=== PATIENT | male | born 1965 | race Caucasian/White ===

== ENCOUNTER 2025-03-16 13:44 | Emergency (ER) | payer BC, SELFPAY ==
[2025-03-16 13:49] VITALS: BP 154/90
--- NOTE | 2025-03-16 14:14 | ED.GENMED ---
History of Present Illness
General
Chief Complaint: Skin Problem
Time Seen by Provider: 03/16/25 14:14
History of Present Illness
History of Present Illness:
TIME OF INITIAL EVALUATION
- 2:15 PM
REVIEW OF OLD RECORDS
- The patient has a history of COPD, high blood pressure, diabetes, history of alcohol abuse. I reviewed old records, the patient was admitted with COPD exacerbation in July 2023.
Note:
CHIEF COMPLAINT(S)
Rod and blisters on both feet following suspected poison albaro exposure, with significant discomfort and swelling in one foot.
HISTORY OF PRESENT ILLNESS
The patient is a 60-year-old male who presented with rod and blisters on both feet after a suspected exposure to poison albaro during a fishing trip approximately three days ago. The patient reported that blisters formed on both feet and noted
discomfort and pain in the affected areas. He attempted to manage the blisters by popping them himself and mentioned applying salt, which caused a burning sensation. The blisters became more pronounced and he sought medical attention due to concern
about the condition and to determine whether further intervention was necessary.
On examination, the blisters appear consistent with superficial partial thickness rod, possibly early second-degree rod. The patient does not report any fever or signs of systemic infection. One blister was incised to evaluate fluid content,
which appeared clear, indicating no current infection. The patient expressed difficulty walking and standing due to pain and inquired about taking time off work for recovery.
Notably, the patient mentioned chronic swelling in one foot, unrelated to the blistering, which he attributes to a previous diagnosis of diabetes. He has not undergone recent blood work but expressed concern about his blood sugar management and was
noted to be experiencing hyperglycemia with a fingerstick showing blood sugar levels over 200 mg/dL.
CHRONIC MEDICAL CONDITIONS SIGNIFICANTLY AFFECTING CARE
Diabetes mellitus, previously diagnosed, currently with poor control as suggested by a fingerstick glucose level over 200 mg/dL. The patient has also noted chronic swelling in one foot, unrelated to the current rod.
PHYSICAL EXAM
General: Alert, in mild distress due to discomfort.
Skin: Warm, dry with blistering consistent with superficial partial thickness rod on both feet. There is sharp demarcation of erythema at mid thigh bilaterally on down to the feet consistent with superficial and superficial partial thickness
rod; one blister drained and clear fluid observed.
Cardiovascular: Mild bilateral right greater than left pedal edema
Neurological: Alert, oriented to person, place, time, and situation.
Musculoskeletal: Difficulty standing and walking reported due to foot discomfort, chronic appearing deformity noted at the right foot
PROBLEM LIST
Acute Problems:
- Superficial and superficial partial thickness rod with blistering on both feet.
- Pain and discomfort related to rod.
Chronic Problems:
- Possible diabetes mellitus
- Chronic swelling in one foot.
PLAN
- Application of Silvadene cream for topical antimicrobial treatment to prevent infection in the burn areas.
- Dressing applied to affected areas to protect from further trauma and infection.
- Prescription for additional Silvadene cream to be sent to the pharmacy, noted to be utilized as needed depending on burn healing status.
- Recommend rest and limited weight-bearing activity to reduce discomfort, with a note provided for time off work as requested.
- The patient advised to follow up with their primary care provider for further diabetes management, evaluation of chronic foot swelling, and potential adjustment of medications.
DIFFERENTIAL DIAGNOSIS
The Differential Diagnosis includes, in no particular order and is not limited to:
1. Superficial partial thickness rod (early second-degree) due to sun exposure
2. Contact dermatitis.
3. Secondary infection of skin lesions.
4. Diabetic neuropathy contributing to foot swelling.
5. Venous insufficiency causing chronic swelling.
6. Cellulitis as a potential if symptoms of infection develop.
7. Lymphedema.
8. Trauma causing foot swelling.
9. Gout.
10. Peripheral arterial disease with edema.
RADIOLOGY
- Not indicated
EKG
- Not indicated
LABS
- Blood glucose obtained as patient has not had labs in many months
UPDATE
- At patient's request, I did incise the largest blister over the lateral aspect of the left forefoot�this fluid was serous and no evidence of pus
SUMMARY OF ENCOUNTER
The patient, a 60-year-old male, was seen in the emergency department for rod and blisters on both feet following suspected poison albaro exposure during a fishing trip. The patient had attempted to manage the blisters at home by popping them and
applying salt, which worsened the condition. On examination, the blisters were consistent with superficial partial thickness rod. The patient expressed pain and difficulty walking, along with concern over the potential for infection. No signs of
systemic infection were observed. A note was provided for time off work due to pain and mobility issues.
ASSESSMENT
The patient presented with superficial partial thickness rod with blistering on both feet due to suspected poison albaro exposure. The rod were assessed to be early second-degree without current infection signs. One blister was incised and drained,
with clear fluid indicating no infection.
PLAN
- Apply a topical antimicrobial cream (Silver sulfadiazine) to the affected burn areas to prevent infection.
- Protective dressing applied to prevent further trauma and infection.
- Prescription for Silver sulfadiazine cream sent to the pharmacy for ongoing use.
- Advise patient to rest, limit weight-bearing activities, and follow provided note for work leave.
- Recommend follow-up with the primary care provider for further evaluation and management of diabetes and chronic foot swelling.
PATIENT EDUCATION AND COUNSELING
The patient was educated on proper burn care, including the application of Silver sulfadiazine cream and maintaining clean, dressed wounds. The importance of proper diabetes management to reduce the risk of complications, including delayed healing
and infection, was discussed.
FOLLOW-UP INSTRUCTIONS
The patient was advised to schedule a follow-up visit with their primary care provider for continued diabetes care and evaluation of chronic foot swelling. Work note given
MEDICATION RECONCILIATION
- Silver sulfadiazine cream: Prescription provided for topical application to prevent infection in burn areas.
MEDICAL DECISION MAKING
- Number and Complexity of Problems Addressed:
Chronic conditions affecting care include diabetes mellitus with poor glycemic control and chronic foot swelling. Differential diagnoses considered include superficial partial thickness rod, contact dermatitis, secondary infection of skin lesions,
among others.
- Data:
External records were not explicitly reviewed. The patients medical history and current conditions were considered.
My independent interpretation was based on the clinical assessment of burn severity and patient medical history.
- Risk:
Due to the patients diabetes and burn injuries, there is a moderate risk of complications if proper care and infection prevention strategies are not followed. Prescription medication was provided for burn care.
DIAGNOSIS
- Superficial partial thickness rod, unspecified (T30.0)
Past History
Past History
ED Past Medical History: COPD, HTN, Hypercholesterolemia, NIDDM (Diet Controlled), Psychiatric and Other (GI bleeding, PNA, Alcohol abuse, peripheral neuropathy)
ED Past Surgical History: Orthopedic
Social History
Tobacco: Smoker
Alcohol: Daily (Patient denies alcohol use to me)
Drug: None
Personal:
Living: alone
Employment: Employed
Family History
Family History: Other (Noncontributory)
Phy Exam
Physical Exam
Physical Exam:
See HPI
Course
Orders/Labs/Results
Orders:
Orders
03/16/25 14:22
Bedside Glucose- Treatment ONCE
Silver Sulfadiazine [Silvadene] See Dose Instructions TOPICAL NOW STA
Abnormal Lab Results
03/16/25
14:31
POC Glucose 121 H mg/dl
(70-99)
Vital Signs
Initial and Last Documented VS:
Initial Vital Signs
Temp Pulse Resp BP Pulse Ox
36.3 C 87 18 154/90 85
03/16/25 13:49 03/16/25 13:49 03/16/25 13:49 03/16/25 13:49 03/16/25 13:49
Last Documented Vital Signs
Temp Pulse Resp BP Pulse Ox
36.3 C 87 18 154/90 93
03/16/25 13:49 03/16/25 13:49 03/16/25 13:49 03/16/25 13:49 03/16/25 14:16
*Pulse Oximetry
SaO2: 93
Nasal Cannula flow liters per minute: 2
Oxygen Mode of Delivery: Room air
Patient hypoxic: yes (Patient is chronically on nasal cannula oxygen related to COPD and has no new shortness of breath)
*Critical Care Note
Total Time (30-74mins, 75-104mins- exclusive of procedures): Not Applicable
ED Attending Note
-
Portions of this chart may have been created with voice recognition software.� Occasional wrong word or��sound alike� substitutions may have occurred due to the inherent limitations of voice recognition software.
Discharge Plan
Departure
Patient Disposition: Home (Routine Discharge)
Date of Disposition: 03/16/25
Time of Disposition: 14:55
Patient with high blood pressure during this ER visit?: Yes
Discharge Problem:
Superficial partial thickness burn of foot
Instructions: Sunburn ED, BLOOD PRESSURE
Prescriptions:
New
silver sulfadiazine [Silvadene] 1 % cream
1 applic topical BID Qty: 50 0RF
No Action
zolpidem 5 mg tablet
5 mg PO HS PRN (Reason: SLEEP)
Rx Instructions:
07/14/2023, patient filled this medication on 03/02/2023 for 30 tablets according to PDMP.
trazodone 50 mg Tablet
50 mg PO HS Qty: 30 2RF
cefdinir 300 mg Capsule
300 mg PO Q12 Qty: 4 0RF
bupropion HCl 150 mg Tablet Extended Release 24 Hr
150 mg PO DAILY Qty: 30 2RF
metronidazole 500 mg tablet
500 mg PO Q8H 2 Days Qty: 6 0RF
atorvastatin 10 mg Tablet
10 mg PO DAILY Qty: 30 2RF
aspirin [Children's Aspirin] 81 mg Tablet,Chewable
81 mg PO DAILY Qty: 30 2RF
albuterol sulfate 90 mcg/actuation HFA aerosol inhaler
2 puff inhalation Q6H PRN (Reason: shortness breath) Qty: 8.5 0RF
verapamil 120 mg Tablet
120 mg PO DAILY Qty: 30 2RF
prednisone 10 mg Tablet
See Rx Instructions .ROUTE .COMPLEX Qty: 30 0RF
Rx Instructions:
Take By Mouth:
40 mg daily x3 days, 30 mg daily x3 days,
20 mg daily x3 days, 10 mg daily x3 days.
Referrals:
Germania Ferguson MD [Family Provider, Internal Medicine]
Stand Alone Forms: Return to Work
Activity Restrictions/Additional Instructions:
Your blood sugar is relatively normal at 121 therefore I feel that we can hold off on oral antibiotics. I am placing you on Silvadene which is basically a topical antibiotic. This would help prevent infection. I see no sign of infection
currently. I recommend that you use the Silvadene twice daily over the next several days. Return here if worse or other concerns.
Interventions
Interventions:
*Risk Screen - Suicide Last Done: 03/16/25 13:49
*General Assessment Last Done: 03/16/25 13:49
*Neglect/Abuse Screening Last Done: 03/16/25 13:49
*ED- Fall Risk Assessment Last Done: 03/16/25 14:11
*ED COVID-19 Vaccine History Last Done: 03/16/25 14:11
ED-Skin Assessment Last Done: 03/16/25 14:11
Discharge Date and Time
Print Language: [id number]
[2025-03-16 14:33] LABS: Glucose - Point of Care 121 mg/dl (70-99)
== END 2025-03-16 15:00 | disposition home or self-care (01) ==
LOC: EMR 13:44
PROVIDERS: EMERGENCY PHYSICIAN Emergency Medicine; FAMILY PHYSICIAN Student in an Organized Health Care Education/Training Program
DX: T25.229A Burn of second degree of unspecified foot, initial encounter (principal); X58.XXXA Exposure to other specified factors, initial encounter; J44.9 Chronic obstructive pulmonary disease, unspecified; I10 Essential (primary) hypertension; F10.10 Alcohol abuse, uncomplicated; E11.42 Type 2 diabetes mellitus with diabetic polyneuropathy; E78.00 Pure hypercholesterolemia, unspecified; F17.200 Nicotine dependence, unspecified, uncomplicated
CPT/HCPCS: 99282; 82962

== ENCOUNTER → 2025-03-27 08:00 | Outpatient (REF) | payer BC, SELFPAY | LOC: WOUND 08:00 | PROVIDERS: ATTENDING PHYSICIAN Surgery; FAMILY PHYSICIAN Student in an Organized Health Care Education/Training Program | DX: T25.622A Corrosion of second degree of left foot, initial encounter (principal); T25.231A Burn of second degree of right toe(s) (nail), initial encounter; I10 Essential (primary) hypertension; E11.42 Type 2 diabetes mellitus with diabetic polyneuropathy; L55.9 Sunburn, unspecified | CPT/HCPCS: 99203 ==

== ENCOUNTER → 2025-04-03 09:10 | Outpatient (REF) | payer BC, SELFPAY | LOC: WOUND 09:10 | PROVIDERS: ATTENDING PHYSICIAN Surgery; FAMILY PHYSICIAN Student in an Organized Health Care Education/Training Program | DX: T25.622A Corrosion of second degree of left foot, initial encounter (principal); T25.231A Burn of second degree of right toe(s) (nail), initial encounter; I10 Essential (primary) hypertension; E11.42 Type 2 diabetes mellitus with diabetic polyneuropathy | CPT/HCPCS: 99212 ==

== ENCOUNTER 2025-06-25 00:23 | Inpatient (IN) | payer BC, SELFPAY ==
[2025-06-24 20:45] VITALS: BMI 20.5
[2025-06-24 20:57] VITALS: BP 127/83
[2025-06-24 21:06] LABS: Hematocrit 55.6 % (39.0-52.0); Hemoglobin 16.6 g/dL (13.0-18.0); Mean Corp Hgb Conc. 29.9 g/dL (33.0-37.0); Mean Corpuscular Volume 98.9 fL (80.0-94.0); Nucleated Red Blood Cells % 0 % (-); Platelet Count 235 10^3/uL (130-400); Red Cell Dist. Width 15.0 % (11.5-14.5)
[2025-06-24 21:32] LABS: Troponin I 0.029 ng/ml
[2025-06-24] MEDS: VENTOLIN NEBULES 7.5 MG INH ×2 (21:33→23:47)
[2025-06-24] MEDS: DUONEB 3 ML INH (21:33)
[2025-06-24 21:34] LABS: ALT (SGPT) 18 U/L (0-50); AST (SGOT) 34 U/L (17-59); Albumin 3.6 g/dl (3.5-5.0); Alkaline Phosphatase 60 U/L (38-126); Blood Urea Nitrogen 11 mg/dl (9-20); Calcium 9.2 mg/dl (8.4-10.2); Chloride 90 mmol/L (98-107); Estimated Creatinine Clearance > 125 ml/min; Glucose 144 mg/dl (70-99); Potassium 4.4 mmol/L (3.5-5.1); Sodium 135 mmol/L (135-145); Total Protein 6.6 g/dl (6.3-8.2); eGFR > 60.00
[2025-06-24] MEDS: DECADRON 10 MG IV (21:34)
[2025-06-24 21:45] LABS: Carbon Dioxide 47 mmol/L (22-30)
[2025-06-24 22:26] VITALS: BP 128/93
[2025-06-24 23:00] VITALS: BP 126/77
--- NOTE | 2025-06-24 23:09 | ED.GENMED ---
History of Present Illness
General
Chief Complaint: Chest Pain
Source: patient and family
Exam Limitations: none
Time Seen by Provider: 06/24/25 21:19
History of Present Illness
History of Present Illness:
60-year-old male increased shortness of breath today. No preceding URI symptoms. Some episodes of sharp localized chest pain. No true pleuritic pain. Patient on oxygen at morning and night.
Past History
Past History
ED Past Medical History: COPD, HTN, Hypercholesterolemia, NIDDM (Diet Controlled), Psychiatric and Other (GI bleeding, PNA, Alcohol abuse, peripheral neuropathy)
ED Past Surgical History: Orthopedic
Social History
Tobacco: Smoker
Alcohol: Daily (Patient denies alcohol use to me)
Drug: None
Personal:
Living: alone
Employment: Employed
Family History
Family History: Other (Noncontributory)
Review of Systems
Review of Systems
All Other Systems: Not applicable
Constitutional: Denies fever
ABD/GI: Reports no symptoms
Phy Exam
Physical Exam
Physical Exam:
GENERAL: Alert and oriented. Mild tachypnea at rest and with speaking
EYE: Orbits normal.
NECK: Supple, no significant adenopathy.
ENT: Pharynx without erythema
CARDIAC: Regular rate and rhythm without any obvious murmurs.
LUNGS: Mild diffuse expiratory wheezing and decreased breath sounds diffusely. Mild tachypnea
ABDOMEN: Soft, without focal tenderness or distention
NEUROLOGICAL: Alert and oriented , grossly non-focal
SKIN: Warm and dry, no rash or lesion, no discoloration, skin intact.
MUSCULOSKELETAL: Chronic edema to the left ankle
PSYCH: Normal and appropriate interaction.
Scores
Heart Score for Chest Pain Patients
STEMI patient?: Not applicable
Course
Orders/Labs/Results
Orders:
Orders
06/24/25 20:44
Electrocardiogram (*1) Urgent
Reason for Study: Chest Pain
Cardiac Monitoring- Treatment ONCE
EKG- Treatment ONCE
IV Insert/Care/Rem.- Treatment PRN
O2 Therapy [RESP] Urgent
Titrate/Wean O2 to maintain O2 sat greater than (%): 90
Special Instructions: Maintain sats >/=90%
Pulse Ox/spot Check [RESP] Urgent
Quantity: 1
Special Instructions: ON ROOM AIR
06/24/25 20:59
Complete Blood Count/With Diff Urgent
Comprehensive Metabolic Panel Urgent
Troponin I Urgent
CXR Port [CR Chest Portable - 1 View] Urgent
Comment:
Reason For Exam: sob
Reason Study Needs to be Portable: Patient Unstable
06/24/25 21:25
IV Insert/Care/Rem.- Treatment PRN
Albuterol Sulfate [Ventolin Nebules] 7.5 mg INH R NOW STA
Dexamethasone Sod Phosphate [Decadron] 10 mg IV NOW STA
Ipratropium/Albuterol Sulfate [Duoneb] 3 ml INH R NOW STA
Pulse Ox/cont/shift [RESP] Stat
Quantity: 1
06/24/25 23:05
COVID-19 Antigen Urgent
Source: Nasal Swab
06/24/25 23:41
Albuterol Sulfate [Ventolin Nebules] 7.5 mg INH R NOW STA
06/25/25 00:08
Admit/Transfer Patient As Directed
Co-Sign Provider:
Level of Care: Inpatient admission
Assign to:: Telemetry
Physician / Group: Nam
Diagnosis: AE-COPD
Reason for Telemetry: Arrhythmia
Date to Stop Telemetry: 06/28/25
Time to Stop Telemetry: 11:00
Reason for Hospitalization: AE-COPD
Expected length of stay greater than two midnights?: Yes
ELOS- Estimated Length of Stay in days: 3
I certify the patient meets the requirements for IP care: Yes
PRN Pain Medication Management As Directed
May give lesser potent ordered pain med per pt: Yes
preference::
Protocol:: Medication orders for pain may be administered in a
manner that supports deferring to patient preference
when the pt is:
- Requesting an ordered lesser potent pain medication.
Least to most potent pain medications are defined
as: acetaminophen < NSAID < tramadol < opioids
(morphine, oxycodone, hydromorphone).
- Requesting a lesser dose of the same medication IF
ORDERED.
- Requesting a less intrusive route of administration
if both routes are prescribed by the provider (PO <
IV).
06/25/25 00:09
Code Status As Directed
Resuscitation Status: Full Code
06/25/25 00:25
Acetaminophen [Tylenol] 650 mg PO Q4HPRN PRN
Albuterol Nebs [Ventolin Nebules] 2.5 mg INH R Q4HPRN PRN
Dextrose 50%-Water [Dextrose 50% Syringe] 12.5 grams IV [id number] PRN
Glucagon [GlucaGen] 1 mg IM PRN PRN
06/25/25 00:25
Activity As Directed
Activity Level: Ambulate
With Assistance
Bedside Glucose Monitoring As Directed
Frequency: AC&HS
Additional Instructions:: Change to q6h if pt on TPN, tube feeding or not eating
Bladder Scan As Directed
Follow Bladder Retention/Intermittent Cath Algorithm?: Yes
PRN if no void in __ hours: 6
Frequency: Per Retention Algorithm
If Bladder Scan Result >: 400
then:: Straight cath
EKG with chest pain [ECG as needed] As Directed
ECG as needed for:: Chest Pain
I/O [Intake/ Output] As Directed
Frequency: Per unit guidelines
Straight Cath As Directed
Frequency: Per Retention Algorithm
Additional Instructions: straight cath as needed per acute urinary retention algorithm for 24 hrs
Additional Instructions: for bladder scan greater than 400 mL
Vital Signs As Directed
Frequency: Per unit guidelines
Weight As Directed
Frequency: Daily
Oxygen Therapy [O2 Therapy] [RESP] Routine
Titrate/Wean O2 to maintain O2 sat greater than (%): 94
DX Deep Vein Thrombosis Video Routine
06/25/25 00:27
ABG [Arterial Blood Gas] Urgent
%Oxygen/Room Air: RA
06/25/25 Breakfast
2000 calorie (17 carb) Diabetic
Basic Metabolic Panel IN AM
Complete Blood Count/No Diff IN AM
Glycohemoglobin (HgbA1c) IN AM
06/25/25 07:30
Insulin Aspart Corrective Low [Novolog Flexpen-Low Resistance] See Protocol SC AC
06/25/25 08:00
Budesonide [Pulmicort] 0.5 mg INH R BID
Ipratropium/Albuterol Sulfate [Duoneb] 3 ml INH R QID
MethylPREDNISolone PF [Solu-Medrol Pf] 40 mg IV Q12H
06/25/25 18:00
Enoxaparin Sodium [Lovenox] 40 mg SC QPM
06/28/25 11:00
DC Protocol for Telemetry ONCE
Abnormal Lab Results
06/24/25
20:59
Hct 55.6 H %
(39.0-52.0)
MCV 98.9 H fL
(80.0-94.0)
MCHC 29.9 L g/dL
(33.0-37.0)
RDW 15.0 H %
(11.5-14.5)
Absolute Monos (auto) 0.7 H 10^3/uL
(0.1-0.6)
Chloride 90 L mmol/L
(98-107)
Carbon Dioxide 47 H mmol/L
(22-30)
Creatinine 0.6 L mg/dL
(0.7-1.3)
Glucose 144 H mg/dl
(70-99)
06/24/25 20:59
06/24/25 20:59
Vital Signs
Initial and Last Documented VS:
Initial Vital Signs
Temp Pulse Resp Pulse Ox
98.2 F 111 18 90
06/24/25 20:47 06/24/25 20:47 06/24/25 20:47 06/24/25 20:47
Last Documented Vital Signs
Temp Pulse Resp BP Pulse Ox
98.2 F 109 16 127/83 91
06/24/25 20:47 06/24/25 20:57 06/24/25 20:57 06/24/25 20:57 06/24/25 23:10
*Radiology
Radiology exam reviewed: preliminary read by ED provider (No acute findings) and radiology read reviewed (Hyperinflation.)
*Pulse Oximetry
SaO2: 91
Nasal Cannula flow liters per minute: 4
Patient hypoxic: yes
*EKG
Interpreted by ED Provider?: Yes
Interpretation: abnormal
Comparison EKG: changes noted
Heart Rate: 113
Rate: tachycardiac
Rhythm: sinus
Bell: normal axis
Interval: normal interval
QRS Pattern: normal QRS
Ischemia: no ischemia
*Technical Account Representative Interpretation
Rate: normal
Interpretation: normal
Heart Rate: 96
Rhythm: sinus
*Critical Care Note
Total Time (30-74mins, 75-104mins- exclusive of procedures): Not Applicable
Update Note
Update Note:
No significant change after multiple nebulizers. Still diffuse expiratory wheezing. Warrants admission. COVID-negative chest x-ray stable. Highly doubt pulmonary emboli
ED Attending Note
-
Portions of this chart may have been created with voice recognition software.� Occasional wrong word or��sound alike� substitutions may have occurred due to the inherent limitations of voice recognition software.
Discharge Plan
Departure
Patient Disposition: Admit
Date of Disposition: 06/24/25
Time of Disposition: 23:41
Presentation/result/management discussed w/ accepting MD/DO: Hospitalist
Discharge Problem:
Respiratory distress/COPD exacerbation
Interventions
Interventions:
*Risk Screen - Suicide Last Done: 06/24/25 20:52
*General Assessment Last Done: 06/24/25 20:52
*Neglect/Abuse Screening Last Done: 06/24/25 20:52
*ED- Fall Risk Assessment Last Done: 06/24/25 20:52
*ED COVID-19 Vaccine History Last Done: 06/24/25 20:52
*ED Influenza Vaccine History Last Done: 06/24/25 20:52
ED- Cardiac Assessment Last Done: 06/24/25 20:55
[2025-06-24 23:24] LABS: COVID-19 Antigen Negative (Negative)
[2025-06-25] VITALS (15 sets, daily range): BP systolic 116–157; BP diastolic 70–98; PULSE 94; O2SAT 95; BMI 20.5; BMI 18.7
--- NOTE | 2025-06-25 00:13 | HPS.HSE ---
Family Physician
-
Family Physician: Germania Ferguson MD
Chief Complaint
-
SOB
History of Present Illness
Patient is a 60y M with PMH significant for COPD, hypertension and DM-II who presents to ED complaining of SOB. Patient states that he has had progressive/ gradually worsening SOB over the past 8 months or so. he notes that he has been without
medications of any kind for the past 8 months as he has not had insurance coverage. He recently obtained insurance. His dyspnea has worsened and he presents to the ED this evening for further evaluation.
Patient states that he has been using Primatene Mist inhalers PRN. No other current medications.
He denies any cough, fevers / chills, chest pain, etc.
Medical History
Past Medical History
Past Medical History: Reports Other
Additional Past Medical History:
Essential Hypertension
Hyperlipidemia
Diabetes Mellitus
Peripheral Neuropathy
COPD
GERD
Anxiety/Depression
Alcohol Use Disorder - Sober since Aug 2022
Cavitary Pneumonia - 2022
Past Surgical History: Reports Other
Additional Past Surgical History:
Right TKA
Carpal Tunnel Release (x 2)
Social History
Tobacco: Former Smoker ((Half Pack per Day). > 40 pack years total use. Quit smoking 1 year ago.)
Alcohol: Former (History of heavy alcohol use. None since 08/2022.)
Family History
Family History: Other (Mother: CVA Father: Pancreatic Cancer)
Allergies / Home Medications
Allergies reflects when Allergies were last updated in [employer].
Home Medications with original date entered in [employer]
Allergy/Medication List:
Allergies
Allergy/AdvReac Type Severity Reaction Status Date / Time
Fish Containing Products Allergy Swelling/burning Verified 03/16/25 13:48
sensation
in throat
Penicillins Allergy Itching/scratchy Verified 03/16/25 13:48
throat 40
years
ago/cefepime
04/04/22
admiss
Home Medications
No Meds [No Current Medications] 06/25/25
Review of Systems
-
History Source: Patient
A 12 point ROS was completed and negative except as noted: Yes
Constitutional: Reports Fatigue; Denies Fever or Chills
Respiratory: Reports Trouble Breathing; Denies Cough or Hemoptysis
Cardiac: Denies Chest Pain or Palpitations
Abdomen/GI: Denies Abdominal Pain, Nausea, Vomiting or Diarrhea
: Denies Dysuria, Frequency or Flank Pain
Musculoskeletal: Denies Joint Pain or Edema
Neurological: Denies Dizzy or Headache
Psych: Denies Depression or Anxiety
Physical Exam
Vital Signs
Vital Signs
Temp Pulse Resp BP Pulse Ox
98.2 F 109 16 127/83 91
06/24/25 20:47 06/24/25 20:57 06/24/25 20:57 06/24/25 20:57 06/24/25 23:10
Physical Exam
General: Other (60y M in mild distress due to SOB.)
HEENT: Moist mucous membranes and Other (Neck supple.)
Respiratory: Other (Diffuse expiratory wheezes and scattered rhonchi. No rales.)
Cardiac: S1/S2 and Regular Rhythm; No Murmur
GI: Soft, Non Tender, Non Distended and Normal Bowel Sounds
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
Neuro: AO x 3
Laboratory Results
-
06/24/25 20:59
06/24/25 20:59
Laboratory Results
Total Bilirubin 0.9 mg/dl (0.2-1.3) 06/24/25 20:59
AST 34 U/L (17-59) 06/24/25 20:59
ALT 18 U/L (0-50) 06/24/25 20:59
Alkaline Phosphatase 60 U/L (38-126) 06/24/25 20:59
Troponin I 0.029 ng/ml 06/24/25 20:59
Impression/Plan
-
A/P: Patient is a 60y M with PMH significant for COPD, hypertension and DM-II who presents to ED complaining of 8 months of progressive SOB.
AE-COPD
Acute Hypoxemic Respiratory Failure secondary to the above
Chronic Hypoxemic and Hypercapnic Respiratory Insufficiency
- Admit for further evaluation and treatment.
- Patient with hypoxemia with RA SpO2 = 84% on arrival requiring supplemental O2.
- Metabolic alkalosis suggestive of chronic hypercapnia.
- Polycythemia suggestive of chronic hypoxemia.
- Check ABG now for further evaluation.
- IV steroid, nebs, budesonide, O2 support, etc.
- +/- NIPPV depending on ABG results.
- Follow for clinical improvement.
- Restart maintenance medication regimen for COPD and other chronic conditions.
Benign Hypertension
- BP not elevated at present despite not being on usual medications.
- Monitor for now and begin antihypertensive medications if necessary.
DM-II
- Not significantly hyperglycemic at present.
- Follow glucose and cover with SSI as needed.
- Update A1C.
DVT Prophylaxis: Lovenox
Code Status: Full
[2025-06-25 00:39] LABS: B.E. 17.2 mmol/L; O2 Saturation % 92.9 % (94-98); PO2 62 mmHg (83-108)
[2025-06-25 00:41] LABS: HCO3 46.9 mmol/L (21-28); PCO2 74 mmHg (35-48)
--- NOTE | 2025-06-25 00:58 | RESPNOTE ---
received message from ED RN stating MD ordered bipap for pt. bipap not indicated per ABG or pt presentation. RN notified.
--- NOTE | 2025-06-25 02:18 | DOWNTIME ---
There was a [employer] Downtime on 06/25/2025 from 0100 to 06/25/2025 at 0215. Downtime documentation of patient's care, including medication administrations, has been reconciled in the electronic record per guidelines. Refer to the
patient's paper chart under the miscellaneous tab to see printed paper medication records and downtime forms.
[2025-06-25 05:25] LABS: Hematocrit 49.2 % (39.0-52.0); Hemoglobin 15.5 g/dL (13.0-18.0); Mean Corp Hgb Conc. 31.5 g/dL (33.0-37.0); Mean Corpuscular Volume 94.8 fL (80.0-94.0); Platelet Count 197 10^3/uL (130-400); Red Cell Dist. Width 14.7 % (11.5-14.5)
[2025-06-25 05:58] LABS: Blood Urea Nitrogen 14 mg/dl (9-20); Calcium 9.1 mg/dl (8.4-10.2); Carbon Dioxide 39 mmol/L (22-30); Chloride 93 mmol/L (98-107); Estimated Creatinine Clearance > 125 ml/min; Glucose 159 mg/dl (70-99); Potassium 4.5 mmol/L (3.5-5.1); Sodium 133 mmol/L (135-145); eGFR > 60.00
[2025-06-25] MEDS: DUONEB 3 ML INH ×4 (08:34→19:17)
[2025-06-25] MEDS: PULMICORT 0.5 MG INH ×2 (08:34→19:17)
[2025-06-25 08:39] LABS: Glycohemoglobin (HgbA1c) 5.6 % (4.0-5.6)
--- NOTE | 2025-06-25 08:43 | W.PN.HOSP.TC ---
Addendum entered and electronically signed by Earle Reyes MD 06/25/25 13:45:
Stop gabapentin and reevaluate
Addendum entered and electronically signed by Earle Reyes MD 06/25/25 12:52:
Will also do a one-time dose of tramadol. Will check Doppler right lower extremities to rule out DVT
Original Note:
Today's Communication/Plan
-
Steroids and bronchodilator
Assessment / Plan
Assessment / Plan
Physical exam:
General: Acute on chronically ill
HEENT: Normocephalic, Atraumatic and Moist Mucous Membranes
Respiratory: Decreased breath sounds bilateral; Negative Rales
Cardiac: Regular Rhythm and S1/S2
GI: Soft, Nontender and Nondistended
Musculoskeletal: No Clubbing, No Cyanosis and No Edema
Neuro: Awake, Alert and Oriented, no neurological deficit
Psych: Calm
A/P:
AE-COPD
Acute Hypoxemic Respiratory Failure secondary to the above/Chronic Hypoxemic and Hypercapnic Respiratory failure:
Continue IV Solu-Medrol 40 mg every 12 hours
Continue bronchodilators as needed
Continue Pulmicort twice a day
Pulmonary consult
Reviewed blood gas shows evidence of chronic hypercapnia with compensated metabolic alkalosis and chronic hypoxemia.
Seen chest x-ray
Probable peripheral neuropathy:
Start gabapentin low-dose and with careful attention of respiratory status
Benign Hypertension
- BP not elevated at present despite not being on usual medications.
- Monitor for now and begin antihypertensive medications if necessary.
DM-II
- Not significantly hyperglycemic at present.
- Follow glucose and cover with SSI as needed.
- Update A1C.
DVT Prophylaxis: Lovenox
Code Status: Full
Anticipated Discharge: 24 - 48 hours
Subjective/Interval History
-
Date of Service: June 25, 2025
Patient alert and oriented. Does have some dry cough and shortness of breath. Afebrile. Complains of bilateral lower extremities pain with paresthesias
Objective Data
-
Labs:
Laboratory Results
06/24/25 06/25/25 06/25/25
20:59 00:27 05:09
WBC 8.4 6.3
Hgb 16.6 15.5
Hct 55.6 H 49.2
Plt Count 235 197
HCO3 46.9 H*
Sodium 135 133 L
Potassium 4.4 4.5
Chloride 90 L 93 L
Carbon Dioxide 47 H 39 H
BUN 11 14
Creatinine 0.6 L 0.5 L
Glucose 144 H 159 H
Calcium 9.2 9.1
Total Bilirubin 0.9
AST 34
ALT 18
Alkaline Phosphatase 60
Vital Signs:
Vital Signs
Temp Pulse Resp BP Pulse Ox
98.2 F 80 30 129/75 97
06/24/25 20:47 06/25/25 08:34 06/25/25 08:34 06/25/25 02:00 06/25/25 06:30
[2025-06-25] MEDS: NOVOLOG FLEXPEN-LOW RESISTANCE SC (09:20)
[2025-06-25 09:21] LABS: Glucose - Point of Care 123 mg/dl (70-99)
[2025-06-25] MEDS: SOLU-MEDROL PF 40 MG IV ×2 (09:22→20:02)
--- NOTE | 2025-06-25 11:37 | CON.PUL ---
Consultation
Consultation Request
Date/Time Consultation Requested: 06/25/25
Date/Time Consultation Performed: 06/25/25
Performing Provider: Krystal
Reason for Consultation: AE COPD
Medical History
-
History of Present Illness:
Patient is a 60 year old M with PMH significant for COPD, hypertension and DM-II who presents to ED complaining of SOB. Patient states that he has had progressive/ gradually worsening SOB over the past 8 months or so. He notes that he has been
without medications of any kind for the past 8 months as he has not had insurance coverage. He recently obtained insurance. His dyspnea has worsened and he presents to the ED this evening for further evaluation. Patient states that he has been
using Primatene Mist inhalers PRN. No other current medications.
Did not follow up in office after last hospitalization in 2022. Quit smoking 3 years ago, has not resumed per patient.
Past Medical History
Past Medical History: Other (see list below)
Social History
Tobacco: Former Smoker
Alcohol: None
Drug: None
Family History
Family History: Reviewed & Not Pertinent
Allergies / Home Medications
Allergies
Allergy/AdvReac Type Severity Reaction Status Date / Time
Fish Containing Products Allergy Swelling/burning Verified 03/16/25 13:48
sensation
in throat
Penicillins Allergy Itching/scratchy Verified 03/16/25 13:48
throat 40
years
ago/cefepime
04/04/22
admiss
Home Medications
�Medication �Instructions �Recorded �Confirmed �Last Taken �Type
No Meds [No Current Medications] 06/25/25 06/25/25 Unknown History
Review of Systems
-
History Source: Patient
All other systems: Negative unless noted
Vitals / Labs / Diagnostic Testing
Vital Signs
Temp Pulse Resp BP Pulse Ox
98.3 F 91 20 152/70 92
06/25/25 09:28 06/25/25 11:19 06/25/25 10:45 06/25/25 10:00 06/25/25 11:00
Lab Data
06/25/25 05:09
06/25/25 05:09
Laboratory Results
06/25/25
00:27
pH 7.41
pCO2 74 H*
pO2 62 L
HCO3 46.9 H*
O2 Delivery Level
Diagnostic Testing:
Physical Exam
-
HEENT: Normocephalic, Anicteric and Moist Mucous Membranes
Cardiovascular: S1/S2 and Regular Rhythm
Respiratory: Clear (overall decreased BS BL), Non-Labored Respirations and Other (barrel chest noted)
GI: Soft, Non Distended and Non Tender
Neurology: Awake, Alert, Oriented and No Motor Deficits
Skin: Warm, Dry and Good Color
General: Comfortable and Other (NAD)
Assessment
-
Patient is a 60 year old M with PMH significant for COPD, hypertension and DM-II who presents to ED complaining of SOB. Patient states that he has had progressive/ gradually worsening SOB over the past 8 months or so. He notes that he has been
without medications of any kind for the past 8 months as he has not had insurance coverage. He recently obtained insurance. His dyspnea has worsened and he presents to the ED this evening for further evaluation. Patient states that he has been
using Primatene Mist inhalers PRN. We are consulted for evaluation.
AE COPD
Ongoing tobacco abuse
Weight loss since 2021
BL LE Pain
Chronic hypercarbia present
Conditions present prior to admission:
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
Acute hypercapnic respiratory failure requiring intubation/sepsis/narcotic use for pain.
Intubated 07/28/2022: Extubated 08/04/2022
S/p Cardiac Arrest/Maurizio/Asystole, ROSC with CPR
Acute renal insufficiency, hyperkalemia
Requiring emergent HD 07/29
Mild aortic stenosis per echo June 2021
Normal biventricular function
History of GI bleed, duodenal ulcer 2018
Significant alcohol use, 6 pack of beer/day, ongoing
Hypertension/hyperlipidemia
Diabetes
History of recurrent COPD exacerbation, multiple hospital stays
Chronic bronchitis
50 pack year history smoking, ongoing
Insomnia
Chronic back pain, chronic oxycodone therapy (4-6 tablets a day �15 years)
Suspected sleep disorder breathing
Family history lung cancer (mother), pancreatic cancer (father)
History of left upper lobe cavitary lesion has developed since September 2022 s/p bronch/negative
Plan:
Appears nontoxic
Nebulizers as needed-minimal bronchospasm at this time.
Has not been seen as OP for FU
Did not follow up in office after last hospitalization in 2022. Quit smoking 3 years ago, has not resumed per patient.
Last PFT in 2018 w/ moderate obstruction
History of left upper lobe cavitary lesion has developed since September 2022.
During last admission in September patient had waxing waning patchy airspace disease aspiration was highly suspected.
Doubt carcinoma based on above.
History of MRSA positive sputum Culture in Apr.
s/p Bronchoscopy 12/28/22-left upper lobe-Lymph node station 11 R-negative for malignant cells, lymph node station 10 R-negative for malignant cells, lymph node station 4R-negative for malignant cells, lymph node station 7-negative for malignant
cells, lymph node station 4 L-negative for malignant cells, station 11 L-negative for malignant cells, left lower lobe BAL and brushings negative for malignant cells, left lingula- BAL negative for malignant cells, left lingula- brushings negative
for malignant cells
Repeat CXR this admission w/o consolidations
GI following-correspondence reviewed
Modified barium swallow 12-23-22: persistent laryngeal penetration of barium without associated aspiration, normal thoracic esophagus
Aspiration precautions
AE COPD suspected, has not had treated
Started on IV steroids
Will obtain bedside PFT
Check PCT to r/o infection
Chronic Co2 retention noted, compensated
ABG 7.41/74 would need BIPAP overnight but not sure if he will tolerate
BIPAP ordered
LE pain, could be due to neuropathy vs vascular issues
Duplex ordered, will check ABIs
Defer further w/u to team
DVT prophylaxis -on Lovenox
Has been told to follow up at our office in past on numerous occasions, but has not followed through
He again was encouraged to make appointment to follow-up. Patient is having insurance issues/cannot afford meds
I discussed this again with him today
Will follow
Diagnostic Data
CXR 06/24/25- 1. Severe bilateral lung hyperinflation.
2. Chronic peripheral scarring in the left upper lobe at the site of previous severe pneumonia.
3. Mild chronic pulmonary arterial hypertension.
Echocardiogram 08/01/2022:�Showed normal biventricular size and function.� LVEF 50 to 55%.� Moderate LVH.� Mild MR.� Mild to moderate TR.� Moderate elevated pulmonary artery pressures.
PFT 2019: FEV1 2.43L 53%, ratio 61 (moderate obstruction)
Total time spent on this consultation/encounter __55__ minutes which includes review of history, physical exam, medications, laboratory data, personal review of imaging, extensive review of outpatient records, discussion with care team and
respiratory therapy.
--- NOTE | 2025-06-25 12:26 | EDCM ---
CM reviewed chart and met with pt bedside in ED. Lives with his SO in 2 story home, [address], has first floor full bath, full flight to second floor bedroom.
Independent in ADLs, personal care and ambulation. No assistive devices. Still drives and work at [employer] in [place].
Confirms prescription coverage.
Hx [facility] and [employer] for STR in past.
Does not currently have PCP
Pharmacy: [facility]
Anticipate discharge home, CM will continue to follow for all discharge planning needs.
[2025-06-25 12:54] LABS: Glucose - Point of Care 199 mg/dl (70-99)
[2025-06-25] MEDS: ULTRAM 50 MG PO ×2 (13:38→23:08)
[2025-06-25] MEDS: NOVOLOG FLEXPEN-LOW RESISTANCE 1 UNITS SC ×2 (13:39→16:26)
[2025-06-25 16:26] LABS: Glucose - Point of Care 182 mg/dl (70-99)
[2025-06-25] MEDS: LOVENOX 40 MG SC (16:26)
[2025-06-25] MEDS: GLUCOPHAGE 500 MG PO (16:26)
[2025-06-25 17:04] LABS: Procalcitonin < 0.05 ng/ml (0.0-0.25)
[2025-06-25 18:11] LABS: Glucose - Point of Care 120 mg/dl (70-99)
[2025-06-25] MEDS: TYLENOL 650 MG PO (18:23)
[2025-06-25] MEDS: DILAUDID 0.5 MG IV (18:37)
[2025-06-25 21:12] LABS: Glucose - Point of Care 148 mg/dl (70-99)
[2025-06-25] MEDS: DESYREL 25 MG PO (21:35)
[2025-06-26] VITALS (7 sets, daily range): BP systolic 127–157; BP diastolic 73–104; PULSE 2–84; BMI 18.7
[2025-06-26] MEDS: TYLENOL 650 MG PO (02:56)
[2025-06-26] MEDS: PULMICORT 0.5 MG INH (07:08)
[2025-06-26] MEDS: DUONEB 3 ML INH ×2 (07:09→15:17)
[2025-06-26 07:41] LABS: Glucose - Point of Care 93 mg/dl (70-99)
[2025-06-26] MEDS: NOVOLOG FLEXPEN-LOW RESISTANCE SC ×3 (08:13→17:15)
[2025-06-26] MEDS: GLUCOPHAGE 500 MG PO ×2 (08:16→17:15)
[2025-06-26] MEDS: ULTRAM 50 MG PO (08:16)
[2025-06-26] MEDS: SOLU-MEDROL PF 40 MG IV (08:17)
[2025-06-26 08:18] LABS: Blood Urea Nitrogen 13 mg/dl (9-20); Calcium 9.4 mg/dl (8.4-10.2); Carbon Dioxide 39 mmol/L (22-30); Chloride 97 mmol/L (98-107); Estimated Creatinine Clearance 122 ml/min; Glucose 101 mg/dl (70-99); Potassium 5.1 mmol/L (3.5-5.1); Sodium 140 mmol/L (135-145); eGFR > 60.00
[2025-06-26 08:51] LABS: Hematocrit 52.2 % (39.0-52.0); Hemoglobin 16.7 g/dL (13.0-18.0); Mean Corp Hgb Conc. 32.0 g/dL (33.0-37.0); Mean Corpuscular Volume 92.6 fL (80.0-94.0); Platelet Count 244 10^3/uL (130-400); Red Cell Dist. Width 15.4 % (11.5-14.5)
--- NOTE | 2025-06-26 10:59 | W.PN.PUL3 ---
Today's Communication / Plan
-
PFT w/ severe obstruction, worsened from prior--reviewed w/ patient
Change nebs to inhalers that he will need to continue at discharge, COPD education
Transition IV steroids to PO taper
PCT neg, stop abx
OP FU reviewed with patient, important to maintain compliance to treatment
If doing well in next 24 hours, can assess for d/c to home
Assessment
-
Patient is a 60 year old M with PMH significant for COPD, hypertension and DM-II who presents to ED complaining of SOB. Patient states that he has had progressive/ gradually worsening SOB over the past 8 months or so. He notes that he has been
without medications of any kind for the past 8 months as he has not had insurance coverage. He recently obtained insurance. His dyspnea has worsened and he presents to the ED this evening for further evaluation. Patient states that he has been
using Primatene Mist inhalers PRN. We are consulted for evaluation.
AE COPD
Ongoing tobacco abuse
Weight loss since 2021
BL LE Pain
Chronic hypercarbia present
Noncompliance
Conditions present prior to admission:
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
Acute hypercapnic respiratory failure requiring intubation/sepsis/narcotic use for pain.
Intubated 07/28/2022: Extubated 08/04/2022
S/p Cardiac Arrest/Maurizio/Asystole, ROSC with CPR
Acute renal insufficiency, hyperkalemia
Requiring emergent HD 07/29
Mild aortic stenosis per echo June 2021
Normal biventricular function
History of GI bleed, duodenal ulcer 2018
Significant alcohol use, 6 pack of beer/day, ongoing
Hypertension/hyperlipidemia
Diabetes
History of recurrent COPD exacerbation, multiple hospital stays
Chronic bronchitis
50 pack year history smoking, ongoing
Insomnia
Chronic back pain, chronic oxycodone therapy (4-6 tablets a day �15 years)
Suspected sleep disorder breathing
Family history lung cancer (mother), pancreatic cancer (father)
History of left upper lobe cavitary lesion has developed since September 2022 s/p bronch/negative
Plan:
Appears nontoxic
Nebulizers as needed-minimal bronchospasm at this time.
Has not been seen as OP for FU
Did not follow up in office after last hospitalization in 2022. Quit smoking 3 years ago, has not resumed per patient.
Last PFT in 2019 w/ moderate obstruction
History of left upper lobe cavitary lesion has developed since September 2022.
During last admission in September patient had waxing waning patchy airspace disease aspiration was highly suspected.
Doubt carcinoma based on above.
History of MRSA positive sputum Culture in Apr.
s/p Bronchoscopy 12/28/22-left upper lobe-Lymph node station 11 R-negative for malignant cells, lymph node station 10 R-negative for malignant cells, lymph node station 4R-negative for malignant cells, lymph node station 7-negative for malignant
cells, lymph node station 4 L-negative for malignant cells, station 11 L-negative for malignant cells, left lower lobe BAL and brushings negative for malignant cells, left lingula- BAL negative for malignant cells, left lingula- brushings negative
for malignant cells
Repeat CXR this admission w/o consolidations
GI following-correspondence reviewed
Modified barium swallow 12-23-22: persistent laryngeal penetration of barium without associated aspiration, normal thoracic esophagus
Aspiration precautions
AE COPD suspected, has not had treated
Started on IV steroids--transition to PO prednisone
Will obtain bedside PFT--now indication severe obstruction
PCT neg--stop abx
Chronic Co2 retention noted, compensated
ABG 7.41/ would need BIPAP overnight but not sure if he will tolerate
BIPAP ordered
Can obtain sleep study as OP to evaluate
LE pain, could be due to neuropathy vs vascular issues
Duplex ordered, will check ABIs
Defer further w/u to team
DVT prophylaxis -on Lovenox
Has been told to follow up at our office in past on numerous occasions, but has not followed through
He again was encouraged to make appointment to follow-up. Patient is having insurance issues/cannot afford meds
I discussed this again with him today
Discharge planning in next 24 hours if doing well
Diagnostic Data
CXR 06/24/25- 1. Severe bilateral lung hyperinflation.
2. Chronic peripheral scarring in the left upper lobe at the site of previous severe pneumonia.
3. Mild chronic pulmonary arterial hypertension.
Echocardiogram 08/01/2022:�Showed normal biventricular size and function.� LVEF 50 to 55%.� Moderate LVH.� Mild MR.� Mild to moderate TR.� Moderate elevated pulmonary artery pressures.
PFT 2018: FEV1 2.43L 53%, ratio 61 (moderate obstruction)
Total time spent on this consultation/encounter __50__ minutes which includes review of history, physical exam, medications, laboratory data, personal review of imaging, extensive review of outpatient records, discussion with care team and
respiratory therapy.
Subjective Data
-
Date of Service:
Date of Service: June 26, 2025
Chief Complaint: Pulmonary Follow Up
Subjective:
No new complaints, feeling better since yesterday
Family member at bedside
Objective Data
Data Reviewed
Vital Signs / I&O / Oxygen:
Vital Signs
Temp Pulse Resp BP Pulse Ox
97.9 F 87 20 157/97 98
06/26/25 08:21 06/26/25 08:21 06/26/25 08:21 06/26/25 08:21 06/26/25 08:21
Intake and Output
06/25/25 06/26/25 06/27/25
06:59 06:59 06:59
Intake Total 240 / 240
Output Total 600 / 600
Balance -360 / -360
SaO2 98
Nasal Cannula flow liters per 4
minute
Physical Exam
General: Comfortable and Other (NAD)
HEENT: Normocephalic, Anicteric and Moist Mucous Membranes
Cardiovascular: S1-S2 and Regular Rhythm
Respiratory: Wheeze (slight on L) and Non-Labored Respirations
GI: Soft, Non Distended and Non Tender
Neurology: Awake, Alert, Oriented and No Motor Deficits
Skin: Warm, Dry and Good Color
Labs/Micro/Reports
Lab Data
06/26/25 07:00
06/26/25 07:00
Microbiology
06/25/25 10:27 Nose Nasal Screen MRSA (PCR) - Final
MRSA not detected - performed by PCR methodology.
--- NOTE | 2025-06-26 11:08 | W.PN.HOSP.TC ---
Addendum entered and electronically signed by Earle Reyes MD 06/26/25 14:31:
Underweight
Original Note:
Today's Communication/Plan
-
IV steroids. SEJAL. Pain control
Assessment / Plan
Assessment / Plan
Physical exam:
General: Acute on chronically ill
HEENT: Normocephalic, Atraumatic and Moist Mucous Membranes
Respiratory: Decreased breath sounds bilateral; Negative Rales
Cardiac: Regular Rhythm and S1/S2
GI: Soft, Nontender and Nondistended
Musculoskeletal: No Clubbing, No Cyanosis and right lower extremity edema predominantly in the ankle and tenderness of both feet and proximally in both lower extremities.
Neuro: Awake, Alert and Oriented, no neurological deficit
Psych: Calm
A/P:
AE-COPD
Acute Hypoxemic Respiratory Failure secondary to the above/Chronic Hypoxemic and Hypercapnic Respiratory failure:
Continue IV Solu-Medrol 40 mg every 12 hours
Continue bronchodilators as needed
Continue Pulmicort twice a day
Pulmonary consult appreciated. Pulmonary checked procalcitonin in its less than 0.05
Reviewed blood gas shows evidence of chronic hypercapnia with compensated metabolic alkalosis and chronic hypoxemia.
Seen chest x-ray
He tells me he would try BiPAP tonight but he has not tolerated in the past so unclear if this will happen.
Probable peripheral neuropathy and significant arthritis and stress fractures but rule out peripheral vascular disease:
Start gabapentin low-dose and with careful attention of respiratory status
IV Dilaudid as needed
Doppler negative for right lower extremity DVT
SEJAL test today
Benign Hypertension
- BP not elevated at present despite not being on usual medications.
- Monitor for now and begin antihypertensive medications if necessary.
DM-II
- Not significantly hyperglycemic at present.
- Follow glucose and cover with SSI as needed.
- Update A1C and it is 5.6
DVT Prophylaxis: Lovenox
Code Status: Full
Total time spent on today's encounter was 55 minutes which included time spent in counseling the patient/family regarding diagnosis and treatment plan as listed above, goals of care, and symptom management. Case was discussed with nursing staff,
specialists, and care coordinators/case management. All labs and imaging personally reviewed by me. Remainder the time spent in detailed review of previous records, lab data, imaging, and other medical provider documentation.
Anticipated Discharge: > 48 hours
Subjective/Interval History
-
Date of Service: June 26, 2025
Patient still short of breath. Dry cough. Did not wear BiPAP last night. Does complain of ongoing chronic bilateral lower extremity pain. No chest pain. Afebrile
Objective Data
-
Labs:
Laboratory Results
06/26/25
07:00
WBC 9.3
Hgb 16.7
Hct 52.2 H
Plt Count 244 D
Sodium 140
Potassium 5.1
Chloride 97 L
Carbon Dioxide 39 H
BUN 13
Creatinine 0.6 L
Glucose 101 H
Calcium 9.4
Vital Signs:
Vital Signs
Temp Pulse Resp BP Pulse Ox
97.9 F 87 20 157/97 98
06/26/25 08:21 06/26/25 08:21 06/26/25 08:21 06/26/25 08:21 06/26/25 08:21
I&O
06/25/25 06/26/25 06/27/25
06:59 06:59 06:59
Intake Total 240 / 240
Output Total 600 / 600
Balance -360 / -360
--- NOTE | 2025-06-26 11:24 | CM ---
Reviewed chart. Met with patient. Having arterial study of the lower extremities today. On room air.
Plan:Anticipate dc to home with no needs
--- NOTE | 2025-06-26 11:29 | CM ---
Pt continues on O2 at 4l 94%. On IV ABX and IV steroids.Currently at US for vascular study of lower extremities' Pt has home O2 set-up. Will follow for dc needs.
Plan: Anticipate home with no needs
[2025-06-26] MEDS: DUONEB INH (11:30)
[2025-06-26 12:14] LABS: Glucose - Point of Care 91 mg/dl (70-99)
[2025-06-26] MEDS: DILAUDID 0.25 MG IV ×3 (12:17→21:25)
[2025-06-26] MEDS: NEURONTIN 100 MG PO ×3 (12:17→21:24)
--- NOTE | 2025-06-26 13:19 | PN.CDI ---
CDI
- -
CDI:
Physician Documentation Request
Admit Date: 06/25/25 00:23
Dear Doctor Eric,
Please review the following and provide your response in the progress notes.
Clinical Indicators:
Height: 6 ft 3 in
Weight:149 lb 6 oz
BMI:18.7
If possible, please provide an associated diagnosis related to the abnormal BMI, such as:
BMI < or = to 19
Underweight
Cachectic
- Other
Use of terms such as suspected, likely, concern for, or probable (associated with a specific diagnosis that is being evaluated, monitored, or treated as if it exists) are acceptable and can be coded in the inpatient setting, when documented at the
time of discharge.
Thank you,
Lali Delacruz RN
CDI Specialist
[place] [facility]
Please use your independent medical judgment in providing your response.
[2025-06-26 17:01] LABS: Glucose - Point of Care 143 mg/dl (70-99)
[2025-06-26] MEDS: LOVENOX 40 MG SC (17:15)
[2025-06-26] MEDS: SYMBICORT 160/4.5 MCG INHALER 2 PUFF INH (19:22)
[2025-06-26 21:19] LABS: Glucose - Point of Care 188 mg/dl (70-99)
[2025-06-26] MEDS: DESYREL 25 MG PO (21:27)
[2025-06-26] MEDS: HALDOL 0.25 MG PO (23:13)
[2025-06-27] VITALS (8 sets, daily range): BP systolic 144–155; BP diastolic 84–101; PULSE 2–91; O2SAT 93; BMI 18.4
[2025-06-27] MEDS: DILAUDID 0.25 MG IV ×3 (06:30→20:43)
[2025-06-27 06:57] LABS: Hematocrit 53.8 % (39.0-52.0); Hemoglobin 17.1 g/dL (13.0-18.0); Mean Corp Hgb Conc. 31.8 g/dL (33.0-37.0); Mean Corpuscular Volume 92.6 fL (80.0-94.0); Platelet Count 231 10^3/uL (130-400); Red Cell Dist. Width 15.8 % (11.5-14.5)
[2025-06-27 07:18] LABS: Blood Urea Nitrogen 17 mg/dl (9-20); Calcium 9.6 mg/dl (8.4-10.2); Carbon Dioxide 37 mmol/L (22-30); Chloride 99 mmol/L (98-107); Estimated Creatinine Clearance 103 ml/min; Glucose 100 mg/dl (70-99); Potassium 4.6 mmol/L (3.5-5.1); Sodium 136 mmol/L (135-145); eGFR > 60.00
[2025-06-27 07:27] LABS: Glucose - Point of Care 98 mg/dl (70-99)
[2025-06-27] MEDS: SPIRIVA RESPIMAT 2.5 MCG 2 PUFF INH (07:32)
[2025-06-27] MEDS: NOVOLOG FLEXPEN-LOW RESISTANCE SC ×2 (07:32→17:26)
[2025-06-27] MEDS: SYMBICORT 160/4.5 MCG INHALER 2 PUFF INH ×2 (07:32→19:50)
[2025-06-27] MEDS: NEURONTIN 100 MG PO ×3 (08:07→20:43)
[2025-06-27] MEDS: GLUCOPHAGE 500 MG PO ×2 (08:07→16:15)
[2025-06-27] MEDS: DELTASONE 50 MG PO (08:07)
--- NOTE | 2025-06-27 09:21 | W.PN.PUL3 ---
Today's Communication / Plan
-
Remains on O2, SOB with ambulation, has POC at home--will clarify with home O2 assessment
Prednisone taper
Continue inhalers at discharge, COPD education
LE pain management can be continued as OP
Discharge planning per team
We will arrange OP FU
Assessment
-
Patient is a 60 year old M with PMH significant for COPD, hypertension and DM-II who presents to ED complaining of SOB. Patient states that he has had progressive/ gradually worsening SOB over the past 8 months or so. He notes that he has been
without medications of any kind for the past 8 months as he has not had insurance coverage. He recently obtained insurance. His dyspnea has worsened and he presents to the ED this evening for further evaluation. Patient states that he has been
using Primatene Mist inhalers PRN. We are consulted for evaluation.
AE COPD
Ongoing tobacco abuse
Weight loss since 2021
BL LE Pain
Chronic hypercarbia present
Noncompliance
Conditions present prior to admission:
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
Acute hypercapnic respiratory failure requiring intubation/sepsis/narcotic use for pain.
Intubated 07/28/2022: Extubated 08/04/2022
S/p Cardiac Arrest/Maurizio/Asystole, ROSC with CPR
Acute renal insufficiency, hyperkalemia
Requiring emergent HD 07/29
Mild aortic stenosis per echo June 2021
Normal biventricular function
History of GI bleed, duodenal ulcer 2018
Significant alcohol use, 6 pack of beer/day, ongoing
Hypertension/hyperlipidemia
Diabetes
History of recurrent COPD exacerbation, multiple hospital stays
Chronic bronchitis
50 pack year history smoking, ongoing
Insomnia
Chronic back pain, chronic oxycodone therapy (4-6 tablets a day �15 years)
Suspected sleep disorder breathing
Family history lung cancer (mother), pancreatic cancer (father)
History of left upper lobe cavitary lesion has developed since September 2022 s/p bronch/negative
Plan:
Appears nontoxic
Nebulizers as needed-minimal bronchospasm at this time.
Has not been seen as OP for FU
Did not follow up in office after last hospitalization in 2022. Quit smoking 3 years ago, has not resumed per patient.
Last PFT in 2019 w/ moderate obstruction
History of left upper lobe cavitary lesion has developed since September 2022.
During last admission in September patient had waxing waning patchy airspace disease aspiration was highly suspected.
Doubt carcinoma based on above.
History of MRSA positive sputum Culture in Apr.
s/p Bronchoscopy 12/28/22-left upper lobe-Lymph node station 11 R-negative for malignant cells, lymph node station 10 R-negative for malignant cells, lymph node station 4R-negative for malignant cells, lymph node station 7-negative for malignant
cells, lymph node station 4 L-negative for malignant cells, station 11 L-negative for malignant cells, left lower lobe BAL and brushings negative for malignant cells, left lingula- BAL negative for malignant cells, left lingula- brushings negative
for malignant cells
Repeat CXR this admission w/o consolidations
GI following-correspondence reviewed
Modified barium swallow 12-23-22: persistent laryngeal penetration of barium without associated aspiration, normal thoracic esophagus
Aspiration precautions
AE COPD suspected, has not had treated
Started on IV steroids--transition to PO prednisone
Will obtain bedside PFT--now indication severe obstruction
PCT neg--stop abx
Chronic Co2 retention noted, compensated
ABG 7.41/74 would need BIPAP overnight but not sure if he will tolerate
BIPAP ordered
Can obtain sleep study as OP to evaluate
LE pain, could be due to neuropathy vs vascular issues
Duplex ordered, will check ABIs
Defer further w/u to team
DVT prophylaxis -on Lovenox
Has been told to follow up at our office in past on numerous occasions, but has not followed through
He again was encouraged to make appointment to follow-up. Patient is having insurance issues/cannot afford meds
I discussed this again with him today
Discharge planning per team
Diagnostic Data
CXR 06/24/25- 1. Severe bilateral lung hyperinflation.
2. Chronic peripheral scarring in the left upper lobe at the site of previous severe pneumonia.
3. Mild chronic pulmonary arterial hypertension.
Echocardiogram 08/01/2022:�Showed normal biventricular size and function.� LVEF 50 to 55%.� Moderate LVH.� Mild MR.� Mild to moderate TR.� Moderate elevated pulmonary artery pressures.
PFT 2018: FEV1 2.43L 53%, ratio 61 (moderate obstruction)
Total time spent on this consultation/encounter __50__ minutes which includes review of history, physical exam, medications, laboratory data, personal review of imaging, extensive review of outpatient records, discussion with care team and
respiratory therapy.
Subjective Data
-
Date of Service:
Date of Service: June 27, 2025
Chief Complaint: Pulmonary Follow Up
Subjective:
No new complaints, stable
LE pain ongoing, chronic
Objective Data
Data Reviewed
Vital Signs / I&O / Oxygen:
Vital Signs
Temp Pulse Resp BP Pulse Ox
98 F 81 16 149/100 93
06/27/25 07:35 06/27/25 07:38 06/27/25 07:38 06/27/25 07:35 06/27/25 07:38
Intake and Output
06/26/25 06/27/25 06/28/25
06:59 06:59 06:59
Intake Total 240 / 240 960 / 960
Output Total 600 / 600
Balance -360 / -360 960 / 960
SaO2 93
Nasal Cannula flow liters per 2
minute
Physical Exam
General: Comfortable and Other (NAD)
HEENT: Normocephalic, Anicteric and Moist Mucous Membranes
Cardiovascular: S1-S2 and Regular Rhythm
Respiratory: Clear and Non-Labored Respirations
GI: Soft, Non Distended and Non Tender
Neurology: Awake, Alert, Oriented and No Motor Deficits
Skin: Warm, Dry and Good Color
Labs/Micro/Reports
Lab Data
06/27/25 06:17
06/27/25 06:17
Microbiology
06/25/25 10:27 Nose Nasal Screen MRSA (PCR) - Final
MRSA not detected - performed by PCR methodology.
--- NOTE | 2025-06-27 10:17 | CM ---
Addendum entered by Yue Willis 06/27/25 17:04:
[facility] is not open at this time. CM will call on Monday to order Bi-pap for this patient.
Addendum entered by Yue Willis 06/27/25 15:53:
Pt will select and call PCPs once he is discharged.
Pt stated the gospel singer told him that his concentrator was working properly. Pt did not understand how the concentrator works.
Has hx with [facility] which is now [facility] [phone].
Pt needs education on how to use portable tanks. Call [facility] Oxygen department to arrange education [phone].
Pt will need script if discharged on Bipap.
Original Note:
Pt states he has home O2 setup but no oxygen. He is no sure that his concentrator is operating properly. Will get the name if his Respiratory DME.
Resources provided for PCPs in the [facility]. He understands that he need a PCP if he needs home O2. Regarding Bi-pap, pt states he 'will try' but is not sure that he will use it.
--- NOTE | 2025-06-27 11:18 | W.PN.HOSP.TC ---
Today's Communication/Plan
-
Pain control. Podiatry eval
Assessment / Plan
Assessment / Plan
Physical exam:
General: Acute on chronically ill
HEENT: Normocephalic, Atraumatic and Moist Mucous Membranes
Respiratory: Decreased breath sounds bilateral; Negative Rales
Cardiac: Regular Rhythm and S1/S2
GI: Soft, Nontender and Nondistended
Musculoskeletal: No Clubbing, No Cyanosis and right lower extremity edema predominantly in the ankle and tenderness of both feet and proximally in both lower extremities.
Neuro: Awake, Alert and Oriented, no neurological deficit
Psych: Calm
A/P:
AE-COPD
Acute Hypoxemic Respiratory Failure secondary to the above/Chronic Hypoxemic and Hypercapnic Respiratory failure:
Pulmonary switching IV steroids to oral
Continue bronchodilators as needed
Continue Pulmicort twice a day
Pulmonary consult appreciated. Pulmonary checked procalcitonin and it's less than 0.05 (keep in mind the patient has not been on antibiotics during this hospital stay)
Reviewed blood gas shows evidence of chronic hypercapnia with compensated metabolic alkalosis and chronic hypoxemia.
Seen chest x-ray
He did tolerated the BiPAP last night.
Probable peripheral neuropathy and significant arthritis and stress fractures (ruled out peripheral vascular disease):
Start gabapentin low-dose and with careful attention of respiratory status
IV Dilaudid as needed
Start bowel regimen
Doppler negative for right lower extremity DVT
SEJAL test reviewed
Podiatry consult
Benign Hypertension
Remains elevated so we will start amlodipine 5 mg p.o. daily
DM-II
- Not significantly hyperglycemic at present.
- Follow glucose and cover with SSI as needed.
- Update A1C and it is 5.6
DVT Prophylaxis: Lovenox
Code Status: Full
Total time spent on today's encounter was 35 minutes which included time spent in counseling the patient/family regarding diagnosis and treatment plan as listed above, goals of care, and symptom management. Case was discussed with nursing staff,
specialists, and care coordinators/case management. All labs and imaging personally reviewed by me. Remainder the time spent in detailed review of previous records, lab data, imaging, and other medical provider documentation.
Anticipated Discharge: 24 - 48 hours
Subjective/Interval History
-
Date of Service: June 27, 2025
He was able to tolerate BiPAP last night. Patient still short of breath, remains on oxygen, afebrile. Complains of bilateral feet pain.
Objective Data
-
Labs:
Laboratory Results
06/27/25
06:17
WBC 11.3 H
Hgb 17.1
Hct 53.8 H
Plt Count 231
Sodium 136
Potassium 4.6
Chloride 99
Carbon Dioxide 37 H
BUN 17
Creatinine 0.7
Glucose 100 H
Calcium 9.6
Vital Signs:
Vital Signs
Temp Pulse Resp BP Pulse Ox
98.9 F 64 16 152/101 92
06/27/25 11:07 06/27/25 11:07 06/27/25 11:07 06/27/25 11:07 06/27/25 11:07
I&O
06/26/25 06/27/25 06/28/25
06:59 06:59 06:59
Intake Total 240 / 240 960 / 960
Output Total 600 / 600
Balance -360 / -360 960 / 960
[2025-06-27 11:55] LABS: Glucose - Point of Care 230 mg/dl (70-99)
[2025-06-27] MEDS: MIRALAX 17 GRAMS PO (12:11)
[2025-06-27] MEDS: SENOKOT 8.6 MG PO ×2 (12:19→20:43)
[2025-06-27] MEDS: NOVOLOG FLEXPEN-LOW RESISTANCE 2 UNITS SC (12:20)
--- NOTE | 2025-06-27 13:55 | RESPNOTE ---
patient ambulated 300 feet on room air before desaturating to 86% , patient walked about 200 feet on 2 liters and had sao2=95% for most of way before desaturating to 85% , he was then placed on 3 liters and came back to 95% and had saturation =95%
for last 100 feet , he was moderately short of breath after walking
[2025-06-27] MEDS: ROXICODONE 5 MG PO ×2 (16:15→22:38)
[2025-06-27] MEDS: NORVASC 5 MG PO (16:15)
[2025-06-27 16:51] LABS: Glucose - Point of Care 135 mg/dl (70-99)
--- NOTE | 2025-06-27 16:51 | CON.SURG ---
Surgical Consultation
-
Chief Complaint
Right foot and ankle pain
History of Present Illness
Patient is a 60y M with PMH significant for COPD, hypertension and DM-II who was admitted to for SOB, podiatry was consulted for right foot and ankle pain. Patient has had chronic bilateral foot and ankle pain for many years. He does have a
diagnosis of peripheral neuropathy for which he is on gabapentin 300mg. He is a diabetic but he believes his sugars have been well controlled. He recently noticed his right ankle has become severely swollen with increasing pain.
Medical History
Past Medical History
Past Medical History: Reports Other
Additional Past Medical History:
Essential Hypertension
Hyperlipidemia
Diabetes Mellitus
Peripheral Neuropathy
COPD
GERD
Anxiety/Depression
Alcohol Use Disorder - Sober since Aug 2022
Cavitary Pneumonia - 2022
Past Surgical History: Reports Other
Additional Past Surgical History:
Right TKA
Carpal Tunnel Release (x 2)
Social History
Tobacco: Former Smoker ((Half Pack per Day). > 40 pack years total use. Quit smoking 1 year ago.)
Alcohol: Former (History of heavy alcohol use. None since 08/2022.)
Family History
Family History: Other (Mother: CVA Father: Pancreatic Cancer)
Allergies / Home Medications
Allergies reflects when Allergies were last updated in [facility].
Home Medications with original date entered in [employer]
Allergy/Medication List:
Allergies
Allergy/AdvReac Type Severity Reaction Status Date / Time
Fish Containing Products Allergy Swelling/burning Verified 03/16/25 13:48
sensation
in throat
Penicillins Allergy Itching/scratchy Verified 03/16/25 13:48
throat 40
years
ago/cefepime
04/04/22
admiss
Home Medications
No Meds [No Current Medications] 06/25/25
Review of Systems
-
History Source: Patient
A 12 point ROS was completed and negative except as noted: Yes
Constitutional: Reports Fatigue; Denies Fever or Chills
Respiratory: Reports Trouble Breathing; Denies Cough or Hemoptysis
Cardiac: Denies Chest Pain or Palpitations
Abdomen/GI: Denies Abdominal Pain, Nausea, Vomiting or Diarrhea
: Denies Dysuria, Frequency or Flank Pain
Musculoskeletal: Denies Joint Pain or Edema
Neurological: Denies Dizzy or Headache
Psych: Denies Depression or Anxiety
Physical Exam
Vital Signs
Vital Signs
Temp Pulse Resp BP Pulse Ox
98.2 F 109 16 127/83 91
06/24/25 20:47 06/24/25 20:57 06/24/25 20:57 06/24/25 20:57 06/24/25 23:10
Physical Exam
General: Other (60y M in mild distress due to SOB.)
HEENT: Moist mucous membranes and Other (Neck supple.)
Respiratory: Other (Diffuse expiratory wheezes and scattered rhonchi. No rales.)
Cardiac: S1/S2 and Regular Rhythm; No Murmur
GI: Soft, Non Tender, Non Distended and Normal Bowel Sounds
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
Neuro: AO x 3
RLE Physical Exam
-DP/PT pulses 2/4, capillary refill < 3 seconds
-Neurological sensation decreased with diminished light touch and proprioception
-Diffuse pain to the right forefoot
-Severe edema and valgus deformity noted at the right ankle with no erythema, crepitus, purulence, or pain with micromotion
Laboratory Results
-
06/24/25 20:59
06/24/25 20:59
Laboratory Results
Total Bilirubin 0.9 mg/dl (0.2-1.3) 06/24/25 20:59
AST 34 U/L (17-59) 06/24/25 20:59
ALT 18 U/L (0-50) 06/24/25 20:59
Alkaline Phosphatase 60 U/L (38-126) 06/24/25 20:59
Troponin I 0.029 ng/ml 06/24/25 20:59
Impression/Plan
-
A/P: Patient is a 60y M with PMH significant for COPD, hypertension and DM-II with severe right ankle edema and deformity
-Right ankle edema with radiographs show severe degeneration of the right ankle concerning for severe osteoarthritis, septic arthritis vs charcot arthropathy. There are no overt signs are septic arthritis/infection currently
-Recommend right ankle radiographs and MRI right foot/ankle
-CAM boot immobilization for R foot
-PT/OT
-Right foot pain possibly neuropathic pain, consider increasing gabapentin dosage
-Will continue to follow
[2025-06-27] MEDS: LOVENOX 40 MG SC (18:10)
[2025-06-27] MEDS: DESYREL 25 MG PO (20:43)
[2025-06-27 21:51] LABS: Glucose - Point of Care 100 mg/dl (70-99)
[2025-06-28] MEDS: DILAUDID 0.25 MG IV ×3 (01:49→20:20)
[2025-06-28 03:40] VITALS: BP 131/93
[2025-06-28 06:00] VITALS: BMI 18.2
[2025-06-28] MEDS: SYMBICORT 160/4.5 MCG INHALER 2 PUFF INH ×2 (07:23→19:42)
[2025-06-28] MEDS: SPIRIVA RESPIMAT 2.5 MCG 2 PUFF INH (07:23)
[2025-06-28 07:38] LABS: Glucose - Point of Care 97 mg/dl (70-99)
[2025-06-28] MEDS: NOVOLOG FLEXPEN-LOW RESISTANCE SC ×3 (07:39→16:39)
[2025-06-28 07:40] VITALS: BP 135/92
[2025-06-28] MEDS: NEURONTIN 100 MG PO (08:29)
[2025-06-28] MEDS: NORVASC 5 MG PO (08:29)
[2025-06-28] MEDS: SENOKOT PO ×2 (08:30→20:01)
[2025-06-28] MEDS: MIRALAX PO (08:30)
[2025-06-28] MEDS: DELTASONE 50 MG PO (08:30)
[2025-06-28] MEDS: GLUCOPHAGE 500 MG PO ×2 (08:30→16:39)
[2025-06-28] MEDS: TYLENOL 650 MG PO (10:12)
[2025-06-28] MEDS: ROXICODONE 5 MG PO ×2 (10:12→14:12)
--- NOTE | 2025-06-28 10:21 | W.PN.HOSP.TC ---
Today's Communication/Plan
-
MRI of the ankle. Pain control
Assessment / Plan
Assessment / Plan
Physical exam:
General: Acute on chronically ill
HEENT: Normocephalic, Atraumatic and Moist Mucous Membranes
Respiratory: Decreased breath sounds bilateral; Negative Rales
Cardiac: Regular Rhythm and S1/S2
GI: Soft, Nontender and Nondistended
Musculoskeletal: No Clubbing, No Cyanosis and right lower extremity edema predominantly in the ankle and tenderness of both feet and proximally in both lower extremities.
Neuro: Awake, Alert and Oriented, no neurological deficit
Psych: Calm
A/P:
AE-COPD
Acute Hypoxemic Respiratory Failure secondary to the above/Chronic Hypoxemic and Hypercapnic Respiratory failure:
Continue oral steroid
Continue bronchodilators as needed
Continue Pulmicort twice a day
Pulmonary consult appreciated. Pulmonary checked procalcitonin and it's less than 0.05 (keep in mind the patient has not been on antibiotics during this hospital stay)
Reviewed blood gas shows evidence of chronic hypercapnia with compensated metabolic alkalosis and chronic hypoxemia.
Seen chest x-ray
He did tolerated the BiPAP last night.
Probable peripheral neuropathy and significant arthritis and stress fractures (ruled out peripheral vascular disease):
Continue gabapentin but increase doses and watch respiratory status closely
IV Dilaudid as needed
Start bowel regimen
Doppler negative for right lower extremity DVT
SEJAL test reviewed
Podiatry consult who order MRI and repeat x-ray of the right ankle.
Benign Hypertension
Remains elevated so continue amlodipine 5 mg p.o. daily
DM-II
- Not significantly hyperglycemic at present.
- Follow glucose and cover with SSI as needed.
- Update A1C and it is 5.6
DVT Prophylaxis: Lovenox
Code Status: Full
Total time spent on today's encounter was 35 minutes which included time spent in counseling the patient/family regarding diagnosis and treatment plan as listed above, goals of care, and symptom management. Case was discussed with nursing staff,
specialists, and care coordinators/case management. All labs and imaging personally reviewed by me. Remainder the time spent in detailed review of previous records, lab data, imaging, and other medical provider documentation.
Anticipated Discharge: 24 - 48 hours
Subjective/Interval History
-
Date of Service: June 28, 2025
Patient still complains of bilateral feet pain. Shortness of breath is much less. On supplemental oxygen. Afebrile
Objective Data
-
Vital Signs:
Vital Signs
Temp Pulse Resp BP Pulse Ox
98.2 F 80 18 135/92 96
06/28/25 07:40 06/28/25 08:29 06/28/25 07:40 06/28/25 08:29 06/28/25 07:40
I&O
06/27/25 06/28/25 06/29/25
06:59 06:59 06:59
Intake Total 960 / 960 1560 / 1560
Balance 960 / 960 1560 / 1560
[2025-06-28 11:14] VITALS: BP 155/96
[2025-06-28 11:27] LABS: Glucose - Point of Care 125 mg/dl (70-99)
--- NOTE | 2025-06-28 14:22 | W.PN.PUL3 ---
Today's Communication / Plan
-
Remains on O2, SOB with ambulation, has POC at home--will clarify with home O2 assessment prior to discharge
Prednisone taper
Continue inhalers at discharge, COPD education
LE pain management per primary team + podiatry
Discharge planning per team
We will arrange OP FU
Pulmonary service will continue to briefly follow
Assessment
-
Patient is a 60 year old M with PMH significant for COPD, hypertension and DM-II who presents to ED complaining of SOB. Patient states that he has had progressive/ gradually worsening SOB over the past 8 months or so. He notes that he has been
without medications of any kind for the past 8 months as he has not had insurance coverage. He recently obtained insurance. His dyspnea has worsened and he presents to the ED this evening for further evaluation. Patient states that he has been
using Primatene Mist inhalers PRN. We are consulted for evaluation.
AE COPD
Ongoing tobacco abuse
Weight loss since 2021
BL LE/feet Pain
Chronic hypercarbia present
Noncompliance
Conditions present prior to admission:
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
Acute hypercapnic respiratory failure requiring intubation/sepsis/narcotic use for pain.
Intubated 07/28/2022: Extubated 08/04/2022
S/p Cardiac Arrest/Maurizio/Asystole, ROSC with CPR
Acute renal insufficiency, hyperkalemia
Requiring emergent HD 07/29
Mild aortic stenosis per echo June 2021
Normal biventricular function
History of GI bleed, duodenal ulcer 2018
Significant alcohol use, 6 pack of beer/day, ongoing
Hypertension/hyperlipidemia
Diabetes
History of recurrent COPD exacerbation, multiple hospital stays
Chronic bronchitis
50 pack year history smoking, ongoing
Insomnia
Chronic back pain, chronic oxycodone therapy (4-6 tablets a day �15 years)
Suspected sleep disorder breathing
Family history lung cancer (mother), pancreatic cancer (father)
History of left upper lobe cavitary lesion has developed since September 2022 s/p bronch/negative
Plan:
Appears nontoxic
Continue Symbicort, Spiriva and prednisone, being tapered as per below
Has not been seen as OP for FU
Did not follow up in office after last hospitalization in 2022. Quit smoking 3 years ago, has not resumed per patient.
Last PFT in 2019 w/ moderate obstruction
History of left upper lobe cavitary lesion has developed since September 2022.
During last admission in September patient had waxing waning patchy airspace disease aspiration was highly suspected.
Doubt carcinoma based on above.
History of MRSA positive sputum Culture in Apr.
s/p Bronchoscopy 12/28/22-left upper lobe-Lymph node station 11 R-negative for malignant cells, lymph node station 10 R-negative for malignant cells, lymph node station 4R-negative for malignant cells, lymph node station 7-negative for malignant
cells, lymph node station 4 L-negative for malignant cells, station 11 L-negative for malignant cells, left lower lobe BAL and brushings negative for malignant cells, left lingula- BAL negative for malignant cells, left lingula- brushings negative
for malignant cells
Repeat CXR this admission w/o consolidations
GI following-correspondence reviewed
Modified barium swallow 12-23-22: persistent laryngeal penetration of barium without associated aspiration, normal thoracic esophagus
Aspiration precautions
AE COPD suspected, has not had treated
Started on IV steroids--transitioned to PO prednisone
Will obtain bedside PFT--now indication very severe obstruction with post-� bronchodilator FEV1: 28% predicted/1.09 [address] neg - observe off ABx
Chronic Co2 retention noted, compensated
ABG 7.41/74 would need BIPAP overnight but not sure if he will tolerate
Patient refused BiPAP last night (06/27) -this can be discussed further as an outpatient; okay to DC order for now
Can obtain sleep study as OP to evaluate
LE pain, could be due to neuropathy vs vascular issues
Duplex shows no right lower extremity DVT; lower extremity SEJAL shows no evidence of PAD.
Ankle MRI (right) shows severe degenerative changes of the tibiotalar joint with partial collapse of the talus with extensive subchondral cystic change and a moderate joint effusion. 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
superimposed infection difficult to exclude - defer further management to primary team + podiatry
DVT prophylaxis -on Lovenox
Has been told to follow up at our office in past on numerous occasions, but has not followed through
He again was encouraged to make appointment to follow-up. Patient is having insurance issues/cannot afford meds
Dr. Carvalho discussed this again with him
Discharge planning per team
Diagnostic Data
CXR 06/24/25- 1. Severe bilateral lung hyperinflation.
2. Chronic peripheral scarring in the left upper lobe at the site of previous severe pneumonia.
3. Mild chronic pulmonary arterial hypertension.
Echocardiogram 08/01/2022:�Showed normal biventricular size and function.� LVEF 50 to 55%.� Moderate LVH.� Mild MR.� Mild to moderate TR.� Moderate elevated pulmonary artery pressures.
PFT 2018: FEV1 2.43L 53%, ratio 61 (moderate obstruction)
Total time spent on this consultation/encounter __38__ minutes which includes review of history, physical exam, medications, laboratory data, personal review of imaging, extensive review of outpatient records, discussion with care team and
respiratory therapy.
Subjective Data
-
Date of Service:
Date of Service: June 28, 2025
Chief Complaint: Pulmonary Follow Up
Subjective:
Patient seen today at bedside (late note entry). Afebrile overnight. Bigger complaint is foot pain. Currently saturating 94% on 2 L/min nasal cannula.
Review of Systems
General: Other (Negative unless mentioned above)
Objective Data
Data Reviewed
Vital Signs / I&O / Oxygen:
Vital Signs
Temp Pulse Resp BP Pulse Ox
98.2 F 80 18 135/92 96
06/28/25 07:40 06/28/25 08:29 06/28/25 07:40 06/28/25 08:29 06/28/25 07:40
Intake and Output
06/27/25 06/28/25 06/29/25
06:59 06:59 06:59
Intake Total 960 / 960 1560 / 1560
Balance 960 / 960 1560 / 1560
SaO2 96
Nasal Cannula flow liters per 2
minute
Physical Exam
General: Comfortable and Other (NAD)
HEENT: Normocephalic, Anicteric and Moist Mucous Membranes
Cardiovascular: S1-S2 and Regular Rhythm
Respiratory: Clear and Non-Labored Respirations
GI: Soft, Non Distended and Non Tender
Neurology: Awake, Alert, Oriented and No Motor Deficits
Skin: Warm, Dry and Good Color
Labs/Micro/Reports
Lab Data
06/27/25 06:17
06/27/25 06:17
Microbiology
06/25/25 10:27 Nose Nasal Screen MRSA (PCR) - Final
MRSA not detected - performed by PCR methodology.
[2025-06-28 14:48] VITALS: BP 140/85
[2025-06-28 15:50] LABS: Glucose - Point of Care 108 mg/dl (70-99)
[2025-06-28] MEDS: NEURONTIN 200 MG PO ×2 (15:53→20:20)
[2025-06-28] MEDS: LOVENOX 40 MG SC (16:38)
[2025-06-28] MEDS: AMBIEN 5 MG PO (20:20)
[2025-06-28 21:52] LABS: Glucose - Point of Care 135 mg/dl (70-99)
[2025-06-28 23:54] VITALS: BP 124/76
[2025-06-29] MEDS: DILAUDID 0.25 MG IV ×2 (01:04→05:25)
[2025-06-29 06:00] VITALS: BMI 17.9
[2025-06-29] MEDS: SPIRIVA RESPIMAT 2.5 MCG 2 PUFF INH (07:26)
[2025-06-29] MEDS: SYMBICORT 160/4.5 MCG INHALER 2 PUFF INH (07:26)
[2025-06-29 07:29] LABS: Glucose - Point of Care 107 mg/dl (70-99)
[2025-06-29] MEDS: NOVOLOG FLEXPEN-LOW RESISTANCE SC ×2 (07:47→11:26)
[2025-06-29 07:48] VITALS: BP 148/98
[2025-06-29] MEDS: NORVASC 5 MG PO (08:28)
[2025-06-29] MEDS: GLUCOPHAGE 500 MG PO (08:29)
[2025-06-29] MEDS: NEURONTIN 200 MG PO (08:29)
[2025-06-29] MEDS: DELTASONE 50 MG PO (08:29)
[2025-06-29] MEDS: MIRALAX PO (08:32)
[2025-06-29] MEDS: SENOKOT PO (08:33)
[2025-06-29] MEDS: ROXICODONE 5 MG PO (10:29)
--- NOTE | 2025-06-29 10:40 | W.PN.PUL3 ---
Today's Communication / Plan
-
Remains on O2, SOB with ambulation, has POC at home--Home O2 assessment performed on 06/23/2025, desaturating to 86% on room air with walking and required 3 L/min with activity to maintain saturations >88%. Recommend room air at rest and 3 L/min
with activity
Prednisone taper
Continue inhalers at discharge, COPD education
LE pain management per primary team + podiatry
Discharge planning per team
We will arrange OP FU
Patient is being prepared for discharge today to home with home care. No additional recommendations at this time. Pulmonary service will now sign off. Please reconsult if there are any additional questions/concerns, or if patient's respiratory
status deteriorates.
Assessment
-
Patient is a 60 year old M with PMH significant for COPD, hypertension and DM-II who presents to ED complaining of SOB. Patient states that he has had progressive/ gradually worsening SOB over the past 8 months or so. He notes that he has been
without medications of any kind for the past 8 months as he has not had insurance coverage. He recently obtained insurance. His dyspnea has worsened and he presents to the ED this evening for further evaluation. Patient states that he has been
using Primatene Mist inhalers PRN. We are consulted for evaluation.
AE COPD
Ongoing tobacco abuse
Weight loss since 2021
BL LE/feet Pain
Chronic hypercarbia present
Noncompliance
Conditions present prior to admission:
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
Acute hypercapnic respiratory failure requiring intubation/sepsis/narcotic use for pain.
Intubated 07/28/2022: Extubated 08/04/2022
S/p Cardiac Arrest/Maurizio/Asystole, ROSC with CPR
Acute renal insufficiency, hyperkalemia
Requiring emergent HD 07/29
Mild aortic stenosis per echo June 2021
Normal biventricular function
History of GI bleed, duodenal ulcer 2018
Significant alcohol use, 6 pack of beer/day, ongoing
Hypertension/hyperlipidemia
Diabetes
History of recurrent COPD exacerbation, multiple hospital stays
Chronic bronchitis
50 pack year history smoking, ongoing
Insomnia
Chronic back pain, chronic oxycodone therapy (4-6 tablets a day �15 years)
Suspected sleep disorder breathing
Family history lung cancer (mother), pancreatic cancer (father)
History of left upper lobe cavitary lesion has developed since September 2022 s/p bronch/negative
Plan:
Appears nontoxic
Continue Symbicort, Spiriva and prednisone, being tapered as per below
Has not been seen as OP for FU
Did not follow up in office after last hospitalization in 2022. Quit smoking 3 years ago, has not resumed per patient.
Last PFT in 2019 w/ moderate obstruction
History of left upper lobe cavitary lesion has developed since September 2022.
During last admission in September patient had waxing waning patchy airspace disease aspiration was highly suspected.
Doubt carcinoma based on above.
History of MRSA positive sputum Culture in Apr.
s/p Bronchoscopy 12/28/22-left upper lobe-Lymph node station 11 R-negative for malignant cells, lymph node station 10 R-negative for malignant cells, lymph node station 4R-negative for malignant cells, lymph node station 7-negative for malignant
cells, lymph node station 4 L-negative for malignant cells, station 11 L-negative for malignant cells, left lower lobe BAL and brushings negative for malignant cells, left lingula- BAL negative for malignant cells, left lingula- brushings negative
for malignant cells
Repeat CXR this admission w/o consolidations with chronic EMERALD scarring at the site of previous severe pneumonia
GI following-correspondence reviewed
Modified barium swallow 12-23-22: persistent laryngeal penetration of barium without associated aspiration, normal thoracic esophagus
Aspiration precautions
AE COPD suspected
Started on IV steroids--transitioned to PO prednisone - -> wean down by 10mg every 4th day until off
Will obtain bedside PFT--very severe obstruction with post-bronchodilator FEV1: 28% predicted/1.[address] neg - observe off ABx
Chronic Co2 retention noted, compensated
ABG 7.41/74 would need BIPAP overnight but not sure if he will tolerate
Patient refused BiPAP 2 nights ago on evening of 06/27 -this can be discussed further as an outpatient; BiPAP order DC'd
Can obtain sleep study as OP to evaluate
LE pain, could be due to neuropathy vs vascular issues
Duplex shows no right lower extremity DVT; lower extremity SEJAL shows no evidence of PAD.
Ankle MRI (right) shows severe degenerative changes of the tibiotalar joint with partial collapse of the talus with extensive subchondral cystic change and a moderate joint effusion. 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
superimposed infection difficult to exclude - defer further management to primary team + podiatry
DVT prophylaxis -on Lovenox
Has been told to follow up at our office in past on numerous occasions, but has not followed through
He again was encouraged to make appointment to follow-up. Patient is having insurance issues/cannot afford meds
Dr. Carvalho discussed this again with him
Discharge planning per team
Patient is being prepared for discharge today to home with home care. No additional recommendations at this time. Pulmonary service will now sign off. Thank you for allowing us to be involved in the care of this patient. Please reconsult if
there are any additional questions/concerns, or if patient's respiratory status deteriorates.
Diagnostic Data
CXR 06/24/25- 1. Severe bilateral lung hyperinflation.
2. Chronic peripheral scarring in the left upper lobe at the site of previous severe pneumonia.
3. Mild chronic pulmonary arterial hypertension.
Echocardiogram 08/01/2022:�Showed normal biventricular size and function.� LVEF 50 to 55%.� Moderate LVH.� Mild MR.� Mild to moderate TR.� Moderate elevated pulmonary artery pressures.
PFT 2019: FEV1 2.43L 53%, ratio 61 (moderate obstruction)
Total time spent on this consultation/encounter __42__ minutes which includes review of history, physical exam, medications, laboratory data, personal review of imaging, extensive review of outpatient records, discussion with care team and
respiratory therapy.
Subjective Data
-
Date of Service:
Date of Service: June 29, 2025
Chief Complaint: Pulmonary Follow Up
Subjective:
Patient seen today at bedside (late note entry). Afebrile overnight. Saturating 98% on 2 L/min nasal cannula. Being prepared for discharge today.
Review of Systems
General: Other (Negative unless mentioned above)
Objective Data
Data Reviewed
Vital Signs / I&O / Oxygen:
Vital Signs
Temp Pulse Resp BP Pulse Ox
98.9 F 72 16 124/76 98
06/28/25 23:54 06/29/25 07:30 06/29/25 07:30 06/28/25 23:54 06/29/25 07:30
Intake and Output
06/28/25 06/29/25 06/30/25
06:59 06:59 06:59
Intake Total 1560 / 1560 1080 / 1080
Balance 1560 / 1560 1080 / 1080
SaO2 98
Nasal Cannula flow liters per 2
minute
Physical Exam
General: Comfortable and Other (NAD)
HEENT: Normocephalic, Anicteric and Moist Mucous Membranes
Cardiovascular: S1-S2 and Regular Rhythm
Respiratory: Clear and Non-Labored Respirations
GI: Soft, Non Distended and Non Tender
Neurology: Awake, Alert, Oriented and No Motor Deficits
Skin: Warm, Dry and Good Color
Labs/Micro/Reports
Lab Data
06/27/25 06:17
06/27/25 06:17
--- NOTE | 2025-06-29 10:52 | W.PN.HOSP.TC ---
Today's Communication/Plan
-
Discharge planning today
Assessment / Plan
Assessment / Plan
Physical exam:
General: No acute distress
HEENT: Normocephalic, Atraumatic and Moist Mucous Membranes
Respiratory: Decreased breath sounds bilateral; Negative Rales
Cardiac: Regular Rhythm and S1/S2
GI: Soft, Nontender and Nondistended
Musculoskeletal: No Clubbing, No Cyanosis and wearing right boot today
Neuro: Awake, Alert and Oriented, no neurological deficit
Psych: Calm
A/P:
AE-COPD
Acute Hypoxemic Respiratory Failure secondary to the above/Chronic Hypoxemic and Hypercapnic Respiratory failure:
Continue oral steroid
Continue bronchodilators as needed
Continue Pulmicort twice a day
Pulmonary consult appreciated. Pulmonary checked procalcitonin and it's less than 0.05 (keep in mind the patient has not been on antibiotics during this hospital stay)
Reviewed blood gas shows evidence of chronic hypercapnia with compensated metabolic alkalosis and chronic hypoxemia.
Seen chest x-ray
He did tolerated the BiPAP last night. Will reevaluate as outpatient with pulmonary if he will require BiPAP. For now pulmonary recommends home oxygen assessment. Home oxygen needs ordered (he tells me he has an oxygen concentrator at home from
prior hospitalizations).
Plan to discharge today
Probable peripheral neuropathy and significant arthritis and stress fractures (ruled out peripheral vascular disease):
Continue gabapentin at increased doses
Pain medication
Doppler negative for right lower extremity DVT
SEJAL test reviewed
Podiatry consult who order MRI-reviewed with electronics engineering manager who recommend continue special boot and no other recommendations at the moment.
Benign Hypertension
Remains elevated so continue amlodipine 5 mg p.o. daily
DM-II
- Not significantly hyperglycemic at present.
- Follow glucose and cover with SSI as needed.
- Update A1C and it is 5.6
DVT Prophylaxis: Lovenox
Code Status: Full
Total time spent on today's encounter was 35 minutes which included time spent in counseling the patient/family regarding diagnosis and treatment plan as listed above, goals of care, and symptom management. Case was discussed with nursing staff,
specialists, and care coordinators/case management. All labs and imaging personally reviewed by me. Remainder the time spent in detailed review of previous records, lab data, imaging, and other medical provider documentation.
Anticipated Discharge: Today
Subjective/Interval History
-
Date of Service: June 29, 2025
Patient feels better today. Supplemental oxygen on
Objective Data
-
Vital Signs:
Vital Signs
Temp Pulse Resp BP Pulse Ox
98.4 F 79 18 148/98 98
06/29/25 07:48 06/29/25 07:48 06/29/25 07:48 06/29/25 07:48 06/29/25 07:48
I&O
06/28/25 06/29/25 06/30/25
06:59 06:59 06:59
Intake Total 1560 / 1560 1080 / 1080
Balance 1560 / 1560 1080 / 1080
[2025-06-29 11:10] LABS: Glucose - Point of Care 100 mg/dl (70-99)
--- NOTE | 2025-06-29 11:28 | W.DCSUMMARY ---
Discharge Summary
Discharge Data
Date of Admission: 06/25/25
Date of Discharge: 06/29/25
Total time spent discharging patient (in min): 35
-
Pending Results: No
Hospital Course
Patient is 60 years old male with history of COPD, hypertension, diabetes mellitus, came into the hospital shortness of breath and bilateral lower extremity pain. Patient was found to be in COPD exacerbation. Pulmonary was consulted. He was
placed on IV steroids and bronchodilators. He had an patient PFTs that were consistent with severe obstruction and worsened from prior. His IV steroids were transitioned to oral. He also was able to wear BiPAP during this hospital stay something
that he was not able to tolerate in the past. This is something that he will discuss with pulmonary as outpatient if he will require in the near future. Home oxygen needs are being evaluated today and will set up if he requires oxygen. Course
complicated with worsening pain on his bilateral lower extremities especially his right ankle. He did have multiple testing including Doppler of right lower extremity that was negative for DVT, he also had SEJAL testing that was negative for any
circulation issues, and he had x-rays that show significant arthropathic changes on both feet and mainly on his right ankle. Podiatry was consulted. Podiatry recommended MRI of the right ankle that was done. Patient has been started on gabapentin
for neuropathic pain and was kept on other pain medication and he has been advised to use cautiously in the setting of his underlying COPD. Patient otherwise has been improving and he is eager to go home today. He participated with PT during this
hospital stay. He will be discharged from [facility] today.
Discharge duration: 35 minutes
Discharge Plan
-
Patient Disposition: Home with Home Care
Discharge Diagnosis/Procedures: Chronic obstructive pulmonary disease exacerbation. Acute on chronic hypoxic hypercapnic respiratory failure. Charcot arthropathy right ankle.
Diet: Low Cholesterol and Diabetic, Carb Controlled
Activity: As tolerated
Blood Work: Please PCP to order CBC, BMP within 1 week
Stand Alone Forms: Return to Work
Referrals:
Katie Rice, DO [Active, Pulmonary Medicine] - in three to four weeks
Referral Note: PFT
Germania Ferguson MD [Family Provider, Internal Medicine] - in less than 1 week
Jeffrey Kelley MD [Active, Podiatry] - in two to four weeks
Prescriptions:
New
sennosides [Tabatha-adela] 8.6 mg Tablet
8.6 mg PO BID Qty: 20 0RF
amlodipine 5 mg Tablet
5 mg PO DAILY 30 Days Qty: 30 0RF
oxycodone 5 mg Tablet
5 mg PO Q4HPRN PRN (Reason: moderate pain) Qty: 20 0RF
budesonide-formoterol [Symbicort] 160-4.5 mcg/actuation Hfa Aerosol Inhaler
2 puff inhalation R BID Qty: 10.2 0RF
Spiriva Respimat 2.5 mcg/actuation Mist
2 puff inhalation R DAILY 30 Days Qty: 4 0RF
acetaminophen 325 mg Tablet
650 mg PO Q4HPRN PRN (Reason: Mild Pain / Temp > 101) Qty: 30 0RF
albuterol sulfate 90 mcg/actuation Hfa Aerosol Inhaler
2 puff inhalation R Q4HPRN PRN (Reason: SOB/wheezing) Qty: 8.5 0RF
polyethylene glycol 3350 17 gram Powder In Packet
17 g PO DAILY 14 Days Qty: 14 0RF
gabapentin 100 mg Capsule
200 mg PO TID 14 Days Qty: 84 0RF
prednisone 10 mg Tablet
See Rx Instructions .ROUTE .COMPLEX Qty: 45 0RF
Rx Instructions:
Take By Mouth:
50 mg daily x3 days, 40 mg daily x3 days,
30 mg daily x3 days, 20 mg daily x3 days,
10 mg daily x3 days
Discharge Orders:
Discharge Patient (As Directed); Ordered 06/29/25
Ordered By: Earle Reyes
Discharge Date and Time
Print Language: TURKMEN
[2025-06-29 11:55] VITALS: BP 138/72
--- NOTE | 2025-06-29 12:01 | CM ---
CM following re:discharge planning.
Reviewed pt's chart, met with pt and pt's girlfriend at bedside.
Discharge order noted. Pt is aware, expressed his agreement with discharge. Pt is aware that previous CM was working on ordering Bi-Karie machine and a plan was to follow up with [facility] health DME on Monday.
Pt expressed his disagreement with staying till tomorrow, made a strong request to go home today and pt stated he will call [facility] and will follow up with outpatient rope rider. Pt stated: 'I have to come back to work tomorrow'. Pt is
holding portable Oxygen tank that his girlfriend brought to go home.
PT and OT evaluations noted - pt has no skilled PT/OT needs.
D/C plan: Home with no needs. Girlfriend to transport.
--- NOTE | 2025-06-29 12:40 | PTCARENOTE ---
Patient has own portable O2 tank, but does not know how to use it. RN demonstrated use of portable O2 tank. Patient verbalized and demonstrated understanding.
== END 2025-06-29 12:38 | disposition home or self-care (01) | DRG 190 ==
LOC: 4 EAST ACU 00:23
PROVIDERS: ADMITTING PHYSICIAN Hospitalist; ATTENDING PHYSICIAN Hospitalist; CONSULT PHYSICIAN Student in an Organized Health Care Education/Training Program; EMERGENCY PHYSICIAN Emergency Medicine; FAMILY PHYSICIAN Student in an Organized Health Care Education/Training Program; OTHER PHYSICIAN Internal Medicine
PROC: 5A09357 Assistance with Respiratory Ventilation, Less than 24 Consecutive Hours, Continuous Positive Airway Pressure (ICD-10-PCS; 2025-06-26)
DX: J44.1 Chronic obstructive pulmonary disease with (acute) exacerbation (principal); J96.21 Acute and chronic respiratory failure with hypoxia; J96.22 Acute and chronic respiratory failure with hypercapnia; E87.4 Mixed disorder of acid-base balance; E11.42 Type 2 diabetes mellitus with diabetic polyneuropathy; E11.610 Type 2 diabetes mellitus with diabetic neuropathic arthropathy; I10 Essential (primary) hypertension; K21.9 Gastro-esophageal reflux disease without esophagitis; F32.A Depression, unspecified; F41.9 Anxiety disorder, unspecified; F10.11 Alcohol abuse, in remission; Z80.0 Family history of malignant neoplasm of digestive organs; Z82.3 Family history of stroke; Z88.0 Allergy status to penicillin; Z86.74 Personal history of sudden cardiac arrest; E87.5 Hyperkalemia; G89.29 Other chronic pain; Z86.14 Personal history of Methicillin resistant Staphylococcus aureus infection; D75.1 Secondary polycythemia; E78.00 Pure hypercholesterolemia, unspecified; F17.200 Nicotine dependence, unspecified, uncomplicated; G47.00 Insomnia, unspecified; Z79.899 Other long term (current) drug therapy; Z96.651 Presence of right artificial knee joint; Z11.52 Encounter for screening for COVID-19
CPT/HCPCS: 71045; 73610; 73630; 73721; 80048; 80053; 82805; 82962; 83036; 83880; 84145; 84484; 85025; 85027; 87641; 87811; 93005; 93922; 93925; 93971; 94060; 94640; 94644; 94660; 94760; 96374; 97116; 97530; 99285

== ENCOUNTER 2025-07-15 18:25 | Inpatient (IN) | payer BC, SELFPAY ==
[2025-07-15] VITALS (10 sets, daily range): BP systolic 99–127; BP diastolic 51–85; BMI 19.1
--- NOTE | 2025-07-15 15:09 | ED.GENMED ---
History of Present Illness
<Ifrah Regalado BIOINFORMATICS PROGRAMMER - Last Filed: 07/15/25 19:27>
General
Chief Complaint: Breathing Problem
Source: patient
Exam Limitations: none
Time Seen by Provider: 07/15/25 15:07
Nursing documentation reviewed up to this point in time: agreed with
History of Present Illness
History of Present Illness:
60-year-old male with history 3 of NIDDM, diabetic neuropathy, COPD, home oxygen, HTN, HLD, GERD, GI bleed, hearing impaired, anxiety/depression, chronic pain presents for sudden onset worsening of his chronic of breath past 2 days. He states his
entire chest and back hurt 'all the way around.' Has been coughing up thick green mucus
Admitted 06/25-06/29 for COPD exacerbation, DC'd on steroids and bronchodilators. and states he felt good for few days after that discharge until 2 days ago. Denies fever. Denies N/V/D/C.
Past History
<Ifrah Regalado, BIOINFORMATICS PROGRAMMER - Last Filed: 07/15/25 19:27>
Past History
ED Past Medical History: COPD, HTN, Hypercholesterolemia, NIDDM (Diet Controlled), Psychiatric and Other (GI bleeding, PNA, Alcohol abuse, peripheral neuropathy)
ED Past Surgical History: Orthopedic
Social History
Tobacco: Former smoker
Alcohol: None (Patient denies alcohol use to me)
Drug: None
Personal:
Living: alone
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
Family History
Family History: Other (Noncontributory)
Review of Systems
<Ifrah Regalado BIOINFORMATICS PROGRAMMER - Last Filed: 07/15/25 19:27>
Review of Systems
Allergies reviewed?: Yes
All Other Systems: ROS reviewed and negative except as documented in HPI and ROS
Constitutional: Reports fatigue; Denies fever
Respiratory: Reports trouble breathing; Denies cough or hemoptysis
ABD/GI: Denies abdominal pain, nausea, vomiting, diarrhea (chronic) or anorexia
: Denies frequency, incontinence, difficulty voiding or urgency
Musculoskeletal: Denies edema
Skin: Reports no symptoms
Neurological: Reports no symptoms
Phy Exam
<Ifrah Regalado, BIOINFORMATICS PROGRAMMER - Last Filed: 07/15/25 19:27>
Physical Exam
Physical Exam:
GENERAL: Moderate distress with labored breathing, pulse ox 84% room air. A&Ox3.
CONSTITUTIONAL: Afebrile.
EYES: clear, conjunctivae normal
ENMT: moist mucus membranes
RESPIRATORY: Labored respirations, lungs with diminished breath sounds throughout. No cough noted.
CARDIOVASCULAR: Regular rate and rhythm, no murmurs, no rubs.
GI: Soft, nontender, normal BS
MUSCULOSKELETAL: Moves with ease. Well perfused. No edema
SKIN: Warm, dry, pink
PSYCH: Normal mood and affect. Well kept, interactive and appropriate
NEUROLOGIC: Awake, alert and oriented. No focal neurological deficits
Scores
<Ifrah Regalado, BIOINFORMATICS PROGRAMMER - Last Filed: 07/15/25 19:27>
Heart Failure Risk
Heart Failure Risk Score: Not Applicable
Course
<Ifrah Regalado, BIOINFORMATICS PROGRAMMER - Last Filed: 07/15/25 19:27>
Orders/Labs/Results
Orders:
Orders
07/15/25 14:58
EKG [Electrocardiogram (*1)] Urgent
Reason for Study: Shortness of Breath
EKG- Treatment ONCE
07/15/25 15:17
CR Chest - 2 Views Urgent
Comment:
Reason For Exam: SOB
07/15/25 15:23
Complete Blood Count/With Diff Urgent
Comprehensive Metabolic Panel Urgent
07/15/25 15:34
Ipratropium/Albuterol Sulfate [Duoneb] 3 ml INH R NOW STA
07/15/25 15:46
COVID-19 Antigen Urgent
Source: Nasal Swab
07/15/25 16:30
Add On- LAB Urgent
Tests Added?: BNP
07/15/25 17:07
NT-proBNP Urgent
Comment: ADD ON
Troponin I Urgent
07/15/25 17:26
Dexamethasone Sod Phosphate [Decadron] 10 mg IV NOW STA
07/15/25 17:33
Ipratropium/Albuterol Sulfate [Duoneb] 3 ml INH R NOW STA
07/15/25 18:09
Admit/Transfer Patient As Directed
Co-Sign Provider:
Level of Care: Inpatient admission
Assign to:: IMU- Intermediate Care
Physician / Group: ang aleman
Diagnosis: acute hypoxic respiratory failure
Reason for Hospitalization: acute hypoxia
Expected length of stay greater than two midnights?: Yes
ELOS- Estimated Length of Stay in days: 3
I certify the patient meets the requirements for IP care: Yes
07/15/25 18:10
PRN Pain Medication Management As Directed
May give lesser potent ordered pain med per pt: Yes
preference::
Protocol:: Medication orders for pain may be administered in a
manner that supports deferring to patient preference
when the pt is:
- Requesting an ordered lesser potent pain medication.
Least to most potent pain medications are defined
as: acetaminophen < NSAID < tramadol < opioids
(morphine, oxycodone, hydromorphone).
- Requesting a lesser dose of the same medication IF
ORDERED.
- Requesting a less intrusive route of administration
if both routes are prescribed by the provider (PO <
IV).
07/15/25 18:11
Code Status As Directed
Resuscitation Status: Full Code
Abnormal Lab Results
07/15/25
15:23
WBC 23.1 H 10^3/uL
(4.8-10.8)
Abs Immat Gran (auto) 0.2 H 10^3/uL
(0-0.05)
Absolute Neuts (auto) 21.0 H 10^3/uL
(1.4-6.5)
Absolute Lymphs (auto) 0.8 L 10^3/uL
(1.2-3.4)
Absolute Monos (auto) 1.0 H 10^3/uL
(0.1-0.6)
Immature Gran % 0.7 H %
(0-0.5)
Neutrophils % 90.6 H %
(42.2-75.2)
Lymphocytes % 3.6 L %
(20.5-51.1)
Sodium 133 L mmol/L
(135-145)
Chloride 95 L mmol/L
(98-107)
Carbon Dioxide 34 H mmol/L
(22-30)
Creatinine 0.6 L mg/dL
(0.7-1.3)
Glucose 101 H mg/dl
(70-99)
07/15/25 15:23
07/15/25 15:23
Vital Signs
Initial and Last Documented VS:
Initial Vital Signs
Temp Pulse Resp BP Pulse Ox
97.8 F 116 20 108/85 85
07/15/25 14:53 07/15/25 14:53 07/15/25 14:53 07/15/25 14:53 07/15/25 14:53
Last Documented Vital Signs
Temp Pulse Resp BP Pulse Ox
97.8 F 105 22 99/55 95
07/15/25 14:53 07/15/25 17:45 07/15/25 17:45 07/15/25 17:00 07/15/25 17:30
Craft Demonstrator consulted with Physician
Craft Demonstrator consulted with physician?: Yes
Name of Physician Consulted: Dr. Carbone
<Daniel Carbone, DO - Last Filed: 07/15/25 17:34>
Orders/Labs/Results
Orders:
Orders
07/15/25 14:58
EKG [Electrocardiogram (*1)] Urgent
Reason for Study: Shortness of Breath
EKG- Treatment ONCE
07/15/25 15:17
CR Chest - 2 Views Urgent
Comment:
Reason For Exam: SOB
07/15/25 15:23
Complete Blood Count/With Diff Urgent
Comprehensive Metabolic Panel Urgent
07/15/25 15:34
Ipratropium/Albuterol Sulfate [Duoneb] 3 ml INH R NOW STA
07/15/25 15:46
COVID-19 Antigen Urgent
Source: Nasal Swab
07/15/25 16:30
Add On- LAB Urgent
Tests Added?: BNP
07/15/25 17:07
NT-proBNP Urgent
Comment: ADD ON
Troponin I Urgent
07/15/25 17:26
Dexamethasone Sod Phosphate [Decadron] 10 mg IV NOW STA
07/15/25 17:33
Ipratropium/Albuterol Sulfate [Duoneb] 3 ml INH R NOW STA
07/15/25 18:09
Admit/Transfer Patient As Directed
Co-Sign Provider:
Level of Care: Inpatient admission
Assign to:: IMU- Intermediate Care
Physician / Group: ang aleman
Diagnosis: acute hypoxic respiratory failure
Reason for Hospitalization: acute hypoxia
Expected length of stay greater than two midnights?: Yes
ELOS- Estimated Length of Stay in days: 3
I certify the patient meets the requirements for IP care: Yes
07/15/25 18:10
PRN Pain Medication Management As Directed
May give lesser potent ordered pain med per pt: Yes
preference::
Protocol:: Medication orders for pain may be administered in a
manner that supports deferring to patient preference
when the pt is:
- Requesting an ordered lesser potent pain medication.
Least to most potent pain medications are defined
as: acetaminophen < NSAID < tramadol < opioids
(morphine, oxycodone, hydromorphone).
- Requesting a lesser dose of the same medication IF
ORDERED.
- Requesting a less intrusive route of administration
if both routes are prescribed by the provider (PO <
IV).
07/15/25 18:11
Code Status As Directed
Resuscitation Status: Full Code
Abnormal Lab Results
07/15/25
15:23
WBC 23.1 H 10^3/uL
(4.8-10.8)
Abs Immat Gran (auto) 0.2 H 10^3/uL
(0-0.05)
Absolute Neuts (auto) 21.0 H 10^3/uL
(1.4-6.5)
Absolute Lymphs (auto) 0.8 L 10^3/uL
(1.2-3.4)
Absolute Monos (auto) 1.0 H 10^3/uL
(0.1-0.6)
Immature Gran % 0.7 H %
(0-0.5)
Neutrophils % 90.6 H %
(42.2-75.2)
Lymphocytes % 3.6 L %
(20.5-51.1)
Sodium 133 L mmol/L
(135-145)
Chloride 95 L mmol/L
(98-107)
Carbon Dioxide 34 H mmol/L
(22-30)
Creatinine 0.6 L mg/dL
(0.7-1.3)
Glucose 101 H mg/dl
(70-99)
07/15/25 15:23
07/15/25 15:23
Vital Signs
Initial and Last Documented VS:
Initial Vital Signs
Temp Pulse Resp BP Pulse Ox
97.8 F 116 20 108/85 85
07/15/25 14:53 07/15/25 14:53 07/15/25 14:53 07/15/25 14:53 07/15/25 14:53
Last Documented Vital Signs
Temp Pulse Resp BP Pulse Ox
97.8 F 105 22 99/55 95
07/15/25 14:53 07/15/25 17:45 07/15/25 17:45 07/15/25 17:00 07/15/25 17:30
<Ifrah Regalado BIOINFORMATICS PROGRAMMER - Last Filed: 07/15/25 19:27>
MDM/Problems Addressed
Differential Diagnosis Includes:
Exacerbation of COPD, hypoxic respiratory failure, Covid
MDM/Problems Addressed:
60-year-old male with history 3 of NIDDM, diabetic neuropathy, COPD, home oxygen, HTN, HLD, GERD, GI bleed, hearing impaired, anxiety/depression, chronic pain presents for sudden onset worsening of his chronic of breath past 2 days. He states his
entire chest and back hurt 'all the way around.' Has been coughing up thick green mucus
Admitted 06/25-06/29 for COPD exacerbation, DC'd on steroids and bronchodilators. and states he felt good for few days after that discharge until 2 days ago. Denies fever. Denies N/V/D/C.
Pulse ox 85% on room air, placed on nasal O2 2 L, respirations labored, heart rate 116 on bedside monitor
EKG: Sinus tach 111
3:30 PM: On 2 L nasal cannula oxygen pulse ox is 91%
4:30 PM:
O2 increased to 3L/min due to pulse ox dropping to 84% on 2L
COVID-negative
CBC: WBC 23.1 with a shift (may be partially from recent steroid use)
CMP: No clinically significant abnormality. CO2 of 34 is consistent with his baseline
Chest x-ray: Radiology report read: Mild pulmonary vascular congestion chronic scarring in the left upper lobe.
5:30 PM:
After duoneb pt continues with respiratory insufficiency, working hard to breathe, pulse ox is 96% on 3L
Lungs with wheezes throughout
Second duo neb ordered. IV steroids given
Troponin and BNP pending
Case discussed with Dr. Carbone who examined pt. Agrees with admit
Dx: Exacerbation COPD w hypoxic resp. failure. Troponin and BNP pending.
Hospitalist notified of admission.
<Ifrah Regalado, BIOINFORMATICS PROGRAMMER - Last Filed: 07/15/25 19:27>
*Pulse Oximetry
SaO2: 85
Oxygen Mode of Delivery: Room air
Patient hypoxic: yes
*EKG
EKG Intrepretation Date: 07/15/25
Interpretation: abnormal
Heart Rate: 111
Rate: tachycardiac
Rhythm: sinus
[place]: normal axis
Interval: normal interval
QRS Pattern: normal QRS
Ischemia: no ischemia
*Critical Care Note
Total Time (30-74mins, 75-104mins- exclusive of procedures): Not Applicable
ED Attending Note
<Ifrah Regalado, BIOINFORMATICS PROGRAMMER - Last Filed: 07/15/25 19:27>
-
Portions of this chart may have been created with voice recognition software.� Occasional wrong word or��sound alike� substitutions may have occurred due to the inherent limitations of voice recognition software.
<Daniel Carbone DO - Last Filed: 07/15/25 17:34>
ED Attending Note
Patient seen and examined by attending physician: Yes
I performed the substantive portion of visit, reviewed & personally made and approve the management plan that is documented in note by myself or OLVIN.: Yes
ED Attending Note:
I evaluated the patient bedside. The patient has decreased breath sounds with prominent wheeze. Additional nebs given, will start IV steroids as well. Suspect COPD exacerbation�patient states that this feels like a typical COPD exacerbation for
him. Room air sats as low as 84%. He states he uses oxygen only at nighttime.
Discharge Plan
Departure
Patient Disposition: Admit
Date of Disposition: 07/15/25
Time of Disposition: 17:40
Presentation/result/management discussed w/ accepting MD/DO: Hospitalist
Patient with high blood pressure during this ER visit?: No
Condition: Serious
Covid-19: Negative COVID-19
Discharge Problem:
Acute exacerbation of chronic obstructive pulmonary disease, Acute respiratory failure with hypoxia
Interventions
Interventions:
*Risk Screen - Suicide Last Done: 07/15/25 14:53
*General Assessment Last Done: 07/15/25 15:18
*Neglect/Abuse Screening Last Done: 07/15/25 14:53
*ED- Fall Risk Assessment Last Done: 07/15/25 15:18
*ED COVID-19 Vaccine History Last Done: 07/15/25 15:18
*ED Influenza Vaccine History Last Done: 07/15/25 15:18
ED- Cardiac Assessment Last Done: 07/15/25 15:18
ED- Pulmonary Assessment Last Done: 07/15/25 15:18
[2025-07-15] MEDS: DUONEB 3 ML INH ×2 (15:45→17:39)
[2025-07-15 15:52] LABS: ALT (SGPT) 21 U/L (0-50); AST (SGOT) 22 U/L (17-59); Albumin 3.9 g/dl (3.5-5.0); Alkaline Phosphatase 96 U/L (38-126); Blood Urea Nitrogen 15 mg/dl (9-20); Calcium 9.5 mg/dl (8.4-10.2); Chloride 95 mmol/L (98-107); Estimated Creatinine Clearance > 125 ml/min; Glucose 101 mg/dl (70-99); Potassium 4.2 mmol/L (3.5-5.1); Sodium 133 mmol/L (135-145); Total Protein 6.5 g/dl (6.3-8.2); eGFR > 60.00
[2025-07-15 15:55] LABS: Hematocrit 46.5 % (39.0-52.0); Hemoglobin 15.4 g/dL (13.0-18.0); Mean Corp Hgb Conc. 33.1 g/dL (33.0-37.0); Mean Corpuscular Volume 90.6 fL (80.0-94.0); Platelet Count 230 10^3/uL (130-400); Red Cell Dist. Width 14.2 % (11.5-14.5)
[2025-07-15 16:00] LABS: Carbon Dioxide 34 mmol/L (22-30)
[2025-07-15 16:08] LABS: COVID-19 Antigen Negative (Negative)
[2025-07-15 16:09] LABS: Nucleated Red Blood Cells % 0 % (-)
[2025-07-15] MEDS: DECADRON 10 MG IV (17:39)
--- NOTE | 2025-07-15 17:42 | HPS.HSE ---
Family Physician
-
Family Physician: Germania Ferguson MD
Chief Complaint
-
sob
History of Present Illness
60-year-old male with history 3 of NIDDM, diabetic neuropathy, COPD, home oxygen, HTN, HLD, GERD, GI bleed, hearing impaired, anxiety/depression, chronic pain presents with worsening sob, cough with greenish sputum. entire chest and and back is
tight. he has not felt great since the discharge from hospital two weeks ago. today as he was walking at the work, he felt extremely sob, lightheaded. he was nauseous today morning. denied fever. stated chills. denied syncopal episode. denied
abdminal pain, diarrhea. denied dysuria or hematuria. patient stated chronic LE edema. it has not got bad.
Medical History
Past Medical History
Past Medical History: Reports Other
Additional Past Medical History:
COPD, upper GI bleed, hypertension, type 2 diabetes, neuropathy, pneumonia
Past Surgical History: Reports Other
Additional Past Surgical History:
Traumatic meniscus right knee repair, carpal tunnel surgery right head, right cyst removal, right TKA
Social History
Tobacco: Former Smoker
Alcohol: None
Drug: None
Living: With Family
Family History
Family History: Not pertinent
Allergies / Home Medications
Allergies reflects when Allergies were last updated in [facility].
Home Medications with original date entered in [facility]
Allergy/Medication List:
Allergies
Allergy/AdvReac Type Severity Reaction Status Date / Time
Fish Containing Products Allergy Swelling/burning Verified 07/15/25 14:53
sensation
in throat
Penicillins Allergy Itching/scratchy Verified 07/15/25 14:53
throat 40
years
ago/cefepime
04/04/22
admiss
Home Medications
albuterol sulfate 90 mcg/actuation aerosol inhaler 2 puff inhalation R Q4HPRN PRN SOB/wheezing #8.5 grams 06/29/25
amlodipine 5 mg tablet 5 mg PO DAILY 30 days #30 tabs 06/29/25
budesonide-formoterol HFA 160 mcg-4.5 mcg/actuation aerosol inhaler (Symbicort) 2 puff inhalation R BID #10.2 grams 06/29/25
oxycodone 5 mg tablet 5 mg PO Q4HPRN PRN moderate pain #20 tabs 06/29/25
ibuprofen 200 mg tablet (Advil) 200 mg PO DAILYPRN PRN mild pain 07/15/25
tiotropium bromide 2.5 mcg/actuation mist for inhalation (Spiriva Respimat) 2 puff inhalation R DAILY Lung/Breathing Issues 07/15/25
Review of Systems
-
Constitutional: Reports No Symptoms
EENT: Reports No Symptoms
Respiratory: Reports Cough and Trouble Breathing
Cardiac: Reports No Symptoms
Abdomen/GI: Reports No Symptoms
: Reports No Symptoms
Musculoskeletal: Reports Edema (Chronic)
Skin: Reports No Symptoms
Neurological: Reports No Symptoms
Endocrine: Reports No Symptoms
Hematologic/Lymphatic: Reports No Symptoms
Psych: Reports No Symptoms
Physical Exam
Vital Signs
Vital Signs
Temp Pulse Resp BP Pulse Ox
97.8 F 116 20 108/85 83
07/15/25 14:53 07/15/25 14:53 07/15/25 14:53 07/15/25 14:53 07/15/25 15:18
Physical Exam
General: Well Developed, Well Nourished and No Apparent Distress
HEENT: NormoCephalic, Moist mucous membranes and Atraumatic
Respiratory: Wheezes, Rales and Rhonchi
Cardiac: S1/S2 and Regular Rhythm; No Murmur or Rub
GI: Soft, Non Tender, Non Distended and Normal Bowel Sounds; No Organomegaly
Rectal: Deferred by Provider
Musculoskeletal: No Clubbing, No Cyanosis and Other (Chronic lower extremities edema)
Skin: No Rash
Neuro: AO x 3 and Nonfocal/grossly intact
Psych: Calm
Laboratory Results
-
07/15/25 15:23
07/15/25 15:23
Laboratory Results
Total Bilirubin 1.2 mg/dl (0.2-1.3) 07/15/25 15:23
AST 22 U/L (17-59) 07/15/25 15:23
ALT 21 U/L (0-50) 07/15/25 15:23
Alkaline Phosphatase 96 U/L (38-126) 07/15/25 15:23
Data Reviewed
-
Lab Data: Labs Reviewed by me
Impression/Plan
-
# Acute hypoxic respiratory failure secondary to COPD exacerbation
- Continue supplemental oxygen to keep sat greater than 89-92, wean as tolerated
- Nebs as needed for short of breath and wheezing
- Decadron continued
- COVID, flu negative
- Chest x-ray with mild pulmonary vascular congestion, chronic scarring in the left upper lobe
#sob/LE concern for pulmonary vascular congestion
-BNP 5550
-obtain ECHO
-strict I&O,daily weight
-diuretics once in ER.
#Leukocytosis likely from recent steroid use
- WBC 23.1
- Patient is afebrile
- Continue to monitor
#benign Hypertension
- continue amlodipine 5 mg p.o. daily
DVT Prophylaxis: Lovenox
Code Status: Full
[2025-07-15 17:44] LABS: Troponin I 0.032 ng/ml
--- NOTE | 2025-07-15 18:56 | W.PN.UPDATE ---
Update Note
Progress Note Update
This note serves as an addendum to the H&P by real estate rental agent Marissaba JOCELINE�
HPI�
60M former smoker, impaired hearing:
PMHX: COPD, chr hypercarbia, Home O2 HS, HX UGIB, HTN, T2DM, neuropathy, PNA:
- pw worsening sob, cough with greenish sputum. entire chest and and back is tight
- not felt great since the discharge from hospital two weeks ago
-today as he was walking at the work, he felt extremely sob, lightheaded
- denied fever. stated chills. denied syncopal episode. denied abdominal pain, diarrhea.
- chronic LE edema.
Relevant VS
Temp Pulse Resp BP Pulse Ox
97.8 F 105 22 99/55 95
07/15/25 14:53 07/15/25 17:45 07/15/25 17:45 07/15/25 17:00 07/15/25 17:30
PE
Resp:
Card: S1/S2 and Regular Rhythm; No Murmur or Rub
GI: Soft, Non Tender, Non Distended and Normal Bowel Sounds; No Organomegaly
Rectal: Deferred by Provider
MS: Chronic lower extremities edema)
Relevant Data
06/26/25 06/27/25 07/15/25
07:00 06:17 15:23
WBC 11.3 H 23.1 H
Hgb 17.1 15.4
Plt Count 231 230
Sodium 133 L
Potassium 4.2
Carbon Dioxide 39 H 37 H 34 H
Creatinine 0.6 L 0.6 L
eGFR > 60.00 > 60.00
06/25/25 07/15/25
05:09 17:07
Troponin I 0.032
Rgz-A-Hpzdsamdudq Pept 3310 5550
09/14/22 06/25/25
10:08 00:27
pH 7.34 L 7.41
pCO2 52 H
pO2 99 62 L
HCO3 28.1 H 46.9 H*
Base Excess 1.4 17.2
CXR
Mild pulmonary vascular congestion. Chronic scarring in the left upper lobe.
Last hospitalist admission: 06/25/25 - 06/29/25
DC DX:
COPD flare
Acute on chronic hypoxic hypercapnic RF
Charcot arthropathy right ankle.
ASSESSMENT & PLAN
COPD flare with colored sputum & higher more O2 demand
Associated Acute hypoxic RF requiring 4L NC O2
HX chr hypoxic RF use home O2 1 L HX
Former smoker for last 3 yrs
- COVID, flu negative
- Supplemental O2 to keep sat greater than 89-92 - avoid over correction due to risk of CO2 retention , encephalopathy
- DuoNeb qid and PRN
- Decadron IV 4mg q8h
- PO Azithromycin daily for 5 days
- Pul consult
Suspect element of acute HFpEF
CXR suggest pulmonary vascular congestion + BNP 5550
- IV Lasix 40 now and another 40 in AM then eval
- check ECHO
- strict I&O,daily weight
Leukocytosis likely from recent steroid use
- WBC 23.1
- Patient is afebrile
- Trend WCC
Bn Hypertension
- on amlodipine 5 mg p.o. daily
DVT Px: LMWH
Full code
IP TLM
[2025-07-15] MEDS: LASIX 40 MG IV (19:43)
[2025-07-15] MEDS: ZITHROMAX INFUSION 250 IV (22:03)
[2025-07-15] MEDS: MUCINEX 1200 MG PO (22:03)
[2025-07-15] MEDS: ROXICODONE 5 MG PO (22:04)
--- NOTE | 2025-07-15 22:55 | PTCARENOTE ---
Received patient from ED to IMU. Pt ambulated independently from the stretcher to the bed, no issues. Pt AAOx3, slightly restless. A-febrile. NSR on the monitor. Received pt on 3L NC, SpO2 93%. Pt has an expiratory wheeze and diminished throughout,
dyspneic w/ exertion, pt has a moist productive cough with green sputum. Pt received IV abx. Collected sputum sample. Pt c/o 8/10 pain to b/l feet, hx neuropathy. Pt has decreased sensation to b/l feet, PRN Oxycodone administered see NOV. R ankle +1
edema. Trace R ankle. Pt oriented to the unit, educated on the call arvizu, within reach.
[2025-07-16] VITALS (12 sets, daily range): BP systolic 99–124; BP diastolic 66–87; BMI 19.0
[2025-07-16] MEDS: SYMBICORT 160/4.5 MCG INHALER INH (00:18)
[2025-07-16] MEDS: DUONEB INH (00:18)
[2025-07-16] MEDS: DECADRON 4 MG IV ×2 (01:42→11:12)
[2025-07-16 04:37] LABS: Hematocrit 45.2 % (39.0-52.0); Hemoglobin 14.6 g/dL (13.0-18.0); Mean Corp Hgb Conc. 32.3 g/dL (33.0-37.0); Mean Corpuscular Volume 92.8 fL (80.0-94.0); Nucleated Red Blood Cells % 0 % (-); Platelet Count 208 10^3/uL (130-400); Red Cell Dist. Width 14.5 % (11.5-14.5)
[2025-07-16 05:01] LABS: Blood Urea Nitrogen 14 mg/dl (9-20); Calcium 9.0 mg/dl (8.4-10.2); Chloride 95 mmol/L (98-107); Estimated Creatinine Clearance 121 ml/min; Glucose 147 mg/dl (70-99); HDL Cholesterol 74 mg/dl; LDL Cholesterol, Calculated 75 mg/dl; Magnesium 1.8 mg/dl (1.6-2.3); Potassium 4.5 mmol/L (3.5-5.1); Sodium 134 mmol/L (135-145); Very Low Density Lipoprotein 9 mg/dl (0-30); eGFR > 60.00
[2025-07-16 05:09] LABS: Carbon Dioxide 35 mmol/L (22-30)
--- NOTE | 2025-07-16 06:09 | W.PN.HOSP.TC ---
Today's Communication/Plan
-
bronchodilators
steroids
wean O2 supplementation as tolerated
Follow sputum control
Diuresis
I/O daily weights
Assessment / Plan
Assessment / Plan
Physical Exam
General: No acute distress, appears comfortable at this time.
HEENT: NormoCephalic, Moist mucous membranes and Atraumatic
Respiratory: Diffuse wheezing, otherwise stable respiratory status on Nasal cannula
Cardiac: S1/S2 and Regular Rhythm; No Murmur or Rub
GI: Soft, Non Tender, Non Distended and Normal Bowel Sounds; No Organomegaly
Musculoskeletal: No Clubbing, No Cyanosis and Other (Chronic lower extremities edema R>L)
Skin: No Rash
Neuro: AO x 3 conversant coherent
Psych: Calm
60M DM COPD HTN HLD GERD GIB Anxiety/Depression here for COPD exacerbation with possible HFpEF/cor pulmonale.
# Acute hypoxic respiratory failure secondary to COPD exacerbation
#Leukocytosis possibly d/t recent steroid use (though patient reports he had completed prednisone taper a few days ago prior to symptoms returning)
- Continue supplemental oxygen to keep sat greater than 89-92, wean as tolerated
- Nebs as needed for short of breath and wheezing
- Decadron switched to prednisone as per Pulm
-received empiric IV azithromycin and ceftriaxone, de-escalated to PO Azithromycin 500 mg for 3 day course, low suspicion PNA
- COVID, flu negative
- Chest x-ray with mild pulmonary vascular congestion, chronic scarring in the left upper lobe
- Pulm eval appreciated
#sob/LE concern for pulmonary vascular congestion, possible Acute on Chronic HFpEF
-BNP 5550
-ECHO appreciated EF 63%
-strict I&O,daily weight
-cont gentle diuresis as per Pulm
#hx Hypertension
- home amlodipine 5 mg p.o. daily discontinued d/t lower ext edema
- cont Lasix as above
#Neuropathy
Gabapentin 100 mg TID
DVT Prophylaxis: Lovenox
Code Status: Full
I spent a total of 45 minutes with the patient or on the floor. More than 50% of this time involved counseling and coordination of care.
Anticipated Discharge: 24 - 48 hours
Subjective/Interval History
-
Date of Service: July 16, 2025
Seen and examined at bedside in no acute distress sitting up comfortably in bed. Reports improvement in symptoms though remains wheezy with productive cough and requiring oxygen supplementation (reports using oxygen for bedtime at baseline)
Objective Data
-
Labs:
Laboratory Results
07/16/25
04:00
WBC 20.3 H
Hgb 14.6
Hct 45.2
Plt Count 208
Sodium 134 L
Potassium 4.5
Chloride 95 L
Carbon Dioxide 35 H
BUN 14
Creatinine 0.6 L
Glucose 147 H
Calcium 9.0
Vital Signs:
Vital Signs
Temp Pulse Resp BP Pulse Ox
97.5 F 64 21 112/81 92
07/16/25 03:00 07/16/25 04:00 07/16/25 04:00 07/16/25 04:00 07/16/25 04:00
I&O
07/14/25 07/15/25 07/16/25
06:59 06:59 06:59
Intake Total 490 / 490
Output Total 1100 / 1100
Balance -610 / -610
[2025-07-16] MEDS: SYMBICORT 160/4.5 MCG INHALER 2 PUFF INH ×2 (06:16→19:15)
[2025-07-16] MEDS: DUONEB 3 ML INH ×4 (06:16→19:15)
--- NOTE | 2025-07-16 07:36 | CON.PUL ---
Consultation
Consultation Request
Date/Time Consultation Requested: 07/16/2025
Date/Time Consultation Performed: 07/16/2025
Medical History
-
Chief Complaint: Shortness of breath
History of Present Illness:
Patient is a 60-year-old gentleman with known history of severe baseline COPD, on home oxygen who presents to the hospital with worsening shortness of breath, cough with increased sputum production which was clear to light greenish. Patient was
recently discharged from the hospital for similar symptoms and did well for few days up until more recently where he developed worsening symptoms. Denies any sick contacts. Denies any upper respiratory tract symptoms. Patient also reports a lower
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 Patient does report episodes of orthopnea but denies any paroxysmal nocturnal dyspnea. Pulmonary consultation was requested for further input.
Past Medical History
Past Medical History: Reports Other
Additional Past Medical History:
COPD, upper GI bleed, hypertension, type 2 diabetes, neuropathy, pneumonia
Past Surgical History: Reports Other
Additional Past Surgical History:
Traumatic meniscus right knee repair, carpal tunnel surgery right head, right cyst removal, right TKA
Social History
Tobacco: Former Smoker
Alcohol: None
Drug: None
Living: With Family
Family History
Family History: Not pertinent
Allergies / Home Medications
Allergies
Allergy/AdvReac Type Severity Reaction Status Date / Time
Fish Containing Products Allergy Swelling/burning Verified 07/15/25 14:53
sensation
in throat
Penicillins Allergy Itching/scratchy Verified 07/15/25 14:53
throat 40
years
ago/cefepime
04/04/22
admiss
Home Medications
�Medication �Instructions �Recorded �Confirmed �Last Taken �Type
albuterol sulfate 90 mcg/actuation 2 puff inhalation R Q4HPRN PRN 06/29/25 07/15/25 07/15/25 Rx
aerosol inhaler SOB/wheezing #8.5 grams
amlodipine 5 mg tablet 5 mg PO DAILY 30 days #30 tabs 06/29/25 07/15/25 07/15/25 Rx
budesonide-formoterol HFA 160 2 puff inhalation R BID #10.2 grams 06/29/25 07/15/25 07/15/25 Rx
mcg-4.5 mcg/actuation aerosol
inhaler (Symbicort)
oxycodone 5 mg tablet 5 mg PO Q4HPRN PRN moderate pain 06/29/25 07/15/25 Unknown Rx
#20 tabs
ibuprofen 200 mg tablet (Advil) 200 mg PO DAILYPRN PRN mild pain 07/15/25 07/15/25 07/15/25 History
tiotropium bromide 2.5 2 puff inhalation R DAILY 07/15/25 07/15/25 07/15/25 History
mcg/actuation mist for inhalation Lung/Breathing Issues
(Spiriva Respimat)
Review of Systems
-
Hematologic/Lymphatic: Other (All 14 systems reviewed and negative except as stated above in the history of present illness.)
Vitals / Labs / Diagnostic Testing
Vital Signs
Temp Pulse Resp BP Pulse Ox
97.5 F 78 16 112/69 98
07/16/25 03:00 07/16/25 06:21 07/16/25 06:21 07/16/25 06:00 07/16/25 06:21
Lab Data
07/16/25 04:00
07/16/25 04:00
Diagnostic Testing:
Physical Exam
-
HEENT: Normocephalic
Cardiovascular: S1/S2 and Peripheral Edema (1-2+ bilaterally)
Respiratory: Clear and Non-Labored Respirations
GI: Soft and Non Distended
Neurology: Awake and Alert
Skin: Warm
General: Comfortable
Assessment
-
#1. Acute on chronic hypoxic and hypercapnic respiratory failure
- Suspect primarily related to COPD exacerbation however patient also noted to have mild pulmonary vascular congestion as well as elevated BNP and pedal edema concerning for congestive heart failure. Underlying pulmonary hypertension also
contributing.
- Initiate diuresis to optimize intravascular volume, agree with current treatment for COPD exacerbation
- Continue O2 support, target SpO2 greater than 90% in view of pulmonary hypertension
#2. Acute exacerbation of COPD
- Wheezing improved since admission. Continue DuoNeb 4 times daily and budesonide twice daily. Discontinue Rocephin as no evidence of pneumonia on current chest x-ray
- Change azithromycin to p.o., total 3 days of therapy with 500 mg daily should suffice
- Additional as needed albuterol on an as needed basis
- O2 support to keep saturations above 90%
- Discontinue IV steroids, switch to prednisone 30 mg daily.
- Resume Symbicort and Spiriva at discharge.
- Recommend outpatient pulmonary clinic follow-up. Patient also will need a low-dose CT scan for lung cancer screening.
#3. Chronic compensated hypercapnia
- Chronically elevated serum bicarbonate noted. Prior VBG's reviewed, compensated hypercapnia noted
- With advanced COPD, recurrent exacerbations and chronic hypercapnia, patient likely will benefit from nightly PAP therapy
- Again recommended outpatient follow-up with [facility] pulmonary clinic where we can perform detailed pulmonary function testing, diffusion capacity assessment, 6-minute walk test and work on arranging PAP therapy for nightly use. Patient will also
benefit from a sleep study
#4. Pulmonary hypertension, concern for developing cor pulmonale
- Pulmonary artery systolic pressure of 53 and echocardiogram in 07/2022.
- Bilateral pitting edema noted
- Hold amlodipine, initiate gentle diuresis with IV Lasix
- Repeat echocardiogram
Conditions present prior to admission:
DH Adm Lingular cavitary mass/LLL lateral segment cavitary mass/Mediastinal LAD s/p bronch, neg culture/path 2022
Acute hypercapnic respiratory failure requiring intubation/sepsis/narcotic use for pain.
Intubated 07/28/2022: Extubated 08/04/2022
S/p Cardiac Arrest/Maurizio/Asystole, ROSC with CPR
Acute renal insufficiency, hyperkalemia
Requiring emergent HD 07/29
Mild aortic stenosis per echo June 2021
Normal biventricular function
History of GI bleed, duodenal ulcer 2018
Significant alcohol use, 6 pack of beer/day, ongoing
Hypertension/hyperlipidemia
Diabetes
History of recurrent COPD exacerbation, multiple hospital stays
Chronic bronchitis
50 pack year history smoking
Insomnia
Chronic back pain, chronic oxycodone therapy (4-6 tablets a day �15 years)
Suspected sleep disorder breathing
Family history lung cancer (mother), pancreatic cancer (father)
History of left upper lobe cavitary lesion has developed since September 2022 s/p bronch/negative
Total time spent on this consultation/encounter _65___ minutes which includes review of history, physical exam, medications, laboratory data, personal review of imaging, extensive review of outpatient records, discussion with care team and
respiratory therapy.
Data:
CXR 07/2025: Mild pulmonary vascular congestion. Chronic scarring in the left upper lobe.
Spirometry 06/2025: Severe obstruction, FEV1 23% of predicted. There was significant bronchodilator response in the FEV1 and FVC.
CT Chest 12/2022: 1. Two cavitary lesions with air-fluid levels in the left upper lobe as above, larger measuring up to 6.5 cm in diameter. Large amount of surrounding airspace consolidation. Given the current appearance and the absence of these
findings on the September 2022 examination, these most likely represent pulmonary abscesses. Neoplastic etiology is possible, considered less likely. There is associated mediastinal adenopathy and left hilar adenopathy.
2. Subacute chronic fractures posterior right ninth and 10th ribs.
ECHO 07/2022: Normal biventricular size and systolic function without regional wall motion
abnormality. Estimated LVEF 50-55%.
Moderate concentric left ventricular hypertrophy.
Aortic sclerosis without stenosis. Mild aortic regurgitation.
Mild to moderate tricuspid regurgitation. Moderately elevated PASP. Estimated
pulmonary artery pressure of 53 mmHg. Using a right atrial pressure of 15 mmHg.
Compared to 06/21/21: TR has progressed from trace to mild/moderate, and PASP
has increased from 35 to 53 mmHg.
[facility] 02/2020: 1: Nonobstructive coronary atherosclerosis.
2: Normal left ventricular function.
3: Mild aortic stenosis.
[2025-07-16] MEDS: ROXICODONE 5 MG PO ×2 (08:00→22:04)
[2025-07-16] MEDS: MUCINEX 1200 MG PO ×2 (08:01→20:06)
[2025-07-16] MEDS: NORVASC 5 MG PO (08:01)
--- NOTE | 2025-07-16 11:00 | CM ---
I.A: Completed By PARISA Goldberg.
Patient lives with his GF (Paul) in a 2 Story House with 1 BRITTANY, BA on the 2nd floor, uses oxygen at home on 2 liters, No VN/PT, and No Inpatient Rehab.
PCP: Dr. Jemma Rolle
Pharmacy: [facility]
Patient has transportation home. PLAN: Anticipate Home No Needs.
[2025-07-16] MEDS: STERILE WATER FOR INJECTION 20 ML IV (11:11)
[2025-07-16] MEDS: ROCEPHIN 2000 MG IV (11:12)
[2025-07-16] MEDS: NEURONTIN 100 MG PO ×3 (12:49→22:04)
[2025-07-16] MEDS: LASIX 20 MG IV ×2 (12:51→17:08)
--- NOTE | 2025-07-16 16:24 | PTCARENOTE ---
Pt's assessment as documented. NSR on tele monitor. O2 increased to 6L NC to keep sats in the mid 90's. Medications administered as ordered, see MAR. Ringing appropriately, call arvizu within reach.
[2025-07-16] MEDS: ZITHROMAX 500 MG PO (17:08)
[2025-07-16] MEDS: LOVENOX 40 MG SC (17:08)
[2025-07-16] MEDS: DELTASONE 30 MG PO (17:09)
--- NOTE | 2025-07-16 22:11 | PTCARENOTE ---
Assumed care for patient overnight. Pt AAOx3. Pt partner at the bedside at shift change. Received pt on 6L NC, 93%. NSR on the monitor. Pt c/o 8/ pain to b/l feet more so on the R foot, PRN Oxycodone administered, see MAR. R ankle swelling
slightly improved. Pt still having a productive cough, however states he is feeling better today. Pt voiding using the urinal, yellow. Pt rings appropriately, call arvizu within reach.
[2025-07-17] VITALS (13 sets, daily range): BP systolic 104–152; BP diastolic 73–107; BMI 19.2
[2025-07-17 04:55] LABS: Hematocrit 43.2 % (39.0-52.0); Hemoglobin 14.4 g/dL (13.0-18.0); Mean Corp Hgb Conc. 33.3 g/dL (33.0-37.0); Mean Corpuscular Volume 91.9 fL (80.0-94.0); Nucleated Red Blood Cells % 0 % (-); Platelet Count 239 10^3/uL (130-400); Red Cell Dist. Width 14.2 % (11.5-14.5)
[2025-07-17 06:42] LABS: Blood Urea Nitrogen 27 mg/dl (9-20); Calcium 9.1 mg/dl (8.4-10.2); Chloride 94 mmol/L (98-107); Estimated Creatinine Clearance 122 ml/min; Glucose 146 mg/dl (70-99); Potassium 4.3 mmol/L (3.5-5.1); Sodium 131 mmol/L (135-145); eGFR > 60.00
[2025-07-17 06:53] LABS: Carbon Dioxide 35 mmol/L (22-30)
[2025-07-17] MEDS: ROXICODONE 5 MG PO (07:21)
[2025-07-17] MEDS: NEURONTIN 100 MG PO (07:21)
[2025-07-17] MEDS: DELTASONE 30 MG PO ×3 (07:24→21:35)
[2025-07-17] MEDS: MUCINEX 1200 MG PO ×2 (07:24→21:35)
[2025-07-17] MEDS: ZITHROMAX 500 MG PO (07:24)
[2025-07-17] MEDS: LASIX 20 MG IV (07:25)
--- NOTE | 2025-07-17 07:43 | W.PN.HOSP.TC ---
Today's Communication/Plan
-
wean O2 supplementation as tolerated
steroids bronchodilators diuresis
increase gabapentin 200 mg TID
oxycodone prn mod severe pain
Assessment / Plan
Assessment / Plan
Physical Exam
General: No acute distress, appears comfortable at this time.
HEENT: NormoCephalic, Moist mucous membranes and Atraumatic
Respiratory: Diffuse wheezing, otherwise stable respiratory status on Nasal cannula
Cardiac: S1/S2 and Regular Rhythm; No Murmur or Rub
GI: Soft, Non Tender, Non Distended and Normal Bowel Sounds; No Organomegaly
Musculoskeletal: No Clubbing, No Cyanosis and Other (Chronic lower extremities edema R>L)
Skin: No Rash
Neuro: AO x 3 conversant coherent
Psych: Calm
60M DM COPD HTN HLD GERD GIB Anxiety/Depression here for COPD exacerbation with possible HFpEF/cor pulmonale.
# Acute hypoxic respiratory failure secondary to COPD exacerbation
#Leukocytosis possibly d/t recent steroid use (though patient reports he had completed prednisone taper a few days ago prior to symptoms returning)
- Continue supplemental oxygen to keep sat greater than 89-92, wean as tolerated
- Nebs as needed for short of breath and wheezing
- Decadron switched to prednisone as per Pulm
-received empiric IV azithromycin and ceftriaxone, de-escalated to PO Azithromycin 500 mg for 3 day course, low suspicion PNA
- COVID, flu negative
- Chest x-ray with mild pulmonary vascular congestion, chronic scarring in the left upper lobe
- Pulm eval appreciated
-Incentive spirometer
#sob/LE concern for pulmonary vascular congestion, possible Acute on Chronic HFpEF
-BNP 5550
-ECHO appreciated EF 63%
-strict I&O,daily weight
-cont gentle diuresis as per Pulm
#hx Hypertension
- home amlodipine 5 mg p.o. daily discontinued d/t lower ext edema
- cont Lasix as above
#Neuropathy
Gabapentin 100 mg TID increased to 200 mg TID
oxycodone prn
#Mild Hyponatremia
monitor
BMI 18.5 to less than 25 is normal weight
DVT Prophylaxis: Lovenox
Code Status: Full
Discussed with patient and significant other Mary
I spent a total of 40 minutes with the patient or on the floor. More than 50% of this time involved counseling and coordination of care.
Anticipated Discharge: 24 - 48 hours
Subjective/Interval History
-
Date of Service: July 17, 2025
no acute distress, sitting up comfortably in bed, requiring 6L to maintain sat. Reports significant pain b/l feet from neuropathy.
Objective Data
-
Labs:
Laboratory Results
07/17/25 07/17/25
04:34 05:39
WBC 17.0 H
Hgb 14.4
Hct 43.2
Plt Count 239
Sodium Cancelled 131 L
Potassium Cancelled 4.3
Chloride Cancelled 94 L
Carbon Dioxide Cancelled 35 H
BUN Cancelled 27 H
Creatinine Cancelled 0.6 L
Glucose Cancelled 146 H
Calcium Cancelled 9.1
Vital Signs:
Vital Signs
Temp Pulse Resp BP Pulse Ox
98.6 F 68 17 118/76 92
07/17/25 03:23 07/17/25 07:25 07/17/25 06:00 07/17/25 07:25 07/17/25 06:00
I&O
07/16/25 07/17/25 07/18/25
06:59 06:59 06:59
Intake Total 490 / 490 1080 / 1080
Output Total 1100 / 1100 1999 / 1999
Balance -610 / -610 -920 / -920
[2025-07-17] MEDS: SYMBICORT 160/4.5 MCG INHALER 2 PUFF INH ×2 (07:44→19:12)
[2025-07-17] MEDS: DUONEB 3 ML INH ×4 (07:44→19:12)
[2025-07-17] MEDS: STERILE WATER FOR INJECTION IV (09:32)
--- NOTE | 2025-07-17 09:51 | W.PN.PUL3 ---
Today's Communication / Plan
-
- Switch to PO Lasix
- Increase Prednisone to 30 mg BID
- F/u CXR in AM
- Can transfer out of IMU.
Assessment
-
Patient is a 60-year-old gentleman with known history of severe baseline COPD, on home oxygen who presents to the hospital with worsening shortness of breath, cough with increased sputum production which was clear to light greenish. Patient was
recently discharged from the hospital for similar symptoms and did well for few days up until more recently where he developed worsening symptoms. Denies any sick contacts. Denies any upper respiratory tract symptoms. Patient also reports a lower
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 Patient does report episodes of orthopnea but denies any paroxysmal nocturnal dyspnea. Pulmonary consultation was requested for further input.
#1. Acute on chronic hypoxic and hypercapnic respiratory failure
- Suspect primarily related to COPD exacerbation however patient also noted to have mild pulmonary vascular congestion as well as elevated BNP and pedal edema concerning for congestive heart failure. Underlying pulmonary hypertension also
contributing.
- IV Lasix was initiated on 07/16, diuresed well, pedal edema improved, switch to p.o. Lasix.
- Continue O2 support, target SpO2 greater than 90% in view of pulmonary hypertension
#2. Acute exacerbation of COPD
- Wheezing improving but not resolved. Continue DuoNeb 4 times daily and budesonide twice daily. Discontinued Rocephin as no evidence of pneumonia on current chest x-ray
- Changed azithromycin to p.o., total 3 days of therapy with 500 mg daily should suffice
- Additional as needed albuterol on an as needed basis
- O2 support to keep saturations above 90%
- Discontinued IV steroids, will increase prednisone to 30 mg p.o. twice daily in view of ongoing wheezing.
- Resume Symbicort and Spiriva at discharge.
- Recommend outpatient pulmonary clinic follow-up. Patient also will need a low-dose CT scan for lung cancer screening.
#3. Chronic compensated hypercapnia
- Chronically elevated serum bicarbonate noted. Prior VBG's reviewed, compensated hypercapnia noted
- With advanced COPD, recurrent exacerbations and chronic hypercapnia, patient likely will benefit from nightly PAP therapy
- Again recommended outpatient follow-up with [facility] [place] pulmonary clinic where we can perform detailed pulmonary function testing, diffusion capacity assessment, 6-minute walk test and work on arranging PAP therapy for nightly use. Patient will also
benefit from a sleep study
#4. Pulmonary hypertension
- Pulmonary artery systolic pressure of 53 and echocardiogram in 07/2022. 41mm noted on more recent ECHO. RV function normal.
- Bilateral pitting edema responded well to IV Lasix.
- Holding amlodipine, initiate gentle diuresis with IV Lasix
- Repeat echocardiogram with LVEF 63% and mild .
Conditions present prior to admission:
DH Adm Lingular cavitary mass/LLL lateral segment cavitary mass/Mediastinal LAD s/p bronchoscopy, neg culture/path 2022
Acute hypercapnic respiratory failure requiring intubation/sepsis/narcotic use for pain.
Intubated 07/28/2022: Extubated 08/04/2022
S/p Cardiac Arrest/Maurizio/Asystole, ROSC with CPR
Acute renal insufficiency, hyperkalemia
Requiring emergent HD 07/29
Mild aortic stenosis per echo June 2021
Normal biventricular function
History of GI bleed, duodenal ulcer 2018
Significant alcohol use, 6 pack of beer/day, ongoing
Hypertension/hyperlipidemia
Diabetes
History of recurrent COPD exacerbation, multiple hospital stays
Chronic bronchitis
50 pack year history smoking
Insomnia
Chronic back pain, chronic oxycodone therapy (4-6 tablets a day �15 years)
Suspected sleep disorder breathing
Family history lung cancer (mother), pancreatic cancer (father)
History of left upper lobe cavitary lesion has developed since September 2022 s/p bronch/negative
Total time spent on this consultation/encounter _65___ minutes which includes review of history, physical exam, medications, laboratory data, personal review of imaging, extensive review of outpatient records, discussion with care team and
respiratory therapy.
Data:
ECHO 07/2025: 1. Normal left ventricular size and function.
2. Left ventricular ejection fraction is normal with an ejection fraction of 63 % by Roy's biplane method of discs.
3. Mild concentric left ventricular hypertrophy.
4. A mild left ventricular outflow gradient was present at approximately 25 to 30 mmHg.
5. Right ventricular size and systolic function are within normal limits.
6. Thickened aortic valve leaflets with increased flow across the aortic valve. Mean gradient 17 mmHg, however some of this flow was likely due to the hyperdynamic LV and obstructive gradient. Mild aortic stenosis.
7. Mild aortic regurgitation.
8. There was dense mitral annular calcification around the posterior leaflet. There were marked redundant chordal structures and thickened mitral valve leaflets. Mild mitral regurgitation.
9. Mild tricuspid regurgitation. Estimated pulmonary artery pressure of 41 mmHg assuming a right atrial pressure of 8 mmHg.
10. Compared to a prior transthoracic echocardiogram study from 08/01/22 There was no mild obstructive gradient at the left ventricular outflow track present.
CXR 07/2025: Mild pulmonary vascular congestion. Chronic scarring in the left upper lobe.
Spirometry 06/2025: Severe obstruction, FEV1 23% of predicted. There was significant bronchodilator response in the FEV1 and FVC.
CT Chest 12/2022: 1. Two cavitary lesions with air-fluid levels in the left upper lobe as above, larger measuring up to 6.5 cm in diameter. Large amount of surrounding airspace consolidation. Given the current appearance and the absence of these
findings on the September 2022 examination, these most likely represent pulmonary abscesses. Neoplastic etiology is possible, considered less likely. There is associated mediastinal adenopathy and left hilar adenopathy.
2. Subacute chronic fractures posterior right ninth and 10th ribs.
ECHO 07/2022: Normal biventricular size and systolic function without regional wall motion
abnormality. Estimated LVEF 50-55%.
Moderate concentric left ventricular hypertrophy.
Aortic sclerosis without stenosis. Mild aortic regurgitation.
Mild to moderate tricuspid regurgitation. Moderately elevated PASP. Estimated
pulmonary artery pressure of 53 mmHg. Using a right atrial pressure of 15 mmHg.
Compared to 06/21/21: TR has progressed from trace to mild/moderate, and PASP
has increased from 35 to 53 mmHg.
[facility] 02/2020: 1: Nonobstructive coronary atherosclerosis.
2: Normal left ventricular function.
3: Mild aortic stenosis.
Subjective Data
-
Date of Service:
Date of Service: July 17, 2025
Subjective:
Comfortably lying in bed in no acute distress, reports marginally improved.
Review of Systems
Genitourinary: Other (All 14 systems reviewed and negative except as stated above in the history of present illness.)
Objective Data
Data Reviewed
Vital Signs / I&O / Oxygen:
Vital Signs
Temp Pulse Resp BP Pulse Ox
97.8 F 67 20 118/80 93
07/17/25 07:48 07/17/25 08:00 07/17/25 08:00 07/17/25 08:00 07/17/25 08:00
Intake and Output
07/16/25 07/17/25 07/18/25
06:59 06:59 06:59
Intake Total 490 / 490 1080 / 1080
Output Total 1100 / 1100 2000 / 2000
Balance -610 / -610 -920 / -920
SaO2 93
Nasal Cannula flow liters per 5
minute
Physical Exam
General: Comfortable
HEENT: Normocephalic
Cardiovascular: S1-S2 and Peripheral Edema (Resolved)
Respiratory: Wheeze
GI: Soft and Non Distended
Neurology: Awake and Alert
Skin: Warm
Labs/Micro/Reports
Lab Data
07/17/25 04:34
07/17/25 05:39
Microbiology
07/15/25 22:15 Sputum Respiratory Culture - Preliminary
Usual Respiratory Marissa
07/15/25 22:15 Sputum Gram Stain - Preliminary
07/15/25 20:08 Nose MRSA Screen - Final
No Methicillin Resistant Staphylococcus aureus isolated.
--- NOTE | 2025-07-17 10:00 | PN.CDI ---
CDI
- -
CDI:
Physician Documentation Request
Admit Date: 07/15/25 18:25
Dear Doctor Cindy,
Please review the following and provide your response in the progress notes.
Clinical Indicators:
Height: 6 ft 2 in
Weight:148 lb 3 oz
BMI:19.0
If possible, please provide an associated diagnosis related to the BMI, such as:
Underweight
Cachectic
- Other
Use of terms such as suspected, likely, concern for, or probable (associated with a specific diagnosis that is being evaluated, monitored, or treated as if it exists) are acceptable and can be coded in the inpatient setting, when documented at the
time of discharge.
Thank you,
Lali Delacruz RN
CDI Specialist
[place] [facility]
Please use your independent medical judgment in providing your response.
--- NOTE | 2025-07-17 10:02 | PN.CDI ---
CDI
- -
CDI:
Physician Documentation Request
Admit Date: 07/15/25 18:25
Dear Doctor Cindy,
Please review the following and provide your response in the progress notes.
Clinical Indicators:
Pt admitted with Acute on Chronic Hypoxic/Hypercapnic respiratory Failure /COPD exacerbation/HFpEF exacerbation
Sodium levels are as below./Pt has been on Iv diuresis
Laboratory Tests
07/15/25 07/16/25 07/17/25
15:23 04:00 05:39
Sodium 133 L 134 L 131 L
Based on the above, could you clarify in the progress notes, the appropriate diagnosis, if significant, that supports the above abnormalities and additional evaluation, monitoring and/or treatment rendered:
Hyponatremia
Abnormal lab value
Other ( please specify)
Use of terms such as suspected, likely, concern for, or probable (associated with a specific diagnosis that is being evaluated, monitored, or treated as if it exists) are acceptable and can be coded in the inpatient setting, when documented at the
time of discharge.
Thank you,
Lali Delacruz RN
CDI Specialist
[place] [facility]
Please use your independent medical judgment in providing your response.
[2025-07-17] MEDS: ROXICODONE 10 MG PO ×3 (11:17→21:40)
--- NOTE | 2025-07-17 14:21 | PTCARENOTE ---
Patient is out of bed to chair, 6 liters of oxygen via nasal cannula continues, pulse ox 92%. Patient has expiratory wheezing getting neb treatments. Patient has a history of neuropathy to bilateral lower extremities. Patient verbalized frustration
with pain management, stating that the current regimen was not relieving pain. Discussed with Dr. White and gabapentin and oxycodone doses increased. Patient stating that he now has relief.
[2025-07-17] MEDS: NEURONTIN 200 MG PO ×2 (16:50→21:35)
[2025-07-17] MEDS: LOVENOX 40 MG SC (16:51)
[2025-07-18] VITALS: BP 112/69
[2025-07-18 02:55] VITALS: BP 115/76
[2025-07-18 04:00] VITALS: BP 111/64
[2025-07-18] MEDS: SENOKOT 17.2 MG PO (04:25)
[2025-07-18] MEDS: ROXICODONE 10 MG PO ×3 (04:37→17:57)
[2025-07-18 05:17] VITALS: BMI 18.8
--- NOTE | 2025-07-18 05:19 | PTCARENOTE ---
Pt with no documented BM since admission. When asked if this was normal for him, he stated 'no I usually go every morning'. Pt taking oxycodone Q4H PRN. PASTE UP ARTIST APPRENTICE notified via tiger text, PRN order for senokot requested. Senokot ordered and given. Pt
resting comfortably in bed at this time. Care ongoing.
[2025-07-18 05:26] LABS: Hematocrit 44.2 % (39.0-52.0); Hemoglobin 15.0 g/dL (13.0-18.0); Mean Corp Hgb Conc. 33.9 g/dL (33.0-37.0); Mean Corpuscular Volume 90.9 fL (80.0-94.0); Nucleated Red Blood Cells % 0 % (-); Platelet Count 252 10^3/uL (130-400); Red Cell Dist. Width 14.1 % (11.5-14.5)
[2025-07-18 05:33] LABS: Blood Urea Nitrogen 25 mg/dl (9-20); Calcium 9.8 mg/dl (8.4-10.2); Carbon Dioxide 38 mmol/L (22-30); Chloride 93 mmol/L (98-107); Estimated Creatinine Clearance 103 ml/min; Glucose 154 mg/dl (70-99); Potassium 5.3 mmol/L (3.5-5.1); Sodium 131 mmol/L (135-145); eGFR > 60.00
[2025-07-18 06:00] VITALS: BP 136/90
[2025-07-18] MEDS: SYMBICORT 160/4.5 MCG INHALER 2 PUFF INH ×2 (07:34→19:24)
[2025-07-18] MEDS: DUONEB 3 ML INH ×4 (07:34→19:24)
--- NOTE | 2025-07-18 07:50 | W.PN.HOSP.TC ---
Today's Communication/Plan
-
stable for downgrade to Tele
wean O2 supplementation as tolerated
steroid Taper as per Pulm
cont PO diuresis
pain control
Assessment / Plan
Assessment / Plan
Physical Exam
General: No acute distress, appears comfortable at this time.
HEENT: NormoCephalic, Moist mucous membranes and Atraumatic
Respiratory: Diffuse wheezing, otherwise stable respiratory status on Nasal cannula
Cardiac: S1/S2 and Regular Rhythm; No Murmur or Rub
GI: Soft, Non Tender, Non Distended and Normal Bowel Sounds; No Organomegaly
Musculoskeletal: No Clubbing, No Cyanosis, lower ext pedal edema improved/resolved
Skin: No Rash
Neuro: AO x 3 conversant coherent
Psych: Calm
60M DM COPD HTN HLD GERD GIB Anxiety/Depression here for COPD exacerbation with possible HFpEF/cor pulmonale.
# Acute hypoxic respiratory failure secondary to COPD exacerbation
#Leukocytosis possibly d/t recent steroid use (though patient reports he had completed prednisone taper a few days ago prior to symptoms returning)
- Continue supplemental oxygen to keep sat greater than 89-92, wean as tolerated
- Nebs as needed for short of breath and wheezing
- steroids taper as per Pulm, currently 30 mg Prednisone daily
-received empiric IV azithromycin and ceftriaxone, de-escalated to PO Azithromycin 500 mg for total 3 day course (completed), low suspicion PNA
- COVID, flu negative
- Chest x-ray with mild pulmonary vascular congestion, chronic scarring in the left upper lobe
- Pulm eval appreciated
-Incentive spirometer
#sob/LE concern for pulmonary vascular congestion, possible Acute on Chronic HFpEF
-BNP 5550
-ECHO appreciated EF 63%
-strict I&O,daily weight
-gentle IV diuresis transitioned to PO Lasix 20 mg daily
#hx Hypertension
- home amlodipine 5 mg p.o. daily discontinued d/t lower ext edema
- cont Lasix as above
#Neuropathy
Gabapentin 100 mg TID increased to 200 mg TID, continue
oxycodone prn
#Mild Hyponatremia
monitor
BMI 18.5 to less than 25 is normal weight
DVT Prophylaxis: Lovenox
Code Status: Full
Medically stable for downgrade to Tele
I spent a total of 40 minutes with the patient or on the floor. More than 50% of this time involved counseling and coordination of care.
Anticipated Discharge: 24 - 48 hours
Subjective/Interval History
-
Date of Service: July 18, 2025
No acute distress, overall reports feeling well, Oxygen tapered to 4L. wheezing on auscultation persists.
Objective Data
-
Labs:
Laboratory Results
07/18/25
04:33
WBC 11.2 H
Hgb 15.0
Hct 44.2
Plt Count 252
Sodium 131 L
Potassium 5.3 H
Chloride 93 L
Carbon Dioxide 38 H
BUN 25 H
Creatinine 0.7
Glucose 154 H
Calcium 9.8
Vital Signs:
Vital Signs
Temp Pulse Resp BP Pulse Ox
97.5 F 65 16 111/64 91
07/18/25 03:12 07/18/25 07:36 07/18/25 07:36 07/18/25 04:00 07/18/25 07:36
I&O
07/17/25 07/18/25 07/19/25
06:59 06:59 06:59
Intake Total 1080 / 1080 1805 / 1805
Output Total 1999 3420 / 3420
Balance -920 / -920 -1615 / -1615
--- NOTE | 2025-07-18 08:00 | PTCARENOTE ---
Pt AAOx3
[2025-07-18] MEDS: LASIX 20 MG PO (08:45)
[2025-07-18] MEDS: MUCINEX 1200 MG PO ×2 (08:45→21:02)
[2025-07-18] MEDS: DELTASONE 30 MG PO (08:46)
[2025-07-18] MEDS: NEURONTIN 200 MG PO ×3 (08:46→21:02)
[2025-07-18] MEDS: ROXICODONE 5 MG PO ×2 (08:52→21:56)
[2025-07-18] MEDS: STERILE WATER FOR INJECTION IV (10:00)
--- NOTE | 2025-07-18 12:01 | PTCARENOTE ---
Pt AAOx3, [place], on 6l O2 @ 92% . Pt has neuropathy of feet and legs which he states is very painful. Lungs are coarse Pt uses urinal. Skin intact
--- NOTE | 2025-07-18 13:12 | W.PN.PUL3 ---
Today's Communication / Plan
-
- Switch to prednisone 30 mg daily
- Can transfer out of IMU
- Outpatient follow-up with [facility] pulmonary clinic, information added to discharge section
Assessment
-
Patient is a 60-year-old gentleman with known history of severe baseline COPD, on home oxygen who presents to the hospital with worsening shortness of breath, cough with increased sputum production which was clear to light greenish. Patient was
recently discharged from the hospital for similar symptoms and did well for few days up until more recently where he developed worsening symptoms. Denies any sick contacts. Denies any upper respiratory tract symptoms. Patient also reports a lower
extremity edema going on for at least last 8 months does not report much pack changer the last few days. Patient does report episodes of orthopnea but denies any paroxysmal nocturnal dyspnea. Pulmonary consultation was requested for further input.
#1. Acute on chronic hypoxic and hypercapnic respiratory failure
- Suspect primarily related to COPD exacerbation however patient also noted to have mild pulmonary vascular congestion as well as elevated BNP and pedal edema concerning for congestive heart failure. Underlying pulmonary hypertension also
contributing.
- IV Lasix was initiated on 07/16, diuresed well, pedal edema improved, switched to p.o. Lasix.
- Continue O2 support, target SpO2 greater than 90% in view of pulmonary hypertension
#2. Acute exacerbation of COPD
- Wheezing improving. Continue DuoNeb 4 times daily and budesonide twice daily. Discontinued Rocephin as no evidence of pneumonia on current chest x-ray
- Changed azithromycin to p.o., total 3 days of therapy with 500 mg daily should suffice
- Additional as needed albuterol on an as needed basis
- O2 support to keep saturations above 90%
- Discontinued IV steroids, switch to prednisone 30 daily
- Resume Symbicort and Spiriva at discharge.
- Recommend outpatient pulmonary clinic follow-up. Patient also will need a low-dose CT scan for lung cancer screening.
#3. Chronic compensated hypercapnia
- Chronically elevated serum bicarbonate noted. Prior VBG's reviewed, compensated hypercapnia noted
- With advanced COPD, recurrent exacerbations and chronic hypercapnia, patient likely will benefit from nightly PAP therapy
- Again recommended outpatient follow-up with [facility] pulmonary clinic where we can perform detailed pulmonary function testing, diffusion capacity assessment, 6-minute walk test and work on arranging PAP therapy for nightly use. Patient will also
benefit from a sleep study. Follow-up information added to discharge section.
#4. Pulmonary hypertension
- Pulmonary artery systolic pressure of 53 and echocardiogram in 07/2022. 41mm noted on more recent ECHO. RV function normal.
- Bilateral pitting edema responded well to IV Lasix.
- Holding amlodipine, initiated gentle diuresis with IV Lasix, now switched to PO lasix
- Repeat echocardiogram with LVEF 63% and mild .
#5. Pulmonary edema with Acute HFpEF
- Patient responded well to IV Lasix, pedal edema resolved, follow-up chest x-ray on 07/18 with resolution of pulmonary edema
- Appears euvolemic now, on p.o. Lasix, continue
Conditions present prior to admission:
DH Adm Lingular cavitary mass/LLL lateral segment cavitary mass/Mediastinal LAD s/p bronchoscopy, neg culture/path 2022
Acute hypercapnic respiratory failure requiring intubation/sepsis/narcotic use for pain.
Intubated 07/28/2022: Extubated 08/04/2022
S/p Cardiac Arrest/Maurizio/Asystole, ROSC with CPR
Acute renal insufficiency, hyperkalemia
Requiring emergent HD 07/29
Mild aortic stenosis per echo June 2021
Normal biventricular function
History of GI bleed, duodenal ulcer 2018
Significant alcohol use, 6 pack of beer/day, ongoing
Hypertension/hyperlipidemia
Diabetes
History of recurrent COPD exacerbation, multiple hospital stays
Chronic bronchitis
50 pack year history smoking
Insomnia
Chronic back pain, chronic oxycodone therapy (4-6 tablets a day �15 years)
Suspected sleep disorder breathing
Family history lung cancer (mother), pancreatic cancer (father)
History of left upper lobe cavitary lesion has developed since September 2022 s/p bronch/negative
Total time spent on this consultation/encounter _45___ minutes which includes review of history, physical exam, medications, laboratory data, personal review of imaging, extensive review of outpatient records, discussion with care team and
respiratory therapy.
Data:
ECHO 07/2025: 1. Normal left ventricular size and function.
2. Left ventricular ejection fraction is normal with an ejection fraction of 63 % by Roy's biplane method of discs.
3. Mild concentric left ventricular hypertrophy.
4. A mild left ventricular outflow gradient was present at approximately 25 to 30 mmHg.
5. Right ventricular size and systolic function are within normal limits.
6. Thickened aortic valve leaflets with increased flow across the aortic valve. Mean gradient 17 mmHg, however some of this flow was likely due to the hyperdynamic LV and obstructive gradient. Mild aortic stenosis.
7. Mild aortic regurgitation.
8. There was dense mitral annular calcification around the posterior leaflet. There were marked redundant chordal structures and thickened mitral valve leaflets. Mild mitral regurgitation.
9. Mild tricuspid regurgitation. Estimated pulmonary artery pressure of 41 mmHg assuming a right atrial pressure of 8 mmHg.
10. Compared to a prior transthoracic echocardiogram study from 08/01/22 There was no mild obstructive gradient at the left ventricular outflow track present.
CXR 07/2025: Mild pulmonary vascular congestion. Chronic scarring in the left upper lobe.
Spirometry 06/2025: Severe obstruction, FEV1 23% of predicted. There was significant bronchodilator response in the FEV1 and FVC.
CT Chest 12/2022: 1. Two cavitary lesions with air-fluid levels in the left upper lobe as above, larger measuring up to 6.5 cm in diameter. Large amount of surrounding airspace consolidation. Given the current appearance and the absence of these
findings on the September 2022 examination, these most likely represent pulmonary abscesses. Neoplastic etiology is possible, considered less likely. There is associated mediastinal adenopathy and left hilar adenopathy.
2. Subacute chronic fractures posterior right ninth and 10th ribs.
ECHO 07/2022: Normal biventricular size and systolic function without regional wall motion
abnormality. Estimated LVEF 50-55%.
Moderate concentric left ventricular hypertrophy.
Aortic sclerosis without stenosis. Mild aortic regurgitation.
Mild to moderate tricuspid regurgitation. Moderately elevated PASP. Estimated
pulmonary artery pressure of 53 mmHg. Using a right atrial pressure of 15 mmHg.
Compared to 06/21/21: TR has progressed from trace to mild/moderate, and PASP
has increased from 35 to 53 mmHg.
[facility] 02/2020: 1: Nonobstructive coronary atherosclerosis.
2: Normal left ventricular function.
3: Mild aortic stenosis.
Subjective Data
-
Date of Service:
Date of Service: July 18, 2025
Subjective:
Patient comfortably lying in bed, subjectively reports feeling better.
Review of Systems
Genitourinary: Other (All 14 systems reviewed and negative except as stated above in the history of present illness.)
Objective Data
Data Reviewed
Vital Signs / I&O / Oxygen:
Vital Signs
Temp Pulse Resp BP Pulse Ox
97.7 F 70 19 136/90 91
07/18/25 07:29 07/18/25 12:00 07/18/25 12:00 07/18/25 08:45 07/18/25 11:28
Intake and Output
07/17/25 07/18/25 07/19/25
06:59 06:59 06:59
Intake Total 1080 / 1080 1805 / 1805
Output Total 1999 3420 / 3420
Balance -920 / -920 -1615 / -1615
SaO2 91
Nasal Cannula flow liters per 4.5
minute
Physical Exam
General: Comfortable
HEENT: Normocephalic
Cardiovascular: S1-S2 and Peripheral Edema (Resolved)
Respiratory: Wheeze (Quite improved)
GI: Soft and Non Distended
Neurology: Awake and Alert
Skin: Warm
Labs/Micro/Reports
Lab Data
07/18/25 04:33
Microbiology
07/15/25 22:15 Sputum Respiratory Culture - Final
Usual Respiratory Marissa
07/15/25 22:15 Sputum Gram Stain - Final
07/15/25 20:08 Nose MRSA Screen - Final
No Methicillin Resistant Staphylococcus aureus isolated.
[2025-07-18 13:27] LABS: Potassium 4.5 mmol/L (3.5-5.1)
--- NOTE | 2025-07-18 14:26 | CM ---
F/U: Patient here for COPD exacerbation, on medications here for this to assist him, on 2 liters at home for his oxygen, otherwise, No deficits with his ADL's. PLAN: Anticipate Home No Needs.
[2025-07-18] MEDS: LOVENOX 40 MG SC (17:23)
[2025-07-18 21:05] VITALS: BP 117/88
[2025-07-18 22:00] VITALS: BP 128/86
[2025-07-19] VITALS (14 sets, daily range): BP systolic 108–165; BP diastolic 69–138; PULSE 81; O2SAT 96; BMI 18.7
[2025-07-19] MEDS: ROXICODONE 10 MG PO ×4 (03:32→22:09)
[2025-07-19 03:43] LABS: Hematocrit 46.3 % (39.0-52.0); Hemoglobin 14.7 g/dL (13.0-18.0); Mean Corp Hgb Conc. 31.7 g/dL (33.0-37.0); Mean Corpuscular Volume 95.5 fL (80.0-94.0); Nucleated Red Blood Cells % 0 % (-); Platelet Count 243 10^3/uL (130-400); Red Cell Dist. Width 14.3 % (11.5-14.5)
[2025-07-19 04:01] LABS: Blood Urea Nitrogen 23 mg/dl (9-20); Calcium 9.0 mg/dl (8.4-10.2); Carbon Dioxide 33 mmol/L (22-30); Chloride 100 mmol/L (98-107); Estimated Creatinine Clearance 120 ml/min; Glucose 121 mg/dl (70-99); Potassium 4.3 mmol/L (3.5-5.1); Sodium 134 mmol/L (135-145); eGFR > 60.00
--- NOTE | 2025-07-19 04:10 | PTCARENOTE ---
Pt resting well overnight. AAOx3. Hand tremors noted. Admits to pain to B/L LE d/t neuropathy. Medicated with Roxicodone as ordered with good relief. VSS. Afebrile. SR on CM rate 50's-70's. Continues on 4 L NC POX 95%. Using urinal at bedside with
good output. Skin intact. No change from previous assessment. Turns self in bed. Self suctions when needed. Call arvizu remains within reach. Will continue to monitor.
[2025-07-19] MEDS: SYMBICORT 160/4.5 MCG INHALER 2 PUFF INH ×2 (07:34→17:57)
[2025-07-19] MEDS: DUONEB 3 ML INH ×4 (07:34→17:57)
--- NOTE | 2025-07-19 07:57 | W.PN.HOSP.TC ---
Today's Communication/Plan
-
stable for downgrade to Tele
steroids bronchodilators
wean O2 supplementation as tolerated
Pain control
PT/OT/ST eval
Assessment / Plan
Assessment / Plan
Physical Exam
General: No acute distress, appears comfortable at this time.
HEENT: NormoCephalic, Moist mucous membranes and Atraumatic
Respiratory: Diffuse wheezing though improved from prior, otherwise stable respiratory status on Nasal cannula
Cardiac: S1/S2 and Regular Rhythm; No Murmur or Rub
GI: Soft, Non Tender, Non Distended and Normal Bowel Sounds; No Organomegaly
Musculoskeletal: No Clubbing, No Cyanosis, lower ext pedal edema improved/resolved
Skin: No Rash
Neuro: AO x 3 conversant coherent
Psych: Calm
60M DM COPD HTN HLD GERD GIB Anxiety/Depression here for COPD exacerbation with possible HFpEF/cor pulmonale.
# Acute hypoxic respiratory failure secondary to COPD exacerbation
#Leukocytosis possibly d/t recent steroid use (though patient reports he had completed prednisone taper a few days ago prior to symptoms returning)
- Continue supplemental oxygen to keep sat greater than 89-92, wean as tolerated
- Nebs as needed for short of breath and wheezing
- steroids taper as per Pulm, currently 30 mg Prednisone daily
-received empiric IV azithromycin and ceftriaxone, de-escalated to PO Azithromycin 500 mg for total 3 day course (completed), low suspicion PNA
- COVID, flu negative
- Chest x-ray with mild pulmonary vascular congestion, chronic scarring in the left upper lobe
- Pulm eval appreciated
-Incentive spirometer
#sob/LE concern for pulmonary vascular congestion, possible Acute on Chronic HFpEF
-BNP 5550
-ECHO appreciated EF 63%
-strict I&O,daily weight
-gentle IV diuresis transitioned to PO Lasix 20 mg daily, continue
#hx Hypertension
- home amlodipine 5 mg p.o. daily discontinued d/t lower ext edema, BP well controlled without
- cont Lasix as above
#Neuropathy
Gabapentin 100 mg TID increased to 200 mg TID, continue
oxycodone prn
#Mild Hyponatremia
monitor
#Post-nasal drip
#nasal congestion
#Insomnia
[place] nasal spray QID
Claritin bedtime
Melatonin prn
PT/OT appreciated likely home no needs
ST eval appreciated concern for silent aspiration, patient declines VSE, cont regular diet for now w aspiration precautions.
BMI 18.5 to less than 25 is normal weight
DVT Prophylaxis: Lovenox
Code Status: Full
Medically stable for downgrade to Tele
I spent a total of 40 minutes with the patient or on the floor. More than 50% of this time involved counseling and coordination of care.
Anticipated Discharge: 24 - 48 hours
Subjective/Interval History
-
Date of Service: July 19, 2025
No acute distress, sitting up comfortably in bed, symptoms continue to improve though not resolved. Weaning down on oxygen supplementation, denies new acute issues at this time.
Objective Data
-
Labs:
Laboratory Results
07/19/25
03:16
WBC 8.8
Hgb 14.7
Hct 46.3
Plt Count 243
Sodium 134 L
Potassium 4.3
Chloride 100
Carbon Dioxide 33 H
BUN 23 H
Creatinine 0.6 L
Glucose 121 H
Calcium 9.0
Vital Signs:
Vital Signs
Temp Pulse Resp BP Pulse Ox
97.8 F 56 22 117/83 65
07/19/25 07:06 07/19/25 06:00 07/19/25 06:00 07/19/25 06:00 07/18/25 21:32
I&O
07/18/25 07/19/25 07/20/25
06:59 06:59 06:59
Intake Total 1805 / 1805 750 / 750
Output Total 3420 / 3420 1999 / 1999
Balance -1615 / -1615 -1250 / -1250
[2025-07-19] MEDS: STERILE WATER FOR INJECTION IV (08:40)
[2025-07-19] MEDS: NEURONTIN 200 MG PO ×3 (08:40→22:04)
[2025-07-19] MEDS: DELTASONE 30 MG PO (08:40)
[2025-07-19] MEDS: LASIX 20 MG PO (08:40)
[2025-07-19] MEDS: MUCINEX 1200 MG PO ×2 (08:40→22:02)
--- NOTE | 2025-07-19 10:00 | PTOTSP ---
Speech Therapy Evaluation
Pt at an elevated risk for aspiration given acute hypoxic respiratory failure�and PMH of COPD and oxygen dependency. Pt with history of dysphagia (VSE 12/23/22 and 09/15/22) with silent aspiration of thins and laryngeal penetration with liquids and
solids. At bedside, pt managed PO trials of regular solids and thin liquids with no overt s/sx of aspiration. Cannot rule out silent aspiration. Pt on 4L NC, afebrile, and with WBC WNL.�
Recommend:
1. Regular solids and thin liquids
2. Medication as best tolerated
3. Standard aspiration precautions
4. DIRECTOR MEDICAL WRITING to follow briefly to ensure adherence to aspiration precautions and for dysphagia tx (pharyngeal strengthening exercises)
5. No VSE as pt expressed dislike of barium and declined any consideration of repeated VSE
--- NOTE | 2025-07-19 12:45 | PTCARENOTE ---
Patient c/o B/L LE neuropathy. See mar. VSS. Using IS. 3L NC, sats 94%, SAUCEDO, occasional productive cough. To be transferred to floor today. Will closely monitor.
[2025-07-19] MEDS: OCEAN, SALINE MIST 50 SPRAYS NASAL (14:26)
--- NOTE | 2025-07-19 16:48 | W.PN.PUL3 ---
Today's Communication / Plan
-
- Continue prednisone taper - currently at 30 mg daily
- DuoNebs and Symbicort 160mcg
- Up OOB as tolerated
- Outpatient follow-up with [facility] pulmonary clinic, information added to discharge section
Assessment
-
Patient is a 60-year-old gentleman with known history of severe baseline COPD, on home oxygen who presents to the hospital with worsening shortness of breath, cough with increased sputum production which was clear to light greenish. Patient was
recently discharged from the hospital for similar symptoms and did well for few days up until more recently where he developed worsening symptoms. Denies any sick contacts. Denies any upper respiratory tract symptoms. Patient also reports a lower
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 Patient does report episodes of orthopnea but denies any paroxysmal nocturnal dyspnea. Pulmonary consultation was requested for further input.
#1. Acute on chronic hypoxic and hypercapnic respiratory failure
- Suspect primarily related to COPD exacerbation however patient also noted to have mild pulmonary vascular congestion as well as elevated BNP and pedal edema concerning for congestive heart failure. Underlying pulmonary hypertension also
contributing.
- IV Lasix was initiated on 07/16, diuresed well, pedal edema improved, switched to p.o. Lasix.
- Continue O2 support, target SpO2 89% or greater in view of pulmonary hypertension
#2. Acute exacerbation of COPD
- Wheezing now resolved as of 07/19. Continue DuoNeb 4 times daily and Symbicort 160mcg. Discontinued Rocephin as no evidence of pneumonia on current chest x-ray
- s/p 3 days zithromax 500mg
- prn DuoNebs
- O2 support to keep saturations at 89% or greater
- Discontinued IV steroids, switched to prednisone 30 daily
- Resume Symbicort and Spiriva at discharge.
- Recommend outpatient pulmonary clinic follow-up. Patient also will need a low-dose CT scan for lung cancer screening.
#3. Chronic compensated hypercapnia
- Chronically elevated serum bicarbonate noted. Prior VBG's reviewed, compensated hypercapnia noted
- With advanced COPD, recurrent exacerbations and chronic hypercapnia, patient likely will benefit from nightly PAP therapy
- Again recommended outpatient follow-up with [facility] pulmonary clinic where we can perform full pulmonary function testing, diffusion capacity assessment, 6-minute walk test and work on arranging PAP therapy for nightly use. Patient will also benefit
from a sleep study. Follow-up information added to discharge section.
#4. Pulmonary hypertension
- Pulmonary artery systolic pressure of 53 and echocardiogram in 07/2022. 41mm noted on more recent ECHO on 07/16/2025. RV function normal.
- Bilateral pitting edema responded well to IV Lasix.
- Holding amlodipine, initiated gentle diuresis with IV Lasix, now switched to PO lasix
- Repeat echocardiogram with LVEF 63% and mild with dense MAC around posterior MV leaflet
#5. Pulmonary edema with Acute HFpEF
- Patient responded well to IV Lasix, pedal edema resolved, follow-up chest x-ray on 07/18 with resolution of pulmonary edema
- Appears euvolemic now, on p.o. Lasix, continue
Conditions present prior to admission:
DH Adm Lingular cavitary mass/LLL lateral segment cavitary mass/Mediastinal LAD s/p bronchoscopy, neg culture/path 2022
Acute hypercapnic respiratory failure requiring intubation/sepsis/narcotic use for pain.
Intubated 07/28/2022: Extubated 08/04/2022
S/p Cardiac Arrest/Maurizio/Asystole, ROSC with CPR
Acute renal insufficiency, hyperkalemia
Requiring emergent HD 07/29
Mild aortic stenosis per echo June 2021
Normal biventricular function
History of GI bleed, duodenal ulcer 2018
Significant alcohol use, 6 pack of beer/day, ongoing
Hypertension/hyperlipidemia
Diabetes
History of recurrent COPD exacerbation, multiple hospital stays
Chronic bronchitis
50 pack year history smoking
Insomnia
Chronic back pain, chronic oxycodone therapy (4-6 tablets a day �15 years)
Suspected sleep disorder breathing
Family history lung cancer (mother), pancreatic cancer (father)
History of left upper lobe cavitary lesion has developed since September 2022 s/p bronch/negative
Total time spent today was 37 minute for this encounter. Time includes reviewing laboratory tests/imaging results, reviewing pertinent medical records, obtaining and reviewing medical history, performing an appropriate physical exam, ordering
medications, tests and procedures. Time also includes documentation of this encounter, coordinating patient care and communicating with other healthcare professionals. Total time does not include separately billed tests or procedures performed on
this date of service.
Data:
ECHO 07/2025: 1. Normal left ventricular size and function.
2. Left ventricular ejection fraction is normal with an ejection fraction of 63 % by Roy's biplane method of discs.
3. Mild concentric left ventricular hypertrophy.
4. A mild left ventricular outflow gradient was present at approximately 25 to 30 mmHg.
5. Right ventricular size and systolic function are within normal limits.
6. Thickened aortic valve leaflets with increased flow across the aortic valve. Mean gradient 17 mmHg, however some of this flow was likely due to the hyperdynamic LV and obstructive gradient. Mild aortic stenosis.
7. Mild aortic regurgitation.
8. There was dense mitral annular calcification around the posterior leaflet. There were marked redundant chordal structures and thickened mitral valve leaflets. Mild mitral regurgitation.
9. Mild tricuspid regurgitation. Estimated pulmonary artery pressure of 41 mmHg assuming a right atrial pressure of 8 mmHg.
10. Compared to a prior transthoracic echocardiogram study from 08/01/22 There was no mild obstructive gradient at the left ventricular outflow track present.
CXR 07/2025: Mild pulmonary vascular congestion. Chronic scarring in the left upper lobe.
Spirometry 06/2025: Severe obstruction, FEV1 23% of predicted. There was significant bronchodilator response in the FEV1 and FVC.
CT Chest 12/2022: 1. Two cavitary lesions with air-fluid levels in the left upper lobe as above, larger measuring up to 6.5 cm in diameter. Large amount of surrounding airspace consolidation. Given the current appearance and the absence of these
findings on the September 2022 examination, these most likely represent pulmonary abscesses. Neoplastic etiology is possible, considered less likely. There is associated mediastinal adenopathy and left hilar adenopathy.
2. Subacute chronic fractures posterior right ninth and 10th ribs.
ECHO 07/2022: Normal biventricular size and systolic function without regional wall motion
abnormality. Estimated LVEF 50-55%.
Moderate concentric left ventricular hypertrophy.
Aortic sclerosis without stenosis. Mild aortic regurgitation.
Mild to moderate tricuspid regurgitation. Moderately elevated PASP. Estimated
pulmonary artery pressure of 53 mmHg. Using a right atrial pressure of 15 mmHg.
Compared to 06/21/21: TR has progressed from trace to mild/moderate, and PASP
has increased from 35 to 53 mmHg.
[facility] 02/2020: 1: Nonobstructive coronary atherosclerosis.
2: Normal left ventricular function.
3: Mild aortic stenosis.
Subjective Data
-
Date of Service:
Date of Service: July 19, 2025
Chief Complaint: Pulmonary Follow Up
Subjective:
Patient seen and evaluated today at bedside (late note entry). Still feels that his chest is tight. Currently on 3 L/min nasal cannula.
Review of Systems
General: Other ( Negative unless mentioned above)
Objective Data
Data Reviewed
Vital Signs / I&O / Oxygen:
Vital Signs
Temp Pulse Resp BP Pulse Ox
97.8 F 76 17 122/80 97
07/19/25 07:06 07/19/25 10:00 07/19/25 10:00 07/19/25 10:00 07/19/25 08:07
Intake and Output
07/18/25 07/19/25 07/20/25
06:59 06:59 06:59
Intake Total 1805 / 1805 750 / 750
Output Total 3420 / 3420 1999 / 1999 425 / 425
Balance -1615 / -1615 -1250 / -1250 -425 / -425
SaO2 97
Nasal Cannula flow liters per 4
minute
Physical Exam
General: Respiratory Distress (negative), Comfortable, Chills (negative) and Sweats (negative)
HEENT: Normocephalic and Anicteric
Cardiovascular: S1-S2, Peripheral Edema (negative) and Other (distant cardiac sounds)
Respiratory: Wheeze (negative), Crackles (bibasilar), Rhonchi (bilaterally in the lower lobes) and Non-Labored Respirations
GI: Soft, Non Distended, Non Tender and Normal Bowel Sounds
Neurology: Awake, Alert, Oriented and Tremors (negative)
Skin: Warm, Dry, Cyanosis (negative) and Jaundice (negative)
Labs/Micro/Reports
Lab Data
07/19/25 03:16
07/19/25 03:16
Microbiology
07/15/25 22:15 Sputum Respiratory Culture - Final
Usual Respiratory Marissa
07/15/25 22:15 Sputum Gram Stain - Final
07/15/25 20:08 Nose MRSA Screen - Final
No Methicillin Resistant Staphylococcus aureus isolated.
[2025-07-19] MEDS: LOVENOX 40 MG SC (17:21)
[2025-07-19] MEDS: OCEAN, SALINE MIST 2 SPRAYS NASAL ×2 (17:26→22:04)
[2025-07-19] MEDS: CLARITIN 10 MG PO (22:04)
[2025-07-19] MEDS: MELATONIN 3 MG PO (22:09)
[2025-07-20 03:07] VITALS: BP 131/81
[2025-07-20] MEDS: ROXICODONE 10 MG PO ×4 (03:28→21:14)
[2025-07-20 06:00] VITALS: BMI 18.9
[2025-07-20 07:00] VITALS: BP 119/81
[2025-07-20] MEDS: DUONEB 3 ML INH ×4 (07:08→19:47)
[2025-07-20] MEDS: SYMBICORT 160/4.5 MCG INHALER 2 PUFF INH ×2 (07:08→19:47)
--- NOTE | 2025-07-20 08:14 | W.PN.HOSP.TC ---
Today's Communication/Plan
-
wean O2 supplementation as tolerated
Wellbutrin and Trazodone as per psych
Gabapentin increased to 300 mg TID
CXR and VBG AM Mon as per Pulm
cont steroids bronchodilators
Assessment / Plan
Assessment / Plan
Physical Exam
General: No acute distress, appears comfortable at this time.
HEENT: NormoCephalic, Moist mucous membranes and Atraumatic
Respiratory: Diffuse wheezing though improved from prior, otherwise stable respiratory status on Nasal cannula
Cardiac: S1/S2 and Regular Rhythm; No Murmur or Rub
GI: Soft, Non Tender, Non Distended and Normal Bowel Sounds; No Organomegaly
Musculoskeletal: No Clubbing, No Cyanosis, lower ext pedal edema improved/resolved
Skin: No Rash
Neuro: AO x 3 conversant coherent
Psych: Calm
60M DM COPD HTN HLD GERD GIB Anxiety/Depression here for COPD exacerbation with possible HFpEF/cor pulmonale.
# Acute hypoxic respiratory failure secondary to COPD exacerbation
#Leukocytosis possibly d/t recent steroid use (though patient reports he had completed prednisone taper a few days ago prior to symptoms returning)
- Continue supplemental oxygen to keep sat greater than 89-92, wean as tolerated
- Nebs as needed for short of breath and wheezing
- steroids taper as per Pulm, currently 30 mg Prednisone daily
-received empiric IV azithromycin and ceftriaxone, de-escalated to PO Azithromycin 500 mg for total 3 day course (completed), low suspicion PNA
- COVID, flu negative
- Chest x-ray with mild pulmonary vascular congestion, chronic scarring in the left upper lobe
- Pulm eval appreciated follow up CXR VBG AM Monday
- Home Oxygen Assessment
-Incentive spirometer
#sob/LE concern for pulmonary vascular congestion, possible Acute on Chronic HFpEF
-BNP 5550
-ECHO appreciated EF 63%
-strict I&O,daily weight
-gentle IV diuresis transitioned to PO Lasix 20 mg daily, continue
#hx Hypertension
- home amlodipine 5 mg p.o. daily discontinued d/t lower ext edema, BP well controlled without
- cont Lasix as above
#Neuropathy
Gabapentin 100 mg TID gradually increased to 300 mg TID
oxycodone prn
#Depression
#Insomnia
Psych eval appreciated Wellbutrin 150 mg daily and Trazodone 50 mg HS started
#Mild Hyponatremia
monitor
#Post-nasal drip
#nasal congestion
[place] nasal spray QID
Claritin bedtime
PT/OT appreciated likely home no needs
ST eval appreciated concern for silent aspiration, patient declines VSE, cont regular diet for now w aspiration precautions.
BMI 18.5 to less than 25 is normal weight
DVT Prophylaxis: Lovenox
Code Status: Full
I spent a total of 40 minutes with the patient or on the floor. More than 50% of this time involved counseling and coordination of care.
Anticipated Discharge: 24 - 48 hours
Subjective/Interval History
-
Date of Service: July 20, 2025
Symptoms improved but not resolved. Patient also endorses depression poor sleep/insomnia. Denies HI/SI
Objective Data
-
Labs:
Laboratory Results
07/20/25
06:00
WBC Cancelled
Hgb Cancelled
Hct Cancelled
Plt Count Cancelled
Vital Signs:
Vital Signs
Temp Pulse Resp BP Pulse Ox
98.3 F 69 18 119/81 95
07/20/25 07:00 07/20/25 07:10 07/20/25 07:10 07/20/25 07:00 07/20/25 07:00
I&O
07/19/25 07/20/25 07/21/25
06:59 06:59 06:59
Intake Total 750 / 750 1620 / 1620
Output Total 1999 1075 / 1075
Balance -1250 / -1250 545 / 545
[2025-07-20] MEDS: NEURONTIN 200 MG PO (09:38)
[2025-07-20] MEDS: DELTASONE 30 MG PO (09:38)
[2025-07-20] MEDS: MUCINEX 1200 MG PO ×2 (09:39→21:14)
[2025-07-20] MEDS: LASIX 20 MG PO (09:39)
[2025-07-20] MEDS: OCEAN, SALINE MIST 2 SPRAYS NASAL ×4 (09:39→22:20)
[2025-07-20] MEDS: STERILE WATER FOR INJECTION IV (09:46)
[2025-07-20 11:00] VITALS: BP 110/77
--- NOTE | 2025-07-20 14:08 | W.PN.UPDATE ---
Update Note
Progress Note Update
Psychiatric Evaluation dictated.
60 yo man admitted wit hypoxia secondary to COPD and severe pain in feet secondary to diabetic neuropathy. He is very distressed particularly with his pain which prevents him from being able to sleep.
Admits to depression, apparently was on Wellbutrin about a year ago which helped but he had no insurance so stopped. He was also in the past on Trazodone which helped with insomnia. He reports Cymbalta which normally would be preferred did not help.
I will restart the Wellbutrin XL 150 od asnd the Trazodone 50 hd. Discussed side effects including priapism and in case that occurs he need to go the ER immediately should he experience painful erection.
We will F/U
[2025-07-20 15:00] VITALS: BP 113/76
--- NOTE | 2025-07-20 16:09 | RESPNOTE ---
Patient refused home o2 ambulation,said his feet were hurting too much to walk
--- NOTE | 2025-07-20 16:45 | W.PN.PUL3 ---
Today's Communication / Plan
-
- Continue prednisone taper - currently at 30 mg daily
- DuoNebs and Symbicort 160mcg
- Up OOB as tolerated
- Encourage IS
- CXR tomorrow AM given his continued SOB and chest tightness
- Check AM VBG to assure pH and pCO2 are stable
- Pulmonary service will continue to follow along
- Outpatient follow-up with [facility] pulmonary clinic, information added to discharge section
Assessment
-
Patient is a 60-year-old gentleman with known history of severe baseline COPD, on home oxygen who presents to the hospital with worsening shortness of breath, cough with increased sputum production which was clear to light greenish. Patient was
recently discharged from the hospital for similar symptoms and did well for few days up until more recently where he developed worsening symptoms. Denies any sick contacts. Denies any upper respiratory tract symptoms. Patient also reports a lower
extremity edema going on for at least last 8 months does not report much belt changer the last few days. Patient does report episodes of orthopnea but denies any paroxysmal nocturnal dyspnea. Pulmonary consultation was requested for further input.
#1. Acute on chronic hypoxic and hypercapnic respiratory failure
- Suspect primarily related to COPD exacerbation however patient also noted to have mild pulmonary vascular congestion as well as elevated BNP and pedal edema concerning for congestive heart failure. Underlying pulmonary hypertension also
contributing.
- IV Lasix was initiated on 07/16, diuresed well, pedal edema improved, switched to p.o. Lasix.
- Continue O2 support, target SpO2 89% or greater in view of pulmonary hypertension
#2. Acute exacerbation of COPD
- Continue DuoNeb 4 times daily and Symbicort 160mcg. Discontinued Rocephin as no evidence of pneumonia on current chest x-ray
- s/p 3 days zithromax 500mg
- prn DuoNebs
- O2 support to keep saturations at 89% or greater
- Discontinued IV steroids, switched to prednisone 30 daily (day #2) - -> continue to wean down steroids as he clinically improves
- May need to increase steroids to greater dose if his symptoms worsen while steroids being tapered, in which case he needs a longer tapered course
- Resume Symbicort and Spiriva at discharge.
- Recommend outpatient pulmonary clinic follow-up. Patient also will need a low-dose CT scan for lung cancer screening.
- Check CXR tomorrow as he still has SOB with chest tightness
#3. Chronic compensated hypercapnia
- Chronically elevated serum bicarbonate noted. Prior VBG's reviewed, compensated hypercapnia noted
- With advanced COPD, recurrent exacerbations and chronic hypercapnia, patient likely will benefit from nightly PAP therapy
- Again recommended outpatient follow-up with [facility] pulmonary clinic where we can perform full pulmonary function testing, diffusion capacity assessment, 6-minute walk test and work on arranging PAP therapy for nightly use. Patient will also benefit
from a sleep study. Follow-up information added to discharge section.
- Check AM VBG to assure pH and pCO2 are stable
#4. Pulmonary hypertension
- Pulmonary artery systolic pressure of 53 and echocardiogram in 07/2022. 41mm noted on more recent ECHO on 07/16/2025. RV function normal.
- Bilateral pitting edema responded well to IV Lasix.
- Holding amlodipine, initiated gentle diuresis with IV Lasix, now switched to PO lasix
- Repeat echocardiogram with LVEF 63% and mild with dense MAC around posterior MV leaflet
#5. Pulmonary edema with Acute HFpEF
- Patient responded well to IV Lasix, pedal edema resolved, follow-up chest x-ray on 07/18 with resolution of pulmonary edema
- Appears euvolemic now, on p.o. Lasix, continue
Conditions present prior to admission:
DH Adm Lingular cavitary mass/LLL lateral segment cavitary mass/Mediastinal LAD s/p bronchoscopy, neg culture/path 2022
Acute hypercapnic respiratory failure requiring intubation/sepsis/narcotic use for pain.
Intubated 07/28/2022: Extubated 08/04/2022
S/p Cardiac Arrest/Maurizio/Asystole, ROSC with CPR
Acute renal insufficiency, hyperkalemia
Requiring emergent HD 07/29
Mild aortic stenosis per echo June 2021
Normal biventricular function
History of GI bleed, duodenal ulcer 2018
Significant alcohol use, 6 pack of beer/day, ongoing
Hypertension/hyperlipidemia
Diabetes
History of recurrent COPD exacerbation, multiple hospital stays
Chronic bronchitis
50 pack year history smoking
Insomnia
Chronic back pain, chronic oxycodone therapy (4-6 tablets a day �15 years)
Suspected sleep disorder breathing
Family history lung cancer (mother), pancreatic cancer (father)
History of left upper lobe cavitary lesion has developed since September 2022 s/p bronch/negative
Total time spent today was 41 minute for this encounter. Time includes reviewing laboratory tests/imaging results, reviewing pertinent medical records, obtaining and reviewing medical history, performing an appropriate physical exam, ordering
medications, tests and procedures. Time also includes documentation of this encounter, coordinating patient care and communicating with other healthcare professionals. Total time does not include separately billed tests or procedures performed on
this date of service.
Data:
ECHO 07/2025: 1. Normal left ventricular size and function.
2. Left ventricular ejection fraction is normal with an ejection fraction of 63 % by Roy's biplane method of discs.
3. Mild concentric left ventricular hypertrophy.
4. A mild left ventricular outflow gradient was present at approximately 25 to 30 mmHg.
5. Right ventricular size and systolic function are within normal limits.
6. Thickened aortic valve leaflets with increased flow across the aortic valve. Mean gradient 17 mmHg, however some of this flow was likely due to the hyperdynamic LV and obstructive gradient. Mild aortic stenosis.
7. Mild aortic regurgitation.
8. There was dense mitral annular calcification around the posterior leaflet. There were marked redundant chordal structures and thickened mitral valve leaflets. Mild mitral regurgitation.
9. Mild tricuspid regurgitation. Estimated pulmonary artery pressure of 41 mmHg assuming a right atrial pressure of 8 mmHg.
10. Compared to a prior transthoracic echocardiogram study from 08/01/22 There was no mild obstructive gradient at the left ventricular outflow track present.
CXR 07/2025: Mild pulmonary vascular congestion. Chronic scarring in the left upper lobe.
Spirometry 06/2025: Severe obstruction, FEV1 23% of predicted. There was significant bronchodilator response in the FEV1 and FVC.
CT Chest 12/2022: 1. Two cavitary lesions with air-fluid levels in the left upper lobe as above, larger measuring up to 6.5 cm in diameter. Large amount of surrounding airspace consolidation. Given the current appearance and the absence of these
findings on the September 2022 examination, these most likely represent pulmonary abscesses. Neoplastic etiology is possible, considered less likely. There is associated mediastinal adenopathy and left hilar adenopathy.
2. Subacute chronic fractures posterior right ninth and 10th ribs.
ECHO 07/2022: Normal biventricular size and systolic function without regional wall motion
abnormality. Estimated LVEF 50-55%.
Moderate concentric left ventricular hypertrophy.
Aortic sclerosis without stenosis. Mild aortic regurgitation.
Mild to moderate tricuspid regurgitation. Moderately elevated PASP. Estimated
pulmonary artery pressure of 53 mmHg. Using a right atrial pressure of 15 mmHg.
Compared to 06/21/21: TR has progressed from trace to mild/moderate, and PASP
has increased from 35 to 53 mmHg.
[facility] 02/2020: 1: Nonobstructive coronary atherosclerosis.
2: Normal left ventricular function.
3: Mild aortic stenosis.
Subjective Data
-
Date of Service:
Date of Service: July 20, 2025
Chief Complaint: Pulmonary Follow Up
Subjective:
Patient was seen and evaluated this morning (late note entry). Currently on 3 L/min nasal cannula. Still complains of shortness of breath with chest tightness. His shortness of breath is not worsening however. Denies chest pain.
Review of Systems
General: Other (Negative unless mentioned above)
Objective Data
Data Reviewed
Vital Signs / I&O / Oxygen:
Vital Signs
Temp Pulse Resp BP Pulse Ox
98.3 F 69 18 119/81 95
07/20/25 07:00 07/20/25 07:10 07/20/25 07:10 07/20/25 07:00 07/20/25 07:00
Intake and Output
07/19/25 07/20/25 07/21/25
06:59 06:59 06:59
Intake Total 750 / 750 1620 / 1620
Output Total 1999 / 1999 1075 / 1075
Balance -1250 / -1250 545 / 545
SaO2 95
Nasal Cannula flow liters per 3
minute
Physical Exam
General: Respiratory Distress (negative), Comfortable, Chills (negative) and Sweats (negative)
HEENT: Normocephalic and Anicteric
Cardiovascular: S1-S2, Peripheral Edema (negative) and Other (distant cardiac sounds)
Respiratory: Wheeze (heard upon expiration in the right middle lung region, posteriorly), Crackles (negative), Rhonchi (negative), Non-Labored Respirations and Other (diminished breath sounds bilaterally)
GI: Soft, Non Distended, Non Tender and Normal Bowel Sounds
Neurology: Awake, Alert, Oriented and Tremors (negative)
Skin: Warm, Dry, Cyanosis (negative) and Jaundice (negative)
Labs/Micro/Reports
Lab Data
07/20/25 06:00
07/19/25 03:16
Microbiology
07/15/25 22:15 Sputum Respiratory Culture - Final
Usual Respiratory Marissa
07/15/25 22:15 Sputum Gram Stain - Final
07/15/25 20:08 Nose MRSA Screen - Final
No Methicillin Resistant Staphylococcus aureus isolated.
[2025-07-20] MEDS: NEURONTIN 300 MG PO ×2 (17:04→21:15)
[2025-07-20] MEDS: LOVENOX 40 MG SC (17:04)
[2025-07-20 19:51] VITALS: BP 130/83
[2025-07-20] MEDS: CLARITIN 10 MG PO (21:14)
[2025-07-20] MEDS: DESYREL 50 MG PO (21:15)
[2025-07-20 23:00] VITALS: BP 131/74
[2025-07-21] MEDS: ROXICODONE 10 MG PO ×4 (02:45→18:11)
[2025-07-21 03:05] VITALS: BP 133/81
[2025-07-21 05:42] VITALS: BMI 18.8
[2025-07-21 06:15] LABS: Hematocrit 45.1 % (39.0-52.0); Hemoglobin 15.2 g/dL (13.0-18.0); Mean Corp Hgb Conc. 33.7 g/dL (33.0-37.0); Mean Corpuscular Volume 93.0 fL (80.0-94.0); Platelet Count 262 10^3/uL (130-400); Red Cell Dist. Width 13.9 % (11.5-14.5)
[2025-07-21 06:34] LABS: Blood Urea Nitrogen 27 mg/dl (9-20); Calcium 9.3 mg/dl (8.4-10.2); Carbon Dioxide 36 mmol/L (22-30); Chloride 96 mmol/L (98-107); Estimated Creatinine Clearance 103 ml/min; Glucose 88 mg/dl (70-99); Magnesium 1.9 mg/dl (1.6-2.3); Potassium 4.5 mmol/L (3.5-5.1); Sodium 131 mmol/L (135-145); eGFR > 60.00
[2025-07-21 07:30] VITALS: BP 130/84
[2025-07-21] MEDS: DUONEB 3 ML INH ×4 (07:52→19:39)
[2025-07-21] MEDS: SYMBICORT 160/4.5 MCG INHALER 2 PUFF INH ×2 (07:53→19:39)
[2025-07-21 07:56] LABS: Venous Blood Gas B.E. 6.5 mmol/L (-4 to +4); Venous Blood Gas O2 Sat % 74.4 %
[2025-07-21] MEDS: MUCINEX 1200 MG PO ×2 (08:07→22:24)
[2025-07-21] MEDS: NEURONTIN 300 MG PO ×3 (08:07→22:24)
[2025-07-21] MEDS: DELTASONE 30 MG PO (08:07)
[2025-07-21] MEDS: WELLBUTRIN XL (24 hour extended release) 150 MG PO (08:07)
[2025-07-21] MEDS: LASIX 20 MG PO (08:07)
[2025-07-21] MEDS: STERILE WATER FOR INJECTION IV (08:08)
[2025-07-21] MEDS: OCEAN, SALINE MIST 2 SPRAYS NASAL ×3 (08:08→17:21)
--- NOTE | 2025-07-21 09:37 | W.PN.PUL.V3 ---
Today's Communication / Plan
-
Continue prednisone-consider increasing if ongoing shortness of breath and wheezing
Chest x-ray pending
Nebulizers
Assessment
-
Patient is a 60-year-old gentleman with known history of severe baseline COPD, on home oxygen who presents to the hospital with worsening shortness of breath, cough with increased sputum production which was clear to light greenish. Patient was
recently discharged from the hospital for similar symptoms and did well for few days up until more recently where he developed worsening symptoms. Denies any sick contacts. Denies any upper respiratory tract symptoms. Patient also reports a lower
extremity edema going on for at least last 8 months does not report much change attendant the last few days. Patient does report episodes of orthopnea but denies any paroxysmal nocturnal dyspnea. Pulmonary consultation was requested for further input.
Conditions present prior to admission:
DH Adm Lingular cavitary mass/LLL lateral segment cavitary mass/Mediastinal LAD s/p bronchoscopy, neg culture/path 2022
Acute hypercapnic respiratory failure requiring intubation/sepsis/narcotic use for pain.
Intubated 07/28/2022: Extubated 08/04/2022
S/p Cardiac Arrest/Maurizio/Asystole, ROSC with CPR
Acute renal insufficiency, hyperkalemia
Requiring emergent HD 07/29
Mild aortic stenosis per echo June 2021
Normal biventricular function
History of GI bleed, duodenal ulcer 2018
Significant alcohol use, 6 pack of beer/day, ongoing
Hypertension/hyperlipidemia
Diabetes
History of recurrent COPD exacerbation, multiple hospital stays
Chronic bronchitis
50 pack year history smoking
Insomnia
Chronic back pain, chronic oxycodone therapy (4-6 tablets a day �15 years)
Suspected sleep disorder breathing
Family history lung cancer (mother), pancreatic cancer (father)
History of left upper lobe cavitary lesion has developed since September 2022 s/p bronch/negative
Plan
Suspected COPD exacerbation with mild pulmonary vascular congestion and chronic hypercapnia
Supplemental oxygen as needed
Nebulizers-DuoNebs
Symbicort continues
Mucolytic's-on Mucinex 1200 twice daily
Observe off antibiotics
BiPAP as needed
Prednisone 30 mg-May need to increase with ongoing shortness of breath and tightness
Follow-up chest x-ray-07/21/2025-pending
VBG 07/21/2025-pending
Diuresis as tolerated
Monitor renal function, electrolytes, intake/output, lower extremity edema and weight
Replace electrolytes as needed
Most recent echocardiogram 07/2025 summarized below
DVT prophylaxis-on Lovenox
Nutrition
Early mobilization
Outpatient pulmonary follow-up
Data:
ECHO 07/2025: 1. Normal left ventricular size and function.
2. Left ventricular ejection fraction is normal with an ejection fraction of 63 % by Roy's biplane method of discs.
3. Mild concentric left ventricular hypertrophy.
4. A mild left ventricular outflow gradient was present at approximately 25 to 30 mmHg.
5. Right ventricular size and systolic function are within normal limits.
6. Thickened aortic valve leaflets with increased flow across the aortic valve. Mean gradient 17 mmHg, however some of this flow was likely due to the hyperdynamic LV and obstructive gradient. Mild aortic stenosis.
7. Mild aortic regurgitation.
8. There was dense mitral annular calcification around the posterior leaflet. There were marked redundant chordal structures and thickened mitral valve leaflets. Mild mitral regurgitation.
9. Mild tricuspid regurgitation. Estimated pulmonary artery pressure of 41 mmHg assuming a right atrial pressure of 8 mmHg.
10. Compared to a prior transthoracic echocardiogram study from 08/01/22 There was no mild obstructive gradient at the left ventricular outflow track present.
CXR 07/2025: Mild pulmonary vascular congestion. Chronic scarring in the left upper lobe.
Spirometry 06/2025: Severe obstruction, FEV1 23% of predicted. There was significant bronchodilator response in the FEV1 and FVC.
CT Chest 12/2022: 1. Two cavitary lesions with air-fluid levels in the left upper lobe as above, larger measuring up to 6.5 cm in diameter. Large amount of surrounding airspace consolidation. Given the current appearance and the absence of these
findings on the September 2022 examination, these most likely represent pulmonary abscesses. Neoplastic etiology is possible, considered less likely. There is associated mediastinal adenopathy and left hilar adenopathy.
2. Subacute chronic fractures posterior right ninth and 10th ribs.
ECHO 07/2022: Normal biventricular size and systolic function without regional wall motion
abnormality. Estimated LVEF 50-55%.
Moderate concentric left ventricular hypertrophy.
Aortic sclerosis without stenosis. Mild aortic regurgitation.
Mild to moderate tricuspid regurgitation. Moderately elevated PASP. Estimated
pulmonary artery pressure of 53 mmHg. Using a right atrial pressure of 15 mmHg.
Compared to 06/21/21: TR has progressed from trace to mild/moderate, and PASP
has increased from 35 to 53 mmHg.
[facility] 02/2020: 1: Nonobstructive coronary atherosclerosis.
2: Normal left ventricular function.
3: Mild aortic stenosis.
Subjective Data
-
Date of Service:
Date of Service: July 21, 2025
Chief Complaint: Pulmonary Follow Up and Dyspnea Follow Up
Subjective:
Still with some shortness of breath at rest, no chest pain, feels 'tight', nebulizers helping somewhat, no abdominal pain
Review of Systems
General: Other (Per HPI)
Objective Data
Data Reviewed
Vital Signs / I&O:
Vital Signs
Temp Pulse Resp BP Pulse Ox
98.0 F 80 18 130/84 94
07/21/25 07:30 07/21/25 08:07 07/21/25 07:55 07/21/25 08:07 07/21/25 07:55
Intake and Output
07/20/25 07/21/25 07/22/25
06:59 06:59 06:59
Intake Total 1620 / 1620 960 / 960
Output Total 1075 / 1075
Balance 545 / 545 960 / 960
SaO2: 94
Nasal Cannula flow liters per minute: 4
Physical Exam
General: Respiratory Distress (negative), Comfortable, Chills (negative) and Sweats (negative)
HEENT: Normocephalic and Anicteric
Cardiovascular: Regular Rhythm, Peripheral Edema (negative) and Other (distant cardiac sounds)
Respiratory: Wheeze (heard upon expiration in the right middle lung region, posteriorly), Crackles (negative), Rhonchi (negative), Non-Labored Respirations and Other (diminished breath sounds bilaterally)
GI: Soft, Non Distended, Non Tender and Normal Bowel Sounds
Neurology: Awake, Alert and No Motor Deficits
Skin: Warm, Cyanosis (negative) and Jaundice (negative)
Labs/Micro/Reports
Lab Data
07/21/25 05:40
07/21/25 05:40
Microbiology
07/15/25 22:15 Sputum Respiratory Culture - Final
Usual Respiratory Marissa
07/15/25 22:15 Sputum Gram Stain - Final
--- NOTE | 2025-07-21 10:38 | CM ---
Pt currently on 4 liter oxygen Pox 94%.
Pt has home oxygen Unsure of vendor.
PT indicates no needs.
PLAN Home no anticipated needs
--- NOTE | 2025-07-21 11:13 | W.PN.HOSP.TC ---
Today's Communication/Plan
-
wean O2 supplementation as tolerated
May need to increase steroid
Assessment / Plan
Assessment / Plan
Impression:
60-year-old male with history of NIDDM, diabetic neuropathy, COPD, home oxygen, HTN, HLD, GERD, GI bleed, hearing impaired, anxiety/depression, chronic pain presents with worsening sob, cough with greenish sputum. entire chest and and back is tight.
he has not felt great since the discharge from hospital two weeks ago. today as he was walking at the work, he felt extremely sob, lightheaded. he was nauseous today morning. denied fever. stated chills. denied syncopal episode. denied abdminal
pain, diarrhea. denied dysuria or hematuria. patient stated chronic LE edema. it has not got bad
Admitted to hospital service and started on IV steroid, seen pulmonology and weaned down to oral prednisone.
Assessment/plan:
# Acute hypoxic respiratory failure secondary to COPD exacerbation
#Leukocytosis possibly d/t recent steroid use (though patient reports he had completed prednisone taper a few days ago prior to symptoms returning)
- Continue supplemental oxygen to keep sat greater than 89-92, wean as tolerated
- Nebs as needed for short of breath and wheezing
- steroids taper as per Pulm, currently 30 mg Prednisone daily---> may need to increase since patient is more short of breath.
-received empiric IV azithromycin and ceftriaxone, de-escalated to PO Azithromycin 500 mg for total 3 day course (completed), low suspicion PNA
- COVID, flu negative
- Chest x-ray with mild pulmonary vascular congestion, chronic scarring in the left upper lobe
- Pulm eval appreciated.
- Home Oxygen Assessment, patient on home oxygen 2 L at night currently 4 L during the day.
-Incentive spirometer
Acute on chronic diastolic CHF
-BNP 5550
-ECHO appreciated EF 63%
-strict I&O,daily weight
-gentle IV diuresis transitioned to PO Lasix 20 mg daily, continue
Hypertension
- home amlodipine 5 mg p.o. daily discontinued d/t lower ext edema, BP well controlled without
- cont Lasix as above
Peripheral neuropathy
Gabapentin 100 mg TID gradually increased to 300 mg TID
oxycodone prn
#Depression
#Insomnia
Psych eval appreciated Wellbutrin 150 mg daily and Trazodone 50 mg HS started
#Mild Hyponatremia
monitor
#Post-nasal drip
#nasal congestion
Botetourt nasal spray QID
Claritin bedtime
ST eval appreciated concern for silent aspiration, patient declines VSE, cont regular diet for now w aspiration precautions.
BMI 18.5 to less than 25 is normal weight
CODE STATUS: Full code
DVT prophylaxis: Lovenox
Diet: Regular diet
Physical therapy recommendations: PT/OT appreciated likely home no needs
Disposition: Continue steroid.
Total time spent on today's encounter was 51 minutes which included time spent in counseling the patient/family regarding diagnosis and treatment plan as listed above, goals of care, and symptom management. Case was discussed with nursing staff,
specialists, and care coordinators/case management. All labs and imaging personally reviewed by me. Remainder the time spent in detailed review of previous records, lab data, imaging, and other medical provider documentation.
Anticipated Discharge: Within 24 hours
Subjective/Interval History
-
Date of Service: July 21, 2025
Patient seen and examined at bedside, denies any chest pain , still with more shortness of breath today compared to yesterday, no abdominal pain, no nausea, no vomiting, no diarrhea or constipation.
Objective Data
-
Labs:
Laboratory Results
07/21/25
05:40
WBC 10.3
Hgb 15.2
Hct 45.1
Plt Count 262
Sodium 131 L
Potassium 4.5
Chloride 96 L
Carbon Dioxide 36 H
BUN 27 H
Creatinine 0.7
Glucose 88
Calcium 9.3
Vital Signs:
Vital Signs
Temp Pulse Resp BP Pulse Ox
98.0 F 80 18 130/84 94
07/21/25 07:30 07/21/25 08:07 07/21/25 07:55 07/21/25 08:07 07/21/25 09:37
I&O
07/20/25 07/21/25 07/22/25
06:59 06:59 06:59
Intake Total 1620 / 1620 960 / 960
Output Total 1075 / 1075
Balance 545 / 545 960 / 960
Physical Exam
-
General: Well Developed, Well Nourished, No Apparent Distress and Comfortable
HEENT: Normocephalic, Atraumatic, Moist Mucous Membranes, No Ptosis, PERRLA and Nose Appears Normal
Respiratory: Wheezes and Chest Tubes (Decreased breath sound bilateraly)
Cardiac: Regular Rhythm and S1/S2
Breast: Deferred by me
GI: Soft, Nontender, Nondistended and Normal Bowel Sounds
Genito-urinary: No Costovertebral Tender
Musculoskeletal: No Clubbing, No Cyanosis and No Edema
Skin: Warm
Neuro: Awake, Alert, Oriented, AO x 3 and No Motor Deficits
Psych: Calm
Data Reviewed
-
Diagnostic Radiology: Image personally visualized and interpreted and Report Reviewed by me
CT Scan: Image personally visualized and interpreted and Report Reviewed by me
Ultrasound: Image personally visualized and interpreted and Report Reviewed by me
MRI: Image personally visualized and interpreted and Report Reviewed by me
Medical Tests (Nuc Med, Echo etc): Image personally visualized and interpreted and Report Reviewed by me
Labs: Labs Reviewed by me
Old Records: Reviewed
--- NOTE | 2025-07-21 11:29 | W.PN.UPDATE ---
Update Note
Progress Note Update
seen chart reviewed. discussed with nursing. mr hamilton was very forthcoming about the change in his mental status over the past year. he has noted himself becoming more and more depressed. he has been socially isolating. he said 'even my
girlfriend' notices the change in his demeanor. energy level not great . he does not enjoy very much. appetite had been diminished. patient is not suicidal. he had continued to work despite his depression. sleep not great last evening despite
trazodone which had worked in the past. ambien had also worked. we discussed the fact that no sleep med will work forever if used every day. good sleep hygiene is important and websites [facility] address 'cognitive behavioral strategies for sleep' can
be helpful. we talked about for now ambien 5 mg q hs and melatonin 5 mg two hours before sleep. another issue re trazodone is low sodium. his sodium is 131 don't want it to go much lower . should be monitored. another option re sleep might be
increase in gabapentin at hs to 600 mg which would help w diabetic neuropathy. will see how the ambien melatonin combo goes and reassess tomorrow.
[2025-07-21 15:37] VITALS: PULSE 105
[2025-07-21 16:21] VITALS: BP 122/73
[2025-07-21] MEDS: LOVENOX 40 MG SC (17:21)
[2025-07-21] MEDS: AMBIEN 5 MG PO (22:24)
[2025-07-21] MEDS: CLARITIN 10 MG PO (22:24)
[2025-07-21] MEDS: MELATONIN 5 MG PO (22:24)
[2025-07-21] MEDS: OCEAN, SALINE MIST 1 SPRAYS NASAL (22:45)
[2025-07-21 23:00] VITALS: BP 106/81
[2025-07-21] MEDS: ROXICODONE 5 MG PO (23:11)
[2025-07-22 06:00] VITALS: BMI 19.0
[2025-07-22] MEDS: ROXICODONE 10 MG PO ×2 (06:03→11:42)
[2025-07-22 06:28] LABS: Hematocrit 49.6 % (39.0-52.0); Hemoglobin 16.1 g/dL (13.0-18.0); Mean Corp Hgb Conc. 32.5 g/dL (33.0-37.0); Mean Corpuscular Volume 93.8 fL (80.0-94.0); Platelet Count 290 10^3/uL (130-400); Red Cell Dist. Width 14.1 % (11.5-14.5)
[2025-07-22 07:01] LABS: Blood Urea Nitrogen 26 mg/dl (9-20); Calcium 9.4 mg/dl (8.4-10.2); Carbon Dioxide 35 mmol/L (22-30); Chloride 97 mmol/L (98-107); Estimated Creatinine Clearance 103 ml/min; Glucose 88 mg/dl (70-99); Potassium 5.1 mmol/L (3.5-5.1); Sodium 133 mmol/L (135-145); eGFR > 60.00
[2025-07-22 07:42] VITALS: BP 133/86
[2025-07-22] MEDS: DUONEB 3 ML INH ×2 (08:05→11:33)
[2025-07-22] MEDS: SYMBICORT 160/4.5 MCG INHALER 2 PUFF INH (08:06)
[2025-07-22] MEDS: DELTASONE 30 MG PO (08:34)
[2025-07-22] MEDS: WELLBUTRIN XL (24 hour extended release) 150 MG PO (08:35)
[2025-07-22] MEDS: LASIX 20 MG PO (08:35)
[2025-07-22] MEDS: NEURONTIN 300 MG PO (08:35)
[2025-07-22] MEDS: MUCINEX 1200 MG PO (08:35)
[2025-07-22] MEDS: OCEAN, SALINE MIST 1 SPRAYS NASAL ×2 (08:36→12:04)
[2025-07-22] MEDS: STERILE WATER FOR INJECTION IV (09:33)
--- NOTE | 2025-07-22 09:56 | W.PN.PUL.V3 ---
Today's Communication / Plan
-
No change in prednisone
Continue nebulizers and inhalers
Assessment
-
Patient is a 60-year-old gentleman with known history of severe baseline COPD, on home oxygen who presents to the hospital with worsening shortness of breath, cough with increased sputum production which was clear to light greenish. Patient was
recently discharged from the hospital for similar symptoms and did well for few days up until more recently where he developed worsening symptoms. Denies any sick contacts. Denies any upper respiratory tract symptoms. Patient also reports a lower
extremity edema going on for at least last 8 months does not report much slubber frame changer the last few days. Patient does report episodes of orthopnea but denies any paroxysmal nocturnal dyspnea. Pulmonary consultation was requested for further input.
Acute on top of chronic hypoxemic and hypercapnic respiratory failure
COPD exacerbation
Chronic compensated hypercapnia
Pulm hypertension
Acute CHF with preserved EF
Depression
Conditions present prior to admission:
DH Adm Lingular cavitary mass/LLL lateral segment cavitary mass/Mediastinal LAD s/p bronchoscopy, neg culture/path 2022
Acute hypercapnic respiratory failure requiring intubation/sepsis/narcotic use for pain.
Intubated 07/28/2022: Extubated 08/04/2022
S/p Cardiac Arrest/Maurizio/Asystole, ROSC with CPR
Acute renal insufficiency, hyperkalemia
Requiring emergent HD 07/29
Mild aortic stenosis per echo June 2021
Normal biventricular function
History of GI bleed, duodenal ulcer 2018
Significant alcohol use, 6 pack of beer/day, ongoing
Hypertension/hyperlipidemia
Diabetes
History of recurrent COPD exacerbation, multiple hospital stays
Chronic bronchitis
50 pack year history smoking
Insomnia
Chronic back pain, chronic oxycodone therapy (4-6 tablets a day �15 years)
Suspected sleep disorder breathing
Family history lung cancer (mother), pancreatic cancer (father)
History of left upper lobe cavitary lesion has developed since September 2022 s/p bronch/negative
Plan
Suspected COPD exacerbation with mild pulmonary vascular congestion and chronic hypercapnia
Supplemental oxygen as needed
Nebulizers-DuoNebs
Symbicort continues
Mucolytic's-on Mucinex 1200 twice daily
Observe off antibiotics
BiPAP as needed
Prednisone 30 mg-May need to increase if increased shortness of breath and wheezing
Chest x-ray 07/21/2025-slight decrease in size of opacification left upper lobe
VBG 07/21/2025-67/45/7.33
Diuresis as tolerated
Monitor renal function, electrolytes, intake/output, lower extremity edema and weight
Replace electrolytes as needed
Most recent echocardiogram 07/2025 summarized below
Psychiatry following-correspondence reviewed
Restart antidepression medications
DVT prophylaxis-on Lovenox
Nutrition
Early mobilization
Outpatient pulmonary [id number] the past [facility] has tried to reach out to him at least 7 times to make appointment after his last 2 hospitalizations and he never made an appointment
Data:
ECHO 07/2025: 1. Normal left ventricular size and function.
2. Left ventricular ejection fraction is normal with an ejection fraction of 63 % by Roy's biplane method of discs.
3. Mild concentric left ventricular hypertrophy.
4. A mild left ventricular outflow gradient was present at approximately 25 to 30 mmHg.
5. Right ventricular size and systolic function are within normal limits.
6. Thickened aortic valve leaflets with increased flow across the aortic valve. Mean gradient 17 mmHg, however some of this flow was likely due to the hyperdynamic LV and obstructive gradient. Mild aortic stenosis.
7. Mild aortic regurgitation.
8. There was dense mitral annular calcification around the posterior leaflet. There were marked redundant chordal structures and thickened mitral valve leaflets. Mild mitral regurgitation.
9. Mild tricuspid regurgitation. Estimated pulmonary artery pressure of 41 mmHg assuming a right atrial pressure of 8 mmHg.
10. Compared to a prior transthoracic echocardiogram study from 08/01/22 There was no mild obstructive gradient at the left ventricular outflow track present.
CXR 07/2025: Mild pulmonary vascular congestion. Chronic scarring in the left upper lobe.
Spirometry 06/2025: Severe obstruction, FEV1 23% of predicted. There was significant bronchodilator response in the FEV1 and FVC.
CT Chest 12/2022: 1. Two cavitary lesions with air-fluid levels in the left upper lobe as above, larger measuring up to 6.5 cm in diameter. Large amount of surrounding airspace consolidation. Given the current appearance and the absence of these
findings on the September 2022 examination, these most likely represent pulmonary abscesses. Neoplastic etiology is possible, considered less likely. There is associated mediastinal adenopathy and left hilar adenopathy.
2. Subacute chronic fractures posterior right ninth and 10th ribs.
ECHO 07/2022: Normal biventricular size and systolic function without regional wall motion
abnormality. Estimated LVEF 50-55%.
Moderate concentric left ventricular hypertrophy.
Aortic sclerosis without stenosis. Mild aortic regurgitation.
Mild to moderate tricuspid regurgitation. Moderately elevated PASP. Estimated
pulmonary artery pressure of 53 mmHg. Using a right atrial pressure of 15 mmHg.
Compared to 06/21/21: TR has progressed from trace to mild/moderate, and PASP
has increased from 35 to 53 [address]
[facility] 02/2020: 1: Nonobstructive coronary atherosclerosis.
2: Normal left ventricular function.
3: Mild aortic stenosis.
Subjective Data
-
Date of Service:
Date of Service: July 22, 2025
Chief Complaint: Pulmonary Follow Up and Dyspnea Follow Up
Subjective:
Feels slightly better, still 'tight, no chest congestion, productive cough, chest pain, pleurisy or abdominal pain
Review of Systems
General: Other (Per HPI)
Objective Data
Data Reviewed
Vital Signs / I&O:
Vital Signs
Temp Pulse Resp BP Pulse Ox
98.2 F 90 18 133/86 96
07/22/25 07:42 07/22/25 08:08 07/22/25 08:08 07/22/25 07:42 07/22/25 08:08
Intake and Output
07/21/25 07/22/25 07/23/25
06:59 06:59 06:59
Intake Total 960 / 960 1200 / 1200
Balance 960 / 960 1200 / 1200
SaO2: 96
Nasal Cannula flow liters per minute: 3
Physical Exam
General: Respiratory Distress (negative), Comfortable, Chills (negative) and Sweats (negative)
HEENT: Normocephalic and Anicteric
Cardiovascular: Regular Rhythm, Peripheral Edema (negative) and Other (distant cardiac sounds)
Respiratory: Wheeze (heard upon expiration in the right middle lung region, posteriorly), Crackles (negative), Rhonchi (negative), Non-Labored Respirations and Other (diminished breath sounds bilaterally)
GI: Soft, Non Distended, Non Tender and Normal Bowel Sounds
Neurology: Awake, Alert and No Motor Deficits
Skin: Warm, Cyanosis (negative) and Jaundice (negative)
Labs/Micro/Reports
Lab Data
07/22/25 05:35
07/22/25 05:35
--- NOTE | 2025-07-22 13:30 | W.PN.HOSP.TC ---
Today's Communication/Plan
-
Discharge home today
Assessment / Plan
Assessment / Plan
Impression:
60-year-old male with history of NIDDM, diabetic neuropathy, COPD, home oxygen, HTN, HLD, GERD, GI bleed, hearing impaired, anxiety/depression, chronic pain presents with worsening sob, cough with greenish sputum. entire chest and and back is tight.
he has not felt great since the discharge from hospital two weeks ago. today as he was walking at the work, he felt extremely sob, lightheaded. he was nauseous today morning. denied fever. stated chills. denied syncopal episode. denied abdminal
pain, diarrhea. denied dysuria or hematuria. patient stated chronic LE edema. it has not got bad
Admitted to hospital service and started on IV steroid, seen pulmonology and weaned down to oral prednisone.
CT chest showed:
Band-shaped density in the left upper lung with adjacent linear densities radiating from the band-shaped opacity. This likely represents scarring from previous cavitary pneumonia/pulmonary abscess.
Moderate to severe changes of emphysema. Scattered peripheral linear densities which likely represent small linear scars within the upper abdomen, small calcifications which are probably nephroliths.
Moderate to severe aortic calcification. Recent echocardiogram showed findings of mild aortic stenosis.
Coronary artery calcifications are present. Please correlate with symptoms of and risk factors for coronary artery disease, with further workup as clinically appropriate.
Patient will be discharged on prednisone taper
Assessment/plan:
# Acute hypoxic respiratory failure secondary to COPD exacerbation
#Leukocytosis possibly d/t recent steroid use (though patient reports he had completed prednisone taper a few days ago prior to symptoms returning)
- Continue supplemental oxygen to keep sat greater than 89-92, wean as tolerated
- Nebs as needed for short of breath and wheezing
- steroids taper as per Pulm, currently 30 mg Prednisone daily---> may need to increase since patient is more short of breath.
-received empiric IV azithromycin and ceftriaxone, de-escalated to PO Azithromycin 500 mg for total 3 day course (completed), low suspicion PNA
- COVID, flu negative
- Chest x-ray with mild pulmonary vascular congestion, chronic scarring in the left upper lobe
- Pulm eval appreciated.
- Home Oxygen Assessment, patient on home oxygen 2 L at night currently 4 L during the day.
-Incentive spirometer
CT chest showed:
Band-shaped density in the left upper lung with adjacent linear densities radiating from the band-shaped opacity. This likely represents scarring from previous cavitary pneumonia/pulmonary abscess.
Moderate to severe changes of emphysema. Scattered peripheral linear densities which likely represent small linear scars within the upper abdomen, small calcifications which are probably nephroliths.
Moderate to severe aortic calcification. Recent echocardiogram showed findings of mild aortic stenosis.
Coronary artery calcifications are present. Please correlate with symptoms of and risk factors for coronary artery disease, with further workup as clinically appropriate.
Patient will be discharged on prednisone taper
Acute on chronic diastolic CHF
-BNP 5550
-ECHO appreciated EF 63%
-strict I&O,daily weight
-gentle IV diuresis transitioned to PO Lasix 20 mg daily, continue
Patient will be discharged on Lasix 20 mg daily, repeat BMP after 1 week
Hypertension
- home amlodipine 5 mg p.o. daily discontinued d/t lower ext edema, BP well controlled without
- cont Lasix as above
Peripheral neuropathy
Gabapentin 100 mg TID gradually increased to 300 mg TID
Increase evening dose to 600 milligram
oxycodone prn
#Depression
#Insomnia
Psych eval appreciated Wellbutrin 150 mg daily and Trazodone 50 mg HS started
#Mild Hyponatremia
monitor
#Post-nasal drip
#nasal congestion
[place] nasal spray QID
Claritin bedtime
ST eval appreciated concern for silent aspiration, patient declines VSE, cont regular diet for now w aspiration precautions.
BMI 18.5 to less than 25 is normal weight
CODE STATUS: Full code
DVT prophylaxis: Lovenox
Diet: Regular diet
Physical therapy recommendations: PT/OT appreciated likely home no needs
Disposition: Discharge home
Total time spent on today's encounter was 55 minutes which included time spent in counseling the patient/family regarding diagnosis and treatment plan as listed above, goals of care, and symptom management. Case was discussed with nursing staff,
specialists, and care coordinators/case management. All labs and imaging personally reviewed by me. Remainder the time spent in detailed review of previous records, lab data, imaging, and other medical provider documentation.
Anticipated Discharge: Today
Subjective/Interval History
-
Date of Service: July 22, 2025
Patient still with shortness of breath but otherwise no chest pain, complaining of leg pain.
Objective Data
-
Labs:
Laboratory Results
07/22/25
05:35
WBC 10.7
Hgb 16.1
Hct 49.6
Plt Count 290
Sodium 133 L
Potassium 5.1
Chloride 97 L
Carbon Dioxide 35 H
BUN 26 H
Creatinine 0.7
Glucose 88
Calcium 9.4
Vital Signs:
Vital Signs
Temp Pulse Resp BP Pulse Ox
98.2 F 90 18 133/86 96
07/22/25 07:42 07/22/25 08:08 07/22/25 08:08 07/22/25 07:42 07/22/25 09:56
I&O
07/21/25 07/22/25 07/23/25
06:59 06:59 06:59
Intake Total 960 / 960 1200 / 1200
Balance 960 / 960 1200 / 1200
Physical Exam
-
General: Well Developed, Well Nourished, No Apparent Distress and Comfortable
HEENT: Normocephalic, Atraumatic, Moist Mucous Membranes, No Ptosis, PERRLA and Nose Appears Normal
Respiratory: Wheezes and Chest Tubes (Decreased breath sound bilateraly)
Cardiac: Regular Rhythm and S1/S2
Breast: Deferred by me
GI: Soft, Nontender, Nondistended and Normal Bowel Sounds
Genito-urinary: No Costovertebral Tender
Musculoskeletal: No Clubbing, No Cyanosis and No Edema
Skin: Warm
Neuro: Awake, Alert, Oriented, AO x 3 and No Motor Deficits
Psych: Calm
--- NOTE | 2025-07-22 13:31 | W.PN.UPDATE ---
Update Note
Progress Note Update
patient seen chart reviewed discussed with nursing and with dr montes de oca. patient is looking forward to la today. he did not sleep well last night despite ambien. he did sleep for a few hours. he seems to be hoping that he will revert back to patterns
of sleep when he was younger eg eight hours . unfortunately for a number of reasons that is unlikely. explained to him that as you age sleep does tend to be more fragmented and i his case getting up to use br, pain in his feet (neuropathy) are
also issues impairing his sleep. discussed with him increasing hs gabapentin to 600 mg which could be helpful. can continue with ambien 5 mg but i explained to him that if he uses it every day it will not be effective. dr montes de oca will given him #10
further to be addressed w pcp. would continue wellbutrin which may need to be increased for depression. he feels his depression began in earnest about three years ago when he was hosp after etoh intox and was in a coma. since that time his mood had
been on a down hill slide. he should consider seeing a psychiatrist if depression does not improve with wellbutrin.
--- NOTE | 2025-07-22 13:32 | W.DCSUMMARY ---
Discharge Summary
Discharge Data
Date of Admission: 07/15/25
Date of Discharge: 07/22/25
Total time spent discharging patient (in min): 40
-
Pending Results: No
Hospital Course
Hospital course
60-year-old male with history of NIDDM, diabetic neuropathy, COPD, home oxygen, HTN, HLD, GERD, GI bleed, hearing impaired, anxiety/depression, chronic pain presents with worsening sob, cough with greenish sputum. entire chest and and back is tight.
he has not felt great since the discharge from hospital two weeks ago. today as he was walking at the work, he felt extremely sob, lightheaded. he was nauseous today morning. denied fever. stated chills. denied syncopal episode. denied abdminal
pain, diarrhea. denied dysuria or hematuria. patient stated chronic LE edema. it has not got bad
Admitted to hospital service and started on IV steroid, seen pulmonology and weaned down to oral prednisone.
CT chest showed:
Band-shaped density in the left upper lung with adjacent linear densities radiating from the band-shaped opacity. This likely represents scarring from previous cavitary pneumonia/pulmonary abscess.
Moderate to severe changes of emphysema. Scattered peripheral linear densities which likely represent small linear scars within the upper abdomen, small calcifications which are probably nephroliths.
Moderate to severe aortic calcification. Recent echocardiogram showed findings of mild aortic stenosis.
Coronary artery calcifications are present. Please correlate with symptoms of and risk factors for coronary artery disease, with further workup as clinically appropriate.
Patient will be discharged on prednisone taper
During hospitalization patient was treated from the following
# Acute hypoxic respiratory failure secondary to COPD exacerbation
#Leukocytosis possibly d/t recent steroid use (though patient reports he had completed prednisone taper a few days ago prior to symptoms returning)
- Continue supplemental oxygen to keep sat greater than 89-92, wean as tolerated
- Nebs as needed for short of breath and wheezing
- steroids taper as per Pulm, currently 30 mg Prednisone daily---> may need to increase since patient is more short of breath.
-received empiric IV azithromycin and ceftriaxone, de-escalated to PO Azithromycin 500 mg for total 3 day course (completed), low suspicion PNA
- COVID, flu negative
- Chest x-ray with mild pulmonary vascular congestion, chronic scarring in the left upper lobe
- Pulm eval appreciated.
- Home Oxygen Assessment, patient on home oxygen 2 L at night currently 4 L during the day.
-Incentive spirometer
CT chest showed:
Band-shaped density in the left upper lung with adjacent linear densities radiating from the band-shaped opacity. This likely represents scarring from previous cavitary pneumonia/pulmonary abscess.
Moderate to severe changes of emphysema. Scattered peripheral linear densities which likely represent small linear scars within the upper abdomen, small calcifications which are probably nephroliths.
Moderate to severe aortic calcification. Recent echocardiogram showed findings of mild aortic stenosis.
Coronary artery calcifications are present. Please correlate with symptoms of and risk factors for coronary artery disease, with further workup as clinically appropriate.
Patient will be discharged on prednisone taper
Acute on chronic diastolic CHF
-BNP 5550
-ECHO appreciated EF 63%
-strict I&O,daily weight
-gentle IV diuresis transitioned to PO Lasix 20 mg daily, continue
Patient will be discharged on Lasix 20 mg daily, repeat BMP after 1 week
Hypertension
- home amlodipine 5 mg p.o. daily discontinued d/t lower ext edema, BP well controlled without
- cont Lasix as above
Peripheral neuropathy
Gabapentin 100 mg TID gradually increased to 300 mg TID
Increase evening dose to 600 milligram
oxycodone prn
#Depression
#Insomnia
Psych eval appreciated Wellbutrin 150 mg daily and Trazodone 50 mg HS started
#Mild Hyponatremia
monitor
#Post-nasal drip
#nasal congestion
[place] nasal spray QID
Claritin bedtime
ST eval appreciated concern for silent aspiration, patient declines VSE, cont regular diet for now w aspiration precautions.
BMI 18.5 to less than 25 is normal weight
CODE STATUS: Full code
DVT prophylaxis: Lovenox
Diet: Regular diet
Physical therapy recommendations: PT/OT appreciated likely home no needs
Disposition: Discharge home
Total time spent on today's encounter was 40 minutes which included time spent in counseling the patient/family regarding diagnosis and treatment plan as listed above, goals of care, and symptom management. Case was discussed with nursing staff,
specialists, and care coordinators/case management. All labs and imaging personally reviewed by me. Remainder the time spent in detailed review of previous records, lab data, imaging, and other medical provider documentation.
Anticipated Discharge: Today
Discharge Plan
-
Patient Disposition: Home (Routine Discharge)
Discharge Diagnosis/Procedures: Acute on chronic hypoxic respiratory failure secondary to COPD exacerbation.
Acute on chronic diastolic CHF.
Peripheral neuropathy.
Diet: As tolerated and Regular
Referrals:
Donavon Martin MD [Active, Pulmonary Medicine] - in three to four weeks
Germania Ferguson MD [Family Provider, Internal Medicine]
Prescriptions:
New
zolpidem 5 mg Tablet
5 mg PO HS 10 Days Qty: 10 0RF
loratadine 10 mg Tablet
10 mg PO HS Qty: 30 0RF
prednisone 10 mg Tablet
30 mg PO DAILY Qty: 18 0RF
Rx Instructions:
Take 30 mg (3 tabs)X 3 day then 20 mg (2 tabs) X 3 day then 10 mg (1 tab) X 3 day.
furosemide 20 mg Tablet
20 mg PO DAILY 30 Days Qty: 30 0RF
melatonin 5 mg Tablet
5 mg PO HS 30 Days Qty: 30 0RF
guaifenesin 600 mg Tablet Extended Release 12hr
1,200 mg PO Q12 Qty: 20 0RF
gabapentin 300 mg Capsule
300 mg PO TID 30 Days Qty: 120 0RF
Rx Instructions:
take 300 mg TID and additional 300 mg at night.
bupropion HCl 150 mg Tablet Extended Release 24 Hr
150 mg PO DAILY 30 Days Qty: 30 0RF
(DME) Basic Metabolic Panel
See Rx Instructions .Route .MEDSUPPLY Qty: 1 0RF
Rx Instructions:
To be done after one week
Continued
ibuprofen [Advil] 200 mg Tablet
200 mg PO DAILYPRN PRN (Reason: mild pain)
albuterol sulfate 90 mcg/actuation Hfa Aerosol Inhaler
2 puff inhalation R Q4HPRN PRN (Reason: SOB/wheezing) Qty: 8.5 2RF
oxycodone 5 mg Tablet
5 mg PO Q4HPRN PRN (Reason: moderate pain) Qty: 10 0RF
budesonide-formoterol [Symbicort] 160-4.5 mcg/actuation Hfa Aerosol Inhaler
2 puff inhalation R BID Qty: 10.2 0RF
Spiriva Respimat 2.5 mcg/actuation mist
2 puff inhalation R DAILY Qty: 4 0RF
Discontinued
amlodipine 5 mg Tablet
5 mg PO DAILY 30 Days Qty: 30 0RF
Discharge Orders:
Discharge Patient (As Directed); Ordered 07/22/25
Ordered By: Yan Hernandez
Discharge Date and Time
Print Language: [id number]
[2025-07-22 13:37] VITALS: BP 139/90
--- NOTE | 2025-07-22 13:52 | PTCARENOTE ---
patient still with sob, c/o b/l hanson pain down to feet, Roxicodone with some relief (see MAR), tolerating diet, aspiration precautions maintained, independent, vss, will continue to monitor.
--- NOTE | 2025-07-22 16:30 | CM ---
CM met with patient who is going home today. No identified needs. IMM reviewed and signed; placed in chart.
Plan: Discharge to home today via private car.
--- NOTE | 2025-07-22 18:25 | PTCARENOTE ---
Addendum entered by Kimberly Peoples RN 07/22/25 18:29:
I confirmed the patient's address.
Original Note:
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 I informed the patient that I would leave i at the triage desk in the Ed. Patient then asked if I
could mail it to him. this nirse indicated that I could mail it.
== END 2025-07-22 14:01 | disposition home or self-care (01) | DRG 190 ==
LOC: 3 WEST ACU 18:25
PROVIDERS: Internal Medicine; Internal Medicine Critical Care Medicine; Registered Nurse; ADMITTING PHYSICIAN Internal Medicine; ATTENDING PHYSICIAN General Practice; CONSULT PHYSICIAN Psychiatry & Neurology Psychiatry; EMERGENCY PHYSICIAN Emergency Medicine; FAMILY PHYSICIAN Student in an Organized Health Care Education/Training Program; OTHER PHYSICIAN Internal Medicine
DX: J44.1 Chronic obstructive pulmonary disease with (acute) exacerbation (principal); I50.33 Acute on chronic diastolic (congestive) heart failure; J96.12 Chronic respiratory failure with hypercapnia; J96.11 Chronic respiratory failure with hypoxia; E87.1 Hypo-osmolality and hyponatremia; Z68.1 Body mass index [BMI] 19.9 or less, adult; J81.1 Chronic pulmonary edema; D72.829 Elevated white blood cell count, unspecified; T38.0X5A Adverse effect of glucocorticoids and synthetic analogues, initial encounter; I27.81 Cor pulmonale (chronic); E78.5 Hyperlipidemia, unspecified; K21.9 Gastro-esophageal reflux disease without esophagitis; J44.0 Chronic obstructive pulmonary disease with (acute) lower respiratory infection; E11.42 Type 2 diabetes mellitus with diabetic polyneuropathy; E87.5 Hyperkalemia; F10.20 Alcohol dependence, uncomplicated; F32.9 Major depressive disorder, single episode, unspecified; G47.00 Insomnia, unspecified; G89.29 Other chronic pain; I11.0 Hypertensive heart disease with heart failure; I25.10 Atherosclerotic heart disease of native coronary artery without angina pectoris; Z79.899 Other long term (current) drug therapy; Z87.891 Personal history of nicotine dependence; Z79.51 Long term (current) use of inhaled steroids; Z99.81 Dependence on supplemental oxygen
CPT/HCPCS: 71045; 71046; 71250; 80048; 80053; 80061; 82805; 83735; 83880; 84100; 84132; 84439; 84443; 84484; 85025; 85027; 87070; 87205; 87811; 92610; 93005; 93306; 94640; 96374; 97162; 97165; 99285

== ENCOUNTER 2025-07-29 17:30 | Inpatient (IN) | payer BC, SELFPAY ==
[2025-07-29] VITALS (7 sets, daily range): BP systolic 103–138; BP diastolic 77–98; BMI 18.3
[2025-07-29 15:00] LABS: Venous Blood Gas B.E. 17.5 mmol/L (-4 to +4); Venous Blood Gas O2 Sat % 98.1 %
[2025-07-29 15:06] LABS: Hematocrit 49.2 % (39.0-52.0); Hemoglobin 16.5 g/dL (13.0-18.0); Mean Corp Hgb Conc. 33.5 g/dL (33.0-37.0); Mean Corpuscular Volume 88.8 fL (80.0-94.0); Nucleated Red Blood Cells % 0 % (-); Platelet Count 286 10^3/uL (130-400); Red Cell Dist. Width 13.4 % (11.5-14.5)
[2025-07-29 15:22] LABS: ALT (SGPT) 41 U/L (0-50); AST (SGOT) 47 U/L (17-59); Albumin 4.1 g/dl (3.5-5.0); Alkaline Phosphatase 82 U/L (38-126); Blood Urea Nitrogen 19 mg/dl (9-20); Calcium 9.4 mg/dl (8.4-10.2); Chloride 83 mmol/L (98-107); Glucose 151 mg/dl (70-99); Potassium 4.3 mmol/L (3.5-5.1); Sodium 128 mmol/L (135-145); Total Protein 6.8 g/dl (6.3-8.2); eGFR > 60.00
[2025-07-29 15:33] LABS: Troponin I 0.026 ng/ml
[2025-07-29 15:34] LABS: Carbon Dioxide 40 mmol/L (22-30)
--- NOTE | 2025-07-29 16:07 | ED.GENMED ---
History of Present Illness
General
Chief Complaint: Breathing Problem
Source: patient
Exam Limitations: none
Time Seen by Provider: 07/29/25 15:53
History of Present Illness
History of Present Illness:
See MDM
Past History
Past History
ED Past Medical History: COPD, HTN, Hypercholesterolemia, NIDDM (Diet Controlled), Psychiatric and Other (GI bleeding, PNA, Alcohol abuse, peripheral neuropathy)
ED Past Surgical History: Orthopedic
Social History
Tobacco: Former smoker
Alcohol: None (Patient denies alcohol use to me)
Drug: None
Personal:
Living: alone
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
Family History
Family History: Other (Noncontributory)
Phy Exam
Physical Exam
Physical Exam:
See MDM
Scores
Heart Failure Risk
Heart Failure Risk Score: Not Applicable
Course
Orders/Labs/Results
Orders:
Orders
07/29/25 14:28
EKG [Electrocardiogram (*1)] Urgent
Reason for Study: Chest Pain
EKG- Treatment ONCE
07/29/25 14:44
Complete Blood Count/With Diff Urgent
Comprehensive Metabolic Panel Urgent
Lactate Level [Lactic Acid] Urgent
NT-proBNP Urgent
Troponin I Urgent
Venous Blood Gas Urgent
%Oxygen/Room Air: 4 liters nasal
07/29/25 14:47
Chest X-ray Portable [CR Chest Portable - 1 View] Urgent
Comment:
Reason For Exam: respiratory distress
Reason Study Needs to be Portable: Unable to Transport
07/29/25 16:06
Azithromycin 500 mg IVPB NOW Azithromycin 500 mg/250 ml [Zithromax Infusion] 500 mg in 250 ml IV NOW
Dexamethasone Sod Phosphate [Decadron] 10 mg IV NOW STA
Ipratropium/Albuterol Sulfate [Duoneb] 3 ml INH R NOW STA
Abnormal Lab Results
07/29/25
14:44
WBC 12.2 H 10^3/uL
(4.8-10.8)
Abs Immat Gran (auto) 0.1 H 10^3/uL
(0-0.05)
Absolute Neuts (auto) 10.3 H 10^3/uL
(1.4-6.5)
Absolute Lymphs (auto) 1.0 L 10^3/uL
(1.2-3.4)
Absolute Monos (auto) 0.8 H 10^3/uL
(0.1-0.6)
Immature Gran % 0.7 H %
(0-0.5)
Neutrophils % 84.2 H %
(42.2-75.2)
Lymphocytes % 8.0 L %
(20.5-51.1)
VBG pCO2 73 H* mmHg
(35-48)
VBG pO2 90 H mmHg
(30-50)
VBG HCO3 47.4 H mmol/L
(22-27)
Sodium 128 L mmol/L
(135-145)
Chloride 83 L mmol/L
(98-107)
Carbon Dioxide 40 H mmol/L
(22-30)
Glucose 151 H mg/dl
(70-99)
07/29/25 14:44
07/29/25 14:44
Vital Signs
Initial and Last Documented VS:
Initial Vital Signs
Temp Pulse Resp Pulse Ox
99.5 F 113 26 88
07/29/25 14:21 07/29/25 14:21 07/29/25 14:21 07/29/25 14:21
Last Documented Vital Signs
Temp Pulse Resp Pulse Ox
99.5 F 113 26 88
07/29/25 14:21 07/29/25 14:21 07/29/25 14:21 07/29/25 14:21
MDM/Problems Addressed
Differential Diagnosis Includes:
Note:
CHIEF COMPLAINT(S)
Shortness of breath.
HISTORY OF PRESENT ILLNESS
The patient is a 60-year-old male with a medical history of chronic obstructive pulmonary disease (COPD) presenting to the emergency department with shortness of breath, worse upon exertion. The patient describes difficulty breathing after simple
activities, such as moving from the bathroom to the bed, requiring several minutes to catch his breath. He reports trying to expectorate 'white, globy stuff,' but with difficulty. The patient indicates that his breathing issues seem to respond only
slightly to his rescue inhaler and expresses a sensation of tightness persisting in his chest. Patient was recently received exacerbation and currently on oral steroids. Patient was also prescribed inhaled steroids as well which is new for him.
PAST MEDICAL AND SURGICAL HISTORY
Chronic obstructive pulmonary disease (COPD) and congestive heart failure.
SOCIAL DETERMINANTS AFFECTING HEALTH
The patient discussed challenges in managing his health due to frequent exacerbations requiring hospital evaluation.
PHYSICAL EXAM
General: Alert, no acute distress. Conversational dyspnea
Skin: Warm, dry.
Head: Normocephalic, atraumatic
Neck: Appears supple, trachea midline.
Eyes, Ears, Nose, Mouth, and Throat: Moist mucous membranes
Cardiovascular: No signs of cyanosis. Mild
Respiratory: Mild tachypnea. Expiratory wheezing throughout. Poor air exchange
Abdomen: Non-distended
Musculoskeletal: No deformities. No legs
Neurological: No focal neurological deficit observed.
Psychiatric: Cooperative, appropriate mood and affect.
PLAN
The patient will be admitted overnight for management and observation, given their current state is not stable for safe discharge. Begin intravenous steroids administration. Administer a strong breathing treatment. Prescribe azithromycin to aid COPD
management with its anti-inflammatory properties. Evaluate the need for further interventions, such as diuretics or other medications for congestive heart failure.
DIFFERENTIAL DIAGNOSIS
- Chronic obstructive pulmonary disease exacerbation
- Congestive heart failure exacerbation
- Pulmonary edema
- Pneumonia
- Acute bronchitis
- Asthma exacerbation
- Pulmonary embolism
- Pleural effusion
- Interstitial lung disease
- Cardiogenic pulmonary edema
SUMMARY OF ENCOUNTER
The patient, a 60-year-old male with COPD and congestive heart failure, presented with increased shortness of breath unresponsive to regular inhaler use. Objective findings include elevated carbon dioxide levels indicative of the patients baseline
COPD status, but stable heart failure markers. Despite the absence of acute findings on imaging, the patients symptoms warranted admission for overnight monitoring and management with intravenous steroids and azithromycin.
DISPOSITION
Admit.
ASSESSMENT
Exacerbation of chronic obstructive pulmonary disease with elevated carbon dioxide levels. The patient requires enhanced respiratory support and monitoring due to baseline limitations in lung function alongside concomitant congestive heart failure,
posing risk factors for complex respiratory management.
INDEPENDENT REVIEW OF LABS AND INTERPRETATION OF TESTS
My independent review of the blood work indicates elevated carbon dioxide levels, consistent with the patients known COPD.
MEDICATION RECONCILIATION
- Administer intravenous steroids.
- Prescribe azithromycin.
MEDICAL DECISION MAKING
- Complexity of Data Reviewed: Chronic conditions affecting care [Chronic obstructive pulmonary disease (COPD), congestive heart failure]
- Data:
- Category 1: Lab results reviewed indicating elevated carbon dioxide.
- My independent review of labs confirms usual elevated carbon dioxide levels in context of COPD.
- Risk:
- Prescription drug management with administration of IV steroids and antibiotics due to exacerbation of COPD.
DIAGNOSIS
- Chronic obstructive pulmonary disease exacerbation (J44.1)
- Congestive heart failure (I50.9)
- Elevated carbon dioxide levels (R79.82)
EKG
My independent EKG interpretation is:
- Rhythm: Sinus rhythm
- Heart Rate: Not specified
- [place]: Normal axis
- Abnormalities Observed: Left Ventricular Hypertrophy (LVH)
- ST Segment Changes: No ST elevation
Disposition:
SUMMARY OF ENCOUNTER
The patient, a middle-aged male with a known history of COPD, presented to the emergency department with worsening shortness of breath, particularly noticeable with exertion. Despite being previously managed for a COPD exacerbation and currently
taking oral steroids, the patient displayed significant wheezing. Due to ongoing symptoms, intravenous steroids and a DuoNeb (albuterol and ipratropium combination) were administered. A chest x-ray was performed, showing no obvious signs of
pneumonia. However, given changes in sputum production, intravenous azithromycin was started to address potential bacterial infection. Due to the severity of the patients symptoms, admission was deemed necessary for further management.
DISPOSITION
Admit.
ASSESSMENT
Exacerbation of chronic obstructive pulmonary disease.
EMERGENCY TREATMENTS ADMINISTERED
Intravenous steroids and DuoNeb (albuterol and ipratropium combination).
PLAN
Admit the patient for continued management of COPD exacerbation with intravenous medications and close monitoring.
INDEPENDENT REVIEW OF LABS AND INTERPRETATION OF TESTS
- My independent chest x-ray interpretation is that there is no obvious pneumonia observed.
MEDICATION RECONCILIATION
Azithromycin (IV), intravenous steroids, and DuoNeb administered.
MEDICAL DECISION MAKING
- Number and Complexity of Problems Addressed: Chronic conditions affecting care [Chronic obstructive pulmonary disease, past medical history obtained from history].
- DDx: Chronic obstructive pulmonary disease exacerbation, congestive heart failure exacerbation, pulmonary edema, pneumonia, acute bronchitis, asthma exacerbation, pulmonary embolism, pleural effusion, interstitial lung disease, cardiogenic
pulmonary edema.
- Data:
- Category 1:
- My independent interpretation of the EKG shows sinus rhythm, normal axis, and left ventricular hypertrophy with no ST elevation.
- Risk:
- Prescription drug management involved with intravenous steroids and azithromycin.
DIAGNOSIS
- Chronic obstructive pulmonary disease exacerbation (J44.1).
*Pulse Oximetry
SaO2: 88
Nasal Cannula flow liters per minute: 2
Patient hypoxic: yes
*Critical Care Note
Total Time (30-74mins, 75-104mins- exclusive of procedures): Not Applicable
ED Attending Note
-
Portions of this chart may have been created with voice recognition software.� Occasional wrong word or��sound alike� substitutions may have occurred due to the inherent limitations of voice recognition software.
Discharge Plan
Departure
Patient Disposition: Admit
Date of Disposition: 07/29/25
Time of Disposition: 16:17
Admit to: Med/Surg
Presentation/result/management discussed w/ accepting MD/DO: Hospitalist
Discharge Problem:
Acute exacerbation of chronic obstructive pulmonary disease
Prescriptions:
No Action
albuterol sulfate 90 mcg/actuation Hfa Aerosol Inhaler
2 puff inhalation R Q4HPRN PRN (Reason: SOB/wheezing) Qty: 8.5 2RF
oxycodone 5 mg Tablet
5 mg PO Q4HPRN PRN (Reason: moderate pain) Qty: 10 0RF
Spiriva Respimat 2.5 mcg/actuation mist
2 puff inhalation R DAILY Qty: 4 0RF
gabapentin 300 mg Capsule
300 mg PO HSPRN PRN (Reason: mild pain)
prednisone 10 mg tablet
30 mg PO DIRECTED
Rx Instructions:
Take 30 mg (3 tabs)X 3 day then 20 mg (2 tabs) X 3 day then 10 mg (1 tab) X 3 day.
gabapentin 300 mg capsule
300 mg PO TID
zolpidem 5 mg tablet
5 mg PO HS
furosemide 20 mg tablet
20 mg PO DAILY
loratadine 10 mg tablet
10 mg PO HS
bupropion HCl 150 mg tablet extended release 24 hr
150 mg PO DAILY
budesonide-formoterol [Symbicort] 160-4.5 mcg/actuation HFA aerosol inhaler
2 puff inhalation R BID
melatonin 5 mg tablet
5 mg PO HSPRN PRN (Reason: sleep)
guaifenesin 600 mg tablet extended release 12hr
600 mg PO Q12
Referrals:
Germania Ferguson MD [Family Provider, Internal Medicine]
Discharge Date and Time
Print Language: GREENLANDIC
--- NOTE | 2025-07-29 16:21 | W.PN.UPDATE ---
Addendum entered and electronically signed by Mark Kearney MD 07/29/25 19:43:
ABG 07/29/25
19:12
pH 7.42
pCO2 65 H
pO2 71 L
HCO3 42.2 H*
Plan:
On 4 L O2 - wean O2 to base line 2-3 L NC O2 ( Goal POx 89-93 )
Original Note:
Update Note
Progress Note Update
This note serves as an addendum to the H&P by hotel guest service agent [id number]
HPI
60M
PHX:COPD, HTN, Hypercholesterolemia, NIDDM (Diet Controlled), Psychiatric and Other (GI bleeding, PNA, Alcohol abuse, peripheral neuropathy)
- Recently DC on 07/22 pw worsening exertional SOB worsening for last 3 days
- Increase home O2 use - from HS to using it all day.
Relevant VS
07/22/25
06:00 07/29/25
14:20 07/29/25
14:21
Temp 99.5 F
Pulse 113
SaO2 88
Nasal Cannula flow liters per minute 2
Actual Weight 67.132 kg 65.2 kg
PE
Gen: thin , frail, normal wakefulness
HEENT: anicteric
Neck: supple
Lungs:B/L diffuse wheeze
Cor: ST
Abdomen:�soft benign abdomen
SORT MANAGER: alert ,appropriate
MS: no edema
Psych: Nl mood and affect
Relevant Data
07/22/25 07/29/25
05:35 14:44
WBC 12.2 H
Sodium 133 L 128 L
Potassium 5.1 4.3
Chloride 97 L 83 L
Carbon Dioxide 35 H 40 H
BUN 26 H 19
Creatinine 0.7 0.7
eGFR > 60.00 > 60.00
07/21/25 07/29/25
07:40 14:44
VBG pH 7.33 7.42
VBG pCO2 67 H 73 H*
VBG pO2 45 90 H
VBG HCO3 35.3 H 47.4 H
07/15/25 07/21/25 07/29/25
17:07 07:40 14:44
Ifu-H-Fxsrozqoixp Pept 5550 1890 1350
Last hospitalist admission: 07/15/25 -07/22/25
ASSESSMENT & PLAN
Pending Rx reconciliation
COPD flare
Acute on chr hypercapnic hypoxic RF
Known chronic diastolic CHF with ECHO w LVEF 63%: Loosing wt, stable
-BNP 1350 - much improved
- IV Decadron 4mg q12h
- DuoNeb qid and PRN
- Avoid overcorrection of POx
- wean O2 to keep POx above 89 to low 90s is acceptable
- Repeat ARTERIAL ABG in 3-4 hrs after weaning O2 to 2-3 L
- Pul consult
Hyponatremia +Hypochloremia + suspect renal loss
stable CHF with loosing wt
Normal K
- Hold PO lasix
- FU BMP in AM
VBG; c/w primary metabolic alkalosis due to vol. contraction led to secondary resp acidosis
No evidence of AMS
- Hold PO lasix
- wean O2 down to titate POx 89 to 93
- Repeat ABG in 3-4 hrs
Baseline hypercarbia in mid 30s
pHTN
- home amlodipine was discontinued d/t lower ext edema
- cont Lasix as above
Peripheral neuropathy
- on ENVIRONMENTAL PROGRAM MANAGER Gabapentin 100 mg TID gradually increased to 300 mg TID
- Oxycodone prn
Depression
Insomnia
- Wellbutrin 150 mg daily and Trazodone 50 mg HS started
DVT Px: LMWH
Code: Full
IP MS
--- NOTE | 2025-07-29 17:04 | HPS.HSE ---
Family Physician
-
Family Physician: Germania Ferguson MD
Chief Complaint
-
Shortness of breath on exertion
History of Present Illness
58-year-old male with history of COPD, CHF, anxiety/depression, insomnia presents with exertional dyspnea. Patient was discharged a week ago for COPD exacerbation, 3 hospitalization in the past year due to COPD flare. He is currently on 2 L
oxygen which he uses all day. He notes that since 3 days he has been short of breath and this morning it worsened to an extent where he was unable to walk from his bed to the restroom. He then increased his oxygen from 2 L to 6 L and felt better.
He has no change of mental status. He notes of increased productive cough with thick white phlegm every morning . He is currently on Spiriva, Symbicort and rescue inhaler. He denies sick contact, recent travel. 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 She denies allergies.
In the ED he is on 5 L of oxygen with oxygen saturation 94%, leukocytosis 12,200, VBG showing CO2 retention, 73, bicarb 47.4, normal pH. Chemistry panel showing hyponatremia 128, hypochloremia 83, normal K. Chest x-ray is unremarkable, no acute
changes.
Medical History
Past Medical History
Past Medical History: Reports Other (COPD, HTN, Hypercholesterolemia, NIDDM (Diet Controlled), Psychiatric and Other (GI bleeding, PNA, Alcohol abuse, peripheral neuropathy))
Past Surgical History: Reports Other
Social History
Tobacco: Former Smoker (40-50 years smoking history with one pack a day )
Alcohol: Former
Drug: None
Personal: Partner
Living: With Family
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
Family History
Family History: Not pertinent
Allergies / Home Medications
Allergies reflects when Allergies were last updated in [facility].
Home Medications with original date entered in [facility]
Allergy/Medication List:
Allergies
Allergy/AdvReac Type Severity Reaction Status Date / Time
Fish Containing Products Allergy Swelling/burning Verified 07/15/25 14:53
sensation
in throat
Penicillins Allergy Itching/scratchy Verified 07/15/25 14:53
throat 40
years
ago/cefepime
04/04/22
admiss
Home Medications
albuterol sulfate 90 mcg/actuation aerosol inhaler 2 puff inhalation R Q4HPRN PRN SOB/wheezing #8.5 grams 07/22/25
oxycodone 5 mg tablet 5 mg PO Q4HPRN PRN moderate pain #10 tabs 07/22/25
tiotropium bromide 2.5 mcg/actuation mist for inhalation (Spiriva Respimat) 2 puff inhalation R DAILY Lung/Breathing Issues #4 grams 07/22/25
budesonide-formoterol HFA 160 mcg-4.5 mcg/actuation aerosol inhaler (Symbicort) 2 puff inhalation R BID Lung/Breathing Issues 07/29/25
bupropion HCl 150 mg 24 hr tablet, extended release 150 mg PO DAILY Mental Health/Anxiety 07/29/25
furosemide 20 mg tablet 20 mg PO DAILY Fluid Retention/Swelling 07/29/25
gabapentin 300 mg capsule 300 mg PO HSPRN PRN mild pain 07/29/25
gabapentin 300 mg capsule 300 mg PO TID Neurological Condition 07/29/25
guaifenesin 600 mg tablet, extended release 12 hr 600 mg PO Q12 Congestion 07/29/25
loratadine 10 mg tablet 10 mg PO HS Allergies 07/29/25
melatonin 5 mg tablet 5 mg PO HSPRN PRN sleep 07/29/25
prednisone 10 mg tablet 30 mg PO DIRECTED 07/29/25
zolpidem 5 mg tablet 5 mg PO HS Sleep 07/29/25
Review of Systems
-
History Source: Patient
A 12 point ROS was completed and negative except as noted: Yes
Respiratory: Reports Cough and Trouble Breathing
Physical Exam
Vital Signs
Vital Signs
Temp Pulse Resp BP Pulse Ox
99.5 F 94 17 119/94 94
07/29/25 14:21 07/29/25 16:30 07/29/25 16:15 07/29/25 16:00 07/29/25 16:30
Physical Exam
General: Conversant and Respiratory Distress (On 5 L NC)
HEENT: NormoCephalic and Anicteric
Respiratory: Wheezes (Diffuse expiratory) and Decreased Breath Sounds
Cardiac: S1/S2 and Regular Rhythm
GI: Soft, Non Tender and Non Distended
Musculoskeletal: No Edema
Skin: Warm and Dry
Neuro: AO x 3
Hematologic/Lymphatic: No Lymphadenopathy
Psych: Calm
Laboratory Results
-
07/29/25 14:44
07/29/25 14:44
Laboratory Results
Lactic Acid 1.1 mmol/L (0.7-2.0) 07/29/25 14:44
Total Bilirubin 0.4 mg/dl (0.2-1.3) 07/29/25 14:44
AST 47 U/L (17-59) 07/29/25 14:44
ALT 41 U/L (0-50) 07/29/25 14:44
Alkaline Phosphatase 82 U/L (38-126) 07/29/25 14:44
Troponin I 0.026 ng/ml 07/29/25 14:44
Data Reviewed
-
Diagnostic Radiology: Image Personally Visualized and interpreted, Report Reviewed by me and Discussed with Physician
Lab Data: Labs Reviewed by me and Discussed with Physician
Impression/Plan
-
IMPRESSION:
Acute COPD exacerbation
Leukocytosis
Acute on chronic hypercapnic hypoxic respiratory failure
Respiratory acidosis
Hyponatremia
Hypochloremia
History of congestive heart failure
History of anxiety/depression
Peripheral neuropathy
History of insomnia
History of chronic pain syndrome
PLAN:
Acute COPD exacerbation
Readmit, recently discharged a week ago because of the above
3 hospitalization in the past year for COPD flare
Known chronic diastolic CHF , no signs of heart failure
VBG showing CO2 retention, 73, bicarb 47.4, normal pH.
Start DuoNeb 4 times daily and prn, and budesonide twice daily
IV decadron 4 mg q12
Continue Spiriva and Symbicort
Start azithromycin 500mg Qd for 3 days
Mucolytics for secretion
Wean oxygen as able, keepo pulse ox >89%
Vest therapy
Check sputum culture
Pulmonology consult
Leukocytosis
White count 12,200, afebrile
Chest x-ray unremarkable
Monitor white count and temperature curve
Acute on chronic hypercapnic hypoxic respiratory failure
On home O2- 2L all day
Wean O2 as able, keep it less than 4 L due to acute CO2 retention
Keep pulse ox >89 percent
Primary Respiratory acidosis
compensated with contraction metabolic alkalosis
Pt is on lasix 20mg which may contribute to hyponatremia and hypochloremia
+Loss of weight. Hold PO lasix
VBG showing CO2 retention, 73, bicarb 47.4, normal pH.
Check ABG in 2 hours
Hyponatremia
Secondary to chronic use of Lasix
Hold Lasix
IV fluids
Monitor BMP
Hypochloremia
Secondary to contraction metabolic alkalosis
Monitor BMP
History of diastolic congestive heart failure
Hold Lasix
Monitor I's/O, weight
History of anxiety and depression
Continue home Wellbutrin
History of insomnia
Continue zolpidem and melatonin
Peripheral neuropathy
continue gabapentin
History of chronic pain
continue oxycodone as needed
Full code
Lovenox
Regular diet
[2025-07-29] MEDS: DECADRON 10 MG IV (17:12)
[2025-07-29] MEDS: DUONEB 3 ML INH ×2 (17:13→19:14)
[2025-07-29] MEDS: ZITHROMAX INFUSION 250 IV (17:14)
--- NOTE | 2025-07-29 17:47 | CM ---
Chart reviewed and spoke with patient and his significant other Mary at ED bedside
He was just discharged from [facility] on 07/22
Lives with Mary in [address] [place]
Independent with ADLs and ambulation
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
DME home O2
PCP Dr. Germania Ferguson
RX plan yes
Pharmacy [facility] in [place]
no hx of VN nor SNF
DCP is to return home
S.O. can provide transportation
CM to follow up with any dcp needs
[2025-07-29] MEDS: PULMICORT 0.25 MG INH (19:14)
[2025-07-29] MEDS: SYMBICORT 160/4.5 MCG INHALER 2 PUFF INH (19:14)
[2025-07-29 19:30] LABS: B.E. 14.0 mmol/L; O2 Saturation % 95.6 % (94-98); PCO2 65 mmHg (35-48); PO2 71 mmHg (83-108)
[2025-07-29 19:32] LABS: HCO3 42.2 mmol/L (21-28)
[2025-07-29] MEDS: NSS 1000 IV (20:15)
[2025-07-29] MEDS: LOVENOX 40 MG SC (20:15)
[2025-07-29] MEDS: ROXICODONE 5 MG PO (20:16)
[2025-07-29] MEDS: MUCINEX 600 MG PO (20:16)
[2025-07-29] MEDS: NEURONTIN 300 MG PO (23:03)
[2025-07-29] MEDS: AMBIEN 5 MG PO (23:03)
[2025-07-29] MEDS: CLARITIN 10 MG PO (23:03)
[2025-07-30 06:00] VITALS: BMI 18.2
[2025-07-30] MEDS: NSS 1000 IV ×2 (06:10→19:52)
[2025-07-30] MEDS: DECADRON 4 MG IV ×2 (06:10→17:32)
--- NOTE | 2025-07-30 07:16 | W.PN.HOSP.TC ---
Today's Communication/Plan
-
- f/u pulmonology recommendations
- continue antibiotics, bronchodilators, and corticosteroids for COPD exacerbation
- consider benzonatate for cough relief
Assessment / Plan
Assessment / Plan
In summary, 58 yo M PMH COPD, CHF, anxiety/depression, insomnia p/w exertional dyspnea c/f acute COPD exacerbation
Acute COPD exacerbation
- Given multiple exacerbations, and chart documented that he did not necessarily adhere to medication regimen due to insurance issues, he is likely a GOLD groupC-D classification for COPD (severe or very severe)
- ABG shows respiratory acidosis and metabolic alkalosis; compensation
- pulmonary exam for me this morning shows considerable wheezing, but no signs of respiratory muscle fatigue
- DuoNeb qid daily and prn
- budesonide bid
- IV dexamethasone 4 mg q12
- Spiriva and Symbicort
- azithromycin 500mg Qd for 3 days
- Mucolytics for secretion
- Wean oxygen as able, goal spO2 > 88%
- f/u sputum culture
- pulmonology has been consulted, f/u recommendations
- will consider benzonatate for symptomatic relief of cough
Acute on chronic hypercapnic hypoxic respiratory failure
- AB. / 42.2
- currently on 3L O2
- goal spO2 >88%
Acute on chronic respiratory acidosis
acute on chronic metabolic alkalosis
- AB / 42.2
- anion gap appears normal, therefore compensated
Hyponatremia
Hypochloremia
- likely due to dehydration or overdiuresis from home furosemide
- holding furosemide
- Monitor BMP
Chronic HFpEF without exacerbation
- proBNP 1300s
- last echo in 07/2025 showed EF 63%
Leukocytosis
White count 4.9 - resolved
History of anxiety and depression
Continue home Wellbutrin
History of insomnia
Continue zolpidem and melatonin
Peripheral neuropathy
continue gabapentin
History of chronic pain
continue oxycodone as needed
Code status: Full code
dvt ppx: Lovenox
diet: regular
Anticipated Discharge: > 48 hours
Subjective/Interval History
-
Date of Service: July 30, 2025
60 yo M PMH COPD, CHF, anxiety/depression, insomnia p/w exertional dyspnea.
Pt was here 1 week ago for a COPD exacerbation, multiple hospitalizations
At home, 2L O2.
Dyspnea for 3 days duration that worsened this morning to unable to walk that alleviated when increasing oxygen from 2 to 6L.
No change in mental status
Productive cough with white phlegm
Spriva, symbicort, and rescue inhaler
No sick contacts, travel
ED course: afebrile, HR 113, RR 2, spo2 88%
Troponin 0.026
proBNP 1350
EKG right atrial enlargement (sinus tach)
CXR unremarkable
This morning, receiving nebulizer treatment on 3L oxygen
Social: 40-50 packyear hx of smoking; former
Former etoh
Objective Data
-
Labs:
Laboratory Results
07/29/25 07/30/25
19:12 06:49
WBC Pending
Hgb Pending
Hct Pending
Plt Count Pending
HCO3 42.2 H*
Sodium Pending
Potassium Pending
Chloride Pending
Carbon Dioxide Pending
BUN Pending
Creatinine Pending
Glucose Pending
Calcium Pending
ABG:
7.42 / 65 / 71 / 42.2
WBC 4.9
Na 132
K 5
Cl 87
Cr 0.6
Vital Signs:
Vital Signs
Temp Pulse Resp BP Pulse Ox
97.9 F 99 18 107/77 93
07/29/25 23:04 07/29/25 23:04 07/29/25 23:04 07/29/25 23:04 07/30/25 06:31
I&O
07/29/25 07/30/25 07/31/25
06:59 06:59 06:59
Intake Total 1919 / 1919
Output Total 1049 / 1049
Balance 870 /
Review of Systems
-
History Source: Patient
Constitutional: Reports No Symptoms
EENT: Reports No Symptoms Reported
Respiratory: Reports Trouble Breathing
Cardiac: Reports No Symptoms
Abdomen/GI: Reports No Symptoms
Genitourinary: Reports No Symptoms
Musculoskeletal: Reports No Symptoms
Neuro: Reports No Symptoms
Physical Exam
-
General: Respiratory Distress
HEENT: Normocephalic
Respiratory: Wheezes
Cardiac: Other (no murmurs on my exam)
GI: Soft and Nontender
Musculoskeletal: No Edema
Neuro: Awake, Alert and Nonfocal/Grossly Intact
[2025-07-30 07:30] VITALS: BP 130/89
[2025-07-30 07:35] LABS: Hematocrit 44.5 % (39.0-52.0); Hemoglobin 14.7 g/dL (13.0-18.0); Mean Corp Hgb Conc. 33.0 g/dL (33.0-37.0); Mean Corpuscular Volume 91.2 fL (80.0-94.0); Nucleated Red Blood Cells % 0 % (-); Platelet Count 234 10^3/uL (130-400); Red Cell Dist. Width 13.5 % (11.5-14.5)
[2025-07-30] MEDS: WELLBUTRIN XL (24 hour extended release) 150 MG PO (07:54)
[2025-07-30] MEDS: NEURONTIN 300 MG PO ×3 (07:54→22:58)
[2025-07-30] MEDS: MUCINEX 600 MG PO ×2 (07:54→19:52)
[2025-07-30] MEDS: ZITHROMAX 500 MG PO (07:54)
[2025-07-30] MEDS: PULMICORT 0.25 MG INH ×2 (08:01→20:09)
[2025-07-30] MEDS: SPIRIVA RESPIMAT 2.5 MCG 2 PUFF INH (08:01)
[2025-07-30] MEDS: DUONEB 3 ML INH ×4 (08:01→20:09)
[2025-07-30] MEDS: SYMBICORT 160/4.5 MCG INHALER 2 PUFF INH ×2 (08:01→20:10)
[2025-07-30 08:20] LABS: Blood Urea Nitrogen 18 mg/dl (9-20); Calcium 8.9 mg/dl (8.4-10.2); Chloride 87 mmol/L (98-107); Estimated Creatinine Clearance 116 ml/min; Glucose 115 mg/dl (70-99); Potassium 5.0 mmol/L (3.5-5.1); Sodium 132 mmol/L (135-145); eGFR > 60.00
[2025-07-30] MEDS: ROXICODONE 5 MG PO (09:18)
--- NOTE | 2025-07-30 09:29 | CON.PUL ---
Consultation
Consultation Request
Date/Time Consultation Requested: 07/30/25
Date/Time Consultation Performed: 07/30/25
Performing Provider: Krystal
Reason for Consultation: AE COPD, noncompliance
Medical History
-
History of Present Illness:
60-year-old male with history of COPD, CHF, anxiety/depression, insomnia presents to ER with exertional dyspnea. Patient was recently admitted and discharged on 07/22/2025 for COPD exacerbations. This is his third presentation for shortness of
breath in the past year. He is currently on 2 L oxygen which he uses continuously.
He notes that since 3 days he has been short of breath and this morning it worsened to an extent where he was unable to walk from his bed to the restroom. He then increased his oxygen from 2 L to 6 L and felt better. He has no change of mental
status. He notes of increased productive cough with thick white phlegm every morning. He is currently on Spiriva, Symbicort and rescue inhaler. He has notable history of noncompliance, does not follow-up as outpatient for management.
In the ED he is on 5 L of oxygen with oxygen saturation 94%, leukocytosis 12,200, VBG showing CO2 retention, 73, bicarb 47.4, normal pH. Chemistry panel showing hyponatremia 128, hypochloremia 83, normal K. Chest x-ray is unremarkable, no acute
changes.
Past Medical History
Past Medical History: Other (See list below)
Social History
Tobacco: Smoker
Alcohol: Occasional
Drug: None
Family History
Family History: Reviewed & Not Pertinent
Allergies / Home Medications
Allergies
Allergy/AdvReac Type Severity Reaction Status Date / Time
Fish Containing Products Allergy Swelling/burning Verified 07/15/25 14:53
sensation
in throat
Penicillins Allergy Itching/scratchy Verified 07/15/25 14:53
throat 40
years
ago/cefepime
04/04/22
admiss
Home Medications
�Medication �Instructions �Recorded �Confirmed �Last Taken �Type
albuterol sulfate 90 mcg/actuation 2 puff inhalation R Q4HPRN PRN 07/22/25 07/29/25 07/29/25 Rx
aerosol inhaler SOB/wheezing #8.5 grams
oxycodone 5 mg tablet 5 mg PO Q4HPRN PRN moderate pain 07/22/25 07/29/25 Unknown Rx
#10 tabs
tiotropium bromide 2.5 2 puff inhalation R DAILY 07/22/25 07/29/25 07/29/25 Rx
mcg/actuation mist for inhalation Lung/Breathing Issues #4 grams
(Spiriva Respimat)
budesonide-formoterol HFA 160 2 puff inhalation R BID 07/29/25 07/29/25 07/29/25 History
mcg-4.5 mcg/actuation aerosol Lung/Breathing Issues
inhaler (Symbicort)
bupropion HCl 150 mg 24 hr tablet, 150 mg PO DAILY Mental 07/29/25 07/29/25 07/29/25 History
extended release Health/Anxiety
furosemide 20 mg tablet 20 mg PO DAILY Fluid 07/29/25 07/29/25 07/29/25 History
Retention/Swelling
gabapentin 300 mg capsule 300 mg PO HSPRN PRN mild pain 07/29/25 07/29/25 Unknown History
gabapentin 300 mg capsule 300 mg PO TID Neurological 07/29/25 07/29/25 07/28/25 History
Condition
guaifenesin 600 mg tablet, 600 mg PO Q12 Congestion 07/29/25 07/29/25 07/29/25 History
extended release 12 hr
loratadine 10 mg tablet 10 mg PO HS Allergies 07/29/25 07/29/25 07/28/25 History
melatonin 5 mg tablet 5 mg PO HSPRN PRN sleep 07/29/25 07/29/25 Unknown History
prednisone 10 mg tablet 30 mg PO DIRECTED 07/29/25 07/29/25 07/29/25 History
zolpidem 5 mg tablet 5 mg PO HS Sleep 07/29/25 07/29/25 07/28/25 History
Review of Systems
-
History Source: Patient
All other systems: Negative unless noted
Vitals / Labs / Diagnostic Testing
Vital Signs
Temp Pulse Resp BP Pulse Ox
97.9 F 82 16 130/89 94
07/30/25 07:30 07/30/25 08:07 07/30/25 08:07 07/30/25 07:30 07/30/25 08:07
Lab Data
07/30/25 06:49
07/30/25 06:49
Laboratory Results
07/29/25
19:12
pH 7.42
pCO2 65 H
pO2 71 L
HCO3 42.2 H*
O2 Delivery Level
Microbiology
07/29/25 23:09 Sputum Gram Stain - Preliminary
Diagnostic Testing:
Physical Exam
-
HEENT: Normocephalic, Anicteric and Moist Mucous Membranes
Cardiovascular: S1/S2 and Regular Rhythm
Respiratory: Wheeze, Non-Labored Respirations and Other (poor air movement)
GI: Soft, Non Distended and Non Tender
Neurology: Awake, Alert, Oriented and No Motor Deficits
Skin: Warm, Dry and Good Color
General: Comfortable and Other (NAD)
Assessment
-
60-year-old male with history of COPD, CHF, anxiety/depression, insomnia presents to ER with exertional dyspnea. Patient was recently admitted and discharged on 07/22/2025 for COPD exacerbations. This is his third presentation for shortness of
breath in the past year. He is currently on 2 L oxygen which he uses continuously. He has notable history of noncompliance, does not follow-up as outpatient for management. In the ED he is on 5 L of oxygen with oxygen saturation 94%, VBG showing
chronic CO2 retention, 7.42/65. Chemistry panel showing hyponatremia 128, hypochloremia 83. Chest x-ray is unremarkable, no acute changes. Pulmonary consultation was requested for further input.
Acute on top of chronic hypoxemic failure
COPD exacerbation
Chronic compensated hypercapnia
Pulm hypertension
Acute CHF with preserved EF, proBNP 1350
Medical noncompliance
Conditions present prior to admission:
Severe COPD FEV 23%
Moderate to severe emphysema on CT
History of recurrent COPD exacerbation, multiple/recurrent hospital stays since 2018: last adm 07/22/25, 06/29/25
DH Adm Lingular cavitary mass/LLL lateral segment cavitary mass/Mediastinal LAD s/p bronchoscopy, neg culture/path 2022
Acute hypercapnic respiratory failure requiring intubation/sepsis/narcotic use for pain.
Intubated 07/28/2022: Extubated 08/04/2022
S/p Cardiac Arrest/Maurizio/Asystole, ROSC with CPR
Acute renal insufficiency, hyperkalemia-Requiring emergent HD 07/29
Mild aortic stenosis per echo June 2021
History of GI bleed, duodenal ulcer 2018
Significant alcohol use, 6 pack of beer/day, ongoing
Hypertension/hyperlipidemia
Diabetes
Chronic bronchitis
Smoker-50 pack year history
Insomnia
Chronic back pain, chronic oxycodone therapy (4-6 tablets a day �15 years)
Suspected sleep disorder breathing
Family history lung cancer (mother), pancreatic cancer (father)
Noncompliance
Plan
Severe COPD with acute recurrent exacerbation--compounded by current smoking and medical noncompliance
This is his third admission in 2 months, he did not complete his prednisone taper from prior admission before having re-exacerbation complaints
He has stage IV COPD, not maintained regularly at outpatient follow-up
He has moderate to severe emphysema on CT
Chronic hypercapnia noted, not on BiPAP at home
Supplemental oxygen as needed, using 2 L at nighttime at baseline
Nebulizers-DuoNebs
Observe off antibiotics
No data to support infection
He is resumed on IV steroids
Chest x-ray on admission showing no acute process
Some component of heart failure given mildly elevated proBNP
Diuresis as tolerated
Monitor renal function, electrolytes, intake/output, lower extremity edema and weight
Replace electrolytes as needed
Most recent echocardiogram 07/2025 summarized below
DVT prophylaxis-on Lovenox
Nutrition
Early mobilization
Outpatient pulmonary [id number] the past [facility] has tried to reach out to him at least 7 times to make appointment after his last 2 hospitalizations and he never made an appointment
We discussed his noncompliance today as well as severity of illness
His prognosis is exceedingly poor if he is unable to maintain stability outside of the hospital longer than 2 weeks, he was not yet off prednisone as well which means he is likely steroid dose-dependent
I discussed this with him in detail today, he is not ready to discuss hospice
I am not sure he understands his prognosis or has insight into his condition
Will follow
Data:
ECHO 07/2025: 1. Normal left ventricular size and function.
2. Left ventricular ejection fraction is normal with an ejection fraction of 63 % by Roy's biplane method of discs.
3. Mild concentric left ventricular hypertrophy.
4. A mild left ventricular outflow gradient was present at approximately 25 to 30 mmHg.
5. Right ventricular size and systolic function are within normal limits.
6. Thickened aortic valve leaflets with increased flow across the aortic valve. Mean gradient 17 mmHg, however some of this flow was likely due to the hyperdynamic LV and obstructive gradient. Mild aortic stenosis.
7. Mild aortic regurgitation.
8. There was dense mitral annular calcification around the posterior leaflet. There were marked redundant chordal structures and thickened mitral valve leaflets. Mild mitral regurgitation.
9. Mild tricuspid regurgitation. Estimated pulmonary artery pressure of 41 mmHg assuming a right atrial pressure of 8 mmHg.
10. Compared to a prior transthoracic echocardiogram study from 08/01/22 There was no mild obstructive gradient at the left ventricular outflow track present.
CXR 07/21/2025: Mild pulmonary vascular congestion. Chronic scarring in the left upper lobe.
CXCR 07/29/25- No radiographic evidence of acute cardiopulmonary abnormality. Unchanged chronic band of airspace consolidation/scarring within the left midlung. COPD/emphysema.
Spirometry 06/2025: Severe obstruction, FEV1 23% of predicted. There was significant bronchodilator response in the FEV1 and FVC.
CT Chest 07/22/25: Band-shaped density in the left upper lung with adjacent linear densities radiating from the band-shaped opacity. This likely represents scarring from previous cavitary pneumonia/pulmonary abscess. Moderate to severe changes of
emphysema. Scattered peripheral linear densities which likely represent small linear scars. Within the upper abdomen, small calcifications which are probably nephroliths. Moderate to severe aortic calcification. Recent echocardiogram showed findings
of mild aortic stenosis. Coronary artery calcifications are present. Please correlate with symptoms of and risk factors for coronary artery disease, with further workup as clinically appropriate.
CT Chest 12/2022: 1. Two cavitary lesions with air-fluid levels in the left upper lobe as above, larger measuring up to 6.5 cm in diameter. Large amount of surrounding airspace consolidation. Given the current appearance and the absence of these
findings on the September 2022 examination, these most likely represent pulmonary abscesses. Neoplastic etiology is possible, considered less likely. There is associated mediastinal adenopathy and left hilar adenopathy.
2. Subacute chronic fractures posterior right ninth and 10th ribs.
ECHO 07/2022: Normal biventricular size and systolic function without regional wall motion abnormality. Estimated LVEF 50-55%. Moderate concentric left ventricular hypertrophy. Aortic sclerosis without stenosis. Mild aortic regurgitation. Mild to
moderate tricuspid regurgitation. Moderately elevated PASP. Estimated pulmonary artery pressure of 53 mmHg. Using a right atrial pressure of 15 mmHg. Compared to 06/21/21: TR has progressed from trace to mild/moderate, and PASP has increased from
35 to 53 mmHg.
[facility] 02/2020: 1: Nonobstructive coronary atherosclerosis.
2: Normal left ventricular function.
3: Mild aortic stenosis.
Total time spent on this consultation/encounter __55__ minutes which includes review of history, physical exam, medications, laboratory data, personal review of imaging, extensive review of outpatient records, discussion with care team and
respiratory therapy.
[2025-07-30 10:20] LABS: Carbon Dioxide 40 mmol/L (22-30)
--- NOTE | 2025-07-30 15:03 | CM ---
CM reviewed chart, patient seen beside.
Consult received for Advance Directive- patient declining.
Patient has home O2, Pulmonary following.
CM will continue to follow for all d/c needs.
Plan; home when stable
[2025-07-30 15:35] VITALS: BP 157/90
[2025-07-30] MEDS: LOVENOX 40 MG SC (17:29)
[2025-07-30] MEDS: AMBIEN 5 MG PO (22:58)
[2025-07-30] MEDS: CLARITIN 10 MG PO (22:58)
[2025-07-30 23:09] VITALS: BP 162/100
[2025-07-31 04:47] VITALS: BMI 18.9
[2025-07-31] MEDS: DECADRON 4 MG IV ×2 (05:08→17:14)
[2025-07-31 06:20] LABS: Hematocrit 44.9 % (39.0-52.0); Hemoglobin 14.8 g/dL (13.0-18.0); Mean Corp Hgb Conc. 33.0 g/dL (33.0-37.0); Mean Corpuscular Volume 93.5 fL (80.0-94.0); Platelet Count 262 10^3/uL (130-400); Red Cell Dist. Width 13.3 % (11.5-14.5)
[2025-07-31 06:36] LABS: Blood Urea Nitrogen 24 mg/dl (9-20); Calcium 9.6 mg/dl (8.4-10.2); Chloride 91 mmol/L (98-107); Estimated Creatinine Clearance 103 ml/min; Glucose 104 mg/dl (70-99); Potassium 4.8 mmol/L (3.5-5.1); Sodium 132 mmol/L (135-145); eGFR > 60.00
[2025-07-31 07:00] VITALS: BP 162/97
--- NOTE | 2025-07-31 07:16 | W.PN.HOSP.TC ---
Today's Communication/Plan
-
- continue COPD exacerbation treatment with abx, bronchodilators/LAMA, corticosteroids
- f/u pulmonary recommendations
Assessment / Plan
Assessment / Plan
In summary, 58 yo M PMH COPD, CHF, anxiety/depression, insomnia p/w exertional dyspnea c/f acute COPD exacerbation
Acute COPD exacerbation
- Given multiple exacerbations, and chart documented that he did not necessarily adhere to medication regimen due to insurance issues, he is likely a GOLD groupC-D classification for COPD (severe or very severe)
- ABG shows respiratory acidosis and metabolic alkalosis; compensation
- pulmonary exam still discloses wheezing but improved from yesterday and no signs of respiratory muscle fatigue
- DuoNeb qid daily and prn
- budesonide bid
- IV dexamethasone 4 mg q12
- Spiriva and Symbicort
- azithromycin 500mg Qd for 3 days (today is day 2)
- Mucolytics for secretion
- Wean oxygen as able, goal spO2 > 88%
- f/u sputum culture: prelim usual respiratory tiffany
- benzonatate prn ordered for symptomatic relief of cough
- review of his last discharge summary appears to show that he attained taper to prednisone 10mg, ~6-7 days after discharge from his previous admission
- a slower taper to either prednisone 10mg or slightly higher might be prudent - based on pulmonary's last note, it is possible that he may be steroid dependent
- pulmonology following, f/u recommendations
Acute on chronic hypercapnic hypoxic respiratory failure
- ABG from 07/29/2025: 7.42 / 42.2
- currently on 3L O2, 95%
- goal spO2 >88%
Acute on chronic respiratory acidosis
acute on chronic metabolic alkalosis
- ABG from 07/29/2025: 7.42 / 42.2
- anion gap appears normal, therefore compensated
Hyponatremia
Hypochloremia
- likely due to dehydration or overdiuresis from home furosemide
- holding furosemide
- Monitor BMP
Chronic HFpEF without exacerbation
- proBNP 1300s
- last echo in 07/2025 showed EF 63%
Leukocytosis
White count 10.6 - resolved
History of anxiety and depression
Continue home Wellbutrin
History of insomnia
Continue zolpidem and melatonin
Peripheral neuropathy
continue gabapentin
History of chronic pain
continue oxycodone as needed
Code status: Full code
dvt ppx: Lovenox
diet: regular
Anticipated Discharge: > 48 hours
Subjective/Interval History
-
Date of Service: July 31, 2025
feels significantly better
Objective Data
-
Labs:
Laboratory Results
07/31/25
05:33
WBC 10.6
Hgb 14.8
Hct 44.9
Plt Count 262
Sodium 132 L
Potassium 4.8
Chloride 91 L
Carbon Dioxide 39
BUN 24 H
Creatinine 0.7
Glucose 104 H
Calcium 9.6
Vital Signs:
Vital Signs
Temp Pulse Resp BP Pulse Ox
98.0 F 103 18 162/100 91
07/30/25 23:09 07/30/25 23:09 07/30/25 23:09 07/30/25 23:09 07/30/25 23:09
I&O
07/30/25 07/31/25 08/01/25
06:59 06:59 06:59
Intake Total 1919 / 1919 1979 / 1979
Output Total 1050 / 1050 1100 / 1100
Balance 870 / 870 880 / 880
Review of Systems
-
History Source: Patient
Constitutional: Reports No Symptoms
EENT: Reports No Symptoms Reported
Respiratory: Reports Trouble Breathing
Cardiac: Reports No Symptoms
Abdomen/GI: Reports No Symptoms
Genitourinary: Reports No Symptoms
Musculoskeletal: Reports No Symptoms
Neuro: Reports No Symptoms
Physical Exam
-
General: Respiratory Distress
HEENT: Normocephalic
Respiratory: Wheezes (improved from yesterday)
Cardiac: Other (no murmurs on my exam)
GI: Soft and Nontender
Musculoskeletal: No Edema
Neuro: Awake, Alert and Nonfocal/Grossly Intact
[2025-07-31] MEDS: WELLBUTRIN XL (24 hour extended release) 150 MG PO (07:27)
[2025-07-31] MEDS: MUCINEX 600 MG PO ×2 (07:27→19:17)
[2025-07-31] MEDS: ZITHROMAX 500 MG PO (07:27)
[2025-07-31] MEDS: NEURONTIN 300 MG PO ×3 (07:27→22:54)
[2025-07-31] MEDS: PULMICORT 0.25 MG INH ×2 (07:54→19:55)
[2025-07-31] MEDS: DUONEB 3 ML INH ×3 (07:54→15:19)
[2025-07-31] MEDS: SYMBICORT 160/4.5 MCG INHALER 2 PUFF INH ×2 (07:55→19:55)
[2025-07-31] MEDS: SPIRIVA RESPIMAT 2.5 MCG 2 PUFF INH (07:55)
[2025-07-31 08:24] LABS: Carbon Dioxide 39 mmol/L (22-30)
[2025-07-31] MEDS: ROXICODONE 5 MG PO (13:47)
[2025-07-31 15:00] VITALS: BP 160/107
[2025-07-31] MEDS: NSS 1000 IV (15:37)
--- NOTE | 2025-07-31 16:38 | W.PN.PUL3 ---
Addendum entered and electronically signed by Luis Samayoa MD 07/31/25 18:25:
I called the patient's significant other, Mary, to answer any questions that she may have and to update her on the clinical status of Dell, but she did not answer her phone. I left a voicemail for her.
Original Note:
Today's Communication / Plan
-
Mucolytics
Systemic steroids, weaning as he clinically improves
Budesonide; changed DuoNebs to nebulized albuterol as he also is on Spiriva (and Symbicort)
Titrate SpO2 to 88-95%
Up OOB as tolerated
PT/OT
Given that this is his third admission in the past 6 weeks, believe that he will need prolonged steroid taper as long as he feels a benefit with systemic steroids (no history of eosinophilia)
Serial blood gas to assure pH + pCO2 remained stable
Guarded prognosis given his class IV, group E COPD
Pulmonary service will continue to follow along
Assessment
-
60-year-old male with history of COPD, CHF, anxiety/depression, insomnia presents to ER with exertional dyspnea. Patient was recently admitted and discharged on 07/22/2025 for COPD exacerbations. This is his third presentation for shortness of
breath in the past year. He is currently on 2 L oxygen which he uses continuously. He has notable history of noncompliance, does not follow-up as outpatient for management. In the ED he is on 5 L of oxygen with oxygen saturation 94%, VBG showing
chronic CO2 retention, 7.42/65. Chemistry panel showing hyponatremia 128, hypochloremia 83. Chest x-ray is unremarkable, no acute changes. Pulmonary consultation was requested for further input.
Acute on top of chronic hypoxemic failure
COPD exacerbation
Chronic compensated hypercapnia
Pulm hypertension
Acute CHF with preserved EF, proBNP 1350
Medical noncompliance
Conditions present prior to admission:
Severe COPD FEV 23%
Moderate to severe emphysema on CT
History of recurrent COPD exacerbation, multiple/recurrent hospital stays since 2018: last adm 07/22/25, 06/29/25
DH Adm Lingular cavitary mass/LLL lateral segment cavitary mass/Mediastinal LAD s/p bronchoscopy, neg culture/path 2022
Acute hypercapnic respiratory failure requiring intubation/sepsis/narcotic use for pain.
Intubated 07/28/2022: Extubated 08/04/2022
S/p Cardiac Arrest/Maurizio/Asystole, ROSC with CPR
Acute renal insufficiency, hyperkalemia-Requiring emergent HD 07/29
Mild aortic stenosis per echo June 2021
History of GI bleed, duodenal ulcer 2018
Significant alcohol use, 6 pack of beer/day, ongoing
Hypertension/hyperlipidemia
Diabetes
Chronic bronchitis
Smoker-50 pack year history
Insomnia
Chronic back pain, chronic oxycodone therapy (4-6 tablets a day �15 years)
Suspected sleep disorder breathing
Family history lung cancer (mother), pancreatic cancer (father)
Noncompliance
Plan
Severe COPD with acute recurrent exacerbation--compounded by Hx of smoking and suspected medical noncompliance
This is his third admission in 2 months, he did not complete his prednisone taper from prior admission before having re-exacerbation complaints
He has stage IV COPD, not maintained regularly at outpatient follow-up
He has moderate to severe emphysema on CT
Chronic hypercapnia noted, not on BiPAP at home
Supplemental oxygen as needed, using 2 L at nighttime at baseline
Nebulizers-DuoNebs
Observe off antibiotics
No data to support infection
He is resumed on IV steroids
Chest x-ray on admission showing no acute process
Some component of heart failure given mildly elevated proBNP
Diuresis as tolerated
Monitor renal function, electrolytes, intake/output, lower extremity edema and weight
Replace electrolytes as needed
Most recent echocardiogram 07/2025 summarized below
DVT prophylaxis-on Lovenox
Nutrition
Early mobilization
Outpatient pulmonary rucaxc-ac-de the past [facility] has tried to reach out to him at least 7 times to make appointment after his last 2 hospitalizations and he never made an appointment
Dr. Rice discussed his noncompliance today as well as severity of illness
His prognosis is exceedingly poor if he is unable to maintain stability outside of the hospital longer than 2 weeks, he was not yet off prednisone as well which means he is likely steroid dose-dependent
He is not ready to discuss hospice
I am not sure he understands his prognosis or has insight into his condition
Will follow
Data:
ECHO 07/2025: 1. Normal left ventricular size and function.
2. Left ventricular ejection fraction is normal with an ejection fraction of 63 % by Roy's biplane method of discs.
3. Mild concentric left ventricular hypertrophy.
4. A mild left ventricular outflow gradient was present at approximately 25 to 30 mmHg.
5. Right ventricular size and systolic function are within normal limits.
6. Thickened aortic valve leaflets with increased flow across the aortic valve. Mean gradient 17 mmHg, however some of this flow was likely due to the hyperdynamic LV and obstructive gradient. Mild aortic stenosis.
7. Mild aortic regurgitation.
8. There was dense mitral annular calcification around the posterior leaflet. There were marked redundant chordal structures and thickened mitral valve leaflets. Mild mitral regurgitation.
9. Mild tricuspid regurgitation. Estimated pulmonary artery pressure of 41 mmHg assuming a right atrial pressure of 8 mmHg.
10. Compared to a prior transthoracic echocardiogram study from 08/01/22 There was no mild obstructive gradient at the left ventricular outflow track present.
CXR 07/21/2025: Mild pulmonary vascular congestion. Chronic scarring in the left upper lobe.
CXCR 07/29/25- No radiographic evidence of acute cardiopulmonary abnormality. Unchanged chronic band of airspace consolidation/scarring within the left midlung. COPD/emphysema.
Spirometry 06/2025: Severe obstruction, FEV1 23% of predicted. There was significant bronchodilator response in the FEV1 and FVC.
CT Chest 07/22/25: Band-shaped density in the left upper lung with adjacent linear densities radiating from the band-shaped opacity. This likely represents scarring from previous cavitary pneumonia/pulmonary abscess. Moderate to severe changes of
emphysema. Scattered peripheral linear densities which likely represent small linear scars. Within the upper abdomen, small calcifications which are probably nephroliths. Moderate to severe aortic calcification. Recent echocardiogram showed findings
of mild aortic stenosis. Coronary artery calcifications are present. Please correlate with symptoms of and risk factors for coronary artery disease, with further workup as clinically appropriate.
CT Chest 12/2022: 1. Two cavitary lesions with air-fluid levels in the left upper lobe as above, larger measuring up to 6.5 cm in diameter. Large amount of surrounding airspace consolidation. Given the current appearance and the absence of these
findings on the September 2022 examination, these most likely represent pulmonary abscesses. Neoplastic etiology is possible, considered less likely. There is associated mediastinal adenopathy and left hilar adenopathy.
2. Subacute chronic fractures posterior right ninth and 10th ribs.
ECHO 07/2022: Normal biventricular size and systolic function without regional wall motion abnormality. Estimated LVEF 50-55%. Moderate concentric left ventricular hypertrophy. Aortic sclerosis without stenosis. Mild aortic regurgitation. Mild to
moderate tricuspid regurgitation. Moderately elevated PASP. Estimated pulmonary artery pressure of 53 mmHg. Using a right atrial pressure of 15 mmHg. Compared to 06/21/21: TR has progressed from trace to mild/moderate, and PASP has increased from
35 to 53 mmHg.
[facility] 02/2020: 1: Nonobstructive coronary atherosclerosis.
2: Normal left ventricular function.
3: Mild aortic stenosis.
Total time spent on this consultation/encounter __41__ minutes which includes review of history, physical exam, medications, laboratory data, personal review of imaging, extensive review of outpatient records, discussion with care team and
respiratory therapy.
Subjective Data
-
Date of Service:
Date of Service: July 31, 2025
Chief Complaint: Pulmonary Follow Up
Subjective:
Patient seen today at bedside (late note entry). Resting in bed in no acute distress. Currently on 3 L/min nasal cannula.
Review of Systems
General: Other (Negative unless mentioned above)
Objective Data
Data Reviewed
Vital Signs / I&O / Oxygen:
Vital Signs
Temp Pulse Resp BP Pulse Ox
97.8 F 93 18 162/97 95
07/31/25 07:00 07/31/25 08:01 07/31/25 08:01 07/31/25 07:00 07/31/25 08:01
Intake and Output
07/30/25 07/31/25 08/01/25
06:59 06:59 06:59
Intake Total 1919 / 1920 1979 / 1979
Output Total 1050 / 1050 1100 / 1100
Balance 870 / 870 880 / 880
SaO2 95
Nasal Cannula flow liters per 3
minute
Physical Exam
General: Respiratory Distress (n) and Comfortable
HEENT: Normocephalic and Anicteric
Cardiovascular: S1-S2 and Peripheral Edema (n)
Respiratory: Wheeze, Crackles (n), Rhonchi (n), Non-Labored Respirations and Other (Diminished breath sounds bilaterally)
GI: Soft, Non Distended, Non Tender and Normal Bowel Sounds
Neurology: Awake and Tremors (n)
Skin: Warm, Dry and Cyanosis (n)
Labs/Micro/Reports
Lab Data
07/31/25 05:33
07/31/25 05:33
Microbiology
07/29/25 23:09 Sputum Respiratory Culture - Preliminary
Usual Respiratory Marissa
07/29/25 23:09 Sputum Gram Stain - Preliminary
07/29/25 20:35 Nose MRSA Screen - Final
No Methicillin Resistant Staphylococcus aureus isolated.
[2025-07-31] MEDS: LOVENOX 40 MG SC (17:13)
[2025-07-31] MEDS: VENTOLIN NEBULES 2.5 MG INH (19:55)
[2025-07-31] MEDS: CLARITIN 10 MG PO (22:54)
[2025-07-31] MEDS: AMBIEN 5 MG PO (22:54)
[2025-07-31 23:45] VITALS: BP 146/114
[2025-08-01] MEDS: DECADRON 4 MG IV ×2 (05:45→17:24)
[2025-08-01 05:57] VITALS: BMI 19.3
[2025-08-01 07:00] VITALS: BP 161/86
--- NOTE | 2025-08-01 07:12 | W.PN.HOSP.TC ---
Today's Communication/Plan
-
- f/u pulmonary recommendations
- continue bronchodilators, corticosteroids for COPD exacberation
- completed azithromycin 3 day course today
Assessment / Plan
Assessment / Plan
In summary, 58 yo M PMH COPD, CHF, anxiety/depression, insomnia p/w exertional dyspnea c/f acute COPD exacerbation
Acute COPD exacerbation
- Given multiple exacerbations, and chart documented that he did not necessarily adhere to medication regimen due to insurance issues, he is likely a GOLD groupC-D classification for COPD (severe or very severe)
- ABG shows respiratory acidosis and metabolic alkalosis; compensation
- pulmonary exam still discloses wheezing but improved from yesterday and no signs of respiratory muscle fatigue
- DuoNeb qid daily and prn
- budesonide bid
- IV dexamethasone 4 mg q12
- Spiriva and Symbicort
- azithromycin 500mg Qd for 3 days (today is day 3, will discontinue abx today)
- Mucolytics for secretion
- Wean oxygen as able, goal spO2 > 88%
- f/u sputum culture: prelim usual respiratory tiffany
- benzonatate prn ordered for symptomatic relief of cough
- f/u pulmonary recommendations
- may need to be tapered over a longer period of time, and counselled that if he starts to feel short of breath, to first increase his prednisone that he takes.
Acute on chronic hypercapnic hypoxic respiratory failure
- ABG from 07/29/2025: 7.42 / 65 / 71 / 42.2
- VBG from 08/01/2025: 7.32 / 92 / 41 / 47.4
- Patient is not bradypneic
- BIPAP is advised to help breathe off CO2 during sleep, however, patient reports that he cannot tolerate BIPAP
- currently on 3L O2, 95%
- goal spO2 >88%
Acute on chronic respiratory acidosis
acute on chronic metabolic alkalosis
- ABG from 07/29/2025: 7.42 / 65 / 71 / 42.2
- VBG from 08/01/2025: 7. / / / 47.4
- anion gap appears normal, therefore compensated
Hyponatremia
Hypochloremia
- likely due to dehydration or overdiuresis from home furosemide
- holding furosemide
- Monitor BMP
Chronic HFpEF without exacerbation
- proBNP 1300s
- last echo in 07/2025 showed EF 63%
Leukocytosis
White count 10.6 - resolved
History of anxiety and depression
Continue home Wellbutrin
History of insomnia
Continue zolpidem and melatonin
Peripheral neuropathy
continue gabapentin
History of chronic pain
continue oxycodone as needed
Code status: Full code
dvt ppx: Lovenox
diet: regular
Anticipated Discharge: 24 - 48 hours
Subjective/Interval History
-
Date of Service: August 01, 2025
reports that he's breathing much better
Objective Data
-
Labs:
Laboratory Results
08/01/25
06:00
WBC Pending
Hgb Pending
Hct Pending
Plt Count Pending
Sodium Pending
Potassium Pending
Chloride Pending
Carbon Dioxide Pending
BUN Pending
Creatinine Pending
Glucose Pending
Calcium Pending
VBG 7. / / 47.4
Vital Signs:
Vital Signs
Temp Pulse Resp BP Pulse Ox
98.1 F 91 18 146/114 92
07/31/25 23:45 07/31/25 23:45 07/31/25 23:45 07/31/25 23:45 07/31/25 23:45
on 3L
I&O
07/31/25 08/01/25 08/02/25
06:59 06:59 06:59
Intake Total 1979 1080 / 1080
Output Total 1100 / 1100 1450 / 1450
Balance 880 / 880 -370 / -370
Review of Systems
-
History Source: Patient
Constitutional: Reports No Symptoms
EENT: Reports No Symptoms Reported
Respiratory: Reports Trouble Breathing
Cardiac: Reports No Symptoms
Abdomen/GI: Reports No Symptoms
Genitourinary: Reports No Symptoms
Musculoskeletal: Reports No Symptoms
Neuro: Reports No Symptoms
Physical Exam
-
General: Respiratory Distress
HEENT: Normocephalic
Respiratory: Wheezes (end expiratory wheezes on my auscultation)
Cardiac: Other (no murmurs on my exam)
GI: Soft and Nontender
Musculoskeletal: No Edema
Neuro: Awake, Alert and Nonfocal/Grossly Intact
[2025-08-01] MEDS: MUCINEX 600 MG PO ×2 (07:33→21:39)
[2025-08-01] MEDS: NEURONTIN 300 MG PO ×3 (07:33→21:39)
[2025-08-01] MEDS: ZITHROMAX 500 MG PO (07:33)
[2025-08-01] MEDS: WELLBUTRIN XL (24 hour extended release) 150 MG PO (07:33)
[2025-08-01 08:00] LABS: Venous Blood Gas B.E. 16.0 mmol/L (-4 to +4); Venous Blood Gas O2 Sat % 68.4 %
[2025-08-01 08:03] LABS: Hematocrit 44.3 % (39.0-52.0); Hemoglobin 14.1 g/dL (13.0-18.0); Mean Corp Hgb Conc. 31.8 g/dL (33.0-37.0); Mean Corpuscular Volume 95.9 fL (80.0-94.0); Platelet Count 250 10^3/uL (130-400); Red Cell Dist. Width 13.3 % (11.5-14.5)
[2025-08-01] MEDS: PULMICORT INH (08:04)
[2025-08-01] MEDS: VENTOLIN NEBULES 2.5 MG INH ×4 (08:05→19:29)
[2025-08-01] MEDS: SYMBICORT 160/4.5 MCG INHALER 2 PUFF INH ×2 (08:06→19:29)
[2025-08-01] MEDS: SPIRIVA RESPIMAT 2.5 MCG 2 PUFF INH (08:06)
[2025-08-01 08:28] LABS: Blood Urea Nitrogen 15 mg/dl (9-20); Calcium 9.4 mg/dl (8.4-10.2); Chloride 91 mmol/L (98-107); Estimated Creatinine Clearance 123 ml/min; Glucose 149 mg/dl (70-99); Potassium 4.7 mmol/L (3.5-5.1); Sodium 134 mmol/L (135-145); eGFR > 60.00
--- NOTE | 2025-08-01 09:22 | W.PN.PUL3 ---
Today's Communication / Plan
-
Refused to be seen, attempted to call yesterday and today, no response
Reviewed care plan with team and RN
We will sign off at this time please call with questions
Assessment
-
60-year-old male with history of COPD, CHF, anxiety/depression, insomnia presents to ER with exertional dyspnea. Patient was recently admitted and discharged on 07/22/2025 for COPD exacerbations. This is his third presentation for shortness of
breath in the past year. He is currently on 2 L oxygen which he uses continuously. He has notable history of noncompliance, does not follow-up as outpatient for management. In the ED he is on 5 L of oxygen with oxygen saturation 94%, VBG showing
chronic CO2 retention, 7.42/65. Chemistry panel showing hyponatremia 128, hypochloremia 83. Chest x-ray is unremarkable, no acute changes. Pulmonary consultation was requested for further input.
Acute on top of chronic hypoxemic failure
COPD exacerbation
Chronic compensated hypercapnia
Pulm hypertension
Acute CHF with preserved EF, proBNP 1350
Medical noncompliance
Conditions present prior to admission:
Severe COPD FEV 23%
Moderate to severe emphysema on CT
History of recurrent COPD exacerbation, multiple/recurrent hospital stays since 2018: last adm 07/22/25, 06/29/25
Adm Lingular cavitary mass/LLL lateral segment cavitary mass/Mediastinal LAD s/p bronchoscopy, neg culture/path 2022
Acute hypercapnic respiratory failure requiring intubation/sepsis/narcotic use for pain.
Intubated 07/28/2022: Extubated 08/04/2022
S/p Cardiac Arrest/Maurizio/Asystole, ROSC with CPR
Acute renal insufficiency, hyperkalemia-Requiring emergent HD 07/29
Mild aortic stenosis per echo June 2021
History of GI bleed, duodenal ulcer 2018
Significant alcohol use, 6 pack of beer/day, ongoing
Hypertension/hyperlipidemia
Diabetes
Chronic bronchitis
Smoker-50 pack year history
Insomnia
Chronic back pain, chronic oxycodone therapy (4-6 tablets a day �15 years)
Suspected sleep disorder breathing
Family history lung cancer (mother), pancreatic cancer (father)
Noncompliance
Plan
Severe COPD with acute recurrent exacerbation--compounded by Hx of smoking and suspected medical noncompliance
This is his third admission in 2 months, he had not yet completed his prednisone taper from prior admission before having re-exacerbation complaints
He has stage IV COPD, not maintained regularly at outpatient follow-up
He has moderate to severe emphysema on CT
Chronic hypercapnia noted, not on BiPAP at home
Supplemental oxygen as needed, using 2 L at nighttime at baseline
Nebulizers-DuoNebs
Observe off antibiotics
No data to support infection
He is resumed on IV steroids
Chest x-ray on admission showing no acute process
Some component of heart failure given mildly elevated proBNP
Diuresis as tolerated
Monitor renal function, electrolytes, intake/output, lower extremity edema and weight
Replace electrolytes as needed
Most recent echocardiogram 07/2025 summarized below
DVT prophylaxis-on Lovenox
Nutrition
Early mobilization
Outpatient pulmonary [id number] the past [facility] has tried to reach out to him at least 7 times to make appointment after his last 2 hospitalizations and he never made an appointment
Dr. Rice discussed his noncomplianceas well as severity of illness
Cannot discuss any advanced treatments if he does not follow up to visits
His prognosis is exceedingly poor if he is unable to maintain stability outside of the hospital longer than 2 weeks, he was not yet off prednisone as well which means he is likely steroid dose-dependent
He is not ready to discuss hospice
I am not sure he understands his prognosis or has insight into his condition
I has refused to see pulmonary today--called today without answer, the number appears to be a [employer] number
Will sign off at this time, reviewed case with care team
Data:
ECHO 07/2025: 1. Normal left ventricular size and function.
2. Left ventricular ejection fraction is normal with an ejection fraction of 63 % by Roy's biplane method of discs.
3. Mild concentric left ventricular hypertrophy.
4. A mild left ventricular outflow gradient was present at approximately 25 to 30 mmHg.
5. Right ventricular size and systolic function are within normal limits.
6. Thickened aortic valve leaflets with increased flow across the aortic valve. Mean gradient 17 mmHg, however some of this flow was likely due to the hyperdynamic LV and obstructive gradient. Mild aortic stenosis.
7. Mild aortic regurgitation.
8. There was dense mitral annular calcification around the posterior leaflet. There were marked redundant chordal structures and thickened mitral valve leaflets. Mild mitral regurgitation.
9. Mild tricuspid regurgitation. Estimated pulmonary artery pressure of 41 mmHg assuming a right atrial pressure of 8 mmHg.
10. Compared to a prior transthoracic echocardiogram study from 08/01/22 There was no mild obstructive gradient at the left ventricular outflow track present.
CXR 07/21/2025: Mild pulmonary vascular congestion. Chronic scarring in the left upper lobe.
CXCR 07/29/25- No radiographic evidence of acute cardiopulmonary abnormality. Unchanged chronic band of airspace consolidation/scarring within the left midlung. COPD/emphysema.
Spirometry 06/2025: Severe obstruction, FEV1 23% of predicted. There was significant bronchodilator response in the FEV1 and FVC.
CT Chest 07/22/25: Band-shaped density in the left upper lung with adjacent linear densities radiating from the band-shaped opacity. This likely represents scarring from previous cavitary pneumonia/pulmonary abscess. Moderate to severe changes of
emphysema. Scattered peripheral linear densities which likely represent small linear scars. Within the upper abdomen, small calcifications which are probably nephroliths. Moderate to severe aortic calcification. Recent echocardiogram showed findings
of mild aortic stenosis. Coronary artery calcifications are present. Please correlate with symptoms of and risk factors for coronary artery disease, with further workup as clinically appropriate.
CT Chest 12/2022: 1. Two cavitary lesions with air-fluid levels in the left upper lobe as above, larger measuring up to 6.5 cm in diameter. Large amount of surrounding airspace consolidation. Given the current appearance and the absence of these
findings on the September 2022 examination, these most likely represent pulmonary abscesses. Neoplastic etiology is possible, considered less likely. There is associated mediastinal adenopathy and left hilar adenopathy.
2. Subacute chronic fractures posterior right ninth and 10th ribs.
ECHO 07/2022: Normal biventricular size and systolic function without regional wall motion abnormality. Estimated LVEF 50-55%. Moderate concentric left ventricular hypertrophy. Aortic sclerosis without stenosis. Mild aortic regurgitation. Mild to
moderate tricuspid regurgitation. Moderately elevated PASP. Estimated pulmonary artery pressure of 53 mmHg. Using a right atrial pressure of 15 mmHg. Compared to 06/21/21: TR has progressed from trace to mild/moderate, and PASP has increased from
35 to 53 mmHg.
[facility] 02/2020: 1: Nonobstructive coronary atherosclerosis.
2: Normal left ventricular function.
3: Mild aortic stenosis.
Total time spent on this consultation/encounter __20__ minutes which includes review of history, physical exam, medications, laboratory data, personal review of imaging, extensive review of outpatient records, discussion with care team and
respiratory therapy.
Subjective Data
-
Date of Service:
Date of Service: August 01, 2025
Chief Complaint: Pulmonary Follow Up
Subjective:
Refusing to be seen by pulmonary
Attempted to call yesterday and today, no response
Objective Data
Data Reviewed
Vital Signs / I&O / Oxygen:
Vital Signs
Temp Pulse Resp BP Pulse Ox
97.7 F 99 20 161/86 92
08/01/25 07:00 08/01/25 08:08 08/01/25 08:08 08/01/25 07:00 08/01/25 08:08
Intake and Output
07/31/25 08/01/25 08/02/25
06:59 06:59 06:59
Intake Total 1979 / 1979 1080 / 1080
Output Total 1100 / 1100 1450 / 1450
Balance 880 / 880 -370 / -370
SaO2 92
Nasal Cannula flow liters per 3
minute
Labs/Micro/Reports
Lab Data
08/01/25 07:44
08/01/25 07:44
Microbiology
07/29/25 23:09 Sputum Respiratory Culture - Preliminary
Usual Respiratory Marissa
07/29/25 23:09 Sputum Gram Stain - Preliminary
07/29/25 20:35 Nose MRSA Screen - Final
No Methicillin Resistant Staphylococcus aureus isolated.
[2025-08-01 09:37] LABS: Carbon Dioxide 42 mmol/L (22-30)
[2025-08-01] MEDS: ROXICODONE 5 MG PO (10:49)
[2025-08-01] MEDS: NSS 1000 IV (12:24)
[2025-08-01 14:50] VITALS: BP 131/84
[2025-08-01] MEDS: LOVENOX 40 MG SC (17:23)
[2025-08-01] MEDS: SENOKOT-S 1 TABLET PO (17:31)
[2025-08-01] MEDS: PULMICORT 0.25 MG INH (19:29)
[2025-08-01] MEDS: CLARITIN 10 MG PO (21:41)
[2025-08-01] MEDS: AMBIEN 5 MG PO (21:41)
--- NOTE | 2025-08-01 21:45 | PTCARENOTE ---
Pt AAOx3, standby assist, rings call arvizu appropriately. Pt refused bed alarm. Pt education provided. Pt continued to refuse. Bed alarm removed. Pt education provided x2.
[2025-08-01 23:54] VITALS: BP 154/90
[2025-08-02] VITALS (12 sets, daily range): BP systolic 126–198; BP diastolic 94–139; PULSE 2–117; O2SAT 95
[2025-08-02] MEDS: DECADRON 4 MG IV ×2 (05:53→19:02)
[2025-08-02 07:39] LABS: Hematocrit 43.2 % (39.0-52.0); Hemoglobin 13.7 g/dL (13.0-18.0); Mean Corp Hgb Conc. 31.7 g/dL (33.0-37.0); Mean Corpuscular Volume 94.3 fL (80.0-94.0); Platelet Count 251 10^3/uL (130-400); Red Cell Dist. Width 13.3 % (11.5-14.5); Venous Blood Gas B.E. 14.9 mmol/L (-4 to +4); Venous Blood Gas O2 Sat % 81.2 %
[2025-08-02] MEDS: PULMICORT 0.25 MG INH ×2 (07:53→19:39)
[2025-08-02] MEDS: VENTOLIN NEBULES 2.5 MG INH ×4 (07:53→19:39)
[2025-08-02] MEDS: SYMBICORT 160/4.5 MCG INHALER 2 PUFF INH (07:53)
[2025-08-02] MEDS: SPIRIVA RESPIMAT 2.5 MCG 2 PUFF INH (07:53)
--- NOTE | 2025-08-02 08:05 | PTCARENOTE ---
Notified resident Fortunato Mills MD, of patient's critical lab reporting: CO2 97 on VBG. Notified through [employer].
[2025-08-02 08:17] LABS: Blood Urea Nitrogen 13 mg/dl (9-20); Calcium 9.3 mg/dl (8.4-10.2); Chloride 91 mmol/L (98-107); Estimated Creatinine Clearance 105 ml/min; Glucose 87 mg/dl (70-99); Potassium 5.3 mmol/L (3.5-5.1); Sodium 134 mmol/L (135-145); eGFR > 60.00
[2025-08-02] MEDS: WELLBUTRIN XL (24 hour extended release) 150 MG PO (08:25)
[2025-08-02] MEDS: NEURONTIN 300 MG PO (08:25)
[2025-08-02] MEDS: MUCINEX 600 MG PO (08:25)
[2025-08-02] MEDS: NSS 1000 IV (08:27)
[2025-08-02] MEDS: ROXICODONE 5 MG PO (08:33)
--- NOTE | 2025-08-02 08:39 | W.PN.HOSP.TC ---
Today's Communication/Plan
-
C/w steroid, RTC nebs
Trial HS BiPAP and trend AM VBG
Wean O2 as tolerated
GOC discussions
Assessment / Plan
Assessment / Plan
#Acute on chronic hypoxemic and hypercapnic respiratory failure
#COPD with exacerbation
#Severe respiratory acidosis
#Former tobacco user
- Patient with severe end-stage COPD, 2 L O2 baseline; Gold E, group 4 disease with recent FEV1 expected 23%
- Home regimen includes LABA, LAMA, ICS as well as as needed albuterol inhaler; multiple hospitalizations for exacerbations
- Has not been a candidate for other agents such as anti-IL-4, PDEi as he is noncompliant and misses follow-up appointments
- States he has tried to use nightly BiPAP machine twice in the past though did not tolerate at a time, not amenable as of now
- Upon arrival started on IV steroid, RTC bronchodilators, and maintained on home maintenance therapy
- Has since been weaned back near O2 baseline, symptomatically improved though still very hypercapnic
- Continue with current management, plan for prolonged prednisone taper at discharge to likely standing dose
- SpO2 goal 88 to 94%, wean as able
- Trial HS BiPAP tonight
- Daily VBG here
#Hyperkalemia
- Potassium this morning 5.3; no symptoms were changes to ECG/telemetry
- Unclear cause, not currently on any potassium sparing agents
- Ordered 1 dose of Lokelma for noon, transition to low potassium diet
- Continue to trend daily BMP and monitor telemetry
#Chronic HFpEF
- No known history of ischemic heart disease; recent echo with LVEF 63%
- Home regimen includes Lasix 20 mg daily; not on any GDMT
- Mildly elevated BNP here though otherwise appears euvolemic
- Monitor I's and O's, daily weight
#Peripheral neuropathy
#NIDDM
- Unclear etiology, does have history of NIDDM but not on current antihyperglycemic regimen
- Home regimen includes gabapentin 3 times daily and as needed nightly for neuropathy
- Appears stable at this time
#History of anxiety and depression
- Continue home Wellbutrin
#History of insomnia
- Continue zolpidem and melatonin
#History of chronic pain
- continue oxycodone as needed
Code status: Full code
dvt ppx: Lovenox
diet: regular
Dispo: PT consulted
Poor prognosis with noncompliance and presence of pulmonary cachexia
Anticipated Discharge: 24 - 48 hours
Subjective/Interval History
-
Date of Service: August 02, 2025
Seen and examined at the bedside. MONTSERRAT. AFVSS on 2-3L with SpO2 in the 90s
VBG with CO2 trend 93-97 over last two days. No signs of encephalopathy
States breathing is slightly better but not at his previous baseline. Denies new complaints
Objective Data
-
Labs:
Laboratory Results
08/02/25
07:19
WBC 10.0
Hgb 13.7
Hct 43.2
Plt Count 251
Sodium 134 L
Potassium 5.3 H
Chloride 91 L
Carbon Dioxide Pending
BUN 13
Creatinine 0.7
Glucose 87
Calcium 9.3
Vital Signs:
Vital Signs
Temp Pulse Resp BP Pulse Ox
98.2 F 100 20 156/95 91
08/02/25 07:00 08/02/25 07:56 08/02/25 07:56 08/02/25 07:00 08/02/25 07:56
I&O
08/01/25 08/02/25 08/03/25
06:59 06:59 06:59
Intake Total 1080 / 1080 1410 / 1410
Output Total 1450 / 1450 1575 / 1575 600 / 600
Balance -370 / -370 -165 / -165 -600 / -600
Review of Systems
-
History Source: Patient
All other systems: Reviewed and negative
Physical Exam
-
General: Well Developed, No Apparent Distress, Appears Chronically Ill and Cachectic
HEENT: Normocephalic, Atraumatic, Moist Mucous Membranes, Anicteric and Oxygen
Respiratory: Wheezes, Rhonchi and Non Labored Respirations; Negative Accessory Resp Muscle Use
Cardiac: Regular Rhythm and S1/S2; Negative Murmur, Rub or Gallop
GI: Soft, Nontender, Nondistended and Normal Bowel Sounds
Musculoskeletal: No Clubbing, No Cyanosis and No Edema
Skin: Warm and Dry; Negative Rash
Neuro: AO x 3, Tremors (mild), Nonfocal/Grossly Intact and Central Nerve's Intact
Psych: Calm
Data Reviewed
-
Labs: Labs Reviewed by me, Discussed with Patient and Discussed with Family
[2025-08-02] MEDS: SENOKOT-S 1 TABLET PO (08:41)
[2025-08-02 09:03] LABS: Carbon Dioxide 46 mmol/L (22-30)
[2025-08-02] MEDS: LOKELMA 10 GRAM PO (12:46)
[2025-08-02] MEDS: ATIVAN 1 MG PO (13:05)
--- NOTE | 2025-08-02 16:20 | PTCARENOTE ---
Notified Dr. Lizama of patient's elevated BP, 185/115. Patient is still anxious post-Ativan.
[2025-08-02] MEDS: LOVENOX SC ×2 (17:59→18:42)
[2025-08-02] MEDS: NEURONTIN PO ×3 (17:59→21:16)
[2025-08-02] MEDS: DECADRON IV (17:59)
[2025-08-02 18:23] LABS: Glucose - Point of Care 141 mg/dl (70-99)
--- NOTE | 2025-08-02 18:35 | W.PN.UPDATE ---
Update Note
Progress Note Update
Called to bedside for BALE PILER. Pt feel with head trauma. Currently pt awake and anxious, appears significantly SOB. AAOx4, appears chronically ill. tachy, reg rhythm, normal S1/S2. Dec AE, wheezes, and rhonchi B/L. CN2-12 intact. L forehead lac.
A/P:
-STAT ABG
-STAT CT brain
-start BIPAP 15/8 with 2L O2 flow (will adjust O2 based on ABG now and subsequent)
-case discussed with Dr. Lizama as well as Dr. Samayoa. Hospice has been recommended due to end stage COPD. Pt has confirmed that he wishes to remain FULL CODE.
-should the pt fail BIPAP he will need to be intubated and, in that case, I doubt he would ever be able to be successfully extubated
Total critical care time spent = 32 min
[2025-08-02 18:40] LABS: B.E. 14.2 mmol/L; O2 Saturation % 87.2 % (94-98)
--- NOTE | 2025-08-02 18:40 | PTCARENOTE ---
Went into room at 18:00. Found patient sitting on side of bed with head bowed down between his legs. Patient snoring. Woke patient up and when he sat up blood visible all over the left side of his face. When questioning patient, patient was altered
compared to prior assessment. Able to answer orientation questions but then quiet before being prompted to speak. Patient stated that he fell while asleep on the side of the bed. Unsure when it happened but reported being 'fine'. Significantly more
tachypneic, in clear respiratory distress. BP 110/81, HR 138, RR 26, 86% on 3L - > Improved to 91% on 5L NC. Communicated fall and patient's status to attending, Dr. Lizama. Reached out to cross coverage Dr. Epps who is in house. STAT ABG and CT
ordered. Due to concern of patient's overall status, CATEGORY DEVELOPMENT ANALYST called to expedite care.
[2025-08-02 18:43] LABS: HCO3 47.6 mmol/L (21-28); PCO2 106 mmHg (35-48); PO2 56 mmHg (83-108)
[2025-08-02 19:16] LABS: Blood Urea Nitrogen 18 mg/dl (9-20); Calcium 9.9 mg/dl (8.4-10.2); Chloride 89 mmol/L (98-107); Estimated Creatinine Clearance 105 ml/min; Glucose 121 mg/dl (70-99); Potassium 5.9 mmol/L (3.5-5.1); Sodium 136 mmol/L (135-145); eGFR > 60.00
[2025-08-02] MEDS: MUCINEX PO (19:24)
[2025-08-02 19:36] LABS: Carbon Dioxide 45 mmol/L (22-30)
[2025-08-02] MEDS: SYMBICORT 160/4.5 MCG INHALER INH (19:45)
--- NOTE | 2025-08-02 20:05 | PTCARENOTE ---
per lab, blue tube not filled. coags redrawn, all resulted WNL.
[2025-08-02 20:13] LABS: INR 0.94; PT 12.7 Sec (11.4-14.6)
[2025-08-02 20:14] LABS: APTT 24.0 Sec (23.4-35.0)
[2025-08-02 21:09] LABS: B.E. 14.1 mmol/L; O2 Saturation % 93.5 % (94-98); PO2 64 mmHg (83-108)
[2025-08-02 21:10] LABS: HCO3 46.2 mmol/L (21-28); PCO2 96 mmHg (35-48)
[2025-08-02] MEDS: CLARITIN PO (21:15)
[2025-08-02] MEDS: AMBIEN PO (21:15)
--- NOTE | 2025-08-02 21:15 | PTCARENOTE ---
Critical ABG results relayed to HSARMAINE Liz. Repeat ABG ordered, drawn by RT.
[2025-08-02] MEDS: DEXTROSE 50% SYRINGE 25 GRAMS IV (21:26)
[2025-08-02] MEDS: NOVOLIN R 0.05 UNITS IV (21:34)
[2025-08-02 21:35] LABS: Glucose - Point of Care 179 mg/dl (70-99)
--- NOTE | 2025-08-02 21:56 | PTCARENOTE ---
K 5.9, pt on bipap unable to take PO meds. SUPERVISOR PARTICLEBOARD notified. Orders placed for insulin/dextrose. Baseline blood glucose 179. 25mg IV dextrose given. 5 units IV insulin given. Blood glucose Q1x2 Q2x2 per protocol.
--- NOTE | 2025-08-02 22:25 | PTCARENOTE ---
per BUS CLEANER and Dr Browning, ok to bring patient down to CT if he can lay flat for 5 minutes and maintain SaO2.
[2025-08-02 22:40] LABS: Glucose - Point of Care 73 mg/dl (70-99)
[2025-08-02] MEDS: DUONEB 3 ML INH (23:12)
[2025-08-02 23:17] LABS: Glucose - Point of Care 108 mg/dl (70-99)
[2025-08-02 23:51] LABS: Glucose - Point of Care 109 mg/dl (70-99)
[2025-08-03] VITALS (23 sets, daily range): BP systolic 117–190; BP diastolic 81–140; PULSE 2–100
[2025-08-03 00:20] LABS: Potassium 4.4 mmol/L (3.5-5.1)
[2025-08-03 02:10] LABS: Glucose - Point of Care 120 mg/dl (70-99)
[2025-08-03] MEDS: DUONEB 3 ML INH ×2 (03:54→23:00)
[2025-08-03 04:08] LABS: Glucose - Point of Care 123 mg/dl (70-99)
[2025-08-03 04:14] LABS: Venous Blood Gas B.E. 20.6 mmol/L (-4 to +4); Venous Blood Gas O2 Sat % 64.5 %
[2025-08-03 04:33] LABS: Hematocrit 47.3 % (39.0-52.0); Hemoglobin 14.9 g/dL (13.0-18.0); Mean Corp Hgb Conc. 31.5 g/dL (33.0-37.0); Mean Corpuscular Volume 95.2 fL (80.0-94.0); Nucleated Red Blood Cells % 0 % (-); Platelet Count 262 10^3/uL (130-400); Red Cell Dist. Width 13.4 % (11.5-14.5)
[2025-08-03 05:03] LABS: Blood Urea Nitrogen 17 mg/dl (9-20); Calcium 9.6 mg/dl (8.4-10.2); Chloride 88 mmol/L (98-107); Estimated Creatinine Clearance 105 ml/min; Glucose 114 mg/dl (70-99); Potassium 5.5 mmol/L (3.5-5.1); Sodium 135 mmol/L (135-145); eGFR > 60.00
[2025-08-03 05:04] LABS: B.E. 17.5 mmol/L; O2 Saturation % 97.3 % (94-98); PO2 77 mmHg (83-108)
[2025-08-03 05:06] LABS: HCO3 47.2 mmol/L (21-28); PCO2 78 mmHg (35-48)
[2025-08-03] MEDS: DECADRON 4 MG IV ×2 (05:25→17:11)
[2025-08-03 05:26] LABS: Carbon Dioxide 50 mmol/L (22-30)
--- NOTE | 2025-08-03 07:36 | W.PN.HOSP.TC ---
Today's Communication/Plan
-
Follow-up CT head final read
Nightly BiPAP and trend PaCO2
PRN BiPAP for mental status changes or lethargy
1 dose Lokelma today
Repeat BMP in afternoon
SpO2 goal 88 to 92%
Assessment / Plan
Assessment / Plan
#Acute on chronic hypoxemic and hypercapnic respiratory failure
#COPD with exacerbation
#Hypercapnic toxicosis
#Former tobacco user
- Patient with severe end-stage COPD, 2 L O2 baseline; Gold E, group 4 disease with recent FEV1 expected 23%
- Home regimen includes LABA, LAMA, ICS as well as as needed albuterol inhaler; multiple hospitalizations for exacerbations
- Has not been a candidate for other agents such as anti-IL-4, PDEi as he is noncompliant and misses follow-up appointments
- Upon arrival started on IV steroid, RTC bronchodilators, and maintained on home maintenance therapy
- Has since been weaned back near O2 baseline, symptomatically improved though still very hypercapnic
- Continue with current management, plan for prolonged prednisone taper at discharge to likely standing dose
- Started on BiPAP with improvement of pCO2 from 106-78; will continue with nightly BiPAP and monitor ABG
- SpO2 goal 88 to 94%, wean as able
- Monitor MSE, BiPAP PRN if lethargic
#Fall with head injury
- Became altered in the context of worsening PaCO2 and fell forward hitting his head
- CT head without contrast no signs of ICH on prelim read the final read pending
- Will follow-up final read, continue with correction of CO2, fall precaution
#Hyperkalemia
- Potassium this morning 5.5; no symptoms were changes to ECG/telemetry
- Not currently on any potassium sparing agents; possibly due to respiratory acidosis
- Continue to trend daily BMP and monitor telemetry
- Plan to temporize K >6 or presence of ECG changes
#Chronic HFpEF
- No known history of ischemic heart disease; recent echo with LVEF 63%
- Home regimen includes Lasix 20 mg daily; not on any GDMT
- Mildly elevated BNP here though otherwise appears euvolemic
- Monitor I's and O's, daily weight
#Peripheral neuropathy
#NIDDM
- Unclear etiology, does have history of NIDDM but not on current antihyperglycemic regimen
- Home regimen includes gabapentin 3 times daily and as needed nightly for neuropathy
- Appears stable at this time
#History of anxiety and depression
- Continue home Wellbutrin
#History of insomnia
- Continue zolpidem and melatonin
#History of chronic pain
- continue oxycodone as needed
Code status: Full code
dvt ppx: Lovenox
diet: regular
Dispo: Home care when medically stable
Poor prognosis with noncompliance and presence of pulmonary cachexia
Anticipated Discharge: > 48 hours
Subjective/Interval History
-
Date of Service: August 03, 2025
Seen and examined at the bedside. Yesterday evening became lethargic and fell over and hit his head with a laceration noted. ABG at that time with pH 7.[address] head ordered and final read pending, was placed on BiPAP with improvement
to his pH and pCO2. AFVSS this morning on 2 L O2 with SpO2 mid 90s. Sitting at the bedside without BiPAP having his breakfast.
Morning labs with WBC 17.5, potassium 5.5. ABG this morning with pCO2 down from 106-78
Patient states he feels much better today and denies any complaints
Objective Data
-
Labs:
Laboratory Results
08/02/25 08/02/25 08/02/25
18:58 19:55 21:01
WBC
Hgb
Hct
Plt Count
PT 12.7
INR 0.94
APTT 24.0
HCO3 46.2 H*
Sodium
Potassium
Chloride
Carbon Dioxide 45 H
BUN
Creatinine
Glucose
Calcium
08/02/25 08/03/25 08/03/25
23:57 04:06 04:39
WBC 17.5 H
Hgb 14.9
Hct 47.3
Plt Count 262
PT
INR
APTT
HCO3 47.2 H*
Sodium 135
Potassium 4.4 D 5.5 H
Chloride 88 L
Carbon Dioxide 50 H
BUN 17
Creatinine 0.7
Glucose 114 H
Calcium 9.6
Vital Signs:
Vital Signs
Temp Pulse Resp BP Pulse Ox
98 F 71 24 126/95 95
08/03/25 07:34 08/03/25 03:54 08/03/25 03:54 08/02/25 23:16 08/03/25 03:54
I&O
08/02/25 08/03/25 08/04/25
06:59 06:59 06:59
Intake Total 1410 / 1410 180 / 180
Output Total 1575 / 1575 1300 / 1300
Balance -165 / -165 -1120 / -1120
Review of Systems
-
History Source: Patient
All other systems: Reviewed and negative
Physical Exam
-
General: Well Developed, No Apparent Distress, Appears Chronically Ill and Cachectic
HEENT: Normocephalic, Atraumatic, Moist Mucous Membranes, Anicteric, PERRLA and Oxygen
Respiratory: Wheezes and Non Labored Respirations; Negative Rhonchi, Crackles or Accessory Resp Muscle Use
Cardiac: Regular Rhythm and S1/S2; Negative Murmur, Rub or Gallop
GI: Soft, Nontender, Nondistended and Normal Bowel Sounds
Musculoskeletal: No Clubbing, No Cyanosis and No Edema
Skin: Warm and Dry; Negative Rash
Neuro: AO x 3, Tremors, Nonfocal/Grossly Intact and Central Nerve's Intact
Psych: Anxious
Data Reviewed
-
Labs: Labs Reviewed by me and Discussed with Patient
[2025-08-03] MEDS: PULMICORT 0.25 MG INH ×2 (07:48→19:19)
[2025-08-03] MEDS: SYMBICORT 160/4.5 MCG INHALER 2 PUFF INH ×2 (07:48→19:22)
[2025-08-03] MEDS: VENTOLIN NEBULES 2.5 MG INH ×4 (07:48→19:19)
[2025-08-03] MEDS: SPIRIVA RESPIMAT 2.5 MCG 2 PUFF INH (07:48)
[2025-08-03] MEDS: MUCINEX 600 MG PO ×2 (08:49→19:54)
[2025-08-03] MEDS: NEURONTIN 300 MG PO ×3 (08:49→22:15)
[2025-08-03] MEDS: WELLBUTRIN XL (24 hour extended release) 150 MG PO (08:49)
[2025-08-03] MEDS: ROXICODONE 5 MG PO ×3 (08:53→22:15)
--- NOTE | 2025-08-03 13:05 | PTCARENOTE ---
Pt very SOB on 5lO2 POX 91% and working hard to breathe becoming veery anxious, Dr Lizama TT Morphine ordered
[2025-08-03] MEDS: LOKELMA 10 GRAM PO (13:09)
[2025-08-03] MEDS: MORPHINE SULFATE 1 MG IV ×3 (13:15→23:04)
--- NOTE | 2025-08-03 13:15 | PTCARENOTE ---
1 Mg of morphine given , tried to get ppt to go on Bipap he refused.
--- NOTE | 2025-08-03 13:38 | PTCARENOTE ---
Pt much better calm and SOb much improved. O2 down to 3 L PCXR in progree.
--- NOTE | 2025-08-03 15:11 | PTCARENOTE ---
PT working hard to breathe very SOB pox on 3l 90%. Pt very restless and anxiuos
--- NOTE | 2025-08-03 15:28 | PTCARENOTE ---
PT givem 1 Mg of morphine and on Bipap 14/5 8 L O2. at bedside.
[2025-08-03 16:22] LABS: Blood Urea Nitrogen 24 mg/dl (9-20); Calcium 9.4 mg/dl (8.4-10.2); Chloride 86 mmol/L (98-107); Estimated Creatinine Clearance 123 ml/min; Glucose 184 mg/dl (70-99); Potassium 4.3 mmol/L (3.5-5.1); Sodium 132 mmol/L (135-145); eGFR > 60.00
[2025-08-03 17:06] LABS: Carbon Dioxide 45 mmol/L (22-30)
[2025-08-03] MEDS: LOVENOX 40 MG SC (17:11)
[2025-08-03] MEDS: CLARITIN 10 MG PO (22:15)
[2025-08-03] MEDS: AMBIEN 5 MG PO (22:15)
[2025-08-04] VITALS (26 sets, daily range): BP systolic 107–174; BP diastolic 82–133; PULSE 2–101
[2025-08-04] MEDS: DUONEB 3 ML INH ×2 (03:04→23:33)
[2025-08-04] MEDS: ROXICODONE 5 MG PO ×4 (03:23→21:50)
--- NOTE | 2025-08-04 03:55 | PTCARENOTE ---
Pt c/o SOB, increased work of breathing. CORNETIST contacted, STAT medication given, pt placed on BiPAP by RT. Pt c/o pain in b/l feet. PRN medication given per NOV. Pt tolerated BiPAP for several hours before calling to be placed back to [place]. Denies
additional complaints at this time. Call arvizu within reach. Care ongoing.
[2025-08-04 04:33] LABS: Venous Blood Gas B.E. 19.5 mmol/L (-4 to +4); Venous Blood Gas O2 Sat % 99.6 %
[2025-08-04 04:42] LABS: Hematocrit 42.3 % (39.0-52.0); Hemoglobin 14.1 g/dL (13.0-18.0); Mean Corp Hgb Conc. 33.3 g/dL (33.0-37.0); Mean Corpuscular Volume 92.6 fL (80.0-94.0); Nucleated Red Blood Cells % 0 % (-); Platelet Count 252 10^3/uL (130-400); Red Cell Dist. Width 13.2 % (11.5-14.5)
[2025-08-04 05:07] LABS: Blood Urea Nitrogen 16 mg/dl (9-20); Calcium 9.2 mg/dl (8.4-10.2); Chloride 89 mmol/L (98-107); Estimated Creatinine Clearance 123 ml/min; Glucose 210 mg/dl (70-99); Potassium 3.9 mmol/L (3.5-5.1); Sodium 134 mmol/L (135-145); eGFR > 60.00
[2025-08-04 05:29] LABS: Carbon Dioxide 43 mmol/L (22-30)
[2025-08-04] MEDS: DECADRON 4 MG IV ×2 (06:11→17:36)
--- NOTE | 2025-08-04 06:37 | PTCARENOTE ---
Pt c/o urge to have BM, requests to go to bathroom. Pt states he has not been OOB yet this admission. This RN suggested BSC d/t SOB throughout admission. Pt adamantly refused to use BSC, requests walking to bathroom. This RN educated pt about risks
and discouraged bathroom at this time. Pt continues to refuse BSC, states he 'doesn't have to go that badly.' Pt requests linen change. Pt stood at side of bed to assist with linen change, became SOB, tachypneic. Pt assisted back to bed. C/o
increased work of breathing, SOB. This RN coached breathing, assisted pt to a comfortable position. Call arvizu within reach.
--- NOTE | 2025-08-04 07:16 | W.PN.HOSP.TC ---
Today's Communication/Plan
-
ativan prn
CT Chest PE and procalcitonin to comprehensively evaluate etiologies of dyspnea
f/u respiratory about BIPAP vs High-flow with PEEP
reengage discussion of hospice tomorrow
Assessment / Plan
Assessment / Plan
In summary, 58 yo M PMH COPD, HFpEF, anxiety/depression, insomnia p/w exertional dyspnea c/f acute COPD exacerbation
#Acute on chronic hypoxemic and hypercapnic respiratory failure
#COPD with exacerbation
#Hypercapnic toxicosis
#Former tobacco user
- Patient with severe end-stage COPD, 2 L O2 baseline now on 4 L O2
- PFTs: recent FEV1 23%, Gold E classification severity
- Home regimen includes LABA, LAMA, ICS and prn albuterol inhaler; multiple hospitalizations for exacerbations
- Has not been a candidate for other agents such as anti-IL-4, PDEi as he is noncompliant and misses follow-up appointments
- On IV dexamethasone, RTC bronchodilators, and maintained on home maintenance therapy
- Upon discharge, plan for prolonged prednisone taper at discharge to likely standing dose
- Started on BiPAP at night; monitor blood gas
- SpO2 goal 88 to 94%
- ativan 0.25mg q12h prn for respiratory distress
- follow-up respiratory about high flow with peep if not able to tolerate BIPAP
- per nursing communication received after bedside rounds, and patieny may be more amenable to hospice
- for now, CT CHest PE and procalcitonin to evaluate other etiologies
#Fall with head injury
- Became altered in the context of worsening PaCO2 and fell forward hitting his head
- CT head without contrast no signs of ICH
- Denies headache this morning and is AOx3, grossly neurologically intact
#Chronic HFpEF
- No known history of ischemic heart disease; 07/16/2025 echo with LVEF 63%
- Home Lasix 20 mg daily; currently not on any GDMT
- Mildly elevated BNP here though otherwise appears euvolemic
- Monitor I's and O's (net -1325 mL over past 24 hours), daily weight
#Peripheral neuropathy
#NIDDM
- Unclear etiology, does have history of NIDDM but not on current antihyperglycemic regimen
- Home regimen includes gabapentin 3 times daily and as needed nightly for neuropathy
- Appears stable at this time
#Hyperkalemia -- resolved
- K 3.9 this morning
#History of anxiety and depression
- Continue home Wellbutrin
#History of insomnia
- Continue zolpidem and melatonin
#History of chronic pain
- continue oxycodone as needed
Code status: Full code
dvt ppx: Lovenox
diet: regular, senna and miralax added as scheduled for 2 days, then to prn
Dispo: Home care when medically stable
Anticipated Discharge: > 48 hours
Subjective/Interval History
-
Date of Service: August 04, 2025
58 yo M PMH COPD, HFpEF, anxiety/depression, insomnia p/w exertional dyspnea c/f acute COPD exacerbation
FEV1 23%, has had 3 exacerbations in the last few months, unable to tolerate steroid taper.
weekend: he fell, with CO2 of 106 on ABG, Head CT negative for bleed
overnight, reports increased work of breathing and put on BIPAP.
he reports feeling better, and says that the bipap at night is helping him
He denies headaches, or chest pain this morning.
When rounding together, he appeared more anxious, and requesting morhpine and/or ativan. discussion about whether he should do bipap.
Objective Data
-
Labs:
Laboratory Results
08/04/25
04:27
WBC 12.6 H
Hgb 14.1
Hct 42.3
Plt Count 252
Sodium 134 L
Potassium 3.9
Chloride 89 L
Carbon Dioxide 43 H
BUN 16
Creatinine 0.6 L
Glucose 210 H
Calcium 9.2
VBG this morning
pCO2 58 (from 110 yesterday)
pH 7.51 / 58 / 143 / 46.3
WBC 12.6 from 17.5
Vital Signs:
Vital Signs
Temp Pulse Resp BP Pulse Ox
97.6 F 91 18 130/95 95
08/04/25 03:28 08/04/25 07:00 08/04/25 07:00 08/04/25 07:00 08/04/25 07:00
4 L O2
no arrhythmias on telemetry
I&O
08/03/25 08/04/25 08/05/25
06:59 06:59 06:59
Intake Total 180 / 180
Output Total 1300 / 1300 2024
Balance -1120 / -1120 -2024 / -2024
Review of Systems
-
History Source: Patient
Constitutional: Reports No Symptoms
EENT: Reports No Symptoms Reported
Respiratory: Reports Trouble Breathing
Cardiac: Reports No Symptoms
Abdomen/GI: Reports No Symptoms
Breast: Reports No Symptoms
Musculoskeletal: Reports No Symptoms
Neuro: Reports No Symptoms
Physical Exam
-
General: Conversant and Appears Chronically Ill
HEENT: Normocephalic and Oxygen
Respiratory: Wheezes
Cardiac: Other (no murmurs on my exam)
GI: Soft, Nontender and Normal Bowel Sounds
Musculoskeletal: No Edema
Neuro: AO x 3 and Nonfocal/Grossly Intact
Psych: Anxious
[2025-08-04] MEDS: PULMICORT 0.25 MG INH (07:30)
[2025-08-04] MEDS: VENTOLIN NEBULES 2.5 MG INH ×4 (07:31→19:39)
[2025-08-04] MEDS: SYMBICORT 160/4.5 MCG INHALER 2 PUFF INH ×2 (07:31→19:40)
[2025-08-04] MEDS: SPIRIVA RESPIMAT 2.5 MCG 2 PUFF INH (07:31)
[2025-08-04] MEDS: NEURONTIN 300 MG PO ×4 (09:27→21:05)
[2025-08-04] MEDS: MUCINEX 600 MG PO ×2 (09:27→20:03)
[2025-08-04] MEDS: WELLBUTRIN XL (24 hour extended release) 150 MG PO (09:27)
[2025-08-04] MEDS: SENOKOT-S 1 TABLET PO ×2 (10:29→20:03)
[2025-08-04] MEDS: ATIVAN 0.25 MG SL ×2 (10:31→21:05)
[2025-08-04 12:36] LABS: Procalcitonin < 0.05 ng/ml (0.0-0.25)
--- NOTE | 2025-08-04 13:23 | WOUNDNOTE ---
NOE RN NOTE: Asked to see patient by nurse Irizarry who put in wound consult. Patient has very tiny linear closed laceration to forehead, no longer bleeding. Recommended small silicone foam change prn drainage. Nurse will cancel consult.
--- NOTE | 2025-08-04 14:20 | W.PN.UPDATE ---
Update Note
Progress Note Update
I saw and evaluated the patient with the resident.
A/P:
# Acute on chronic hypoxic and hypercapnic respiratory failure
# COPD with exacerbation
# Former tobacco user
Patient with severe end-stage COPD on 2 L O2 baseline
Home regimen includes LABA, LAMA, ICS as well as as needed albuterol inhaler; multiple hospitalizations for exacerbations
Has not been a candidate for other agents such as anti-IL-4, PDEi as he is noncompliant and misses follow-up appointments
Has since been weaned back near O2 baseline, symptomatically improved though still very hypercapnic
Continue current Decadron 4 mg BID
Started on BiPAP although at times pt has been refusing due to discomfort
Could check with RT if high flow NC (for the PEEP) would be more tolerable to the patient.
Ativan0.25 mg OTC added per pt and family request for anxiety
Check CT PE for completeness sake
Noted procal negative
# Fall with head injury
CT head 08/02: No evidence for acute intracranial hemorrhage or scalp soft tissue hematoma.
Fall precautions
# Hyperkalemia, resolved
# Chronic HFpEF
No known history of ischemic heart disease; recent echo with LVEF 63%
Home regimen includes Lasix 20 mg daily
# Peripheral neuropathy
# NIDDM
Home regimen includes gabapentin 3 times daily and as needed nightly for neuropathy
Appears stable at this time
# History of anxiety and depression
Continue home Wellbutrin
Ativan 0.25 mg OTC added per pt and family request for anxiety
# History of insomnia
Continue zolpidem and melatonin
# History of chronic pain
continue oxycodone as needed
DW in person at great length
total time 51 min
--- NOTE | 2025-08-04 16:28 | CM ---
F/U: Patient has anxiety so started on medication for this. Patient may need BIPAP (?) although saw patient does not like to wear this. So far recommending Home PT so will need to ensure this is the ultimate plan. PLAN: Home PT vs. SNF.
[2025-08-04] MEDS: LOVENOX 40 MG SC (17:36)
--- NOTE | 2025-08-04 19:44 | PTCARENOTE ---
Patient having increased work of breathing this morning, refused bipap, was demanding RN give him morphine. RN contacted hospitalist team about patient work of breathing and request. Ultimately, patient received 0.25mg SL Ativan. Continued to refuse
bipap until he became acutely short of breath again walking back from bathroom. Pt went on bipap for 2 hours. He Remains on 2-4L NC at 95% spo2 for most of the shift.
Oxycodone given for BLE pain which is not new. At shift change- 1844- pt partner came to nurses station stating patient has had a headache all day. She is worried about his fall on a couple days ago causing him head pain. RN reviewed post
fall CT head results with patient partner and went into room to ask patient about pain region, also checked pupils and neck range of motion. Everything was intact. Pt continued to say he was in 8/10 head pain. RN asked if oxycodone helps with the
head pain at all, patient said no. would like doctor to be contacted about head pain given recent fall. RN reached out to hospitalist and cross cover to relay findings/complaints. Oncoming RN informed of above interaction.
--- NOTE | 2025-08-04 20:40 | W.PN.UPDATE ---
Update Note
Progress Note Update
-Called at the bedside by the nursing staff. Patient`s / Partner requested comfort measures per the staff.
-Patient is sitting on bed and watching TV, at bedside, she mentioned that he is suffering and want to be comfort and he will discharge to hospice. He is on oxycodone 5mg x 20 years and is not helping him.
-I tried to explain what comfort care, stated that she knows what is as she working in [employer].
-As the patient is alert and oriented x3 i mentioned to the patient that I have to explain what is comfort care is as he alert and oriented. after done explaining, Patient stated ' I'm not actively dying, I do not want hospice or comfort care, all
what i asked for is manage my foot pain'
-Back to the room with the assigned nurse and discussed what is currently due orders for him ( gabapentin 300mg PRN hs, oxycodone 4mg PRN) patient agreed to try to manage his current foot pain. / Partner stated ' this Sh..t you have been taking
for years and will not help you'. I asked the patient again if he is okay to try and he agreed with the plan and to communicate any other issues to the nursing staff as needed.
[2025-08-04] MEDS: CLARITIN 10 MG PO (21:05)
[2025-08-04] MEDS: AMBIEN 5 MG PO (21:05)
[2025-08-04] MEDS: MELATONIN 5 MG PO (21:05)
[2025-08-04] MEDS: LOPRESSOR 5 MG IV (23:20)
[2025-08-04 23:21] LABS: Glucose - Point of Care 326 mg/dl (70-99)
[2025-08-04] MEDS: OFIRMEV 100 IV (23:29)
[2025-08-04 23:38] LABS: Venous Blood Gas B.E. 10.1 mmol/L (-4 to +4); Venous Blood Gas O2 Sat % 99.9 %
[2025-08-04 23:39] LABS: Hematocrit 44.8 % (39.0-52.0); Hemoglobin 14.8 g/dL (13.0-18.0); Mean Corp Hgb Conc. 33.0 g/dL (33.0-37.0); Mean Corpuscular Volume 92.2 fL (80.0-94.0); Platelet Count 327 10^3/uL (130-400); Red Cell Dist. Width 13.3 % (11.5-14.5)
[2025-08-04 23:42] LABS: Venous Blood Gas O2 Therapy 3 L
--- NOTE | 2025-08-04 23:42 | W.PN.UPDATE ---
Update Note
Progress Note Update
Around 23:11, hr in 150s, EKG done that shows STEMI, [employer] was called. EKG not accurate due to tremors. EKG repeated.
- bp 150s/70s, SPO2 93% on 3 L of O2, afebrile. patient denies chest pain, per staff tremors is not new.
-One time order of IV Lopressor 5mg was given and hr down to 110s.
-Patient looks in distress and unwell which is a change from earlier when I spoke to him at the beginning of the shift, Currently with crackle/ wheezing sound and complaining of sob. Patient is using accessory muscles. SPO2 still on 90s% on 3 L of O2
-Chest x-ray, cbc, bmp, mag, troponin, pro bnp, vbg and covid test ordered
-Pro BNP 5060, previously 1350 on 07/29/25 will give one dose of IV lasix now and start patient on his home daily dose of 20mg of po Lasix.
-Troponin 0.035, denies chest pain will trend trop
-lactic acid 2.2 will trend
-VBG (ph 7.35, pco2 71, PO210, hco3 39.2) Patient placed on bipap.
-Around 2 am patient is hypotensive with SBP in 70s. Levophed started.
[2025-08-05] VITALS (44 sets, daily range): BP systolic 61–146; BP diastolic 44–103; PULSE 1–108; BMI 19.4
[2025-08-05 00:01] LABS: Blood Urea Nitrogen 25 mg/dl (9-20); Calcium 8.9 mg/dl (8.4-10.2); Chloride 89 mmol/L (98-107); Estimated Creatinine Clearance 92 ml/min; Glucose 323 mg/dl (70-99); Magnesium 1.8 mg/dl (1.6-2.3); Potassium 5.1 mmol/L (3.5-5.1); Sodium 131 mmol/L (135-145); eGFR > 60.00
[2025-08-05 00:19] LABS: Carbon Dioxide 37 mmol/L (22-30); Troponin I 0.035 ng/ml
[2025-08-05] MEDS: LASIX 20 MG IV (01:15)
--- NOTE | 2025-08-05 02:07 | RR ---
A Rapid Response was called on this patient, please see Rapid Response form.
Pt sustaining HR > 140. Per pt, he felt fine and did not feel like his heart was racing. EKG done, initial result alarmed STEMI, however pt tremulous and majority of EKG was artifact. [employer] ATTENDANT called due to possible STEMI and pt HR sustaining 140-150. No
c/o chest pain. Pt clearly SAUCEDO. Blood sugar 326, significant other admitted to having just given him candy and sweets. Pt aaox3 at baseline. During rapid response, pt began to have garbled speech and decreased level of consciousness. Increased work
of breathing. Bipap initiated by RT. Labs drawn.
[2025-08-05 02:31] LABS: Glucose - Point of Care 179 mg/dl (70-99)
[2025-08-05] MEDS: LEVOPHED 250 IV (02:33)
[2025-08-05 05:09] LABS: Venous Blood Gas B.E. 14.2 mmol/L (-4 to +4); Venous Blood Gas O2 Sat % 99.3 %
[2025-08-05 05:21] LABS: Hematocrit 41.5 % (39.0-52.0); Hemoglobin 13.7 g/dL (13.0-18.0); Mean Corp Hgb Conc. 33.0 g/dL (33.0-37.0); Mean Corpuscular Volume 92.0 fL (80.0-94.0); Nucleated Red Blood Cells % 0 % (-); Platelet Count 307 10^3/uL (130-400); Red Cell Dist. Width 13.5 % (11.5-14.5)
[2025-08-05 05:35] LABS: COVID-19 Antigen Negative (Negative)
[2025-08-05 05:44] LABS: Blood Urea Nitrogen 27 mg/dl (9-20); Calcium 8.9 mg/dl (8.4-10.2); Chloride 91 mmol/L (98-107); Estimated Creatinine Clearance 74 ml/min; Glucose 143 mg/dl (70-99); Potassium 4.4 mmol/L (3.5-5.1); Sodium 134 mmol/L (135-145); eGFR > 60.00
[2025-08-05] MEDS: DECADRON 4 MG IV ×2 (05:51→17:08)
[2025-08-05 05:57] LABS: Troponin I 0.045 ng/ml
[2025-08-05 06:42] LABS: Carbon Dioxide 40 mmol/L (22-30)
--- NOTE | 2025-08-05 07:10 | W.PN.HOSP.TC ---
Addendum entered and electronically signed by Elle Howard MD 08/05/25 17:46:
I saw and evaluated the patient independently. I reviewed and discussed the resident�s note and agree with findings and plan as documented by Dr. Mills.
GENERAL: chronically ill appearing male in some respiratory distress --sitting upright with neb treatment and pushing up with his arms
HEENT: NC/AT--O2 NC [address]
HEART: regular rate and rhythm, +S1, +S2
LUNGS : decreased BS bilaterally--no air movement--dyssynchronous breathing
ABDOM: soft, nontender, nondistended, + bowel sounds
EXT: no cyanosis, clubbing, or edema
NEUROLOGIC: grossly intact
Shock, unclear type- could be hypovolemic, cardiogenic- hypotensive overnight requiring norepinephrine- currently on norepinephrine--pt contemplating hospice--no need to further trend lactic acid or troponins
Acute on chronic hypoxemic and hypercapnic respiratory failure/COPD with exacerbation/Hypercapnic toxicosis/Former tobacco user--severe end stage COPD with FEV1 23%- Home regimen includes LABA, LAMA, ICS and prn albuterol inhaler; multiple
hospitalizations for exacerbations- Has not been a candidate for other agents such as anti-IL-4, PDEi as he is noncompliant and misses follow-up appointments (per documentation)- On IV dexamethasone, around the clock bronchodilators, and maintained
on home maintenance therapy- Upon discharge, plan for prolonged prednisone taper at discharge to likely standing dose- CT chest PE and procalcitonin were both negative from 08/04- lorazepam 0.25mg q12h prn for respiratory distress stopped and
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 will remain full code for now and revisit tomorrow morning.
Nonischemic myocardial injury- troponin 0.045, EKG sinus tachycardia - discontinued troponin trend
Fall with head injury- Became altered in the context of worsening PaCO2 (ABG pCO2 96) and fell forward hitting his head on 08/01- CT head without contrast no signs of ICH - Denies headache this morning and is AOx3, grossly neurologically intact
Chronic HFpEF without exacerbation- No known history of ischemic heart disease; 07/16/2025 echo with LVEF 63%- Home Lasix 20 mg daily; currently not on any GDMT- 08/04 proBNP 5060 from 1350 on 07/29- was given IV lasix once and resumed on PO lasix,
but appears euvolemic- discontinue furosemide
Type 2 DM with Peripheral neuropathy--not any any current treatments- Home regimen includes gabapentin 3 times daily and as needed nightly for neuropathy--SSI
Hyperkalemia -- resolved- K 4.4 this morning
History of anxiety and depression- Continue home Wellbutrin
History of insomnia- Continue zolpidem and melatonin
History of chronic pain - continue oxycodone as needed
Code status-- Full code --In the event he cannot make decisions, he designated Mary Bells as his medical POA.
DVT proph--Lovenox
I was informed that the patient fired pulmonary since they were mentioning hospice.
I again broached the topic of hospice indicating that there is not much more we can do to improve his lung function. This is his third hospitalization since . All for the same COPD exacerbation/inability to breathe. I explained that he
is end-stage and that hospice would be appropriate. I offered hospice information from our [facility] and that he would not be required to sign up for anything just get information. We are waiting for that to happen.
Original Note:
Today's Communication/Plan
-
hospice consult
revisit code status tomorrow
Assessment / Plan
Assessment / Plan
In summary, 58 yo M PMH COPD, HFpEF, anxiety/depression, insomnia p/w exertional dyspnea c/f acute COPD exacerbation
Patient and significant other Mary Naranjo are contemplating hospice. Hospice has been consulted.
However, at this time, he does want to be resuscitated. He says that 'if something happens, then resuscitate him, and if he doesn't come back after like 2 weeks, then let him go.'
The patient also expressed a preference that a smaller team visit him during daily rounds.
#Shock, unclear type
- could be hypovolemic, cardiogenic
- hypotensive overnight requiring norepinephrine
- currently on 2mg norepinephrine
- elevated lactate, now downtrending, discontinued lactate trend
- monitor VS
#Acute on chronic hypoxemic and hypercapnic respiratory failure
#COPD with exacerbation
#Hypercapnic toxicosis
#Former tobacco user
- Patient with severe end-stage COPD, 2 L O2 baseline now on 4 L O2
- PFTs: recent FEV1 23%, Gold E classification severity
- Home regimen includes LABA, LAMA, ICS and prn albuterol inhaler; multiple hospitalizations for exacerbations
- Has not been a candidate for other agents such as anti-IL-4, PDEi as he is noncompliant and misses follow-up appointments (per documentation)
- On IV dexamethasone, RTC bronchodilators, and maintained on home maintenance therapy
- Upon discharge, plan for prolonged prednisone taper at discharge to likely standing dose
- CT chest PE and procalcitonin were both negative from 08/04
- SpO2 goal 88 to 94%
- lorazepam 0.25mg q12h prn for respiratory distress
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
- he is decompensating likely because of hypercapnea (fall over the weekend, lethargy overnight)
- patient continues to endorse full code but expressed interest in hospice. will remain full code for now and revisit tomorrow morning.
#Nonischemic myocardial injury
- troponin 0.045, EKG sinus tachycardia
- discontinued troponin trend
#Fall with head injury
- Became altered in the context of worsening PaCO2 (ABG pCO2 96) and fell forward hitting his head on 08/01
- CT head without contrast no signs of ICH
- Denies headache this morning and is AOx3, grossly neurologically intact
#Chronic HFpEF without exacerbation
- No known history of ischemic heart disease; 07/16/2025 echo with LVEF 63%
- Home Lasix 20 mg daily; currently not on any GDMT
- 08/04 proBNP 5060 from 1350 on 07/29
- was given IV lasix once and resumed on PO lasix, but appears euvolemic
- discontinue furosemide
#Peripheral neuropathy
#NIDDM
- Unclear etiology, does have history of NIDDM but not on current antihyperglycemic regimen
- Home regimen includes gabapentin 3 times daily and as needed nightly for neuropathy
- Appears stable at this time
#Hyperkalemia -- resolved
- K 4.4 this morning
#History of anxiety and depression
- Continue home Wellbutrin
#History of insomnia
- Continue zolpidem and melatonin
#History of chronic pain
- continue oxycodone as needed
Code status: Full code
In the event he cannot make decisions, he designated Mary Naranjo as his medical POA.
dvt ppx: Lovenox
diet: regular, senna and miralax added as scheduled for 2 days, then to prn
Dispo: Home care when medically stable
Anticipated Discharge: > 48 hours
Subjective/Interval History
-
Date of Service: August 05, 2025
interval events:
RR called overnight; tachycardic to 150s; EKG artficats from tremors, but troponin 0.035; proBNP 5060 was given IV lasix and resumed his home 20mg PO lasix
lactate 2.2
VBG 7.35 / 71 / 210 / 39.2
at 02:00, noted hypotensive to SBP 70s, started on norepinephrine, currently on 2mg norepinephrine.
this morning, denies that anything had occurred overnight. tremulous, and endorses full code
Objective Data
-
Labs:
Laboratory Results
08/04/25 08/05/25
23:19 04:56
WBC 15.4 H 12.4 H
Hgb 14.8 13.7
Hct 44.8 41.5
Plt Count 327 D 307
Sodium 131 L 134 L
Potassium 5.1 D 4.4
Chloride 89 L 91 L
Carbon Dioxide 37 H 40 H
BUN 25 H 27 H
Creatinine 0.8 1.0
Glucose 323 H 143 H
Calcium 8.9 8.9
lactate 1.8
troponin 0.045
proBNP 5060 from 1350 07/29
VBG pCO2 73 frrom 71 last night
CXR 08/04/2025
IMPRESSION:
Metallic density projecting over the lateral aspect of the right lower chest, most likely overlying the patient, as this does not appear to be present on previous exams. As warranted, follow-up radiography could be performed.
Hyperinflated lungs compatible COPD. Stable area of scarring within the left upper to midlung.
Vital Signs:
Vital Signs
Temp Pulse Resp BP Pulse Ox
98.4 F 68 19 95/66 92
08/05/25 04:32 08/05/25 06:30 08/05/25 06:30 08/05/25 06:30 08/05/25 06:30
BP 130/90s
HR 90s
RR 34
afebrile
SpO2 92% on 6L
I&O
08/04/25 08/05/25 08/06/25
06:59 06:59 06:59
Intake Total 480 / 480
Output Total 2024 250 / 250 700 / 700
Balance -2024 -2024 230 / 230 -700 / -700
Review of Systems
-
History Source: Patient
Constitutional: Reports No Symptoms
EENT: Reports No Symptoms Reported
Respiratory: Reports Trouble Breathing
Cardiac: Reports No Symptoms
Abdomen/GI: Reports No Symptoms
Breast: Reports No Symptoms
Musculoskeletal: Reports No Symptoms
Neuro: Reports No Symptoms
Physical Exam
-
General: Conversant and Appears Chronically Ill
HEENT: Normocephalic and Oxygen
Respiratory: Wheezes
Cardiac: Other (no murmurs on my exam)
GI: Soft, Nontender and Normal Bowel Sounds
Musculoskeletal: No Edema
Neuro: AO x 3 and Nonfocal/Grossly Intact
Psych: Anxious and Other (Tremors; poor insight into his medical condition)
[2025-08-05] MEDS: VENTOLIN NEBULES 2.5 MG INH ×4 (07:22→18:24)
[2025-08-05] MEDS: SYMBICORT 160/4.5 MCG INHALER 2 PUFF INH ×2 (07:22→19:45)
[2025-08-05] MEDS: SPIRIVA RESPIMAT 2.5 MCG 2 PUFF INH (07:22)
[2025-08-05] MEDS: NEURONTIN 300 MG PO ×4 (08:48→21:05)
[2025-08-05] MEDS: SENOKOT-S PO ×2 (08:49→21:03)
[2025-08-05] MEDS: WELLBUTRIN XL (24 hour extended release) 150 MG PO (08:49)
[2025-08-05] MEDS: MUCINEX 600 MG PO ×2 (08:49→21:03)
[2025-08-05] MEDS: LASIX 20 MG PO (08:51)
[2025-08-05] MEDS: ROXICODONE 5 MG PO ×3 (08:54→23:01)
[2025-08-05] MEDS: ATIVAN 0.25 MG SL (09:55)
--- NOTE | 2025-08-05 10:30 | PTCARENOTE ---
Assumed care of patient at 0645. Assessment completed and documented in shift assessment. Able to wean off Levophed this morning, MAP > 65. Presently on 6L NC maintaining SpO2 > 90%. Significantly Tachypneic and Tachycardic after having large BM on
BSC this AM. However, he did eventually recover. Pending lactic acid and troponin re-check at noon.
[2025-08-05] MEDS: MORPHINE SULFATE 0.5 MG IV ×2 (12:13→17:13)
--- NOTE | 2025-08-05 12:35 | PTCARENOTE ---
Addendum entered by Bettie Tony RN 08/05/25 12:41:
Patient requesting hospice. Patient due for Troponin and Lactic Acid at this time. Okay to hold off on drawing per Dr. Howard.
Original Note:
Patient requesting hospice.
--- NOTE | 2025-08-05 16:45 | CM ---
Patient for hospice consult with liaison to review information about hospice. CM will continue to follow for discharge planning needs.
Plan; pending discussion re hospice
[2025-08-05] MEDS: LOVENOX 40 MG SC (17:14)
--- NOTE | 2025-08-05 17:49 | HOSPNOTE ---
Patient would like to speak with me about hospice and the philosophy tomorrow 08/06 at 10:00am. More information to follow.
[2025-08-05] MEDS: AMBIEN 5 MG PO (21:03)
[2025-08-05] MEDS: CLARITIN 10 MG PO (21:03)
[2025-08-06] VITALS (25 sets, daily range): BP systolic 99–187; BP diastolic 74–120; PULSE 1–134; BMI 19.0
--- NOTE | 2025-08-06 03:13 | PTCARENOTE ---
Pt refusing to keep bipap mask on at this time. Total time on mask 4hr. VSS. Call arvizu within reach. Significant other at bedside. Care ongoing.
[2025-08-06] MEDS: DECADRON 4 MG IV ×2 (05:07→17:08)
[2025-08-06] MEDS: ROXICODONE 5 MG PO ×2 (05:10→09:38)
[2025-08-06 05:51] LABS: Hematocrit 44.1 % (39.0-52.0); Hemoglobin 14.6 g/dL (13.0-18.0); Mean Corp Hgb Conc. 33.1 g/dL (33.0-37.0); Mean Corpuscular Volume 91.1 fL (80.0-94.0); Nucleated Red Blood Cells % 0 % (-); Platelet Count 286 10^3/uL (130-400); Red Cell Dist. Width 13.4 % (11.5-14.5)
[2025-08-06 06:23] LABS: Blood Urea Nitrogen 17 mg/dl (9-20); Calcium 9.1 mg/dl (8.4-10.2); Chloride 94 mmol/L (98-107); Estimated Creatinine Clearance 121 ml/min; Glucose 106 mg/dl (70-99); Potassium 4.3 mmol/L (3.5-5.1); Sodium 134 mmol/L (135-145); eGFR > 60.00
[2025-08-06] MEDS: SPIRIVA RESPIMAT 2.5 MCG 2 PUFF INH (07:28)
[2025-08-06] MEDS: SYMBICORT 160/4.5 MCG INHALER 2 PUFF INH ×2 (07:28→19:16)
[2025-08-06] MEDS: VENTOLIN NEBULES 2.5 MG INH ×4 (07:29→19:15)
--- NOTE | 2025-08-06 07:29 | W.PN.HOSP.TC ---
Addendum entered and electronically signed by Elle Howard MD 08/06/25 13:56:
I saw and evaluated the patient independently. I reviewed and discussed the resident�s note and agree with findings and plan as documented by Dr. Mills.
GENERAL: chronically ill appearing male in some respiratory distress --sitting upright with BiPAP on and pushing up with his arms
HEENT: NC/AT--BiPAP
HEART: regular rate and rhythm, +S1, +S2, tachycardic
LUNGS : decreased BS bilaterally--no air movement--dyssynchronous breathing
ABDOM: soft, nontender, nondistended, + bowel sounds
EXT: no cyanosis, clubbing, or edema
NEUROLOGIC: grossly intact
Shock, unclear type- could be hypovolemic, cardiogenic- hypotensive overnight 08/04 to 08/05-- requiring norepinephrine now off --pt contemplating hospice, waiting for hospice to meet with he and his family--no need to further trend lactic acid or
troponins
Acute on chronic hypoxemic and hypercapnic (he is a CO2 retainer at baseline) respiratory failure with resultant toxic metabolic encephalopathy/COPD with exacerbation/Former tobacco user--severe end stage COPD with FEV1 23%- Home regimen includes
LABA, LAMA, ICS and prn albuterol inhaler-- multiple hospitalizations for exacerbations- Has not been a candidate for other agents such as anti-IL-4, PDEi as he is noncompliant and misses follow-up appointments (per documentation)- On IV
dexamethasone, around the clock bronchodilators, and maintained on home maintenance therapy-- CT chest PE and procalcitonin were both negative from 08/04- lorazepam 0.25mg q12h prn for respiratory distress stopped and morphine started PRN instead-
counseled patient that he should adhere to BIPAP for as much as possible- patient continues to endorse full code but expressed interest in hospice--- will remain full code for now and revisit
Nonischemic myocardial injury- troponin 0.045, EKG sinus tachycardia - discontinued troponin trend
Fall with head injury- Became altered in the context of worsening PaCO2 (ABG pCO2 96, acute on chronic hypercapnia with toxic metabolic acidosis) and fell forward hitting his head on 08/01- CT head without contrast no signs of ICH - Denies headache
this morning and is AOx3, grossly neurologically intact
Chronic HFpEF without exacerbation- No known history of ischemic heart disease-- 07/16/2025 echo with LVEF 63%- Home Lasix 20 mg daily; currently not on any GDMT- 08/04 proBNP 5060 from 1350 on 07/29- was given IV lasix once and resumed on PO lasix,
but appears euvolemic- discontinue furosemide
Type 2 DM with Peripheral neuropathy--not any any current treatments- Home regimen includes gabapentin 3 times daily and as needed nightly for neuropathy--SSI
Hyperkalemia -- resolved- K 4.4 this morning
History of anxiety and depression- Continue home Wellbutrin
History of insomnia- Continue zolpidem and melatonin
History of chronic pain - continue oxycodone as needed
Code status-- Full code --In the event he cannot make decisions, he designated Mary Naranjo as his medical POA.
DVT proph--Lovenox
I was informed that the patient fired pulmonary since they were mentioning hospice.
Waiting for family meeting for hospice.
Original Note:
Today's Communication/Plan
-
- senior consumer insights consultant meeting
- following that, increase to morphine 2mg IV q3h prn
- update code status pending discussion
- continue BIPAP and treatment of COPD
Assessment / Plan
Assessment / Plan
In summary, 58 yo M PMH COPD, HFpEF, anxiety/depression, insomnia p/w exertional dyspnea c/f acute COPD exacerbation
#Acute on chronic hypoxemic and hypercapnic respiratory failure
#COPD with exacerbation
#Hypercapnic toxicosis
#Former tobacco user
- Patient with severe end-stage COPD, 2 L O2 baseline now on 4 L O2
- PFTs: recent FEV1 23%, Gold E classification severity
- Home regimen includes LABA, LAMA, ICS and prn albuterol inhaler; multiple hospitalizations for exacerbations
- Has not been a candidate for other agents such as anti-IL-4, PDEi as he is noncompliant and misses follow-up appointments (per documentation)
- On IV dexamethasone, RTC bronchodilators, and maintained on home maintenance therapy
- Upon discharge, plan for prolonged prednisone taper at discharge to likely standing dose
- CT chest PE and procalcitonin were both negative from 08/04
- SpO2 goal 88 to 94%
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
- he is decompensating likely because of hypercapnea (fall over the weekend, lethargy overnight)
- Scheduled meeting today with senior consumer insights consultant and Mary NORTON at 1:30PM
- Following this meeting, will increase morphine to 2mg IV q3h prn for respiratory distress
#Shock, unclear type - resolved
- hypotensive overnight from 08/04-08/05 that had required norepinephrine briefly
- the preceding overnight was unremarkable
- not on pressors since 08/05 morning
- VSS
#Nonischemic myocardial injury
- troponin 0.045, EKG sinus tachycardia
- discontinued troponin trend
#Fall with head injury
- Became altered in the context of worsening PaCO2 (ABG pCO2 96) and fell forward hitting his head on 08/01
- CT head without contrast no signs of ICH
#Chronic HFpEF without exacerbation
- No known history of ischemic heart disease; 07/16/2025 echo with LVEF 63%
- Home Lasix 20 mg daily; currently not on any GDMT
- discontinue furosemide
#Peripheral neuropathy
#NIDDM
- Unclear etiology, does have history of NIDDM but not on current antihyperglycemic regimen
- Home regimen includes gabapentin 3 times daily and as needed nightly for neuropathy
- Appears stable at this time
#Hyperkalemia -- resolved
- K 4.3 this morning
#History of anxiety and depression
- Continue home Wellbutrin
#History of insomnia
- Continue zolpidem and melatonin
#History of chronic pain
- continue oxycodone as needed
Code status: Full code
In the event he cannot make decisions, he designated Mary Naranjo as his medical POA.
dvt ppx: Lovenox
diet: regular, senna and miralax added as scheduled for 2 days, then to prn
Dispo: Home care when medically stable
Anticipated Discharge: 24 - 48 hours
Subjective/Interval History
-
Date of Service: August 06, 2025
on bipap says he's doing well. wants to decide on code status at when hospice consultnat and SO will be present
Objective Data
-
Labs:
Laboratory Results
08/06/25
05:25
WBC 17.5 H
Hgb 14.6
Hct 44.1
Plt Count 286
Sodium 134 L
Potassium 4.3
Chloride 94 L
Carbon Dioxide Pending
BUN 17
Creatinine 0.5 L
Glucose 106 H
Calcium 9.1
Vital Signs:
Vital Signs
Temp Pulse Resp BP Pulse Ox
97.6 F 114 22 140/102 94
08/06/25 04:06 08/05/25 19:00 08/05/25 19:00 08/05/25 19:00 08/06/25 03:54
I&O
08/05/25 08/06/25 08/07/25
06:59 06:59 06:59
Intake Total 480 / 480
Output Total 250 / 250 2099 / 2099
Balance 230 / 230 -2099 /
Review of Systems
-
History Source: Patient
Constitutional: Reports No Symptoms
EENT: Reports No Symptoms Reported
Respiratory: Reports Trouble Breathing
Cardiac: Reports No Symptoms
Abdomen/GI: Reports No Symptoms
Breast: Reports No Symptoms
Musculoskeletal: Reports No Symptoms
Neuro: Reports No Symptoms
Physical Exam
-
General: Conversant and Appears Chronically Ill
HEENT: Normocephalic and Oxygen
Respiratory: Wheezes
Cardiac: Other (no murmurs on my exam)
GI: Soft, Nontender and Normal Bowel Sounds
Musculoskeletal: No Edema
Neuro: AO x 3 and Nonfocal/Grossly Intact
Psych: Anxious and Other (Tremors)
[2025-08-06 07:39] LABS: Carbon Dioxide 42 mmol/L (22-30)
--- NOTE | 2025-08-06 07:39 | PTCARENOTE ---
Vital signs from previous shift captured. Cannot verify accuracy.
[2025-08-06] MEDS: MUCINEX 600 MG PO ×2 (08:01→22:04)
[2025-08-06] MEDS: NEURONTIN 300 MG PO ×4 (08:01→22:04)
[2025-08-06] MEDS: WELLBUTRIN XL (24 hour extended release) 150 MG PO (08:01)
[2025-08-06] MEDS: MORPHINE SULFATE 0.5 MG IV ×2 (08:04→11:15)
--- NOTE | 2025-08-06 12:49 | PN.CDI ---
CDI
- -
CDI:
Physician Documentation Request
Admit Date: 07/29/25 17:30
Dear Doctor Lina,
Clinical Indicators:
Patient admitted with acute on chronic hypoxemic and hypercapnic respiratory failure, due to COPD exacerbation.
08/05 PN, 'Fall with head injury- Became altered in the context of worsening PaCO2 (ABG pCO2 96)'
08/05 PN,'- he is decompensating likely because of hypercapnea (fall over the weekend, lethargy overnight)'
08/05 (02:07) RN note, 'During rapid response, pt began to have garbled speech and decreased level of consciousness.'
PCO2 trend:
08/02/25 08/03/25 08/05/25
18:33 04:06 04:56
pCO2 106 H*
VBG pCO2 110 H* 73 H*
Bipap 14/5 applied, as tolerated.
Based on the above, could you clarify which, if any of the following, is the most likely etiology of the confusion/altered mental status.
Toxic metabolic encephalopathy
Hypercapnia only, without encephalopathy
Other
Unable to determine
Use of terms such as suspected, likely, concern for, or probable (associated with a specific diagnosis that is being evaluated, monitored, or treated as if it exists) are acceptable and can be coded in the inpatient setting, when documented at the
time of discharge.
Thank you,
YESENIA Lancaster RN
CDI Specialist
available via tiger text
Please use your independent medical judgment in providing your response.
[2025-08-06] MEDS: MORPHINE SULFATE 1 MG IV ×2 (13:49→14:22)
--- NOTE | 2025-08-06 14:43 | W.PN.UPDATE ---
Update Note
Progress Note Update
Patient is now DNR and is being transitioned to comfort measures. He would like to continue to use BIPAP as part of comfort measures.
[2025-08-06] MEDS: ATIVAN 1 MG IV ×3 (14:47→23:11)
--- NOTE | 2025-08-06 15:19 | PTCARENOTE ---
Pt received in bed @ 0700. Restless. Reporting shortness of breath and pain in LE's. PRN Morphine and Roxicodone given as able for pain and shortness of breath. Pt reporting increased shortness of breath @ approximately 1:30. Additional Morphine x1
now orders acknowledged and administered. Pt met with Hospice team. Comfort care measures with BiPAP for comfort. Code status changed to DNR.
--- NOTE | 2025-08-06 15:22 | CM ---
Patient seen at bedside on IMU with physicians earlier today. Patient stated that he wanted to talk to hospice nurse at 1:30.Liaison to return tomorrow following today's discussion for determination of next steps. Patient is now DNR per physician.
CM will continue to follow for discharge planning needs.
Plan; home with hospice pending family discussions and choice
[2025-08-06] MEDS: MORPHINE SULFATE 2 MG IV ×4 (15:47→22:04)
--- NOTE | 2025-08-06 15:48 | HOSPNOTE ---
The patient is in agreement with DNR status. The plan is for comfort measures this evening, medicate as needed try to wean off bipap and the plan is to try to get patient home with hospice. I feel the plan is not realistic but told patient and
family we would try our best and see how the patient does over night. Will re assess in the am.
[2025-08-06] MEDS: LOVENOX SC (17:08)
[2025-08-06] MEDS: MELATONIN 5 MG PO (22:03)
[2025-08-06] MEDS: AMBIEN 5 MG PO (22:04)
[2025-08-06] MEDS: CLARITIN 10 MG PO (22:04)
--- NOTE | 2025-08-06 23:33 | W.PN.UPDATE ---
Update Note
Progress Note Update
TT received that patient has received PRN Morphine 2 mg IV x 3 doses and is now requesting to have Morphine gtt started. Evaluated patient, he is restless, verbalized that he wishes to start Morphine gtt at this time. SO, Mary Naranjo, at
bedside, she is in agreement with starting Morphine gtt at this time. Medication ordered.
[2025-08-07] VITALS: BP 129/97
[2025-08-07 00:05] VITALS: PULSE 1
[2025-08-07] MEDS: MORPHINE 100 IV (00:42)
--- NOTE | 2025-08-07 01:06 | PTCARENOTE ---
Pt remains on comfort care, requiring 2mg IV morphine Q2hr and IV ativan 1mg Q4hr for increased WOB/resp distress. BEEF SPECIALIST notified. Orders placed for morphine gtt. Morphine gtt initiated at 00:42. Pt resting comfortably in bed at this time. Significant
other at bedside. Care ongoing.
[2025-08-07 02:00] VITALS: BP 136/108
[2025-08-07 02:51] VITALS: PULSE 1
[2025-08-07 04:00] VITALS: BP 130/92
[2025-08-07] MEDS: DECADRON 4 MG IV (05:22)
[2025-08-07] MEDS: MORPHINE SULFATE 2 MG IV ×6 (05:22→09:45)
[2025-08-07 06:00] VITALS: BP 110/74
[2025-08-07] MEDS: ATIVAN 1 MG IV ×2 (06:39→10:54)
--- NOTE | 2025-08-07 07:14 | W.PN.HOSP.TC ---
Addendum entered and electronically signed by Elle Howard MD 08/07/25 14:07:
I saw and evaluated the patient independently. I reviewed and discussed the resident�s note and agree with findings and plan as documented by Dr. Mills.
GENERAL: chronically ill appearing male in some respiratory distress --sitting upright without BiPAP on and pushing up with his arms--on morphine drip started overnight
HEENT: NC/AT--BiPAP
HEART: regular rate and rhythm, +S1, +S2, tachycardic
LUNGS : decreased BS bilaterally--no air movement--dyssynchronous breathing
ABDOM: soft, nontender, nondistended, + bowel sounds
EXT: no cyanosis, clubbing, or edema
NEUROLOGIC: grossly intact
Shock, unclear type- could be hypovolemic, cardiogenic- hypotensive overnight 08/04 to 08/05-- requiring norepinephrine now off --pt contemplating hospice, hospice to met with he and his family--initiated comfort meds and pt required morphine drip
overnight--signing on to inpatient hospice--no need to further trend lactic acid or troponins
Acute on chronic hypoxemic and hypercapnic (he is a CO2 retainer at baseline) respiratory failure with resultant toxic metabolic encephalopathy/COPD with exacerbation/Former tobacco user--severe end stage COPD with FEV1 23%- Home regimen includes
LABA, LAMA, ICS and prn albuterol inhaler-- multiple hospitalizations for exacerbations- Has not been a candidate for other agents such as anti-IL-4, PDEi as he is noncompliant and misses follow-up appointments (per documentation)- On IV
dexamethasone, around the clock bronchodilators, and maintained on home maintenance therapy-- CT chest PE and procalcitonin were both negative from 08/04- lorazepam 0.25mg q12h prn for respiratory distress stopped and morphine started PRN instead-pt
can adhere to BiPAP for comfort until he is no longer safe to be on it, then it can come off-
Nonischemic myocardial injury- troponin 0.045, EKG sinus tachycardia - discontinued troponin trend
Fall with head injury- Became altered in the context of worsening PaCO2 (ABG pCO2 96, acute on chronic hypercapnia with toxic metabolic acidosis) and fell forward hitting his head on 08/01- CT head without contrast no signs of ICH - Denies headache
this morning and is AOx3, grossly neurologically intact
Chronic HFpEF without exacerbation- No known history of ischemic heart disease-- 07/16/2025 echo with LVEF 63%- Home Lasix 20 mg daily; currently not on any GDMT- 08/04 proBNP 5060 from 1350 on 07/29- was given IV lasix once and resumed on PO lasix,
but appears euvolemic- discontinue furosemide
Type 2 DM with Peripheral neuropathy--not any any current treatments- Home regimen includes gabapentin 3 times daily and as needed nightly for neuropathy--SSI
Hyperkalemia -- resolved- K 4.4 this morning
History of anxiety and depression- Continue home Wellbutrin
History of insomnia- Continue zolpidem and melatonin
History of chronic pain - continue oxycodone as needed
Code status-- Full code --In the event he cannot make decisions, he designated Mary Naranjo as his medical POA.
DVT proph--Lovenox
Original Note:
Today's Communication/Plan
-
discharge to inpatient hospice
Assessment / Plan
Assessment / Plan
In summary, 58 yo M PMH COPD, HFpEF, anxiety/depression, insomnia p/w exertional dyspnea c/f acute COPD exacerbation
escalated to morphine drip step 2
after further discussion, will be transferred to inpatient hospice.
#Acute on chronic hypoxemic and hypercapnic respiratory failure
#COPD with exacerbation
#Hypercapnic toxicosis
#Former tobacco user
- Patient with severe end-stage COPD, 2 L O2 baseline now on 4 L O2
- PFTs: recent FEV1 23%, Gold E classification severity
- Home regimen includes LABA, LAMA, ICS and prn albuterol inhaler; multiple hospitalizations for exacerbations
- Has not been a candidate for other agents such as anti-IL-4, PDEi as he is noncompliant and misses follow-up appointments (per documentation)
- On IV dexamethasone, RTC bronchodilators, and maintained on home maintenance therapy
- Upon discharge, plan for prolonged prednisone taper at discharge to likely standing dose
- CT chest PE and procalcitonin were both negative from 08/04
- SpO2 goal 88 to 94%
- primary counselor patient that he should adhere to BIPAP for as much as possible
- he is decompensating likely because of hypercapnea (fall over the weekend, lethargy overnight)
- follow-up discussion with hospice today
#Shock, unclear type - resolved
- hypotensive overnight from 08/04-08/05 that had required norepinephrine briefly
- the preceding overnight was unremarkable
- not on pressors since 08/05 morning
- VSS
#Nonischemic myocardial injury
- troponin 0.045, EKG sinus tachycardia
- discontinued troponin trend
#Fall with head injury
- Became altered in the context of worsening PaCO2 (ABG pCO2 96) and fell forward hitting his head on 08/01
- CT head without contrast no signs of ICH
#Chronic HFpEF without exacerbation
- No known history of ischemic heart disease; 07/16/2025 echo with LVEF 63%
- Home Lasix 20 mg daily; currently not on any GDMT
- discontinue furosemide
#Peripheral neuropathy
#NIDDM
- Unclear etiology, does have history of NIDDM but not on current antihyperglycemic regimen
- Home regimen includes gabapentin 3 times daily and as needed nightly for neuropathy
- Appears stable at this time
#Hyperkalemia -- resolved
- K 4.3 this morning
#History of anxiety and depression
- Continue home Wellbutrin
#History of insomnia
- Continue zolpidem and melatonin
#History of chronic pain
- continue oxycodone as needed
Code status: Full code
In the event he cannot make decisions, he designated Mary Naranjo as his medical POA.
dvt ppx: Lovenox
diet: regular, senna and miralax added as scheduled for 2 days, then to prn
Dispo: Home care when medically stable
Anticipated Discharge: Today
Subjective/Interval History
-
Date of Service: August 07, 2025
nurse reports he is on step 2 morphine protocol
says he is feeling good. yesterday's conversation with hospice was 'enlightening'
currently on nebulizer treatment at time of my itnerview
Objective Data
-
Vital Signs:
Vital Signs
Temp Pulse Resp BP Pulse Ox
98.2 F 110 26 122/90 94
08/06/25 23:13 08/06/25 15:35 08/06/25 19:28 08/06/25 07:00 08/07/25 03:18
I&O
08/06/25 08/07/25 08/08/25
06:59 06:59 06:59
Output Total 2099 / 2099
Balance -2099 / -2099
Review of Systems
-
History Source: Patient
Constitutional: Reports No Symptoms
EENT: Reports No Symptoms Reported
Respiratory: Reports Trouble Breathing
Cardiac: Reports No Symptoms
Abdomen/GI: Reports No Symptoms
Breast: Reports No Symptoms
Musculoskeletal: Reports No Symptoms
Neuro: Reports No Symptoms
Physical Exam
-
General: Conversant and Appears Chronically Ill
HEENT: Normocephalic and Oxygen
Respiratory: Wheezes
Cardiac: Other (no murmurs on my exam)
GI: Soft, Nontender and Normal Bowel Sounds
Musculoskeletal: No Edema
Neuro: AO x 3 and Nonfocal/Grossly Intact
Psych: Anxious and Other (Tremors)
[2025-08-07] MEDS: SYMBICORT 160/4.5 MCG INHALER 2 PUFF INH (07:19)
[2025-08-07] MEDS: VENTOLIN NEBULES 2.5 MG INH (07:19)
[2025-08-07] MEDS: SPIRIVA RESPIMAT 2.5 MCG 2 PUFF INH (07:19)
[2025-08-07] MEDS: MUCINEX 600 MG PO (07:41)
[2025-08-07] MEDS: NEURONTIN 300 MG PO (07:41)
[2025-08-07] MEDS: WELLBUTRIN XL (24 hour extended release) 150 MG PO (07:42)
--- NOTE | 2025-08-07 10:05 | HOSPNOTE ---
Spoke with patient and spouse about hospice and remaining inpatient hospice. Patient is on a morphine drip now. The patient really wants to go home and I told him if there is a window I would try but it is not a realistic goal. Much emotional
support provided.
--- NOTE | 2025-08-07 10:23 | CHAP ---
request relayed to Monsignor Pugh on-call . He anticipates arriving around 1pm today.
[2025-08-07] MEDS: MORPHINE SULFATE 4 MG IV (10:41)
--- NOTE | 2025-08-07 10:58 | CM ---
Hospice saw patient .
Hospice indicates GIP today.
Mary SO in agreement with Hospice.
On Morphine gtt.
PLAN GIP starting today
--- NOTE | 2025-08-07 11:06 | W.DCSUMMARY ---
Addendum entered and electronically signed by Elle Howard MD 08/07/25 13:59:
Read, reviewed, and agree. See same day progress note for additional details. Time spent coordinating care, DC planning, review of DC plan of care with resident, transition of care, review of records in EMR, med rec, consults, notes, d/w
consultants, nursing, family, and CM = 33 minutes
Original Note:
Discharge Summary
Discharge Data
Date of Admission: 07/29/25
Date of Discharge: 08/07/25
-
Pending Results: No
Hospital Course
Discharging Physician : Dr. Elle Howard; Dr. Fortunato Mills
Disposition : Inpatient Hospice
Principal Discharge diagnosis : Acute on chronic hypoxemic and hypercapnic respiratory failure, COPD with exacerbation, Hypercapnic toxicosis, Shock, unclear type, Nonischemic myocardial injury, Fall with head injury
Chronic Discharge diagnosis : COPD, Former tobacco user, Chronic HFpEF without exacerbation, Peripheral neuropathy, NIDDM, History of anxiety and depression, History of insomnia, History of chronic pain
Hospital Course :
58 yo M PMH COPD, HFpEF, anxiety/depression, insomnia who p/w exertional dyspnea c/f acute COPD exacerbation. Patient has been admitted multiple times for COPD exacerbation over the past few months because he is unable to tolerate a steroid taper.
He is a former smoker with 50-pack year history. And per chart documentation, he was unable to comply with his outpatient medication regimen and attend to follow-up appointments due to a health insurance issue over the past several years. For these
reasons, his lung function has deteriorated significantly, now to a most recent FEV1 of 23%. Pulmonology was consulted and deemed him hospice appropriate given significant decline in lung function and inability to tolerate a steroid taper in the
outpatient setting. His hospital course was notable for increasing oxygen requirements to eventual BIPAP. Furthermore, it should be noted that he experiences hypercapnic toxicosis multiple times should he not adhere to BIPAP. For example, he fell
with a headstrike in the setting of ABG pCO2 to 106. He was also noted to be altered/lethargic in the setting of elevated pCO2 again after being off the BIPAP. It was also noted that on 08/04-08/05, he experienced severe respiratory distress that
also led to hypotension requiring pressors. He has since been off pressors.
A comprehensive evaluation of alternative etiologies for respiratory distress, dyspnea was negative (CT Chest PE negative, procalcitonin negative).
He has started to require increasing morphine IV requirements for managing his air hunger.
After extensive counselling and introspection, the patient and his significant other, Mary, who is his medical POA have opted for comfort measures with a transfer to inpatient hospice. Daily labs have been suspended since 08/07/2025.
The following problems were addressed during this admission.
#Acute on chronic hypoxemic and hypercapnic respiratory failure
#COPD with exacerbation
#Hypercapnic toxicosis
#Former tobacco user
- Patient with severe end-stage COPD, 2 L O2 baseline now on BIPAP
- PFTs: recent FEV1 23%, Gold E classification severity
- Home regimen includes LABA, LAMA, ICS and prn albuterol inhaler; multiple hospitalizations for exacerbations
- Has not been a candidate for other agents such as anti-IL-4, PDEi as he is noncompliant and misses follow-up appointments (per documentation)
- On IV dexamethasone, RTC bronchodilators, and maintained on home maintenance therapy
- CT chest PE and procalcitonin were both negative from 08/04/2025
- SpO2 goal 88 to 94%
- cruise counselor patient that he should adhere to BIPAP for as much as possible
- a morphine drip, with escalation to step 2 is ongoing
#Shock, unclear type - resolved
- hypotensive overnight from 08/04-08/05 that had required norepinephrine briefly
- the preceding overnight was unremarkable
- not on pressors since 08/05 morning
#Nonischemic myocardial injury
- troponin 0.045, EKG sinus tachycardia
#Fall with head injury
- Became altered in the context of worsening PaCO2 (ABG pCO2 96) and fell forward hitting his head on 08/01
- CT head without contrast no signs of ICH
#Chronic HFpEF without exacerbation
- No known history of ischemic heart disease; 07/16/2025 echo with LVEF 63%
#Peripheral neuropathy
#NIDDM
- Unclear etiology, does have history of NIDDM but not on current antihyperglycemic regimen
- Home regimen includes gabapentin 3 times daily and as needed nightly for neuropathy
- Appears stable at this time
#Hyperkalemia -- resolved
#History of anxiety and depression
- Continue home Wellbutrin
#History of insomnia
- Continue zolpidem and melatonin
#History of chronic pain
- oxycodone prn available
Important imaging findings :
CXR 07/29/2025
IMPRESSION:
No radiographic evidence of acute cardiopulmonary abnormality.
Unchanged chronic band of airspace consolidation/scarring within the left midlung.
COPD/emphysema.
Head CT 08/02/2025
IMPRESSION:
1. No CT evidence for acute intracranial hemorrhage or scalp soft tissue hematoma.
2. Mild white matter leukoaraiosis in the frontal and parietal lobes.
3. Chiari I malformation.
4. Acute left maxillary sinusitis.
CXR 08/03/2025
IMPRESSION:
Stable radiographic appearance. Findings of emphysema. Stable area of scarring in the lateral aspect of the left upper to midlung.
Chest CT PE 08/04/2025
IMPRESSION:
No findings to suggest central pulmonary embolism.
In comparison to recent prior study, irregular branching opacity is again seen bridging the left upper lobe/lingula, similar pattern, most likely representing scarring.
New small focus of opacification most likely representing subsegmental atelectasis in the left lower lobe.
Prominent pattern of emphysema again identified.
Several additional nonurgent findings again seen, similar to recent prior CT, as noted above.
CXR 08/04/2025
IMPRESSION:
Metallic density projecting over the lateral aspect of the right lower chest, most likely overlying the patient, as this does not appear to be present on previous exams. As warranted, follow-up radiography could be performed.
Hyperinflated lungs compatible COPD. Stable area of scarring within the left upper to midlung.
Discharge Plan
-
Patient Disposition: Hospice - Inpatient [facility]
Discharge Orders:
Discharge Patient (As Directed); Ordered 08/07/25
Ordered By: Fortunato Mills
Discharge Date and Time
Print Language: CROATIAN
[2025-08-07] MEDS: VENTOLIN NEBULES INH (11:11)
--- NOTE | 2025-08-07 12:50 | PTCARENOTE ---
Received pt @ 0700. AAOx3. Anxious. Significant other at bedside. Emotional support provided. Pt transferring to inpatient hospice.
== END 2025-08-07 13:24 | disposition hospice, inpatient (51) | DRG 189 ==
LOC: IMU 17:30
PROVIDERS: Emergency Medicine; Internal Medicine; Internal Medicine Critical Care Medicine; Nurse Practitioner Family; Student in an Organized Health Care Education/Training Program; ADMITTING PHYSICIAN Internal Medicine; ATTENDING PHYSICIAN Internal Medicine; EMERGENCY PHYSICIAN Student in an Organized Health Care Education/Training Program; FAMILY PHYSICIAN Student in an Organized Health Care Education/Training Program; OTHER PHYSICIAN Internal Medicine
PROC: 5A09357 Assistance with Respiratory Ventilation, Less than 24 Consecutive Hours, Continuous Positive Airway Pressure (ICD-10-PCS; 2025-08-02)
DX: J96.21 Acute and chronic respiratory failure with hypoxia (principal); G93.5 Compression of brain; J44.1 Chronic obstructive pulmonary disease with (acute) exacerbation; E87.1 Hypo-osmolality and hyponatremia; E87.4 Mixed disorder of acid-base balance; I5A Non-ischemic myocardial injury (non-traumatic); I50.32 Chronic diastolic (congestive) heart failure; R57.9 Shock, unspecified; I11.0 Hypertensive heart disease with heart failure; J96.22 Acute and chronic respiratory failure with hypercapnia; E78.00 Pure hypercholesterolemia, unspecified; J44.9 Chronic obstructive pulmonary disease, unspecified; I27.20 Pulmonary hypertension, unspecified; E87.8 Other disorders of electrolyte and fluid balance, not elsewhere classified; F32.A Depression, unspecified; G47.00 Insomnia, unspecified; G89.4 Chronic pain syndrome; F41.9 Anxiety disorder, unspecified; J43.9 Emphysema, unspecified; M54.9 Dorsalgia, unspecified; F17.210 Nicotine dependence, cigarettes, uncomplicated; D72.829 Elevated white blood cell count, unspecified; F10.10 Alcohol abuse, uncomplicated; J01.00 Acute maxillary sinusitis, unspecified; E11.42 Type 2 diabetes mellitus with diabetic polyneuropathy; E87.5 Hyperkalemia; S09.90XA Unspecified injury of head, initial encounter; W01.10XA Fall on same level from slipping, tripping and stumbling with subsequent striking against unspecified object, initial encounter; Y93.9 Activity, unspecified; Y92.239 Unspecified place in hospital as the place of occurrence of the external cause; Z66 Do not resuscitate; Z87.01 Personal history of pneumonia (recurrent); Z87.19 Personal history of other diseases of the digestive system; Z79.891 Long term (current) use of opiate analgesic; Z79.51 Long term (current) use of inhaled steroids; Z79.52 Long term (current) use of systemic steroids; Z79.899 Other long term (current) drug therapy; Z88.0 Allergy status to penicillin; Z91.013 Allergy to seafood; Z91.199 Patient's noncompliance with other medical treatment and regimen due to unspecified reason; Z86.74 Personal history of sudden cardiac arrest; Z80.1 Family history of malignant neoplasm of trachea, bronchus and lung; Z80.0 Family history of malignant neoplasm of digestive organs; Z99.81 Dependence on supplemental oxygen; Z51.5 Encounter for palliative care
CPT/HCPCS: 36600; 70450; 71045; 71275; 80048; 80053; 82805; 82962; 83605; 83735; 83880; 84132; 84145; 84484; 85025; 85027; 85610; 85730; 87040; 87070; 87205; 87811; 93005; 94640; 94660; 96365; 96375; 97163; 99285; Q9967